=== PATIENT | female | born 1945 | race African-American/Black ===

== ENCOUNTER → 2019-02-14 | Day surgery (SDC) | payer OTHER ==
[2012-06-30 22:29] VITALS: BP 133/75
--- NOTE | 2019-02-14 11:54 | RAD REPORT ---
EXAM DESCRIPTION: US - Breast Core BX w/US Guidance - 02/14/2019 10:24 am CLINICAL HISTORY: N63.23 COMPARISON: Doppler Waveform and Velocitie dated 11/03/2016 FINDINGS: The patient was referred for ultrasound-guided core biopsy of a lesion in the left retroar eolar region. Real-time pre-procedure sonography was performed by radiologist. On the pre-procedure sonography, the oblong 1.4 cm lesion of interest in the retroareolar left breast was identified. However, this appea red to be related to an inverted nipple rather than a mass. Physical exam demonstrated inverted nippl es bilaterally. Thus, it was determined that biopsy would be deferred at this time in favor of six-mo nth follow-up diagnostic imaging of the left breast. Findings and plan of care were discussed in detail with the patient who agreed. Findings were also di scussed with Dr. Estes 10:50 a.m. 02/14/2019 by telephone. IMPRESSION: Retroareolar 1.4 cm circumscribed lesion is felt to be an inverted nipple. For this reas on, core biopsy was deferred at this time and it is recommended the patient undergo six-month follow- up left breast diagnostic views and left whole breast ultrasound. BI-RADS category 3, probably benign.
== END ==
LOC: DS 09:13
PROVIDERS: ATTEND Surgery
DX: N63.23 Unspecified lump in the left breast, lower outer quadrant (principal)
CPT/HCPCS: 19083

== ENCOUNTER 2021-11-14 16:16 | Inpatient (IN) | payer OTHER ==
--- NOTE | 2021-11-14 17:45 | RAD REPORT ---
EXAM DESCRIPTION: CT - Head Brain Wo Cont - 11/14/2021 5:33 pm CLINICAL HISTORY: AMS COMPARISON: Chest Single View dated 02/20/2018; Chest Pa And Lat (2 Views) dated 02/03/2018; ABDOMEN 1 VIEW KUB dated 11/09/2013; CHEST SINGLE VIEW dated 11/08/2013Head Brain Wo Cont dated 11/01/2016; HEAD BR AIN W O CONTRAST dated 03/14/2015 TECHNIQUE: All CT scans are performed using dose optimization technique as appropriate and may inclu de automated exposure control or mA/KV adjustment according to patient size. FINDINGS: No intracranial hemorrhage, hydrocephalus or extra-axial fluid collection.No areas of brai n edema or evidence of midline shift. Expansile lesion in the right parietal bone is unchanged since 2014 and benign. 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 The paranasal sinuses and mastoids are clear. The calvarium is intact. IMPRESSION: No acute intracranial abnormality.
--- NOTE | 2021-11-14 18:15 | RAD REPORT ---
EXAM DESCRIPTION: RAD - Chest Single View - 11/14/2021 5:52 pm CLINICAL HISTORY: AMS COMPARISON: Chest Single View dated 10/30/2016; Chest Single View dated 09/19/2016; CHEST SINGLE VIE W dated 03/14/2015; CHEST SINGLE VIEW dated 01/16/2014 FINDINGS: Lines: None. Lungs: Some patchy airspace disease is present in the left lung. Pleural: No significant pleural effusions or pneumothorax. Cardiac: Cardiomegaly. Bones: No acute fractures. Other: IMPRESSION: Possible left sided pneumonia.
--- NOTE | 2021-11-14 18:15 | RAD REPORT ---
EXAM DESCRIPTION: RAD - Ankle Left 3 View - 11/14/2021 5:52 pm CLINICAL HISTORY: Pain;Deformity COMPARISON: Ankle Left 3 View dated 09/27/2012 FINDINGS/IMPRESSION: No acute fracture. Status post hindfoot fusion. One of the screws traversing th e talus is fractured. Progressive, advanced degenerative changes are present the ankle. There is comp lete loss of joint space at the ankle. Diffuse soft tissue swelling. Osteopenia limits evaluation for fractures.
[2021-11-14 18:20] LABS: Absolute Lymphocytes (CBC) 1.1 K/uL (0.7-4.9); Hematocrit 27.7 % (36.0-45.0); Lymphocytes % 14.4 % (15.3-44.8); MPV 8.3 fL (7.6-11.3); RBC Red Blood Cell Count 3.18 M/uL (3.86-4.86)
[2021-11-14 18:21] LABS: Protime INR 1.08
[2021-11-14 18:57] LABS: Urine Blood 3+ (Negative); Urine Glucose Negative (Negative); Urine Protein 3+ (Negative); Urine Specific Gravity >=1.030 (1.005-1.030)
[2021-11-14 19:11] LABS: ALT/SGPT 19 U/L (12-78); AST/SGOT 45 U/L (15-37); Albumin 3.2 g/dL (3.4-5.0); Alkaline Phosphatase 207 U/L (45-117); BUN Blood Urea Nitrogen 45 mg/dL (7-18); Bicarbonate 17 mmol/L (21-32); Bilirubin Direct < 0.1 mg/dL (0-0.2); Bilirubin Total 0.3 mg/dL (0.2-1.0); Glucose Level 84 mg/dL (74-106); Magnesium 1.8 mg/dL (1.8-2.4); NT PRO-BNP 1019 pg/mL (<125); Potassium 3.8 mmol/L (3.5-5.1); Protein, Total 7.8 g/dL (6.4-8.2); Sodium Level 147 mmol/L (136-145)
[2021-11-14 19:51] LABS: Urine Bacteria >50 /HPF (<20); Urine RBC >50 /HPF (NONE SEEN)
[2021-11-14] MEDS ORDERED: CEFTRIAXONE 1000 MG/VIAL ONE (20:04)
[2021-11-14] MEDS ORDERED: NA CHLORIDE 0.9% 50 ML ONE (20:04)
[2021-11-14] MEDS ORDERED: AZITHROMYCIN 500 MG INJ IVPB ONE (21:09)
[2021-11-14] MEDS ORDERED: NA CHLORIDE 0.9% 250 ML ONE (21:10)
[2021-11-14] MEDS ORDERED: NA CHLORIDE 0.9% 1,000 ML ONE (21:10)
--- NOTE | 2021-11-14 21:37 | ER ---
Nurse's Notes [facility] Name: Wing Deng Age: 75 yrs Sex: Female : 1945 Arrival Date: 11/14/2021 Time: 16:24 Bed 20 Private MD: Diagnosis: Other pneumonia, unspecified organism;Other specified sepsis;UTI/ Urinary tract infection, site not specified;Acute kidney failure, unspecified;Acidosis-METABOLIC Presentation: 11/14 16:25 Chief complaint: EMS states: toned out for AMS, pt intermittent shaking, BS was 341 but iw has no hx of diabetes, reports not feeling well for a few days, also had pain with urination today, hx of CHF and htn. 16:28 Coronavirus screen: Client presents with at least one sign or symptom that may indicate iw coronavirus-19. Ebola Screen: Patient negative for fever greater than or equal to 101.5 degrees Fahrenheit, and additional compatible Ebola Virus Disease symptoms Patient denies exposure to infectious person. Patient denies travel to an Ebola-affected area in the 21 days before illness onset. No symptoms or risks identified at this time. Initial Sepsis Screen: Does the patient meet any 2 criteria? No. Patient's initial sepsis screen is negative. Does the patient have a suspected source of infection? No. Patient's initial sepsis screen is negative. Risk Assessment: Do you want to hurt yourself or someone else? Patient reports no desire to harm self or others. Onset of symptoms was November 14, 2021. 16:28 Method Of Arrival: EMS: [facility] iw 16:28 Acuity: KRISTYN 3 iw 16:29 Care prior to arrival: IV initiated. 20 GA, in the right antecubital area, Glucose iw check: 341. Historical: - Allergies: 16:30 No Known Allergies; iw - Home Meds: 18:42 amlodipine oral [Active]; Nitroglycerin SL [Active]; Acetaminophen-Codeine Oral vg1 [Active]; - PMHx: 16:30 Hyperlipidemia; Hypertension; iw - Immunization history:: Client reports having NOT received the Covid vaccine. - Social history:: Smoking status: Patient denies any tobacco usage or history of. Screenin:50 Abuse screen: Denies threats or abuse. Nutritional screening: No deficits noted. vg1 Tuberculosis screening: No symptoms or risk factors identified. Fall Risk Fall in past 12 months (25 points). No secondary diagnosis (0 pts). IV access (20 points). Ambulatory Aid- Crutches/Cane/Walker (15 pts). Gait- Weak (10 pts.). Mental Status- Overestimates/Forgets Limitations (15 pts.). Total [place]o Fall Scale indicates High Risk Score (45 or more points). Fall prevention measures have been instituted. Side Rails Up X 2 Placed Close to Nursing Station Family Present and informed to notify staff if the need to leave the bedside. Assessment: 16:45 General: Appears uncomfortable, Behavior is calm, cooperative. Pain: Denies pain. vg1 Neuro: Level of Consciousness is awake, alert, obeys commands, Oriented to person, place, time. Cardiovascular: Patient's skin is warm and dry. Respiratory: Airway is patent Respiratory effort is even, unlabored. GI: Patient currently denies diarrhea, nausea, vomiting. : Parent/caregiver report the patient having burning with urination. EENT: No signs and/or symptoms were reported regarding the EENT system. Derm: Skin is fragile, Skin is dry, KELLIE lower extremities. Musculoskeletal: Swelling present in KELLIE lower extremities. 19:53 Reassessment: Patient appears in no apparent distress at this time. No changes from anika previously documented assessment. 21:42 General: F/C placed, 18 Fr, using sterile technique and the assist of her daughter. . tw5 11/15 02:00 Reassessment: No changes from previously documented assessment. The pt remains anika non-verbal but agreeable. She appears to be in NAD, but does nod and "say" uh huh", when asked anything. . 04:26 General: Lab is at bedside drawing am labs. . anika 05:48 General: The pt had a huge loose bm and was very little assistance, cleaning her. She anika would confuse push, with pull, but she remained pleasant and cooperative . 06:47 General: The pt was taken to radiology. anika 06:56 General: The pt returned from radiology and IV was reconnected. Lab is at bedside anika taking specimens. . Vital Signs: 11/14 17:00 BP 132 / 73; Pulse 106; Resp 19; Pulse Ox 98% on R/A; vg1 17:45 BP 146 / 82; Pulse 102; Resp 16; Pulse Ox 100% ; vg1 18:30 BP 121 / 97; Pulse 107; Resp 19; Pulse Ox 100% ; vg1 19:53 BP 140 / 86; Pulse 108; Resp 18; Temp 100.4; Pulse Ox 99% on R/A; Pain 0/10; anika 21:00 BP 136 / 107; Pulse 105; Resp 18; Pulse Ox 99% on R/A; anika 22:00 BP 127 / 80; Pulse 105; Resp 18; Pulse Ox 99% on R/A; anika 23:00 BP 135 / 77; Pulse 102; Resp 18; Pulse Ox 99% on R/A; anika 11/15 00:00 BP 131 / 78; Pulse 101; Resp 18; Pulse Ox 98% on R/A; anika 01:00 BP 137 / 69; Pulse 112; Resp 22; Temp 98.5; Pulse Ox 99% on R/A; anika 02:00 BP 142 / 87; Pulse 118; Resp 20; Temp 98.5; Pulse Ox 100% on R/A; anika 03:00 BP 141 / 71; Pulse 114; Resp 20; Pulse Ox 99% on R/A; anika 04:20 BP 148 / 71; Pulse 114; Resp 18; Pulse Ox 99% on R/A; Pain 0/10; anika 04:57 BP 131 / 76; Pulse 111; Resp 18; Temp 98.5; Pulse Ox 99% on NC; Pain 0/10; anika 05:49 BP 133 / 62; Pulse 98; Resp 18; Pulse Ox 99% on R/A; anika 06:44 BP 144 / 67; Pulse 99; Resp 18; Pulse Ox 99% on R/A; anika ED Course: 11/14 16:24 Patient arrived in ED. iw 16:29 Triage completed. iw 16:30 Arm band placed on. iw 16:38 Marco A Banks PA is PHCP. cp 16:38 Kyler Wagner MD is Attending Physician. cp 16:39 Yoon Quan, RN is Primary Nurse. vg1 17:23 EKG done, by ED staff. mh5 17:33 CT Head Brain wo Cont In Process Unspecified. EDMS 17:52 XRAY Chest (1 view) In Process Unspecified. EDMS 17:52 XRAY Ankle LEFT 3 view In Process Unspecified. EDMS 18:20 Initial lab(s) drawn, by me, sent to lab. First set of blood cultures drawn Second set mh5 of blood cultures drawn by ut. 18:30 Basic Metabolic Panel Sent. mh5 18:30 Blood Culture Adult (2) Sent. 5 18:31 Procalcitonin Sent. 5 18:31 Lactate Sent. 5 18:31 Basic Metabolic Panel Sent. 5 18:31 CBC with Diff Sent. 5 18:31 LFT's Sent. 5 18:31 Magnesium Sent. 5 18:31 NT PRO-BNP Sent. 5 18:31 Troponin HS Sent. mh5 18:32 Patient has correct armband on for positive identification. Placed in gown. Bed in low mh5 position. Call light in reach. Side rails up X2. Adult w/ patient. Warm blanket given. certified registered locksmith on. Pulse ox on. NIBP on. 18:32 Maintain EMS IV. Dressing intact. Site clean \\T\\ dry. 5 19:04 Urine Microscopic Only Sent. 5 19:04 Urine collected: straight cath specimen, cloudy. 5 19:06 Report given to Ling DU. vg1 19:53 No provider procedures requiring assistance completed. Provider notified of pt's anika Calcium level. 21:36 Devante Varghese MD is Hospitalizing Provider. cp 21:41 SARS-COV-2 RT PCR (Document "Date of Onset" if Symptomatic) Sent. tw5 22:01 Rp Exam Complete In Process Unspecified. EDMS 22:45 Notified ED physician of a critical lab result(s). Covid +. tw5 11/15 01:00 The F/C was replaced, as there was no return, utilizing another nurse to assist. Cloudy anika urine was draining into the bedside bag. 04:59 NT PRO-BNP Sent. anika 04:59 CBC with Automated Diff Sent. anika 04:59 Basic Metabolic Panel Sent. anika 05:32 Notified the Hospitalist of a critical lab result(s), Calcium 6.5, C02 12. tw5 06:18 Attending Physician role handed off by Kyler Wagner MD fernandez 06:18 Marco A Estrada MD is Attending Physician. fernandez 06:18 ABG Sent. anika 07:00 Patient admitted, IV remains in place. intact, No redness/swelling at site. jl7 Administered Medications: 06:20 Discontinued: NS 0.9% 1000 ml IV at 100 ml/hr continuous fernandez 11/14 20:09 Drug: Rocephin - (cefTRIAXone) 1 grams Route: IVPB; Infused Over: 30 mins; Site: right anika antecubital; 23:54 Follow up: Response: No adverse reaction; IV Intake: 100ml anika 11/15 04:34 Follow up: Response: No adverse reaction; IV Intake: 50ml anika 11/14 21:41 Drug: NS 0.9% 1000 ml Route: IV; Rate: 100 ml/hr; Site: right antecubital; tw5 21:42 Drug: Zithromax (azithromycin) 500 mg Route: IVPB; Infused Over: 1 hrs; Site: right tw5 antecubital; 11/15 04:34 Follow up: Response: No adverse reaction; IV Intake: 250ml anika 11/14 21:42 Drug: NS 0.9% 500 ml Route: IV; Rate: bolus; Site: right antecubital; tw5 23:55 Follow up: Response: No adverse reaction; IV Intake: 500ml anika 11/15 04:34 Follow up: Response: No adverse reaction; IV Intake: 500ml anika 04:59 Follow up: Response: No adverse reaction; IV Intake: 500ml anika 06:07 Drug: NS 0.9% 500 ml Route: IV; Rate: bolus; Site: right antecubital; sv1 06:18 Follow up: Response: No adverse reaction; IV Intake: 500ml anika 06:45 Follow up: IV Intake: 500ml anika 06:56 Drug: NS 0.9% 1000 ml Route: IV; Rate: 1 bolus; Site: right antecubital; anika Intake: 11/14 23:54 IV: 100ml; Total: 100ml. anika 23:55 IV: 500ml; Total: 600ml. anika 11/15 04:34 IV: 500ml; Total: 1100ml. anika 04:34 IV: 250ml; Total: 1350ml. anika 04:34 IV: 50ml; Total: 1400ml. anika 04:59 IV: 500ml; Total: 1900ml. anika 06:18 IV: 500ml; Total: 2400ml. anika 06:45 IV: 500ml; Total: 2900ml. anika Outcome: 11/14 21:37 Decision to Hospitalize by Provider. cp 23:58 Condition: stable anika 11/15 07:00 Admitted to ER Hold. Please see [facility] for further documentation. jl7 Discharge instructions given to patient, Instructed on the need for admit, Demonstrated understanding of instructions. 11:09 Patient left the ED. jl7 Signatures: Dispatcher [employer] EDMS Marco A Estrada MD MD cha Williams, Irene, RN RN Marco A James PA PA cp Martinez, Maria 5 Jeny Gaona RN RN Yoon Jo RN RN 1 Katherine Vázquez 5 Ling Wei RN RN bo Villicano, Steven RN RN sv1 Corrections: (The following items were deleted from the chart) 11/14 16:29 16:25 Chief complaint: EMS states: toned out for AMS, pt intermittent [facility] 18:54 16:45 Neuro: Level of Consciousness is awake, alert, obeys commands, Oriented to vg1 person, place, time, situation, vg1
--- NOTE | 2021-11-14 21:38 | EDPHYS ---
Physician Documentation [facility] Name: Wing Deng Age: 75 yrs Sex: Female : 1945 Arrival Date: 11/14/2021 Time: 16:24 Bed 20 Private MD: ED Physician Marco A Estrada HPI: 11/14 18:45 This 75 yrs old Black Female presents to ER via EMS with complaints of Altered Mental cp Status. 18:45 The patient presents with decreased mental status. Onset: The symptoms/episode cp began/occurred yesterday, and became worse today. Possible causes: unknown. Associated signs and symptoms: Pertinent positives: edema. 18:45 Patient's baseline: Neuro: orientated to person, place, Motor: no deficits, Ambulation: cp walks with assist only, uses walker, Speech: normal. 18:45 Current symptoms: In the emergency department the patient's symptoms are unchanged from cp the initial presentation, despite home interventions. Historical: - Allergies: 16:30 No Known Allergies; iw - Home Meds: 18:42 amlodipine oral [Active]; Nitroglycerin SL [Active]; Acetaminophen-Codeine Oral vg1 [Active]; - PMHx: 16:30 Hyperlipidemia; Hypertension; iw - Immunization history:: Client reports having NOT received the Covid vaccine. - Social history:: Smoking status: Patient denies any tobacco usage or history of. ROS: 18:50 Constitutional: Negative for fever. cp 18:50 Eyes: Negative for injury, pain, redness, and discharge. cp 18:50 Cardiovascular: Positive for edema, Negative for chest pain. 18:50 Respiratory: Negative for cough, wheezing. 18:50 Abdomen/GI: Negative for abdominal pain, vomiting, diarrhea, constipation. 18:50 Neuro: Positive for altered mental status, Negative for headache. cp 18:50 MS/extremity: Positive for decreased range of motion, deformity, pain, of the left cp ankle. 18:50 Skin: Negative for rash. 18:50 All other systems are negative. Exam: 18:33 ECG was reviewed by the Attending Physician. cp 18:55 Constitutional: The patient appears in no acute distress, alert, awake, cp non-diaphoretic, non-toxic, well developed, well nourished, obese. 18:55 Head/Face: Normocephalic, atraumatic. cp 18:55 Eyes: Periorbital structures: appear normal, Pupils: equal, round, and reactive to light and accomodation, Extraocular movements: intact throughout, Conjunctiva: normal, no exudate, no injection, Sclera: no appreciated abnormality, Lids and lashes: appear normal, bilaterally. 18:55 ENT: External ear(s): are unremarkable, Nose: is normal, Mouth: Lips: dry, Oral mucosa: dry, Posterior pharynx: Airway: no evidence of obstruction, patent. 18:55 Neck: ROM/movement: is normal, is supple, without pain, no range of motions limitations, no meningismus, no nuchal rigidity. 18:55 Chest/axilla: Inspection: normal. 18:55 Cardiovascular: Rate: tachycardic, Rhythm: regular, Edema: ankle edema, that is mild, JVD: is not appreciated. 18:55 Respiratory: the patient does not display signs of respiratory distress, Respirations: labored breathing, is not present, shallow respirations, that is mild, Breath sounds: decreased breath sounds, that are mild, diffuse, stridor, is not appreciated, wheezing: is not appreciated. 18:55 Abdomen/GI: Inspection: obese Bowel sounds: active, all quadrants, Palpation: soft, in all quadrants, mild abdominal tenderness, in the right lower quadrant and left lower quadrant, rebound tenderness, is not appreciated, voluntary guarding, is not appreciated, involuntary guarding, is not appreciated. 18:55 Back: pain, is absent, ROM is normal. 18:55 Skin: cellulitis, is not appreciated, no rash present. 18:55 Neuro: Orientation: to person, Mentation: able to follow commands, Motor: moves all fours, Sensation: no obvious gross deficits. Vital Signs: 17:00 BP 132 / 73; Pulse 106; Resp 19; Pulse Ox 98% on R/A; vg1 17:45 BP 146 / 82; Pulse 102; Resp 16; Pulse Ox 100% ; vg1 18:30 BP 121 / 97; Pulse 107; Resp 19; Pulse Ox 100% ; vg1 19:53 BP 140 / 86; Pulse 108; Resp 18; Temp 100.4; Pulse Ox 99% on R/A; Pain 0/10; anika 21:00 BP 136 / 107; Pulse 105; Resp 18; Pulse Ox 99% on R/A; anika 22:00 BP 127 / 80; Pulse 105; Resp 18; Pulse Ox 99% on R/A; anika 23:00 BP 135 / 77; Pulse 102; Resp 18; Pulse Ox 99% on R/A; anika 11/15 00:00 BP 131 / 78; Pulse 101; Resp 18; Pulse Ox 98% on R/A; anika 01:00 BP 137 / 69; Pulse 112; Resp 22; Temp 98.5; Pulse Ox 99% on R/A; anika 02:00 BP 142 / 87; Pulse 118; Resp 20; Temp 98.5; Pulse Ox 100% on R/A; anika 03:00 BP 141 / 71; Pulse 114; Resp 20; Pulse Ox 99% on R/A; anika 04:20 BP 148 / 71; Pulse 114; Resp 18; Pulse Ox 99% on R/A; Pain 0/10; anika 04:57 BP 131 / 76; Pulse 111; Resp 18; Temp 98.5; Pulse Ox 99% on NC; Pain 0/10; anika 05:49 BP 133 / 62; Pulse 98; Resp 18; Pulse Ox 99% on R/A; anika 06:44 BP 144 / 67; Pulse 99; Resp 18; Pulse Ox 99% on R/A; anika MDM: 11/14 16:41 Patient medically screened. cp 21:40 Data reviewed: vital signs, nurses notes, lab test result(s), EKG, radiologic studies, cp plain films. 21:40 Test interpretation: by ED physician or midlevel provider: ECG, plain radiologic cp studies. Physician consultation: Devante Varghese MD was called at 21:30, was contacted at 21:30, regarding admission, to the telemetry unit. patient's condition. 11/14 16:58 Order name: Basic Metabolic Panel cp 11/14 16:58 Order name: CBC with Diff; Complete Time: 19:08 cp 11/14 19:08 Interpretation: Normal except: RBC 3.18; HGB 8.6; HCT 27.7; MCHC 31.1; RDW 17.0; LYM% cp 14.4; CHELSIE% 78.7. 11/14 16:58 Order name: LFT's; Complete Time: 20:26 cp 11/14 20:26 Interpretation: Normal except: AST 45; ALK 207; ALB 3.2; GLOB 4.6; A/G 0.7. 11/14 16:58 Order name: Magnesium; Complete Time: 20:26 cp 11/14 16:58 Order name: NT PRO-BNP; Complete Time: 20:26 11/14 20:26 Interpretation: Abnormal: NT PRO-BNP 1019. cp 11/14 16:58 Order name: PT-INR; Complete Time: 19:08 cp 11/14 16:58 Order name: Troponin HS; Complete Time: 20:26 11/14 21:14 Interpretation: Abnormal: Troponin HS 98.60. cp 11/14 16:58 Order name: Lactate; Complete Time: 20:26 11/14 16:58 Order name: Procalcitonin; Complete Time: 20:26 11/14 16:58 Order name: Urine Microscopic Only; Complete Time: 20:26 11/14 20:27 Interpretation: Normal except: UWBC >50; URBC >50; UBACT >50. 11/14 16:58 Order name: Blood Culture Adult (2) 11/14 16:59 Order name: Basic Metabolic Panel; Complete Time: 20:26 EDMS 11/14 20:27 Interpretation: Normal except: NA 147; CL 113; CO2 17; BUN 45; CRE 4.56; GFR 11; CA 6.8. 11/14 18:56 Order name: Urine Dipstick-Ancillary; Complete Time: 19:08 EDMS 11/14 19:51 Order name: Urine Culture EDCA 11/14 16:58 Order name: XRAY Chest (1 view); Complete Time: 19:08 11/14 16:58 Order name: XRAY Ankle LEFT 3 view; Complete Time: 19:08 11/14 16:58 Order name: CT Head Brain wo Cont; Complete Time: 17:56 11/14 17:56 Interpretation: Report reviewed. 11/14 20:38 Order name: SARS-COV-2 RT PCR (Document "Date of Onset" if Symptomatic); Complete Time: ds4 06:19 11/14 21:14 Order name: US Rp Exam Complete cp 11/15 00:10 Order name: Basic Metabolic Panel; Complete Time: 06:19 EDMS 11/15 00:10 Order name: CBC with Automated Diff EDMS 11/15 00:10 Order name: NT PRO-BNP; Complete Time: 06:19 EDCA 11/15 05:40 Order name: ABG tw5 11/15 06:24 Order name: CT Chest Abdomen Pelvis W/O Contrast [facility] 11/15 06:24 Order name: ABG Arterial Blood Gas [facility] 11/15 07:27 Order name: CT [facility] 11/15 07:42 Order name: US [facility] 11/14 16:58 Order name: EKG; Complete Time: 16:59 11/14 16:58 Order name: Cardiac monitoring; Complete Time: 17:21 11/14 16:58 Order name: EKG - Nurse/Tech; Complete Time: 17:21 11/14 16:58 Order name: IV Saline Lock; Complete Time: 18:31 11/14 16:58 Order name: Labs collected and sent; Complete Time: 18:31 11/14 16:58 Order name: O2 Per Protocol; Complete Time: 18:31 11/14 16:58 Order name: O2 Sat Monitoring; Complete Time: 18:31 11/14 16:58 Order name: Urine Dipstick-Ancillary (obtain specimen); Complete Time: 18:56 11/14 16:58 Order name: Cath; Complete Time: 18:56 11/14 18:28 Order name: Vital Signs; Complete Time: 18:56 11/14 20:30 Order name: Lamar; Complete Time: 21:42 11/14 22:47 Order name: 60g Consistent Carbohydrate (ADA 1800/2000); Complete Time: 00:51 EDCA 11/14 22:47 Order name: EKG Electrocardiogram; Complete Time: 01:32 EDCA 11/14 22:47 Order name: EKG Electrocardiogram; Complete Time: 01:32 EDMS EC:33 Rate is 108 beats/min. Rhythm is regular. DC interval is normal. QRS interval is cp normal. QT interval is normal. Interpreted by me. Reviewed by me. Administered Medications: 11/15 06:20 Discontinued: NS 0.9% 1000 ml IV at 100 ml/hr continuous [facility] 11/14 20:09 Drug: Rocephin - (cefTRIAXone) 1 grams Route: IVPB; Infused Over: 30 mins; Site: right anika antecubital; 23:54 Follow up: Response: No adverse reaction; IV Intake: 100ml 11/15 04:34 Follow up: Response: No adverse reaction; IV Intake: 50ml anika 11/14 21:41 Drug: NS 0.9% 1000 ml Route: IV; Rate: 100 ml/hr; Site: right antecubital; tw5 21:42 Drug: Zithromax (azithromycin) 500 mg Route: IVPB; Infused Over: 1 hrs; Site: right tw5 antecubital; 11/15 04:34 Follow up: Response: No adverse reaction; IV Intake: 250ml anika 11/14 21:42 Drug: NS 0.9% 500 ml Route: IV; Rate: bolus; Site: right antecubital; tw5 23:55 Follow up: Response: No adverse reaction; IV Intake: 500ml anika 11/15 04:34 Follow up: Response: No adverse reaction; IV Intake: 500ml anika 04:59 Follow up: Response: No adverse reaction; IV Intake: 500ml anika 06:07 Drug: NS 0.9% 500 ml Route: IV; Rate: bolus; Site: right antecubital; sv1 06:18 Follow up: Response: No adverse reaction; IV Intake: 500ml anika 06:45 Follow up: IV Intake: 500ml anika 06:56 Drug: NS 0.9% 1000 ml Route: IV; Rate: 1 bolus; Site: right antecubital; anika Disposition: 11/16 07:48 Co-signature as Attending Physician, Marco A Estrada MD I agree with the assessment and fernandez plan of care. Disposition Summary: 11/14/21 21:37 Hospitalization Ordered Hospitalization Status: Inpatient Admission cp Provider: Devante Varghese cp Condition: Fair cp Problem: new cp Symptoms: are unchanged cp Bed/Room Type: Standard cp Location: Telemetry/MedSurg (Inpatient)(11/15/21 10:15) eb Room Assignment: 404(11/15/21 10:15) eb Diagnosis - Other pneumonia, unspecified organism cp - Other specified sepsis cp - UTI/ Urinary tract infection, site not specified cp - Acute kidney failure, unspecified cp - Acidosis - METABOLIC fernandez Forms: - Medication Reconciliation Form cp - SBAR form cp Signatures: Dispatcher [employer] Becca Jones RN RN mw Anderson, Corey, MD MD cha Williams, Irene, RN RN iw Page, Corey, PA PA cp Botello, Elizabeth eb Kadeem, Yoon, RN RN vg1 Katherine Vázquez tw5 Ling Wei, RN RN Lucian Perry RN RN sv1 Corrections: (The following items were deleted from the chart) 11/14 20:39 20:39 SARS-COV-2 RT PCR+[id number].LAB.BRZ ordered. EDMS EDMS 22:51 21:37 Telemetry/MedSurg (Inpatient) mw 22:51 21:37 cp mw 11/15 10:15 11/14 22:51 BR ER HOLD mw eb 11/15 10:15 11/14 22:51 ERHOLD- mw eb
[2021-11-14] MEDS ORDERED: ONDANSETRON 4 MG/2 ML VIAL IV PRN (22:42)
[2021-11-14] MEDS ORDERED: GLUCAGON 1 MG/VIAL IM PRN (22:44)
[2021-11-14] MEDS ORDERED: D50W 25 GM/50 ML SYRINGE IV PRN (22:44)
[2021-11-14] MEDS: NA CHLORIDE 0.9% 1,000 ML IV SCH (23:00)
[2021-11-15] MEDS ORDERED: ACETAMINOPHEN 500 MG TAB ONE (02:41)
[2021-11-15] MEDS: ACETAMINOPHEN 500 MG TAB PO PRN ×2 (03:17→13:32)
[2021-11-15 05:30] LABS: Potassium 3.8 mmol/L (3.5-5.1)
[2021-11-15] MEDS ORDERED: NA CHLORIDE 0.9% 500 ML ONE (06:06)
[2021-11-15 06:22] LABS: Arterial Blood Carboxyhemoglob 1.3 % (0-1.5); Blood Gas Oxyhemoglobin 91.3 % (94-97); Blood O2 Saturation 93.8 % (92-98.5)
[2021-11-15 07:17] LABS: Hematocrit 25.4 % (36.0-45.0); Lymphocytes % 11.7 % (15.3-44.8); MPV 8.4 fL (7.6-11.3); RBC Red Blood Cell Count 2.91 M/uL (3.86-4.86)
--- NOTE | 2021-11-15 07:26 | RAD REPORT ---
EXAM DESCRIPTION: CTChest Abd Pelvis Wo Con - 11/15/2021 6:46 am CLINICAL HISTORY: Cough;Fever;Pain COMPARISON: Chest Abd Pelvis Wo Con dated 10/31/2016; Renal Ultrasound-Complete dated 11/14/2021 TECHNIQUE: CT of the chest, abdomen, and pelvis was performed. All CT scans are performed using dose optimization technique as appropriate and may include automated exposure control or mA/KV adjustment according to patient size. FINDINGS: Thorax: Chest Wall: No abnormal mass Lungs: Mild nodular airspace disease in the lower lungs bilaterally. Pleura: No effusions or pneumothorax. Diana/Mediastinum: No lymphadenopathy. Aorta/Pulmonary Arteries: Ascending thoracic aortic aneurysm measuring 4.1 cm . Heart: Normal size. Multi-vessel coronary artery disease. Aortic root calcifications. Abdomen/Pelvis: Liver: No acute abnormality or suspicious lesions. Biliary: Cholelithiasis. Stomach: No significant focal abnormality. Duodenum: No significant focal abnormality. Pancreas: No significant abnormality. Spleen: No significant abnormality. Adrenal: No suspicious lesions. Kidney/ureter: No hydronephrosis. No renal calculi. Mild bilateral hydroureter. Right renal cyst. 8 m m calcified structure along the upper pole right kidney is unchanged and possibly a small calcified r enal artery aneurysm. Complex lesion in the interpolar aspect of the right kidney measuring 16 millim eters. This is not well characterized. It was present in 2016 and measured 11 millimeters. Retroperitoneum: No retroperitoneal adenopathy. Vascular: No aneurysm. Atherosclerosis. Bowel: No significant focal abnormality. Peritoneum: No ascites or free air. Bladder: Lamar catheter in the bladder with decompressed bladder. . Reproductive: Hysterectomy. Bones: No acute fracture. Mild diffuse sclerotic appearance of the osseous structures which is chroni c. Remote obturator ring fractures. Other: n/a IMPRESSION: 1. Mild nodularity in the lower lungs could reflect mild infection, inflammation, and/or aspiration. 2. No acute intra-abdominal abnormality. 3. Cholelithiasis without CT evidence of acute cholecystitis. 4. Complex right renal lesion which has modestly increased in size since 2016 and is highly indicativ e of a benign process. As the lesion is not well assessed without contrast, recommend 6-12 month foll ow-up renal protocol CT or MRI. 5. Ascending thoracic aortic aneurysm measuring 4.1 cm. These are frequently assessed annually with C T.
[2021-11-15] MEDS: INSULIN -REGULAR HUMAN 50 UNIT/0.5 ML ML SQ SCH ×4 (07:30→21:00)
--- NOTE | 2021-11-15 07:42 | RAD REPORT ---
EXAM DESCRIPTION: US - Extrem Venous W Compress James - 11/15/2021 7:30 am CLINICAL HISTORY: Edema COMPARISON: None. TECHNIQUE: Real-time sonographic evaluation of the bilateral lower extremity deep venous systems was performed. FINDINGS: Normal compressibility, flow augmentation, phasic flow and spontaneous flow is identified in both the left and right lower extremity deep venous systems. No intraluminal filling defects seen. Note that the right posterior tibial vein is not visualized. IMPRESSION: No DVT in either lower extremity.
--- NOTE | 2021-11-15 07:52 | RAD REPORT ---
EXAM DESCRIPTION: US - Renal Ultrasound-Complete - 11/14/2021 10:01 pm CLINICAL HISTORY: kidney failure COMPARISON: Abdomen Exam Complete dated 11/03/2016; Chest Abd Pelvis Wo Con dated 11/15/2021 FINDINGS: Both kidneys demonstrate echogenic renal cortices. The right kidney measures 8.9 cm. Simple right renal cyst measuring 2.7 cm. Calcified focus in the up per pole of the right kidney measuring 9 millimeters which was also identified on CT and may represen t a small parenchymal calcification. The left kidney measures 8.9 cm. No hydronephrosis, focal mass or perinephric fluid. The urinary bladder is incompletely distended without gross abnormality seen. IMPRESSION: No evidence of hydronephrosis. Increased echogenicity of the renal cortices consistent w ith medical renal disease.
[2021-11-15] MEDS ORDERED: CEFTRIAXONE 1000 MG/VIAL ONE (13:27)
[2021-11-15] MEDS: CEFTRIAXONE 1,000 MG in NA CHLORIDE 0.9% 50 ML IVPB SCH (13:31)
[2021-11-15] MEDS ORDERED: NA CHLORIDE 0.9% 50 ML ONE (13:31)
[2021-11-15] MEDS: NA CHLORIDE 0.9% 1,000 ML IV SCH (13:32)
[2021-11-15] MEDS: AZITHROMYCIN IV 500 MG in NA CHLORIDE 0.9% 250 ML IVPB SCH (13:33)
[2021-11-15] MEDS: ASPIRIN 81 MG CHEWABLE TABLET PO SCH (13:40)
--- NOTE | 2021-11-15 16:09 | P.HP ---
Certification for Inpatient Patient admitted to: Inpatient With expected LOS: >2 Midnights Practitioner: I am a practitioner with admitting privileges, knowledge of patient current condition, hospital course, and medical plan of care. Services: Services provided to patient in accordance with Admission requirements found in Title 42 Section 412.3 of the Code of Federal Regulations Patient History Date of Service: 11/15/21 Reason for admission: WEAKNESS, CONFUSION, LEG SWELLING. 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 SEVERE DJD, ANXIETY DISORDER, DEPRESSION ETC. DAUGHTER CALLS ME WHEN SHE FINDS HER CONFUSED, YELLING AND HAD LEG EDEMA. SHE WAS BROUGHT TO ER FOUND TO HAVE ACUTE PRERENAL ARF, ACIDOSIS, UTI AND QUESTIONABLE PNEUMONIA WITH COVID INFECTION. SHE WHEN I SEE HER IS LAYING IN THE BED AND RESPONDED APPROPRIATELY. Allergies No Known Drug Allergies Allergy (Verified 10/23/16 15:08) Unknown Home medications list reviewed: Yes Home Medications: Duloxetine HCl 60 mg PO DAILY 09/19/16 Gabapentin [Gralise] 300 mg PO TID 09/19/16 Mirtazapine 15 mg PO BEDTIME 09/19/16 Tramadol HCl [Ultram] 1 tab PO TID 09/19/16 minoxidiL [Minoxidil] 2.5 mg PO BID 09/19/16 Metoprolol Succinate [Toprol Xl*] 100 mg PO DAILY tab 09/24/16 Omeprazole 20 mg PO DAILY #30 tablet. 09/24/16 Atorvastatin Calcium [Lipitor*] 10 mg PO BEDTIME 10/23/16 cloNIDine HCL [Catapres*] 0.3 mg PO BID 10/23/16 Acetaminophen [Tylenol*] 325 mg PO Q4H PRN #0 tab 11/07/16 Hydrocodone 5/APAP 325 [[place] 5/325*] 1 tab PO Q6H PRN #50 tab 11/07/16 Iron/FA/Vit B-Com W/C [Hemocyte Plus*] 1 tab PO DAILY WITH BREAKFAST tab 11/07/16 levETIRAcetam [Keppra*] 250 mg PO BID tab 11/07/16 - Past Medical/Surgical History Diabetic: No -: hypertension -: Hyperlipidemia -: CAD -: Heart stents -: right knee replaced 10 yrs ago -: lt lumpectomy many yrs ago -: left foot surg. 10 yrs ago -: tubal ligation 30 yrs ago - Family History Father -: Heart disease - Social History Alcohol use: No CD- Drugs: No Caffeine use: Yes Physical Examination - Vital Signs Temperature: 97.3 F Blood Pressure: 142/91 Pulse: 110 Respirations: 20 Pulse Ox (%): 97 - Studies Laboratory Data (last 24 hrs) 11/14/21 18:05: PT 12.4, INR 1.08 11/14/21 18:05: WBC 7.50, Hgb 8.6 L, Hct 27.7 L, Plt Count 198 11/14/21 18:05: Sodium 147 H, Potassium 3.8, BUN 45 H, Creatinine 4.56 H, Glucose 84, Magnesium 1.8, Total Bilirubin 0.3, AST 45 H, ALT 19, Alkaline Phosphatase 207 H Assessment and Plan - Problems (Diagnosis) (1) Metabolic acidosis Current Visit: Yes Status: Acute Plan: FROM BACTERIAL PNEUMONIA, UTI SHOULD IMPROVE RESUME ROCEPHIN IV. BC 2 PENDING. (2) Pneumonia due to COVID-19 virus Current Visit: Yes Status: Acute Plan: SHE HAS COVID BUT NO SYMPTOMS OF IT. PENUMONIA MAY BE FROM BACTERIA AND NOT COVID. (3) Bacterial pneumonia Current Visit: Yes Status: Acute Plan: CONT ROCEPHIN AND ZITHROMAX. (4) Acute renal failure Current Visit: No Status: Acute Plan: ACUTE ON CHRONIC RENAL FAILURE. PRERENAL. I EXPECT WITH IV FLUIDS SHE WILL RETURN TO HER BASLINE OF ABOUT 1.[address] NEG. Qualifiers: Acute renal failure type: unspecified Qualified Code(s): N17.9 - Acute kidney failure, unspecified (5) Altered mental status Current Visit: No Status: Acute Plan: THIS POSSIBLY SITUATIONAL. ACUTE TOXIC DELIRIUM AND SHOULD IMPROVE. Qualifiers: Altered mental status type: delirium Qualified Code(s): R41.0 - Disorientation, unspecified (6) Anemia Onset Date: 11/10/16 Current Visit: No Status: Chronic Plan: ANEMIA IS CHRONIC SHE HAS BEEN REFERRED TO DR. FABIAN BUT SHE HAS NOT FOLLOWED UP. WITH CRIPPLING ARTHTIS SHE IS IN SEVERE PAIN. SHE CAN BARELY WALK WITH WALKER EVERY STEP IS PAINFUL DESPITE NARCOTICS. TO POSITION HER FOR EGD OR COLONSCOPY WILL BE VERY PAINFUL FOR HER. PEPCID IV BID. AVOID ALL NSAIDS. Qualifiers: Anemia type: B12 deficiency Qualified Code(s): D64.89 - Other specified anemias (7) Dehydration Current Visit: No Status: Acute (8) UTI (urinary tract infection) Current Visit: Yes Status: Acute Plan: CULTURE PENDING ROCEPHIN SHOULD COVER. - Advance Directives Does patient have a Living Will: No Does patient have a Durable POA for Healthcare: Yes
[2021-11-15 17:44] LABS: Ferritin 523.3 ng/mL (8-388)
[2021-11-16] MEDS: CEFTRIAXONE 1,000 MG in NA CHLORIDE 0.9% 50 ML IVPB SCH ×3 (00:28→20:58)
[2021-11-16] MEDS: FAMOTIDINE 20 MG/2 ML VIAL IV SCH ×3 (00:29→21:01)
[2021-11-16 06:39] LABS: Potassium 3.1 mmol/L (3.5-5.1)
[2021-11-16] MEDS: INSULIN -REGULAR HUMAN 50 UNIT/0.5 ML ML SQ SCH ×4 (07:30→21:00)
[2021-11-16] MEDS: NA CHLORIDE 0.9% 1,000 ML IV SCH ×2 (09:11→20:59)
[2021-11-16] MEDS: ACETAMINOPHEN 500 MG TAB PO PRN (09:13)
[2021-11-16] MEDS: ASPIRIN 81 MG CHEWABLE TABLET PO SCH (09:14)
[2021-11-16] MEDS: AZITHROMYCIN IV 500 MG in NA CHLORIDE 0.9% 250 ML IVPB SCH (11:22)
[2021-11-16 16:25] LABS: Absolute Lymphocytes (CBC) 1.1 K/uL (0.7-4.9); Hematocrit 27.9 % (36.0-45.0); Lymphocytes % 13.9 % (15.3-44.8); MPV 8.2 fL (7.6-11.3); RBC Red Blood Cell Count 3.24 M/uL (3.86-4.86)
[2021-11-17] MEDS: NA CHLORIDE 0.9% 1,000 ML IV SCH (01:00)
[2021-11-17 06:03] LABS: Absolute Lymphocytes (CBC) 0.8 K/uL (0.7-4.9); Hematocrit 29.2 % (36.0-45.0); Lymphocytes % 11.7 % (15.3-44.8); MPV 8.5 fL (7.6-11.3); RBC Red Blood Cell Count 3.43 M/uL (3.86-4.86)
[2021-11-17 06:21] LABS: Potassium 2.8 mmol/L (3.5-5.1)
[2021-11-17] MEDS ORDERED: NACHLORIDE 0.45% 1,000 ML IV SCH (07:00)
[2021-11-17] MEDS ORDERED: KCL 20 MEQ/100 mL IVPB 20 MEQ/100 ML BAG IV SCH (07:00)
[2021-11-17] MEDS: INSULIN -REGULAR HUMAN 50 UNIT/0.5 ML ML SQ SCH ×4 (07:30→21:00)
[2021-11-17] MEDS ORDERED: POTASSIUM CL 20 MEQ in NA CHLORIDE 0.9% 100 ML IV SCH (08:00)
[2021-11-17] MEDS ORDERED: POTASSIUM CL IV ONE (08:00)
[2021-11-17] MEDS ORDERED: NA CHLORIDE 0.9% IV ONE (08:00)
[2021-11-17] MEDS: CEFTRIAXONE 1,000 MG in NA CHLORIDE 0.9% 50 ML IVPB SCH ×2 (08:52→21:05)
[2021-11-17] MEDS: FAMOTIDINE 20 MG/2 ML VIAL IV SCH ×2 (08:52→21:05)
[2021-11-17] MEDS: ASPIRIN 81 MG CHEWABLE TABLET PO SCH (08:52)
[2021-11-17] MEDS ORDERED: POTASSIUM CL 40 MEQ in NA CHLORIDE 0.9% 480 ML IV ONE (10:00)
[2021-11-17] MEDS: AZITHROMYCIN IV 500 MG in NA CHLORIDE 0.9% 250 ML IVPB SCH (10:00)
--- NOTE | 2021-11-17 10:21 | P.PN ---
Subjective Date of Service: 11/17/21 Chief Complaint: WEAKNESS, CONFUSION, LEG SWELLING. Subjective: Improving NGUYỄN POLO IS DOING A LOT BETTER. SHE IS AWAKE AND HAS NO COMPLAINTS. Review of Systems 10-point ROS is otherwise unremarkable General: Weakness Physical Examination - Vital Signs Temperature: 97.7 F Blood Pressure: 186/98 Pulse: 106 Respirations: 20 Pulse Ox (%): 95 - Physical Exam General: Alert, In no apparent distress HEENT: Atraumatic, PERRLA, EOMI Neck: Supple, JVD not distended Respiratory: Clear to auscultation bilaterally, Normal air movement Cardiovascular: Regular rate/rhythm, Normal S1 S2 Gastrointestinal: Normal bowel sounds, No tenderness Musculoskeletal: No tenderness Integumentary: No rashes Neurological: Normal speech, Normal tone, Normal affect Lymphatics: No axilla or inguinal lymphadenopathy - Studies Microbiology Data (last 24 hrs): 11/14/21 18:50 Clean Catch Urine [place] Count - Final >100,000 CFU/ML. 11/14/21 18:50 Clean Catch Urine - Final Escherichia Coli Medications List Reviewed: Yes Assessment And Plan - Current Problems (Diagnosis) (1) Metabolic acidosis Current Visit: Yes Status: Acute Plan: FROM BACTERIAL PNEUMONIA, UTI SHOULD IMPROVE RESUME ROCEPHIN IV. BC 2 PENDING. IMPROVING ASYMPTOMATIC (2) Pneumonia due to COVID-19 virus Current Visit: Yes Status: Acute Plan: SHE HAS COVID BUT NO SYMPTOMS OF IT. PENUMONIA MAY BE FROM BACTERIA AND NOT COVID. (3) Bacterial pneumonia Current Visit: Yes Status: Acute Plan: CONT ROCEPHIN AND ZITHROMAX. (4) Acute renal failure Current Visit: No Status: Acute Plan: ACUTE ON CHRONIC RENAL FAILURE. PRERENAL. I EXPECT WITH IV FLUIDS SHE WILL RETURN TO HER BASLINE OF ABOUT 1.[address] NEG. CREAT IS DOWN TO 3 Qualifiers: Acute renal failure type: unspecified Qualified Code(s): N17.9 - Acute kid murphy failure, unspecified (5) Altered mental status Current Visit: No Status: Acute Plan: THIS POSSIBLY SITUATIONAL. ACUTE TOXIC DELIRIUM AND SHOULD IMPROVE. Qualifiers: Altered mental status type: delirium Qualified Code(s): R41.0 - Disorientat ion, unspecified (6) Anemia Onset Date: 11/10/16 Current Visit: No Status: Chronic Plan: ANEMIA IS CHRONIC SHE HAS BEEN REFERRED TO DR. FABIAN BUT SHE HAS NOT FOLLOWED UP. WITH CRIPPLING ARTHTIS SHE IS IN SEVERE PAIN. SHE CAN BARELY WALK WITH WALKER EVERY STEP IS PAINFUL DESPITE NARCOTICS. TO POSITION HER FOR EGD OR COLONSCOPY WILL BE VERY PAINFUL FOR HER. PEPCID IV BID. AVOID ALL NSAIDS. HG STABLE ANEMIA OF CHR DIS NORMAL FERRITIN Qualifiers: Anemia type: B12 deficiency Qualified Code(s): D64.89 - Other specified anemias (7) Dehydration Current Visit: No Status: Acute (8) UTI (urinary tract infection) Current Visit: Yes Status: Acute Plan: CULTURE PENDING ROCEPHIN SHOULD COVER. (9) Hypernatremia Current Visit: Yes Status: Acute Plan: CHANGE TO D5W AT 100 STOP NS A ND LATER HALF NS DI IS POSSIBLE BU WILL WATCH (10) Hyperchloremia Current Visit: Yes Status: Acute Plan: ABOVE (11) Hypokalemia Onset Date: 03/15/15 Current Visit: No Status: Acute Plan: CORRECTION STARTED
[2021-11-17] MEDS: D5W 1,000 ML IV SCH (14:19)
[2021-11-17] MEDS ORDERED: METOPROLOL XL 50 MG TAB PO SCH (17:00)
[2021-11-17] MEDS: CLONIDINE 0.2 MG/PATCH TD SCH (17:14)
[2021-11-17] MEDS: METOPROLOL TARTRATE 5 MG/5 ML INJ IV SCH (17:20)
[2021-11-17] MEDS ORDERED: cloNIDine HCL 0.1 MG TAB PO SCH (18:00)
[2021-11-18] MEDS: D5W 1,000 ML IV SCH ×3 (00:30→14:50)
[2021-11-18] MEDS: METOPROLOL TARTRATE 5 MG/5 ML INJ IV SCH ×4 (00:32→20:53)
--- NOTE | 2021-11-18 02:26 | P.PN ---
Subjective Date of Service: 11/16/[address] Varghese Patient clinically doing well with no new complaints. She is resting in bed and getting IV fluids. She does not have much of an appetite and I encouraged her to a eat a little bit. Otherwise patient with no new complaints. She does have a little bit of swelling in her legs but no other complaints voiced. Review of Systems 10-point ROS is otherwise unremarkable Physical Examination - Vital Signs Temperature: 98.5 F Blood Pressure: 165/87 Pulse: 91 Respirations: 20 Pulse Ox (%): 100 - Physical Exam General: Oriented x3, Cachectic HEENT: Atraumatic, PERRLA, EOMI Neck: Supple, JVD not distended Respiratory: Clear to auscultation bilaterally, Normal air movement Cardiovascular: Regular rate/rhythm, Normal S1 S2 Gastrointestinal: Normal bowel sounds, Soft and benign, Non-distended, No tenderness Musculoskeletal: No clubbing, No swelling, No tenderness Neurological: Sensation intact, Cranial nerves 3-12 intact - Studies Microbiology Data (last 24 hrs): 11/14/21 18:50 Clean Catch Urine [place] Count - Final >100,000 CFU/ML. 11/14/21 18:50 Clean Catch Urine - Final Escherichia Coli Medications List Reviewed: Yes Assessment & Plan - Problems (Diagnosis) (1) Generalized weakness Current Visit: Yes Status: Acute (2) Left tibial fracture Onset Date: 09/18/16 Current Visit: No Status: Acute (3) S/P TKR (total knee replacement) Onset Date: 11/10/16 Current Visit: No Status: Acute Qualifiers: Laterality: left Qualified Code(s): Z96.652 - Presence of left artificial knee joint (4) Hyperchloremic metabolic acidosis Current Visit: Yes Status: Acute (5) Hypernatremia Current Visit: Yes Status: Acute (6) Pneumonia due to COVID-19 virus Current Visit: Yes Status: Acute (7) UTI (urinary tract infection) Current Visit: Yes Status: Acute - Plan Plan: 1. Continue with IV hydration-monitor electrolytes closely 2. Continue antibiotic therapy 3. Physical therapy evaluation 4. Patient does not have much of an appetite may need is stimulant 5. Physical therapy evaluation 6. GI and DVT prophylaxis Discharge Plan: Home Plan to discharge in: Greater than 2 days - Advance Directives Does patient have a Living Will: No Does patient have a Durable POA for Healthcare: Yes - Code Status/Comfort Care Code Status Assessed: Yes Code Status: Full Code Critical Care: No Time Spent Managing PTS Care (In Minutes): 45
[2021-11-18 03:29] LABS: Absolute Lymphocytes (CBC) 1.1 K/uL (0.7-4.9); Hematocrit 31.5 % (36.0-45.0); Lymphocytes % 10.8 % (15.3-44.8); MPV 8.7 fL (7.6-11.3); RBC Red Blood Cell Count 3.79 M/uL (3.86-4.86)
[2021-11-18 04:13] LABS: Potassium 2.8 mmol/L (3.5-5.1)
[2021-11-18 04:19] LABS: Blood Morphology Comment NOT SEEN (NOT SEEN); Platelet Estimate ADEQ
[2021-11-18] MEDS: KCL 20 MEQ/100 mL IVPB 20 MEQ/100 ML BAG IV SCH ×4 (05:00→22:00)
[2021-11-18] MEDS ORDERED: HYDRALAZINE HCL 20 MG/ML VIAL IV PRN (06:12)
[2021-11-18] MEDS: INSULIN -REGULAR HUMAN 50 UNIT/0.5 ML ML SQ SCH ×4 (07:30→20:53)
[2021-11-18] MEDS: ASPIRIN 81 MG CHEWABLE TABLET PO SCH (08:39)
[2021-11-18] MEDS: CEFTRIAXONE 1,000 MG in NA CHLORIDE 0.9% 50 ML IVPB SCH ×2 (08:40→20:53)
[2021-11-18] MEDS: FAMOTIDINE 20 MG/2 ML VIAL IV SCH ×2 (08:41→20:51)
[2021-11-18] MEDS: HYDRALAZINE HCL 20 MG/ML VIAL IV SCH ×3 (08:48→20:51)
[2021-11-18] MEDS: AZITHROMYCIN IV 500 MG in NA CHLORIDE 0.9% 250 ML IVPB SCH (09:23)
[2021-11-18] MEDS ORDERED: PROMETHAZINE INJ 25 MG/ML AMP IV PRN (10:33)
--- NOTE | 2021-11-18 12:42 | RAD REPORT ---
EXAM DESCRIPTION: RAD - Abdomen Single View - 11/18/2021 12:32 pm CLINICAL HISTORY: vomitting COMPARISON: Renal Ultrasound-Complete dated 11/14/2021; Chest Abd Pelvis Wo Con dated 11/15/2021 FINDINGS: Nonobstructive bowel gas pattern. No acute osseous abnormality.Visualized lungs are unrema rkable.No abnormal calcifications. IMPRESSION: Nonobstructive bowel gas pattern.
[2021-11-18] MEDS ORDERED: POTASSIUM CL 20 MEQ in NA CHLORIDE 0.9% 20 MEQ/100 ML BAG IV ONE (13:00)
[2021-11-18] MEDS ORDERED: METOPROLOL XL 50 MG TAB PO SCH (16:27)
[2021-11-18 20:14] LABS: Creatine Phosphokinase 478 U/L (26-192); Magnesium 1.9 mg/dL (1.8-2.4); Phosphorus 1.7 mg/dL (2.5-4.9); Uric Acid 11.4 mg/dL (2.6-6.0)
[2021-11-18 20:15] LABS: Potassium 2.9 mmol/L (3.5-5.1)
[2021-11-18 20:21] LABS: Thyroid Stimulating Hormone 0.162 uIU/mL (0.360-3.740)
[2021-11-18] MEDS: THIAMINE 200 MG/2 ML INJ IVP SCH (20:54)
--- NOTE | 2021-11-18 21:02 | P.PN ---
Subjective Date of Service: 11/18/21 Chief Complaint: WEAKNESS, CONFUSION, LEG SWELLING. Subjective: Improving NGUYỄN POLO IS DOING A LOT BETTER. SHE IS AWAKE AND HAS NO COMPLAINTS. HER LAB SHOWS IMPROVEMENT SHE IS ABLE TO TALK SHE IS NOT EATING WELL. SHE HAD VOMITING THIS AM. Review of Systems 10-point ROS is otherwise unremarkable General: Weakness Physical Examination - Vital Signs Temperature: 97.4 F Blood Pressure: 148/88 Pulse: 108 Respirations: 19 Pulse Ox (%): 96 - Physical Exam General: Oriented x2, Mild distress HEENT: Atraumatic, PERRLA, EOMI Neck: Supple, JVD not distended Respiratory: Clear to auscultation bilaterally, Normal air movement Cardiovascular: Regular rate/rhythm, Normal S1 S2 Gastrointestinal: Normal bowel sounds, No tenderness Musculoskeletal: No tenderness Integumentary: No rashes Neurological: Normal speech, Normal tone, Normal affect Lymphatics: No axilla or inguinal lymphadenopathy - Studies Medications List Reviewed: Yes Assessment And Plan - Current Problems (Diagnosis) (1) Metabolic acidosis Current Visit: Yes Status: Acute Plan: FROM BACTERIAL PNEUMONIA, UTI SHOULD IMPROVE RESUME ROCEPHIN IV. BC 2 PENDING. IMPROVING ASYMPTOMATIC (2) Pneumonia due to COVID-19 virus Current Visit: Yes Status: Acute Plan: SHE HAS COVID BUT NO SYMPTOMS OF IT. PENUMONIA MAY BE FROM BACTERIA AND NOT COVID. (3) Bacterial pneumonia Current Visit: Yes Status: Acute Plan: CONT ROCEPHIN AND ZITHROMAX. (4) Acute renal failure Current Visit: No Status: Acute Plan: ACUTE ON CHRONIC RENAL FAILURE. PRERENAL. I EXPECT WITH IV FLUIDS SHE WILL RETURN TO HER BASLINE OF ABOUT 1.[address] NEG. CREAT IS DOWN TO 3 CREAT IS DOWN TO 2.86 Qualifiers: Acute renal failure type: unspecified Qualified Code(s): N17.9 - Acute kidney failure, unspecified (5) Altered mental status Current Visit: No Status: Acute Plan: THIS POSSIBLY SITUATIONAL. ACUTE TOXIC DELIRIUM AND SHOULD IMPROVE. Qualifiers: Altered mental status type: delirium Qualified Code(s): R41.0 - Disorientation, unspecified (6) Anemia Onset Date: 11/10/16 Current Visit: No Status: Chronic Plan: ANEMIA IS CHRONIC SHE HAS BEEN REFERRED TO DR. FABIAN BUT SHE HAS NOT FOLLOWED UP. WITH CRIPPLING ARTHTIS SHE IS IN SEVERE PAIN. SHE CAN BARELY WALK WITH WALKER EVERY STEP IS PAINFUL DESPITE NARCOTICS. TO POSITION HER FOR EGD OR COLONSCOPY WILL BE VERY PAINFUL FOR HER. PEPCID IV BID. AVOID ALL NSAIDS. HG STABLE ANEMIA OF CHR DIS NORMAL FERRITIN Qualifiers: Anemia type: B12 deficiency Qualified Code(s): D64.89 - Other specified anemias (7) Dehydration Current Visit: No Status: Acute (8) UTI (urinary tract infection) Current Visit: Yes Status: Acute Plan: CULTURE PENDING ROCEPHIN SHOULD COVER. (9) Hypernatremia Current Visit: Yes Status: Acute Plan: CHANGE TO D5W AT 100 STOP NS A ND LATER HALF NS DI IS POSSIBLE BU WILL WATCH DIABETES INSIPIDUS IS LIKELY. DR. IZQUIERDO IS WORKING ON ELECTROLYTES (10) Hyperchloremia Current Visit: Yes Status: Acute Plan: ABOVE (11) Hypokalemia Onset Date: 03/15/15 Current Visit: No Status: Acute Plan: CORRECTION STARTED
[2021-11-18] MEDS ORDERED: KCL 20 MEQ/100 mL IVPB 200 ML IV ONE (22:17)
[2021-11-18 22:43] LABS: UR PROTEIN 2482.9 mg/dL (<11.9)
[2021-11-18 22:47] LABS: Urine Amorphous Sediment TRACE /HPF (NONE SEEN); Urine Bacteria 20-50 /HPF (<20); Urine RBC 20-50 /HPF (NONE SEEN)
[2021-11-18 22:48] LABS: Urine Yeast PRESENT (NONE SEEN)
[2021-11-19] MEDS: HYDRALAZINE HCL 20 MG/ML VIAL IV SCH ×4 (00:35→19:45)
--- NOTE | 2021-11-19 01:45 | CON ---
Date of Consultation: 11/18/2021 Chief Complaint: Acute kidney injury associated with hypokalemia, metabolic acidosis, and hypernatremia. The patient has underlying chronic kidney disease stage 3. Patient is a 75-year-old woman who has multiple medical problems including hypertension, diabetes mellitus, anxiety disorder, depression. The patient was brought to the hospital because of generalized weakness, confusion, agitation. Progressively worse leg edema. The patient was found to have severe acute kidney injury, although urine output remains nonoliguric. There was metabolic acidosis present and the patient was found to have questionable pneumonia with COVID infection as well as urinary tract infection. The patient was admitted to the hospital on November 15, 2021. Consultation was requested today for persistent metabolic acidosis, hypokalemia. Medications: The patient is taking multiple medications. At home, she was taking gabapentin, tramadol, Minoxidil, metoprolol, omeprazole, atorvastatin, clonidine, iron tablet, and Keppra. Review of Systems: The patient is somewhat confused, lethargic, responsive to questions, although she cannot provide review of systems. Past Medical History: Hypertension, hyperlipidemia, coronary artery disease, heart stent, right knee replacement, left lumpectomy, left foot surgery, tubal ligation. Family History: Heart disease. Social History: Denies tobacco, alcohol, or illicit drug. Physical Examination: Vital signs: Temperature 97.3, blood pressure 142/91, heart rate 100, respiratory rate 18, SpO2 97%. General: The patient is not in acute distress. Eyes: EOMI. Neck: Supple. Lungs: Normal respiratory effort. Heart: S1, S2. Abdomen: Soft, benign. Extremities: No edema. Laboratory Data: Sodium 153, potassium 2.8, chloride 126, carbon dioxide, total CO2 16, BUN 23, creatinine 2.86, glucose 180, calcium 7.1. On arrival to the hospital, creatinine level was 4.56, BUN 45, carbon dioxide was 17, subsequently dropped to 12 and on , improved to 16. Chloride was 113, 119, 128. The patient had CT scan of the abdomen and pelvis done on November 14 without contrast and this study has demonstrated, no hydronephrosis, no renal calculi. 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 Complex lesion in the anterior polar aspect of the right kidney measuring 16 mm, this is not well characterized and it was present in 2016 and measured 11 mm and Lamar catheter was in the bladder with decompressed bladder. Assessment And Plan: Acute kidney injury on chronic kidney disease stage 3. Overall, renal function has improved with IV fluids, although there is severe hypernatremia, hyperchloremia, metabolic acidosis, and hypokalemia. Likely, the patient had GI loss of electrolytes including potassium, bicarbonate. The patient will need replacement with potassium. Magnesium level will be checked and phosphorus level will be evaluated. Recommend to continue D5W and thiamine. Workup is started to assess the source of the potassium loss. Renal ultrasound did not show obstructive uropathy, although CT scan was significant for possible hydroureter and the patient has complex cyst. The patient will need evaluation by Urology for complex cyst. The patient is treated for COVID pneumonia. Continue to monitor blood pressure. Adjust IV fluids according to the lab results. The patient is on clonidine, hydralazine. The patient has underlying diabetes mellitus, currently is on insulin. Acute kidney injury, overall gradually resolving. Electrolytes, check daily and plan is to continue potassium supplementation and phosphorus supplementation. EB/MODL Voice ID: [id number] Report ID: [id number] LELE
[2021-11-19] MEDS: D5W 1,000 ML IV SCH (03:00)
[2021-11-19 03:57] LABS: Absolute Lymphocytes (CBC) 1.4 K/uL (0.7-4.9); Lymphocytes % 11.1 % (15.3-44.8); MPV 8.8 fL (7.6-11.3); RBC Red Blood Cell Count 3.39 M/uL (3.86-4.86)
[2021-11-19 04:14] LABS: Potassium 3.4 mmol/L (3.5-5.1)
[2021-11-19] MEDS: KCL 20 MEQ/100 mL IVPB 20 MEQ/100 ML BAG IV SCH ×2 (04:20)
[2021-11-19] MEDS: METOPROLOL TARTRATE 5 MG/5 ML INJ IV SCH ×3 (05:48→21:07)
[2021-11-19] MEDS: INSULIN -REGULAR HUMAN 50 UNIT/0.5 ML ML SQ SCH ×4 (07:30→21:00)
[2021-11-19] MEDS: ASPIRIN 81 MG CHEWABLE TABLET PO SCH (09:00)
[2021-11-19] MEDS ORDERED: POTASSIUM 25 MEQ EFFERV TAB PO ONE ×2 (09:00→19:00)
[2021-11-19] MEDS: D5W 1,000 ML with NA BICARB 8.4% 150 MEQ IV SCH ×4 (09:42→16:26)
[2021-11-19] MEDS: D5W 1,000 ML with POTASSIUM CL 20 MEQ IV SCH ×2 (09:43)
[2021-11-19] MEDS: CEFTRIAXONE 1,000 MG in NA CHLORIDE 0.9% 50 ML IVPB SCH ×2 (09:44→21:08)
[2021-11-19] MEDS: POTASS/SODIUM PHOSPHATE 1 PKT POWD.PACK PO SCH (09:44)
[2021-11-19] MEDS: THIAMINE 200 MG/2 ML INJ IVP SCH (09:45)
[2021-11-19] MEDS: FAMOTIDINE 20 MG/2 ML VIAL IV SCH ×2 (09:47→21:08)
[2021-11-19] MEDS ORDERED: NITROGLYCERIN 0.4 MG/TAB SL PRN (12:41)
--- NOTE | 2021-11-19 12:48 | P.PN ---
Subjective Date of Service: 11/19/21 Chief Complaint: WEAKNESS, CONFUSION, LEG SWELLING. Subjective: No new changes Physical Examination - Vital Signs Temperature: 97.8 F Blood Pressure: 129/79 Pulse: 97 Respirations: 30 Pulse Ox (%): 98 - Physical Exam General: Other (appears as her stated age) HEENT: Atraumatic, Normocephalic Neck: Supple, JVD not distended Respiratory: Other (symmetric chest expansion) Cardiovascular: No rubs, No murmurs Gastrointestinal: Soft and benign, No guarding Musculoskeletal: No clubbing Integumentary: No warmth Neurological: Other (no new focal deficits) Urinary: Other (no bladder distention) External genitalia: Deferred Rectal: Deferred - Studies Medications List Reviewed: Yes Assessment And Plan - Plan # Acute kidney injury 2/2 prerenal state +/- ATN, on chronic kidney disease stage 3 serum creatinine increased from 2.9-3.1 +complex cyst - eval per Urology Encourage by mouth fluid intake IV fluid when necessary if by mouth fluid intake remains low Monitor renal panel # Covid pna Per other services # Hypernatremia Check wt to determine free water deficit Increase by mouth fluid intake as above # Hypokalemia Received IV K repletion today # Hypophosphatemia Received IV Phos repletion today # Hypomagnesemia received IV Mg repletion today # AMS Supportive care
--- NOTE | 2021-11-19 12:52 | P.PN ---
Subjective Date of Service: 11/19/21 Chief Complaint: WEAKNESS, CONFUSION, LEG SWELLING. Subjective: No new changes NGUYỄN POLO IS DOING A LOT BETTER. SHE IS AWAKE AND HAS NO COMPLAINTS. HER LAB SHOWS IMPROVEMENT SHE IS ABLE TO TALK SHE IS NOT EATING WELL. SHE HAD VOMITING THIS AM. SHE IS COMFORTABLE AND SAYS SHE FEELS GOOD. Review of Systems 10-point ROS is otherwise unremarkable General: Weakness, Malaise Physical Examination - Vital Signs Temperature: 97.8 F Blood Pressure: 129/79 Pulse: 97 Respirations: 30 Pulse Ox (%): 98 - Physical Exam General: Alert, Oriented x2, Mild distress HEENT: Atraumatic, PERRLA, EOMI Neck: Supple, JVD not distended Respiratory: Clear to auscultation bilaterally, Normal air movement Cardiovascular: Regular rate/rhythm, Normal S1 S2 Gastrointestinal: Normal bowel sounds, No tenderness Musculoskeletal: No tenderness Integumentary: No rashes Neurological: Normal speech, Normal tone, Normal affect Lymphatics: No axilla or inguinal lymphadenopathy - Studies Medications List Reviewed: Yes Assessment And Plan - Current Problems (Diagnosis) (1) Metabolic acidosis Current Visit: Yes Status: Acute Plan: FROM BACTERIAL PNEUMONIA, UTI SHOULD IMPROVE RESUME ROCEPHIN IV. BC 2 PENDING. IMPROVING ASYMPTOMATIC (2) Pneumonia due to COVID-19 virus Current Visit: Yes Status: Acute Plan: SHE HAS COVID BUT NO SYMPTOMS OF IT. PENUMONIA MAY BE FROM BACTERIA AND NOT COVID. (3) Bacterial pneumonia Current Visit: Yes Status: Acute Plan: CONT ROCEPHIN AND ZITHROMAX. (4) Acute renal failure Current Visit: No Status: Acute Plan: ACUTE ON CHRONIC RENAL FAILURE. PRERENAL. I EXPECT WITH IV FLUIDS SHE WILL RETURN TO HER BASLINE OF ABOUT 1.[address] NEG. CREAT IS DOWN TO 3 CREAT IS DOWN TO 2.86 Qualifiers: Acute renal failure type: unspecified Qualified Code(s): N17.9 - Acute kidney failure, unspecified (5) Altered mental status Current Visit: No Status: Acute Plan: THIS POSSIBLY SITUATIONAL. ACUTE TOXIC DELIRIUM AND SHOULD IMPROVE. Qualifiers: Altered mental status type: delirium Qualified Code(s): R41.0 - Disorientation, unspecified (6) Anemia Onset Date: 11/10/16 Current Visit: No Status: Chronic Plan: ANEMIA IS CHRONIC SHE HAS BEEN REFERRED TO DR. FABIAN BUT SHE HAS NOT FOLLOWED UP. WITH CRIPPLING ARTHTIS SHE IS IN SEVERE PAIN. SHE CAN BARELY WALK WITH WALKER EVERY STEP IS PAINFUL DESPITE NARCOTICS. TO POSITION HER FOR EGD OR COLONSCOPY WILL BE VERY PAINFUL FOR HER. PEPCID IV BID. AVOID ALL NSAIDS. HG STABLE ANEMIA OF CHR DIS NORMAL FERRITIN Qualifiers: Anemia type: B12 deficiency Qualified Code(s): D64.89 - Other specified anemias (7) Dehydration Current Visit: No Status: Acute (8) UTI (urinary tract infection) Current Visit: Yes Status: Acute Plan: CULTURE PENDING ROCEPHIN SHOULD COVER. (9) Hypernatremia Current Visit: Yes Status: Acute Plan: CHANGE TO D5W AT 100 STOP NS A ND LATER HALF NS DI IS POSSIBLE BU WILL WATCH DIABETES INSIPIDUS IS LIKELY. DR. IZQUIERDO IS WORKING ON ELECTROLYTES DI IS LESS LIKELY HER SP GRAVITIY IS NORMAL AND NOT LOW. URIN OSM IS NOT LOW. DR. IZQUIERDO IS WORKING ON THIS. (10) Hyperchloremia Current Visit: Yes Status: Acute Plan: ABOVE (11) Hypokalemia Onset Date: 03/15/15 Current Visit: No Status: Acute Plan: CORRECTION STARTED
[2021-11-19 14:27] LABS: Phosphorus 1.5 mg/dL (2.5-4.9)
[2021-11-19 14:30] LABS: Potassium 2.9 mmol/L (3.5-5.1)
[2021-11-19 14:31] LABS: Magnesium 1.2 mg/dL (1.8-2.4)
[2021-11-19] MEDS ORDERED: Magnesium Sulfate 2gm IVPB 2 G/50 ML BAG IV ONE (14:35)
[2021-11-19] MEDS: CODEINE 30MG/APAP 300MG TAB PO PRN (17:47)
[2021-11-19] MEDS: IPRATROPIUM BROM 0.5MG/2.5ML IH SCH (19:20)
[2021-11-19] MEDS: DULOXETINE 30 MG CAP PO SCH (21:08)
[2021-11-19] MEDS: ATORVASTATIN 20 MG TAB PO SCH (21:08)
[2021-11-19] MEDS ORDERED: CALCIUM GLUC 10% INJ 4.65 MEQ in NA CHLORIDE 0.9% 100 ML IV ONE (23:11)
[2021-11-20] MEDS ORDERED: CALCIUM GLUCONATE 1 GM IVPB 1 GM/100 ML BAG IV ONE (01:05)
[2021-11-20] MEDS: D5W 1,000 ML with NA BICARB 8.4% 150 MEQ IV SCH ×4 (01:39→09:15)
[2021-11-20] MEDS: D5W 1,000 ML with POTASSIUM CL 20 MEQ IV SCH ×2 (01:39)
[2021-11-20] MEDS: HYDRALAZINE HCL 20 MG/ML VIAL IV SCH ×3 (01:40→12:33)
[2021-11-20 03:46] LABS: Hematocrit 24.8 % (36.0-45.0); Lymphocytes % 10.2 % (15.3-44.8); MPV 8.5 fL (7.6-11.3); RBC Red Blood Cell Count 3.05 M/uL (3.86-4.86)
[2021-11-20 04:19] LABS: Albumin 1.8 g/dL (3.4-5.0); Phosphorus 1.3 mg/dL (2.5-4.9); Potassium 2.4 mmol/L (3.5-5.1)
[2021-11-20] MEDS ORDERED: MAGNESIUM 50% 3 GM in NA CHLORIDE 0.9% 100 ML IV ONE (04:27)
[2021-11-20] MEDS ORDERED: Magnesium Sulfate 2gm IVPB 2 G/50 ML BAG IV ONE ×2 (05:00→11:17)
[2021-11-20] MEDS: METOPROLOL TARTRATE 5 MG/5 ML INJ IV SCH ×3 (05:27→21:53)
[2021-11-20] MEDS: KCL 20 MEQ/100 mL IVPB 20 MEQ/100 ML BAG IV SCH ×2 (07:00→09:00)
[2021-11-20] MEDS ORDERED: Magnesium Sulfate 1gm IVPB 1 GM/50 ML BAG IV ONE (07:00)
[2021-11-20 07:09] LABS: Magnesium 1.4 mg/dL (1.8-2.4)
[2021-11-20] MEDS: INSULIN -REGULAR HUMAN 50 UNIT/0.5 ML ML SQ SCH ×4 (07:30→21:00)
[2021-11-20] MEDS: ALBUTEROL 2.5 MG/3 ML NEB SOL NEB PRN (08:15)
[2021-11-20] MEDS: IPRATROPIUM BROM 0.5MG/2.5ML IH SCH ×2 (08:15→20:05)
[2021-11-20] MEDS ORDERED: HOME MED 1 EA UNK (Omeprazole [Omeprazole] 20 MG Capsule.Dr) PO SCH (09:00)
[2021-11-20] MEDS: CEFTRIAXONE 1,000 MG in NA CHLORIDE 0.9% 50 ML IVPB SCH (09:10)
[2021-11-20] MEDS: THIAMINE 200 MG/2 ML INJ IVP SCH (09:11)
[2021-11-20] MEDS: FE SULF/FA/VIT B COMP & C TAB PO SCH (09:13)
[2021-11-20] MEDS: PANTOPRAZOLE 40MG TABLET PO SCH (09:14)
[2021-11-20] MEDS: FAMOTIDINE 20 MG/2 ML VIAL IV SCH ×2 (09:14→21:53)
[2021-11-20] MEDS: AMLODIPINE 10 MG TAB PO SCH (09:14)
[2021-11-20] MEDS: DULOXETINE 30 MG CAP PO SCH ×2 (09:14→21:53)
[2021-11-20] MEDS: ASPIRIN 81 MG CHEWABLE TABLET PO SCH (09:14)
[2021-11-20] MEDS: POTASS/SODIUM PHOSPHATE 1 PKT POWD.PACK PO SCH (09:14)
[2021-11-20] MEDS ORDERED: POTASSIUM CL 60 MEQ in NA CHLORIDE 0.9% 500 ML IV ONE (11:00)
[2021-11-20] MEDS ORDERED: D5W 1,000 ML IV ONE (11:16)
[2021-11-20] MEDS ORDERED: POTASSIUM PHOS 20 MM in NA CHLORIDE 0.9% 500 ML IV ONE (11:17)
--- NOTE | 2021-11-20 11:41 | PN ---
Date of Progress Note: 11/20/2021 Subjective: The patient was admitted with COVID pneumonia, acute kidney injury secondary to prerenal with severe depletion and electrolyte. The patient was having also acidosis, was started on bicarb drip. The patient is still feeling weak. No significant change in her respiratory status. Chest x-ray originally showing cardiomegaly with congestion. Physical Examination: Vital Signs: Blood pressure 130/69, pulse of 88, afebrile. The patient on room air saturating 95%. Chest: Faint rales bilateral. Heart: S1, S2. Regular. Systolic murmur. Abdomen: Soft, nontender. Extremity: Trace edema. Neurologic: Alert. No focality. Laboratory Data: WBC 10.1, H and H 8.2/24.8, platelets 255. Sodium 140, potassium 2.4, bicarb 20, BUN 24, creatinine down to 3.2, GFR of 17, calcium 7, phosphorus 1.3, magnesium 1.4, albumin 1.8. Corrected calcium is 8.6. Current Medications: The patient on include aspirin, ceftriaxone, amlodipine 10 mg, clonidine 0.2 patch, nitroglycerin, D5 with bicarb drip, potassium supplement. Assessment And Plan: 1. Acute kidney injury secondary to prerenal, secondary to dehydration, possible COVID nephropathy. Obstructive uropathy has been ruled out with ultrasound with small size kidney. Reviewing the record for the patient, the patient's baseline creatinine 1.6 with GFR of 37 back in 2019. I am going to go ahead and continue hydration given the presence of hypernatremia. I am going to go ahead and change IV fluid to LR. We will continue at 125 per hour. 2. Hypernatremia secondary to depletion. We will continue aggressive hydration. I am going to go ahead and get new chest x-ray for better evaluation of the fluid status for the patient. 3. Hypophosphatemia. We will supplement. 4. Hypokalemia. We will change IV fluid. 5. Non-anion gap metabolic acidosis, possible secondary to the fluid, hyperchloremic. I am going to go ahead and change the fluid to LR, discontinue bicarb drip. We will start oral bicarb. 6. Hypomagnesemia. We will supplement aggressively. 7. Anemia possible secondary to chronic kidney disease. I am going to go ahead and send for anemia workup and we will follow up. 8. Respiratory failure secondary to COVID pneumonia. Continue supportive care. We will follow up with primary. time spend exam the patient face to face placing order discussing with the patient , rviewing data lab and radiology , discussing the case with other steam press tender inculding Nurse staff and Hospitalist 35 min ELISEO Voice ID: [id number] Report ID: [id number] LELE
--- NOTE | 2021-11-20 12:03 | RAD REPORT ---
EXAM DESCRIPTION: RAD - Chest Single View - 11/20/2021 11:44 am CLINICAL HISTORY: COPD COMPARISON: Chest Single View dated 11/14/2021; Chest Single View dated 10/30/2016; Chest Single View dated 09/19/2016; CHEST SINGLE VIEW dated 03/14/2015; Chest Abd Pelvis Wo Con dated 11/15/2021 FINDINGS: Lines: None. Lungs: Patchy bilateral airspace opacities, eccentric to the left. Pleural: No significant pleural effusions or pneumothorax. Cardiac: Cardiomegaly. Bones: No acute fractures. Other: IMPRESSION: Mild bilateral airspace disease without significant change compared with 11/14/2021. Thi s likely reflects pneumonia.
[2021-11-20] MEDS: Ringers Lactate 1,000 ML with POTASSIUM CL 20 MEQ IV SCH ×4 (12:31→20:05)
--- NOTE | 2021-11-20 17:33 | P.PN ---
Subjective Date of Service: 11/20/21 Chief Complaint: WEAK, DIARRHEA Subjective: Improving NGUYỄN POLO IS DOING A LOT BETTER. SHE IS AWAKE AND HAS NO COMPLAINTS. HER LAB SHOWS IMPROVEMENT SHE IS ABLE TO TALK SHE IS NOT EATING WELL. SHE HAD VOMITING THIS AM. SHE IS COMFORTABLE AND SAYS SHE FEELS GOOD. SHE FEELS BETTER SHE IS MUCH MORE UPBEAT. Review of Systems 10-point ROS is otherwise unremarkable General: Weakness Physical Examination - Vital Signs Temperature: 99.1 F Blood Pressure: 134/74 Pulse: 99 Respirations: 16 Pulse Ox (%): 97 - Physical Exam General: Alert, In no apparent distress HEENT: Atraumatic, PERRLA, EOMI Neck: Supple, JVD not distended Respiratory: Clear to auscultation bilaterally, Normal air movement Cardiovascular: Regular rate/rhythm, Normal S1 S2 Gastrointestinal: Normal bowel sounds, No tenderness Musculoskeletal: No tenderness Integumentary: No rashes Neurological: Normal speech, Normal tone, Normal affect Lymphatics: No axilla or inguinal lymphadenopathy - Studies Microbiology Data (last 24 hrs): 11/14/21 18:20 Blood - Blood Aerobic Blood Culture - Final No growth in 5 days. 11/14/21 18:20 Blood - Blood Anaerobic Blood Culture - Final No growth in 5 days. 11/14/21 18:05 Blood - Blood Aerobic Blood Culture - Final No growth in 5 days. 11/14/21 18:05 Blood - Blood Anaerobic Blood Culture - Final No growth in 5 days. Medications List Reviewed: Yes Assessment And Plan - Current Problems (Diagnosis) (1) Metabolic acidosis Current Visit: Yes Status: Acute Plan: FROM BACTERIAL PNEUMONIA, UTI SHOULD IMPROVE RESUME ROCEPHIN IV. BC 2 PENDING. IMPROVING ASYMPTOMATIC (2) Pneumonia due to COVID-19 virus Current Visit: Yes Status: Acute Plan: SHE HAS COVID BUT NO SYMPTOMS OF IT. PENUMONIA MAY BE FROM BACTERIA AND NOT COVID. (3) Bacterial pneumonia Current Visit: Yes Status: Acute Plan: CONT ROCEPHIN AND ZITHROMAX. DC ABX. COVID PNEUMONIA MOST LIKELY SHE HAS SEVERE DIARRHEA SO WILL DO WITHOUT ABX NOW. (4) Acute renal failure Current Visit: No Status: Acute Plan: ACUTE ON CHRONIC RENAL FAILURE. PRERENAL. I EXPECT WITH IV FLUIDS SHE WILL RETURN TO HER BASLINE OF ABOUT 1.[address] NEG. CREAT IS DOWN TO 3 CREAT IS DOWN TO 2.86 CREAT HAS RISEN AGAIN . RENAL TEAM IS WORKING ON IT. SODIUM IS DOWN TO NORMAL CONT IV FLUIDS. HOPFEFULLY WILL SEE REDUCTION IN CREAT. Qualifiers: Acute renal failure type: unspecified Qualified Code(s): N17.9 - Acute kidney failure, unspecified (5) Altered mental status Current Visit: No Status: Acute Plan: THIS POSSIBLY SITUATIONAL. ACUTE TOXIC DELIRIUM AND SHOULD IMPROVE. BACK TO HER BASELINE. Qualifiers: Altered mental status type: delirium Qualified Code(s): R41.0 - Disorientation, unspecified (6) Anemia Onset Date: 11/10/16 Current Visit: No Status: Chronic Plan: ANEMIA IS CHRONIC SHE HAS BEEN REFERRED TO DR. FABIAN BUT SHE HAS NOT FOLLOWED UP. WITH CRIPPLING ARTHTIS SHE IS IN SEVERE PAIN. SHE CAN BARELY WALK WITH WALKER EVERY STEP IS PAINFUL DESPITE NARCOTICS. TO POSITION HER FOR EGD OR COLONSCOPY WILL BE VERY PAINFUL FOR HER. PEPCID IV BID. AVOID ALL NSAIDS. HG STABLE ANEMIA OF CHR DIS NORMAL FERRITIN Qualifiers: Anemia type: B12 deficiency Qualified Code(s): D64.89 - Other specified anemias (7) Dehydration Current Visit: No Status: Acute (8) UTI (urinary tract infection) Current Visit: Yes Status: Acute Plan: CULTURE PENDING ROCEPHIN SHOULD COVER. (9) Hypernatremia Current Visit: Yes Status: Acute Plan: CHANGE TO D5W AT 100 STOP NS A ND LATER HALF NS DI IS POSSIBLE BU WILL WATCH DIABETES INSIPIDUS IS LIKELY. DR. IZQUIERDO IS WORKING ON ELECTROLYTES DI IS LESS LIKELY HER SP GRAVITIY IS NORMAL AND NOT LOW. URIN OSM IS NOT LOW. DR. IZQUIERDO IS WORKING ON THIS. (10) Hyperchloremia Current Visit: Yes Status: Acute Plan: ABOVE (11) Hypokalemia Onset Date: 03/15/15 Current Visit: No Status: Acute Plan: CORRECTION STARTED (12) Diarrhea Current Visit: Yes Status: Acute Plan: CHECK FOR C DIFF CS AND GUAIAC.
[2021-11-20 21:03] LABS: Albumin, (SPE) 3.4 g/dL (3.8-4.8); Alpha-1-Globulins 0.6 g/dL (0.2-0.3); Alpha-2-Globulins 1.1 g/dL (0.5-0.9); Gamma Globulins 0.9 g/dL (0.8-1.7); INTERPRETATION REPORT
[2021-11-20] MEDS: ATORVASTATIN 20 MG TAB PO SCH (21:52)
[2021-11-20] MEDS: SODIUM BICARB 325 MG TAB PO SCH (21:52)
[2021-11-21] MEDS: HYDRALAZINE HCL 20 MG/ML VIAL IV SCH ×5 (01:39→21:23)
[2021-11-21 04:01] LABS: Hematocrit 25.3 % (36.0-45.0); Lymphocytes % 7.6 % (15.3-44.8); MPV 8.6 fL (7.6-11.3); RBC Red Blood Cell Count 3.08 M/uL (3.86-4.86)
[2021-11-21] MEDS: METOPROLOL TARTRATE 5 MG/5 ML INJ IV SCH ×3 (05:00→21:24)
[2021-11-21 05:15] LABS: Albumin 1.8 g/dL (3.4-5.0); Ferritin 432.2 ng/mL (8-388); Folic Acid, (Folate) 4.6 ng/mL (3.1-17.5); Magnesium 2.2 mg/dL (1.8-2.4); Potassium 3.1 mmol/L (3.5-5.1); Thyroid Stimulating Hormone 0.704 uIU/mL (0.360-3.740); Uric Acid 9.9 mg/dL (2.6-6.0)
[2021-11-21] MEDS: INSULIN -REGULAR HUMAN 50 UNIT/0.5 ML ML SQ SCH ×4 (07:30→21:00)
[2021-11-21] MEDS: IPRATROPIUM BROM 0.5MG/2.5ML IH SCH ×2 (08:50→20:30)
[2021-11-21] MEDS: ALBUTEROL 2.5 MG/3 ML NEB SOL NEB PRN (08:50)
[2021-11-21] MEDS: Ringers Lactate 1,000 ML with POTASSIUM CL 20 MEQ IV SCH ×8 (09:22→22:14)
[2021-11-21] MEDS: ASPIRIN 81 MG CHEWABLE TABLET PO SCH (09:23)
[2021-11-21] MEDS: PANTOPRAZOLE 40MG TABLET PO SCH (09:23)
[2021-11-21] MEDS: FE SULF/FA/VIT B COMP & C TAB PO SCH (09:23)
[2021-11-21] MEDS: DULOXETINE 30 MG CAP PO SCH ×2 (09:23→21:24)
[2021-11-21] MEDS: SODIUM BICARB 325 MG TAB PO SCH ×2 (09:23→21:24)
[2021-11-21] MEDS: AMLODIPINE 10 MG TAB PO SCH (09:23)
[2021-11-21] MEDS: FAMOTIDINE 20 MG/2 ML VIAL IV SCH ×2 (09:23→21:25)
[2021-11-21] MEDS: THIAMINE 200 MG/2 ML INJ IVP SCH (09:23)
[2021-11-21] MEDS ORDERED: CALCIUM CARBONATE CHEW 500MG TAB PO PRN (09:55)
[2021-11-21] MEDS ORDERED: KCL 20 MEQ/100 mL IVPB 20 MEQ/100 ML BAG IV SCH (10:00)
[2021-11-21] MEDS: SOD FERRIC GLUC COMPLX/SUCROSE 250 MG in NA CHLORIDE 0.9% 250 ML IV SCH (11:42)
[2021-11-21] MEDS: CALCITROL 0.25 MCG CAP PO SCH (11:43)
--- NOTE | 2021-11-21 12:40 | P.PN ---
Subjective Date of Service: 11/21/21 Chief Complaint: WEAK, DIARRHEA Subjective: Improving NGUYỄN POLO IS DOING A LOT BETTER. SHE IS AWAKE AND HAS NO COMPLAINTS. HER LAB SHOWS IMPROVEMENT SHE IS ABLE TO TALK SHE IS NOT EATING WELL. SHE HAD VOMITING THIS AM. SHE IS COMFORTABLE AND SAYS SHE FEELS GOOD. SHE FEELS BETTER SHE IS MUCH MORE UPBEAT. GETTING BETTER DAILY PT WILL WORK WITH HER Review of Systems 10-point ROS is otherwise unremarkable Physical Examination - Vital Signs Temperature: 98.5 F Blood Pressure: 141/67 Pulse: 101 Respirations: 18 Pulse Ox (%): 93 - Physical Exam General: Alert, In no apparent distress HEENT: Atraumatic, PERRLA, EOMI Neck: Supple, JVD not distended Respiratory: Clear to auscultation bilaterally, Normal air movement Cardiovascular: Regular rate/rhythm, Normal S1 S2 Gastrointestinal: Normal bowel sounds, No tenderness Musculoskeletal: No tenderness Integumentary: No rashes Neurological: Normal speech, Normal tone, Normal affect Lymphatics: No axilla or inguinal lymphadenopathy - Studies Medications List Reviewed: Yes Assessment And Plan - Current Problems (Diagnosis) (1) Metabolic acidosis Current Visit: Yes Status: Acute Plan: FROM BACTERIAL PNEUMONIA, UTI SHOULD IMPROVE RESUME ROCEPHIN IV. BC 2 PENDING. IMPROVING ASYMPTOMATIC (2) Pneumonia due to COVID-19 virus Current Visit: Yes Status: Acute Plan: SHE HAS COVID BUT NO SYMPTOMS OF IT. PENUMONIA MAY BE FROM BACTERIA AND NOT COVID. (3) Bacterial pneumonia Current Visit: Yes Status: Acute Plan: CONT ROCEPHIN AND ZITHROMAX. DC ABX. COVID PNEUMONIA MOST LIKELY SHE HAS SEVERE DIARRHEA SO WILL DO WITHOUT ABX NOW. (4) Acute renal failure Current Visit: No Status: Acute Plan: ACUTE ON CHRONIC RENAL FAILURE. PRERENAL. I EXPECT WITH IV FLUIDS SHE WILL RETURN TO HER BASLINE OF ABOUT 1.[address] NEG. CREAT IS DOWN TO 3 CREAT IS DOWN TO 2.86 CREAT HAS RISEN AGAIN . RENAL TEAM IS WORKING ON IT. SODIUM IS DOWN TO NORMAL CONT IV FLUIDS. HOPFEFULLY WILL SEE REDUCTION IN CREAT. Qualifiers: Acute renal failure type: unspecified Qualified Code(s): N17.9 - Acute kidney failure, unspecified (5) Altered mental status Current Visit: No Status: Acute Plan: THIS POSSIBLY SITUATIONAL. ACUTE TOXIC DELIRIUM AND SHOULD IMPROVE. BACK TO HER BASELINE. Qualifiers: Altered mental status type: delirium Qualified Code(s): R41.0 - Disorientation, unspecified (6) Anemia Onset Date: 11/10/16 Current Visit: No Status: Chronic Plan: ANEMIA IS CHRONIC SHE HAS BEEN REFERRED TO DR. FABIAN BUT SHE HAS NOT FOLLOWED UP. WITH CRIPPLING ARTHTIS SHE IS IN SEVERE PAIN. SHE CAN BARELY WALK WITH WALKER EVERY STEP IS PAINFUL DESPITE NARCOTICS. TO POSITION HER FOR EGD OR COLONSCOPY WILL BE VERY PAINFUL FOR HER. PEPCID IV BID. AVOID ALL NSAIDS. HG STABLE ANEMIA OF CHR DIS NORMAL FERRITIN Qualifiers: Anemia type: B12 deficiency Qualified Code(s): D64.89 - Other specified anemias (7) Dehydration Current Visit: No Status: Acute (8) UTI (urinary tract infection) Current Visit: Yes Status: Acute Plan: CULTURE PENDING ROCEPHIN SHOULD COVER. (9) Hypernatremia Current Visit: Yes Status: Acute Plan: CHANGE TO D5W AT 100 STOP NS A ND LATER HALF NS DI IS POSSIBLE BU WILL WATCH DIABETES INSIPIDUS IS LIKELY. DR. IZQUIERDO IS WORKING ON ELECTROLYTES DI IS LESS LIKELY HER SP GRAVITIY IS NORMAL AND NOT LOW. URIN OSM IS NOT LOW. DR. IZQUIERDO IS WORKING ON THIS. (10) Hyperchloremia Current Visit: Yes Status: Acute Plan: ABOVE (11) Hypokalemia Onset Date: 03/15/15 Current Visit: No Status: Acute Plan: CORRECTION STARTED (12) Diarrhea Current Visit: Yes Status: Acute Plan: CHECK FOR C DIFF CS AND GUAIAC. C DIFF WAS NOT DONE. DO IT IF STILL HAS DIARRHEA. SHE IS OFF ALL ABX NOW COURSE IS COMPLETED.
--- NOTE | 2021-11-21 13:00 | PN ---
Date of Progress Note: 11/21/2021 Subjective: The patient was admitted with acute kidney injury, COVID pneumonia. The patient was started on hydration. Kidney function has been improved. The patient when admitted, creatinine 4.5, currently down to 3. Reviewing the data for the patient, baseline creatinine back in 2019, 1.7, GFR of 36. Physical Examination: Vital Signs: When I saw the patient, blood pressure 180/90, pulse of 104, afebrile. The patient had good urine output, voiding. Chest: Crackles bilateral, more prominent on the left side. Heart: S1, S2. Systolic murmur. Abdomen: Soft, nontender. Extremities: Trace edema. Neurologic: Alert. No focality. Laboratory Data: Sodium 140, potassium 3.1, bicarb 21, BUN 22, creatinine down to 3.1, GFR of 18, calcium 6.4, magnesium 2.2, albumin 1.8. Corrected calcium is 8. Current Medications: The patient on include aspirin, promethazine, amlodipine, clonidine 0.2 as patch, nitroglycerin. Assessment And Plan: 1. Acute kidney injury secondary to prerenal, poor intake, nonoliguric. No hyperkalemia. No acidosis. Kidney function continues to improve. I do not see the need for initiating any renal replacement therapy. We will continue hydration and we will monitor the patient closely. 2. Urinary tract infection. The patient on antibiotic. Culture growing Escherichia coli. We will resume Levaquin. 3. Iron-deficiency anemia. Start the patient on IV iron. 4. Acidosis secondary to renal failure, status post discontinued bicarb drip. We will continue on oral. Currently in good level. 5. COVID pneumonia as by primary. 6. Hypertension, not controlled. We will keep avoiding any TARA inhibitor or any ARB. I am going to start the patient on beta-fabienne and we will follow up the patient. 7. Secondary hyperparathyroidism with hypocalcemia. Start the patient on calcium carbonate. Start the patient on calcitriol. Time spent examining the patient [id number], discussing the case with the patient, placing orders, reviewing the data including radiology and lab, discussing the case with the other team members including nursing and hospitalist 45 minutes. time spend exam the patient face to face placing order discussing with the patient , rviewing data lab and radiology , discussing the case with other housekeeping and laundry team leader inculding Nurse staff and Hospitalist 35 min PATITO/TRACE Voice ID: [id number] Report ID: [id number] LELE
[2021-11-21] MEDS: carvediloL 12.5 MG TAB PO SCH (17:31)
[2021-11-21] MEDS: ATORVASTATIN 20 MG TAB PO SCH (21:24)
[2021-11-22] MEDS: HYDRALAZINE HCL 20 MG/ML VIAL IV SCH ×4 (01:15→19:45)
[2021-11-22] MEDS: METOPROLOL TARTRATE 5 MG/5 ML INJ IV SCH ×3 (04:39→20:52)
[2021-11-22 05:31] LABS: Absolute Lymphocytes (CBC) 0.9 K/uL (0.7-4.9); Hematocrit 23.7 % (36.0-45.0); Lymphocytes % 8.4 % (15.3-44.8); MPV 9.3 fL (7.6-11.3); RBC Red Blood Cell Count 2.85 M/uL (3.86-4.86)
--- NOTE | 2021-11-22 05:37 | P.PN ---
Subjective Date of Service: 11/22/21 Chief Complaint: WEAK, DIARRHEA Subjective: No new changes Physical Examination - Vital Signs Temperature: 99 F Blood Pressure: 173/84 Pulse: 93 Respirations: 20 Pulse Ox (%): 92 - Physical Exam General: Other (appears as her stated age) HEENT: Atraumatic, Normocephalic Neck: Supple, JVD not distended Respiratory: Other (symmetric chest expansion) Cardiovascular: No rubs, No murmurs Gastrointestinal: Soft and benign, No guarding Musculoskeletal: No clubbing Integumentary: No warmth Neurological: Normal tone Urinary: Other (no bladder distention) External genitalia: Deferred Rectal: Deferred - Studies Medications List Reviewed: Yes Assessment And Plan - Plan # Acute kidney injury 2/2 prerenal state +/- ATN, on chronic kidney disease stage 3 serum creatinine plateaued at 3.1 +complex cyst - eval per Urology Encourage by mouth fluid intake IV fluid when necessary if by mouth fluid intake remains low Monitor renal panel # Covid pna Per other services # Htn BP above goal Increase Coreg to 25 mg po bid # Anemia Hgb 7.4 Give Epo when BP better controlled # SHPTH iPTH 748 Cont calcitriol # Hypokalemia K po repletion today # HypoCa Ca IV repletion today # AMS Supportive care
[2021-11-22] MEDS: carvediloL 12.5 MG TAB PO SCH (05:47)
[2021-11-22] MEDS: CODEINE 30MG/APAP 300MG TAB PO PRN (05:47)
[2021-11-22 05:58] LABS: Albumin 1.8 g/dL (3.4-5.0); Magnesium 2.1 mg/dL (1.8-2.4); Phosphorus 3.2 mg/dL (2.5-4.9); Potassium 3.2 mmol/L (3.5-5.1)
[2021-11-22] MEDS: INSULIN -REGULAR HUMAN 50 UNIT/0.5 ML ML SQ SCH ×4 (07:30→20:55)
[2021-11-22] MEDS: IPRATROPIUM BROM 0.5MG/2.5ML IH SCH ×2 (08:24→19:35)
[2021-11-22] MEDS: PANTOPRAZOLE 40MG TABLET PO SCH (08:45)
[2021-11-22] MEDS: ASPIRIN 81 MG CHEWABLE TABLET PO SCH (08:45)
[2021-11-22] MEDS: SODIUM BICARB 325 MG TAB PO SCH ×2 (08:45→20:53)
[2021-11-22] MEDS: FE SULF/FA/VIT B COMP & C TAB PO SCH (08:45)
[2021-11-22] MEDS: AMLODIPINE 10 MG TAB PO SCH (08:45)
[2021-11-22] MEDS: DULOXETINE 30 MG CAP PO SCH ×2 (08:45→20:53)
[2021-11-22] MEDS: THIAMINE 200 MG/2 ML INJ IVP SCH (08:46)
[2021-11-22] MEDS: FAMOTIDINE 20 MG/2 ML VIAL IV SCH ×2 (08:46→20:52)
[2021-11-22] MEDS: JUVEN PACKET PO SCH ×2 (08:47→20:55)
[2021-11-22] MEDS ORDERED: carvediloL 12.5 MG TAB PO STA (09:55)
[2021-11-22] MEDS ORDERED: POTASSIUM CL SA 10 MEQ TAB PO ONE (09:58)
[2021-11-22] MEDS ORDERED: CALCIUM GLUC 10% INJ 4.65 MEQ in NA CHLORIDE 0.9% 100 ML IV ONE (10:00)
[2021-11-22 11:46] LABS: Blood Morphology Comment NOTED (NOT SEEN); Platelet Estimate ADEQ
[2021-11-22 11:47] LABS: Anisocytosis SLIGHT; Hypochromasia 1+
[2021-11-22 12:18] LABS: Urine Appearance CLOUDY (Clear); Urine Bilirubin NEGATIVE (Negative); Urine Blood 1+ (Negative); Urine Color YELLOW (Yellow); Urine Glucose NEGATIVE (Negative); Urine Protein 2+ (Negative); Urine Urobilinogen 0.2 mg/dL (0.2-1.0)
[2021-11-22 12:49] LABS: Urine Bacteria 20-50 /HPF (<20); Urine Mucus 1+ /HPF (NONE SEEN); Urine Urothelial Cells <5 /HPF (NONE SEEN)
[2021-11-22 12:50] LABS: Urine Yeast MANY (NONE SEEN)
[2021-11-22 12:51] LABS: Urine Coarse Granular Casts 0-5 /LPF (NONE SEEN)
[2021-11-22] MEDS: Ringers Lactate 1,000 ML with POTASSIUM CL 20 MEQ IV SCH ×2 (14:35)
[2021-11-22 14:36] LABS: C.diff Antigen/Toxin Ag neg : Tox neg (NEG : NEG)
[2021-11-22] MEDS: ACETAMINOPHEN 500 MG TAB PO PRN (16:43)
[2021-11-22] MEDS: carvediloL 25 MG TAB PO SCH (16:45)
[2021-11-22] MEDS: ATORVASTATIN 20 MG TAB PO SCH (20:55)
[2021-11-23] MEDS: Ringers Lactate 1,000 ML with POTASSIUM CL 20 MEQ IV SCH ×8 (00:23→16:38)
[2021-11-23] MEDS: HYDRALAZINE HCL 20 MG/ML VIAL IV SCH ×3 (01:45→13:54)
[2021-11-23 04:40] LABS: Albumin 1.9 g/dL (3.4-5.0); Magnesium 1.8 mg/dL (1.8-2.4); Phosphorus 2.9 mg/dL (2.5-4.9)
[2021-11-23] MEDS: METOPROLOL TARTRATE 5 MG/5 ML INJ IV SCH ×2 (05:05→13:00)
[2021-11-23] MEDS: carvediloL 25 MG TAB PO SCH ×2 (06:34→16:54)
[2021-11-23] MEDS ORDERED: MAGNESIUM SULFATE 1 gm IVPB 1 GM/100 ML BAG IV ONE (07:00)
[2021-11-23] MEDS: INSULIN -REGULAR HUMAN 50 UNIT/0.5 ML ML SQ SCH ×4 (07:30→21:00)
[2021-11-23] MEDS: PANTOPRAZOLE 40MG TABLET PO SCH (08:28)
[2021-11-23] MEDS: FAMOTIDINE 20 MG/2 ML VIAL IV SCH ×2 (08:28→21:10)
[2021-11-23] MEDS: JUVEN PACKET PO SCH ×2 (08:28→21:00)
[2021-11-23] MEDS: DULOXETINE 30 MG CAP PO SCH ×2 (08:28→21:09)
[2021-11-23] MEDS: ASPIRIN 81 MG CHEWABLE TABLET PO SCH (08:28)
[2021-11-23] MEDS: CALCITROL 0.25 MCG CAP PO SCH (08:28)
[2021-11-23] MEDS: SODIUM BICARB 325 MG TAB PO SCH ×2 (08:28→21:09)
[2021-11-23] MEDS: FE SULF/FA/VIT B COMP & C TAB PO SCH (08:29)
[2021-11-23] MEDS: THIAMINE 200 MG/2 ML INJ IVP SCH (08:33)
[2021-11-23] MEDS ORDERED: POTASSIUM 25 MEQ EFFERV TAB PO ONE (09:00)
[2021-11-23] MEDS: AMLODIPINE 10 MG TAB PO SCH (09:00)
[2021-11-23] MEDS: IPRATROPIUM BROM 0.5MG/2.5ML IH SCH (09:21)
--- NOTE | 2021-11-23 13:57 | P.PN ---
Subjective Date of Service: 11/23/21 Chief Complaint: WEAK, DIARRHEA Subjective: Improving NGUYỄN POLO IS DOING A LOT BETTER. SHE IS AWAKE AND HAS NO COMPLAINTS. HER LAB SHOWS IMPROVEMENT SHE IS ABLE TO TALK SHE IS NOT EATING WELL. SHE HAD VOMITING THIS AM. SHE IS COMFORTABLE AND SAYS SHE FEELS GOOD. SHE FEELS BETTER SHE IS MUCH MORE UPBEAT. GETTING BETTER DAILY PT WILL WORK WITH HER PER NURSE SHE IS EATING NOW. WILL DC IV METOPROLOL. THREAPY PARTICIPATION IS POOR Review of Systems 10-point ROS is otherwise unremarkable Physical Examination - Vital Signs Temperature: 98.1 F Blood Pressure: 186/82 Pulse: 86 Respirations: 18 Pulse Ox (%): 95 - Physical Exam General: Alert, In no apparent distress HEENT: Atraumatic, PERRLA, EOMI Neck: Supple, JVD not distended Respiratory: Clear to auscultation bilaterally, Normal air movement Cardiovascular: Regular rate/rhythm, Normal S1 S2 Gastrointestinal: Normal bowel sounds, No tenderness Musculoskeletal: No tenderness Integumentary: No rashes Neurological: Normal speech, Normal tone, Normal affect Lymphatics: No axilla or inguinal lymphadenopathy - Studies Medications List Reviewed: Yes Assessment And Plan - Current Problems (Diagnosis) (1) Metabolic acidosis Current Visit: Yes Status: Acute Plan: FROM BACTERIAL PNEUMONIA, UTI SHOULD IMPROVE RESUME ROCEPHIN IV. BC 2 PENDING. IMPROVING ASYMPTOMATIC (2) Pneumonia due to COVID-19 virus Current Visit: Yes Status: Acute Plan: SHE HAS COVID BUT NO SYMPTOMS OF IT. PENUMONIA MAY BE FROM BACTERIA AND NOT COVID. (3) Bacterial pneumonia Current Visit: Yes Status: Acute Plan: CONT ROCEPHIN AND ZITHROMAX. DC ABX. COVID PNEUMONIA MOST LIKELY SHE HAS SEVERE DIARRHEA SO WILL DO WITHOUT ABX NOW. (4) Acute renal failure Current Visit: No Status: Acute Plan: ACUTE ON CHRONIC RENAL FAILURE. PRERENAL. I EXPECT WITH IV FLUIDS SHE WILL RETURN TO HER BASLINE OF ABOUT 1.[address] NEG. CREAT IS DOWN TO 3 CREAT IS DOWN TO 2.86 CREAT HAS RISEN AGAIN . RENAL TEAM IS WORKING ON IT. SODIUM IS DOWN TO NORMAL CONT IV FLUIDS. HOPFEFULLY WILL SEE REDUCTION IN CREAT. Qualifiers: Acute renal failure type: unspecified Qualified Code(s): N17.9 - Acute kidney failure, unspecified (5) Altered mental status Current Visit: No Status: Acute Plan: THIS POSSIBLY SITUATIONAL. ACUTE TOXIC DELIRIUM AND SHOULD IMPROVE. BACK TO HER BASELINE. Qualifiers: Altered mental status type: delirium Qualified Code(s): R41.0 - Disorientation, unspecified (6) Anemia Onset Date: 11/10/16 Current Visit: No Status: Chronic Plan: ANEMIA IS CHRONIC SHE HAS BEEN REFERRED TO DR. FABIAN BUT SHE HAS NOT FOLLOWED UP. WITH CRIPPLING ARTHTIS SHE IS IN SEVERE PAIN. SHE CAN BARELY WALK WITH WALKER EVERY STEP IS PAINFUL DESPITE NARCOTICS. TO POSITION HER FOR EGD OR COLONSCOPY WILL BE VERY PAINFUL FOR HER. PEPCID IV BID. AVOID ALL NSAIDS. HG STABLE ANEMIA OF CHR DIS NORMAL FERRITIN Qualifiers: Anemia type: B12 deficiency Qualified Code(s): D64.89 - Other specified anemias (7) Dehydration Current Visit: No Status: Acute (8) UTI (urinary tract infection) Current Visit: Yes Status: Acute Plan: CULTURE PENDING ROCEPHIN SHOULD COVER. (9) Hypernatremia Current Visit: Yes Status: Acute Plan: CHANGE TO D5W AT 100 STOP NS A ND LATER HALF NS DI IS POSSIBLE BU WILL WATCH DIABETES INSIPIDUS IS LIKELY. DR. IZQUIERDO IS WORKING ON ELECTROLYTES DI IS LESS LIKELY HER SP GRAVITIY IS NORMAL AND NOT LOW. URIN OSM IS NOT LOW. DR. IZQUIERDO IS WORKING ON THIS. (10) Hyperchloremia Current Visit: Yes Status: Acute Plan: ABOVE (11) Hypokalemia Onset Date: 03/15/15 Current Visit: No Status: Acute Plan: CORRECTION STARTED (12) Diarrhea Current Visit: Yes Status: Acute Plan: CHECK FOR C DIFF CS AND GUAIAC. C DIFF WAS NOT DONE. DO IT IF STILL HAS DIARRHEA. SHE IS OFF ALL ABX NOW COURSE IS COMPLETED.
[2021-11-23] MEDS: HYDRALAZINE HCL 25 MG TABLET PO SCH ×2 (14:00→21:10)
[2021-11-23] MEDS: CODEINE 30MG/APAP 300MG TAB PO PRN (17:11)
--- NOTE | 2021-11-23 20:39 | PN ---
Date of Progress Note: 11/23/2021 Chief Complaint: Diarrhea, weakness, acute kidney injury. History Of Present Illness: The patient was found to have acute kidney injury secondary to volume de pletion in the setting of diarrhea. The patient had a workup done with Urology and evaluation of a c omplex cyst is pending by Urology. Review of Systems: Denies chest pain or palpitation. Physical Examination: Lungs: Clear to auscultation bilaterally. Heart: S1, S2. Abdomen: Soft, benign. Extremities: Slight edema. Impression And Plan: 1.Acute kidney injury secondary to acute tubular necrosis. There is underlying chronic kidney disea se, stage 3. Serum creatinine level is overall improving. Continue to monitor renal panel. 2.Complex cyst per urologist. 3.IV fluids will be used as needed. Monitor fluid balance and encourage p.o. intake. 4.COVID pneumonia per primary services. 5.Hypertension. Blood pressure is adequately controlled. Coreg was increased to 25 mg twice a day. 6.Anemia. Hemoglobin 7.4. Epogen will be used when blood pressure is in better control. 7.In fact PTH was elevated. The patient will continue calcitriol for secondary hyperparathyroidism of renal origin. 8.Hypokalemia, repletion were ordered. 9.Hypocalcemia. The patient received IV calcium repletion. 10.Altered mental status per primary team. EB/MODL Voice ID: [id number] Report ID: [id number]
[2021-11-23] MEDS: ATORVASTATIN 20 MG TAB PO SCH (21:10)
[2021-11-24] MEDS ORDERED: NA CHLORIDE 0.9% 250 ML ONE (01:35)
[2021-11-24] MEDS: carvediloL 25 MG TAB PO SCH ×3 (06:00→17:02)
--- NOTE | 2021-11-24 06:10 | P.PN ---
Date of Service: 11/24/21 Subjective: No acute events overnight. Patient reports feeling better, without any new complaints, continues with some chronic pain ROS: 10 point ROS as noted above, otherwise negative Physical exam General: Alert, In no apparent distress, oriented x2 HEENT: Atraumatic, PERRLA, EOMI Respiratory: Clear to auscultation bilaterally, Normal air movement Cardiovascular: Regular rate/rhythm, Normal S1 S2 Gastrointestinal: Soft, nontender, nondistended Neurological: Normal speech, normal affect Problem List COVID-19 pneumonia UTI Acute renal failure with hypernatremia, prerenal Metabolic acidosis, hyperchloremia Acute metabolic/toxic encephalopathy, likely secondary to COVID-19 pneumonia, UTI; resolved Anemia, of chronic disease, B12 and iron deficiency Hypokalemia Hypocalcemia Diarrhea, improved Blood cultures obtained, negative Suspect pneumonia secondary to COVID-19, less likely bacterial Was empirically covered with Rocephin and Zithromax, now discontinued Patient developed severe diarrhea, possibly from antibiotics, there was concern for C. difficile, stool sample never sent, improved Acute renal failure, improving with IV fluids. Nephrology consulted Hypernatremia resolved Anemia is chronic, referred to Dr. Murillo previously, but unfortunately has not followed up. Occult blood (11/16): Negative Severe pain from crippling arthritis, can barely walk with her walker despite narcotics. Expect much difficulty/pain to position her appropriately for EGD/colonoscopy Continue IV twice daily Pepcid, avoid NSAIDs s/p 1u PRBC on 11/23, Hgb responded appropriately Normocalcemia once corrected for hypoalbuminemia Dispo: director construction services consulted for SNF Time Spent Managing Pts Care (In Minutes): 35
[2021-11-24] MEDS: INSULIN -REGULAR HUMAN 50 UNIT/0.5 ML ML SQ SCH ×4 (07:30→21:00)
[2021-11-24 08:46] LABS: Absolute Lymphocytes (CBC) 1.3 K/uL (0.7-4.9); Hematocrit 27.9 % (36.0-45.0); Lymphocytes % 12.8 % (15.3-44.8); MPV 8.3 fL (7.6-11.3); RBC Red Blood Cell Count 3.35 M/uL (3.86-4.86)
[2021-11-24] MEDS: JUVEN PACKET PO SCH ×2 (09:00→21:00)
[2021-11-24 09:02] LABS: Albumin 1.9 g/dL (3.4-5.0); Phosphorus 2.7 mg/dL (2.5-4.9); Potassium 3.4 mmol/L (3.5-5.1)
[2021-11-24] MEDS ORDERED: POTASSIUM CL SA 10 MEQ TAB PO ONE (09:34)
[2021-11-24] MEDS: Ringers Lactate 1,000 ML with POTASSIUM CL 20 MEQ IV SCH ×4 (09:44→20:53)
[2021-11-24] MEDS: ASPIRIN 81 MG CHEWABLE TABLET PO SCH (09:45)
[2021-11-24] MEDS: CLONIDINE 0.2 MG/PATCH TD SCH (09:45)
[2021-11-24] MEDS: HYDRALAZINE HCL 25 MG TABLET PO SCH ×3 (09:45→20:59)
[2021-11-24] MEDS: AMLODIPINE 10 MG TAB PO SCH (09:46)
[2021-11-24] MEDS: FE SULF/FA/VIT B COMP & C TAB PO SCH (09:46)
[2021-11-24] MEDS: DULOXETINE 30 MG CAP PO SCH ×2 (09:46→20:59)
[2021-11-24] MEDS: PANTOPRAZOLE 40MG TABLET PO SCH (09:46)
[2021-11-24] MEDS: SODIUM BICARB 325 MG TAB PO SCH ×2 (09:46→20:59)
[2021-11-24] MEDS: FAMOTIDINE 20 MG/2 ML VIAL IV SCH ×2 (09:46→20:59)
[2021-11-24] MEDS: THIAMINE 200 MG/2 ML INJ IVP SCH (09:47)
[2021-11-24 10:51] LABS: Platelet Estimate ADEQ
[2021-11-24 10:52] LABS: Blood Morphology Comment NOTED (NOT SEEN); Hypochromasia 1+
[2021-11-24] MEDS: SOD FERRIC GLUC COMPLX/SUCROSE 250 MG in NA CHLORIDE 0.9% 250 ML IV SCH (11:52)
[2021-11-24 19:58] LABS: Albumin, (SPE) 2.4 g/dL (3.8-4.8); Alpha-1-Globulins 0.6 g/dL (0.2-0.3); Gamma Globulins 0.7 g/dL (0.8-1.7); INTERPRETATION REPORT
[2021-11-24] MEDS: ATORVASTATIN 20 MG TAB PO SCH (20:59)
--- NOTE | 2021-11-25 00:09 | PN ---
Date of Progress Note: 11/24/2021 Chief Complaint: Diarrhea, weakness, volume depletion, acute kidney injury. History Of Present Illness: The patient had a workup done with Urology and evaluation for a complex cyst. Review of Systems: Denies new complaints. Physical Examination: Lungs: Few rhonchi. Heart: S1, S2. Extremities: Slight edema. Impression And Plan: 1. Acute kidney injury secondary to acute tubular necrosis. Patient has nonoliguric urine output. Renal function has improved to baseline. Patient has underlying chronic kidney stage 3. Continue to monitor electrolytes. Adjust IV fluids as needed. 2. COVID pneumonia per primary team. 3. Complex cyst per Urology. Followup with urology outpatient. 4. Anemia. Monitor hemoglobin level and adjust FRANNY. 5. HTN, monitor blood pressure and adjust medication. 6. Intact PTH was elevated. Continue Calcitriol for secondary hyperparathyroidism of renal origin. 7. Hypokalemia, repletion was ordered. Monitor electrolytes. EB/TRACE Voice ID: [id number] Report ID: [id number] MTDD
[2021-11-25 03:49] LABS: Absolute Lymphocytes (CBC) 1.2 K/uL (0.7-4.9); Hematocrit 27.9 % (36.0-45.0); Lymphocytes % 11.1 % (15.3-44.8); MPV 7.9 fL (7.6-11.3); RBC Red Blood Cell Count 3.32 M/uL (3.86-4.86)
[2021-11-25 04:00] LABS: Albumin 1.9 g/dL (3.4-5.0); Magnesium 1.8 mg/dL (1.8-2.4); Phosphorus 2.2 mg/dL (2.5-4.9); Potassium 3.5 mmol/L (3.5-5.1)
[2021-11-25] MEDS: carvediloL 25 MG TAB PO SCH ×2 (05:45→18:00)
--- NOTE | 2021-11-25 06:14 | P.PN ---
Date of Service: 11/25/21 Subjective: awake, reports some continued chronic pain no new symptoms, feeling better each day low appetite ROS: 10 point ROS as noted above, otherwise negative Physical exam General: Alert, In no apparent distress, oriented x2 HEENT: PERRL, EOMI Respiratory: Clear to auscultation bilaterally, Normal air movement Cardiovascular: Regular rate/rhythm, Normal S1 S2 Gastrointestinal: Soft, nontender, nondistended Neurological: Normal speech, normal affect Problem List COVID-19 pneumonia UTI Acute renal failure with hypernatremia, prerenal Metabolic acidosis, hyperchloremia Acute metabolic/toxic encephalopathy, likely secondary to COVID-19 pneumonia, UTI; resolved Anemia, of chronic disease, B12 and iron deficiency Hypokalemia Hypocalcemia Diarrhea, improved Blood cultures negative Suspect pneumonia secondary to COVID-19, less likely bacterial Was empirically covered with Rocephin and Zithromax, now discontinued Patient developed severe diarrhea, possibly from antibiotics, there was concern for C. difficile, stool sample never sent, improved Acute renal failure, improving with IV fluids. Nephrology consulted Hypernatremia worsened Anemia is chronic, referred to Dr. Murillo previously, but unfortunately has not followed up. Occult blood (11/16): Negative Severe pain from crippling arthritis, can barely walk with her walker despite narcotics. Expect much difficulty/pain to position her appropriately for EGD/colonoscopy Continue IV twice daily Pepcid, avoid NSAIDs s/p 1u PRBC on 11/23, Hgb responded appropriately Normocalcemia once corrected for hypoalbuminemia Dispo: banking services clerk consulted for SNF, hopefully stable for dc in 1-2 days Time Spent Managing Pts Care (In Minutes): 35
[2021-11-25] MEDS: INSULIN -REGULAR HUMAN 50 UNIT/0.5 ML ML SQ SCH ×4 (07:30→20:24)
[2021-11-25] MEDS: JUVEN PACKET PO SCH ×2 (09:00→20:23)
[2021-11-25] MEDS ORDERED: POTASSIUM CL SA 10 MEQ TAB PO ONE (09:00)
[2021-11-25] MEDS: THIAMINE 200 MG/2 ML INJ IVP SCH (09:05)
[2021-11-25] MEDS: FAMOTIDINE 20 MG/2 ML VIAL IV SCH ×2 (09:05→20:23)
[2021-11-25] MEDS: ASPIRIN 81 MG CHEWABLE TABLET PO SCH (09:09)
[2021-11-25] MEDS: DULOXETINE 30 MG CAP PO SCH ×2 (09:09→20:23)
[2021-11-25] MEDS: PANTOPRAZOLE 40MG TABLET PO SCH (09:09)
[2021-11-25] MEDS: AMLODIPINE 10 MG TAB PO SCH (09:09)
[2021-11-25] MEDS: SODIUM BICARB 325 MG TAB PO SCH ×2 (09:09→20:23)
[2021-11-25] MEDS: CALCITROL 0.25 MCG CAP PO SCH (09:09)
[2021-11-25] MEDS: FE SULF/FA/VIT B COMP & C TAB PO SCH (09:09)
[2021-11-25] MEDS: HYDRALAZINE HCL 25 MG TABLET PO SCH ×3 (09:09→20:22)
[2021-11-25] MEDS: Ringers Lactate 1,000 ML with POTASSIUM CL 20 MEQ IV SCH ×4 (18:16→23:49)
[2021-11-25] MEDS: ATORVASTATIN 20 MG TAB PO SCH (20:23)
--- NOTE | 2021-11-25 22:56 | PN ---
Date of Progress Note: 11/25/2021 Chief Complaint: Diarrhea, weakness, volume depletion, acute kidney injury. History: Patient had workup done with Urology for complex renal cyst. Review of Systems: Denies new complaints. Physical Examination: Lungs: Normal respiratory effort, few rhonchi. Heart: S1 and S2. Impression And Plan: 1.Acute kidney injury secondary to acute tubular necrosis. Patient has nonoliguric urine output. R enal function has improved to baseline. Patient has underlying chronic kidney disease stage 3. 2.Complex renal cyst. Follow up with Urology outpatient. 3.Hyperparathyroidism. Continue calcitriol. 4.Hypokalemia. Monitor electrolytes. Check magnesium level and adjust treatment according to lab r esults. EB/MODL Voice ID: [id number] Report ID: [id number]
[2021-11-26 01:03] LABS: Vitamin D 1,25-Dihydroxy Total 16 pg/mL (18-72); Vitamin D,1,25-OH2, D2 <8 pg/mL
[2021-11-26 04:05] LABS: Hematocrit 29.2 % (36.0-45.0); MPV 7.8 fL (7.6-11.3); RBC Red Blood Cell Count 3.49 M/uL (3.86-4.86)
[2021-11-26 04:27] LABS: Potassium 3.6 mmol/L (3.5-5.1)
[2021-11-26] MEDS ORDERED: Ringers Lactate 1,000 ML IV ONE (07:07)
[2021-11-26] MEDS: INSULIN -REGULAR HUMAN 50 UNIT/0.5 ML ML SQ SCH ×4 (07:30→21:00)
[2021-11-26] MEDS: AMLODIPINE 10 MG TAB PO SCH (07:48)
[2021-11-26] MEDS: HYDRALAZINE HCL 25 MG TABLET PO SCH ×3 (07:48→21:55)
[2021-11-26] MEDS: PANTOPRAZOLE 40MG TABLET PO SCH (07:48)
[2021-11-26] MEDS: ASPIRIN 81 MG CHEWABLE TABLET PO SCH (07:49)
[2021-11-26] MEDS: FE SULF/FA/VIT B COMP & C TAB PO SCH (07:49)
[2021-11-26] MEDS: JUVEN PACKET PO SCH ×2 (07:49→21:00)
[2021-11-26] MEDS: carvediloL 25 MG TAB PO SCH ×2 (07:49→21:55)
[2021-11-26] MEDS: CALCITROL 0.25 MCG CAP PO SCH (07:50)
[2021-11-26] MEDS: THIAMINE 200 MG/2 ML INJ IVP SCH (07:50)
[2021-11-26] MEDS: FAMOTIDINE 20 MG/2 ML VIAL IV SCH (07:50)
[2021-11-26] MEDS: SODIUM BICARB 325 MG TAB PO SCH ×2 (07:51→21:53)
[2021-11-26] MEDS: DULOXETINE 30 MG CAP PO SCH ×2 (07:54→21:53)
[2021-11-26] MEDS: Ringers Lactate 1,000 ML with POTASSIUM CL 20 MEQ IV SCH ×2 (13:17)
[2021-11-26] MEDS ORDERED: D5W 1,000 ML IV SCH (14:00)
[2021-11-26] MEDS ORDERED: POTASSIUM CL 40 MEQ in NA CHLORIDE 0.9% 500 ML IV SCH (15:00)
[2021-11-26] MEDS: D5W 1,000 ML with POTASSIUM CL 40 MEQ IV SCH ×2 (16:00)
--- NOTE | 2021-11-26 16:39 | P.PN ---
Subjective Date of Service: 11/26/21 Chief Complaint: WEAK, DIARRHEA Patient has no new complaint. Nursing staff reports reduced oral intake SaO2 is 98% on room air. Physical Examination - Vital Signs Temperature: 98.0 F Blood Pressure: 159/85 Pulse: 87 Respirations: 24 Pulse Ox (%): 98 - Studies Medications List Reviewed: Yes Assessment And Plan - Plan Physical exam General: Alert, In no apparent distress, oriented x2 HEENT: PERRL, EOMI Respiratory: Clear to auscultation bilaterally, Normal air movement Cardiovascular: Regular rate/rhythm, Normal S1 S2 Gastrointestinal: Soft, nontender, nondistended Neurological: Normal speech, normal affect Problem List COVID-19 pneumonia UTI Acute renal failure with hypernatremia, prerenal Metabolic acidosis, hyperchloremia Acute metabolic/toxic encephalopathy, likely secondary to COVID-19 pneumonia, UTI; resolved Anemia, of chronic disease, B12 and iron deficiency Hypokalemia Hypocalcemia Diarrhea, improved Blood cultures negative. Repeat urine culture is growing Enterococcus. Patient started on oral Cipro. Suspect pneumonia secondary to COVID-19, less likely bacterial Was empirically covered with Rocephin and Zithromax, now discontinued Patient developed severe diarrhea, possibly from antibiotics, there was concern for C. difficile, stool sample never sent, improved Acute renal failure, improving with IV fluids. Nephrology consulted Hypernatremia persist. This is likely secondary to decreased oral intake. On IV D5 water. Continue to monitor BMP. Anemia is chronic. Occult blood (11/16): Negative s/p 1u PRBC on 11/23, Hgb responded appropriately Normocalcemia once corrected for hypoalbuminemia Dispo: food and nutrition services assistant consulted for SNF, hopefully stable for dc in 1-2 days Time Spent Managing Pts Care (In Minutes): 35
--- NOTE | 2021-11-26 18:41 | PN ---
Date of Progress Note: 11/26/2021 Subjective: The patient was admitted with COVID pneumonia. The patient had failure to thrive and is refused eating. Physical Examination: Vital Signs: Blood pressure 159/81, pulse of 87, afebrile. Chest: Faint rales bilateral. Heart: S1, S2. Systolic murmur. Abdomen: Soft and nontender. Extremities: No edema. Laboratory Data: WBC 11.5, H and H 9.4/29.2. Sodium 152, potassium 3.6, bicarb 19, BUN 19, creatinine 2.7, and calcium 6.7. Current Medications: The patient is on LR, Pepcid, Zofran, and pantoprazole. Assessment And Plan: 1. Acute kidney injury secondary to prerenal, continued to recover. Given the persistent hypernatremia, I am going to start the patient on D5, discontinue LR, and we will follow up. 2. Hypernatremia. Change IV fluid as above. 3. Non-anion gap metabolic acidosis secondary to renal failure, continue oral bicarb. 4. Hypokalemia. We will supplement. We will follow up magnesium level. 5. Failure to thrive as by primary. 6. Iron deficiency anemia, was started on IV iron. 7. Covered pneumonia as by primary. 8. Hypertension, controlled, optimal continue current treatment. Time spent examining the patient [id number] , reviewing radiology and laboratory data, placing order discussing the case with the cafe team member including nursing discussing the case with the hospitalist 35-minute. ELISEO Voice ID: [id number] Report ID: [id number] LELE
[2021-11-26] MEDS: ENSURE HIGH PROTEIN 237 ML CAN PO SCH (21:00)
[2021-11-26] MEDS: ATORVASTATIN 20 MG TAB PO SCH (21:53)
[2021-11-26] MEDS: MIRTAZAPINE 15 MG TAB PO SCH (21:54)
[2021-11-26] MEDS: CIPROFLOXACIN HCL 250 MG TAB PO SCH (21:54)
[2021-11-27] MEDS: D5W 1,000 ML with POTASSIUM CL 40 MEQ IV SCH ×6 (01:35→17:29)
[2021-11-27 03:49] LABS: Absolute Lymphocytes (CBC) 1.6 K/uL (0.7-4.9); Hematocrit 31.2 % (36.0-45.0); Lymphocytes % 12.7 % (15.3-44.8); MPV 7.9 fL (7.6-11.3)
[2021-11-27 06:50] LABS: Albumin 2.1 g/dL (3.4-5.0); Magnesium 1.5 mg/dL (1.8-2.4); Phosphorus 2.3 mg/dL (2.5-4.9); Potassium 4.2 mmol/L (3.5-5.1)
[2021-11-27] MEDS: INSULIN -REGULAR HUMAN 50 UNIT/0.5 ML ML SQ SCH ×4 (07:30→20:30)
[2021-11-27] MEDS: THIAMINE 200 MG/2 ML INJ IVP SCH (08:59)
[2021-11-27] MEDS: JUVEN PACKET PO SCH ×2 (09:00→20:27)
[2021-11-27] MEDS ORDERED: Magnesium Sulfate 2gm IVPB 2 G/50 ML BAG IV ONE ×2 (09:00→10:03)
[2021-11-27] MEDS: ASPIRIN 81 MG CHEWABLE TABLET PO SCH (09:02)
[2021-11-27] MEDS: FE SULF/FA/VIT B COMP & C TAB PO SCH (09:03)
[2021-11-27] MEDS: HYDRALAZINE HCL 25 MG TABLET PO SCH ×3 (09:03→20:29)
[2021-11-27] MEDS: PANTOPRAZOLE 40MG TABLET PO SCH (09:04)
[2021-11-27] MEDS: AMLODIPINE 10 MG TAB PO SCH (09:04)
[2021-11-27] MEDS: DULOXETINE 30 MG CAP PO SCH ×2 (09:05→20:29)
[2021-11-27] MEDS: carvediloL 25 MG TAB PO SCH ×2 (09:06→20:29)
[2021-11-27] MEDS: CIPROFLOXACIN HCL 250 MG TAB PO SCH ×2 (09:07→20:28)
[2021-11-27] MEDS: SODIUM BICARB 325 MG TAB PO SCH ×3 (09:08→20:28)
[2021-11-27] MEDS: ENSURE HIGH PROTEIN 237 ML CAN PO SCH ×2 (09:21→20:27)
[2021-11-27] MEDS: SOD FERRIC GLUC COMPLX/SUCROSE 250 MG in NA CHLORIDE 0.9% 250 ML IV SCH (09:27)
[2021-11-27] MEDS ORDERED: MAGNESIUM SULFATE 1 gm IVPB 1 GM/100 ML BAG IV ONE (10:17)
--- NOTE | 2021-11-27 11:45 | PN ---
Date of Progress Note: 11/27/2021 Subjective: The patient was admitted with COVID pneumonia. The patient had acute kidney injury secondary to prerenal. The patient was started on IV hydration. Kidney function has started improving. The patient continued to have failure to thrive with severe depletion in her electrolyte. Physical Examination: Vital Signs: Blood pressure 124/74, pulse of 96, afebrile. The patient had good urine output of 1250. Chest: Faint thrills bilateral. Heart: S1, S2. Systolic murmur. Abdomen: Soft, nontender. No guarding or rebound. Extremities: No edema. Neurologic: Alert. No focality. Laboratory Data: WBC 12.4, H and H 9.9/31.2. Sodium 149, potassium 4.2, bicarb 17, chloride 122, BUN 17, creatinine down to 2.7, GFR of 21, calcium 7.1, phosphorus 2.3, magnesium 1.5, albumin 2.1. Corrected calcium is 8.7. Current Medications: The patient on include; 1. IV iron. 2. Calcium carbonate. 3. Amlodipine 10 mg. 4. Carvedilol. 5. Hydralazine 25 t.i.d. 6. Mirtazapine. 7. D5 at 100. 8. Calcitriol. Assessment And Plan: 1. Acute kidney injury secondary to prerenal, on the recovery phase. The patient has still poor intake. I am going to continue IV hydration with D5 given the presence of hypernatremia. 2. Hypernatremia secondary to depletional, poor intake. Continue hypotonic solution. Sodium is trending down. 3. Urinary tract infection secondary to Enterococcus, before it was Escherichia coli, sensitive to quinolones, agree with ciprofloxacin. 4. Iron deficiency anemia. We will supplement. 5. Acidosis, non-anion gap metabolic acidosis. I am going to increase sodium bicarb to 3 times a day. 6. Hypokalemia, status post supplement, resolved. 7. Hypomagnesemia. We will supplement. 8. Hypophosphatemia with the presence of acute kidney injury. I am going to hold on any supplement for the time being. Time spent examining the patient [id number] , reviewing radiology and laboratory data, placing order discussing the case with the team leader including nursing discussing the case with the hospitalist 35-minute. ELISEO Voice ID: [id number] Report ID: [id number] LELE
--- NOTE | 2021-11-27 17:39 | P.PN ---
Subjective Date of Service: 11/27/21 Chief Complaint: NOT EATING. Subjective: Worsening NGUYỄN POLO IS DOING A LOT BETTER. SHE IS AWAKE AND HAS NO COMPLAINTS. HER LAB SHOWS IMPROVEMENT SHE IS ABLE TO TALK SHE IS NOT EATING WELL. SHE HAD VOMITING THIS AM. SHE IS COMFORTABLE AND SAYS SHE FEELS GOOD. SHE FEELS BETTER SHE IS MUCH MORE UPBEAT. GETTING BETTER DAILY PT WILL WORK WITH HER PER NURSE SHE IS EATING NOW. WILL DC IV METOPROLOL. THREAPY PARTICIPATION IS POOR SHE HAS REFUSED TO EAT NOW. DOES NOT WANT TO TAKE MEDS. WE TRIED DOBHOFF TUBE AND SHE IS NOT COOPERATING WITH PROCEDURE. DAUGHTER DOES NOT WANT G TUBE FOR NOW. SHE WANTS TO SEE HOW MUCH REMERON HELPS. SHE IS NOT COOPERATING WITH PT ALSO. Physical Examination - Vital Signs Temperature: 99.1 F Blood Pressure: 116/75 Pulse: 79 Respirations: 24 Pulse Ox (%): 97 - Physical Exam General: Oriented x2, Mild distress HEENT: Atraumatic, PERRLA, EOMI Neck: Supple, JVD not distended Respiratory: Clear to auscultation bilaterally, Normal air movement Cardiovascular: Regular rate/rhythm, Normal S1 S2 Gastrointestinal: Normal bowel sounds, No tenderness Musculoskeletal: No tenderness Integumentary: No rashes Neurological: Normal speech, Normal tone, Normal affect Lymphatics: No axilla or inguinal lymphadenopathy - Studies Medications List Reviewed: Yes Assessment And Plan - Current Problems (Diagnosis) (1) Metabolic acidosis Current Visit: Yes Status: Acute Plan: FROM BACTERIAL PNEUMONIA, UTI SHOULD IMPROVE RESUME ROCEPHIN IV. BC 2 PENDING. IMPROVING ASYMPTOMATIC MANAGED BY RENAL DOCTORS LAB IS WORSENING AGAIN I WILL TALK TO THEM. (2) Pneumonia due to COVID-19 virus Current Visit: Yes Status: Acute Plan: SHE HAS COVID BUT NO SYMPTOMS OF IT. PENUMONIA MAY BE FROM BACTERIA AND NOT COVID. (3) Bacterial pneumonia Current Visit: Yes Status: Acute Plan: CONT ROCEPHIN AND ZITHROMAX. DC ABX. COVID PNEUMONIA MOST LIKELY SHE HAS SEVERE DIARRHEA SO WILL DO WITHOUT ABX NOW. (4) Acute renal failure Current Visit: No Status: Acute Plan: ACUTE ON CHRONIC RENAL FAILURE. PRERENAL. I EXPECT WITH IV FLUIDS SHE WILL RETURN TO HER BASLINE OF ABOUT 1.[address] NEG. CREAT IS DOWN TO 3 CREAT IS DOWN TO 2.86 CREAT HAS RISEN AGAIN . RENAL TEAM IS WORKING ON IT. SODIUM IS DOWN TO NORMAL CONT IV FLUIDS. HOPFEFULLY WILL SEE REDUCTION IN CREAT. CREAT HAS COME DOWN. Qualifiers: Acute renal failure type: unspecified Qualified Code(s): N17.9 - Acute kidney failure, unspecified (5) Altered mental status Current Visit: No Status: Acute Plan: THIS POSSIBLY SITUATIONAL. ACUTE TOXIC DELIRIUM AND SHOULD IMPROVE. BACK TO HER BASELINE. STABLE MILD MEMORY LOSS. AWAKE BUT NOT WANTING TO WORK WITH US. Qualifiers: Altered mental status type: delirium Qualified Code(s): R41.0 - Disorientation, unspecified (6) Anemia Onset Date: 11/10/16 Current Visit: No Status: Chronic Plan: ANEMIA IS CHRONIC SHE HAS BEEN REFERRED TO DR. FABIAN BUT SHE HAS NOT FOLLOWED UP. WITH CRIPPLING ARTHTIS SHE IS IN SEVERE PAIN. SHE CAN BARELY WALK WITH WALKER EVERY STEP IS PAINFUL DESPITE NARCOTICS. TO POSITION HER FOR EGD OR COLONSCOPY WILL BE VERY PAINFUL FOR HER. PEPCID IV BID. AVOID ALL NSAIDS. HG STABLE ANEMIA OF CHR DIS NORMAL FERRITIN GIVEN TWO UNITS OF BLOOD. Qualifiers: Anemia type: B12 deficiency Qualified Code(s): D64.89 - Other specified anemias (7) Dehydration Current Visit: No Status: Acute (8) UTI (urinary tract infection) Current Visit: Yes Status: Acute Plan: CULTURE PENDING ROCEPHIN SHOULD COVER. (9) Hypernatremia Current Visit: Yes Status: Acute Plan: CHANGE TO D5W AT 100 STOP NS A ND LATER HALF NS DI IS POSSIBLE BU WILL WATCH DIABETES INSIPIDUS IS LIKELY. DR. IZQUIERDO IS WORKING ON ELECTROLYTES DI IS LESS LIKELY HER SP GRAVITIY IS NORMAL AND NOT LOW. URIN OSM IS NOT LOW. DR. IZQUIERDO IS WORKING ON THIS. (10) Hyperchloremia Current Visit: Yes Status: Acute Plan: ABOVE (11) Hypokalemia Onset Date: 03/15/15 Current Visit: No Status: Acute Plan: CORRECTION STARTED (12) Diarrhea Current Visit: Yes Status: Acute Plan: CHECK FOR C DIFF CS AND GUAIAC. C DIFF WAS NOT DONE. DO IT IF STILL HAS DIARRHEA. SHE IS OFF ALL ABX NOW COURSE IS COMPLETED.
[2021-11-27] MEDS: ATORVASTATIN 20 MG TAB PO SCH (20:28)
[2021-11-27] MEDS: MIRTAZAPINE 15 MG TAB PO SCH (20:29)
[2021-11-27] MEDS: ACETAMINOPHEN 500 MG TAB PO PRN (20:38)
[2021-11-28] MEDS: D5W 1,000 ML with POTASSIUM CL 40 MEQ IV SCH ×4 (02:00→09:45)
[2021-11-28 04:02] LABS: Albumin 1.8 g/dL (3.4-5.0); Magnesium 2.1 mg/dL (1.8-2.4); Phosphorus 2.1 mg/dL (2.5-4.9); Potassium 4.4 mmol/L (3.5-5.1)
[2021-11-28] MEDS: INSULIN -REGULAR HUMAN 50 UNIT/0.5 ML ML SQ SCH ×4 (07:30→21:00)
[2021-11-28] MEDS: DULOXETINE 30 MG CAP PO SCH ×2 (09:00→22:24)
[2021-11-28] MEDS: ASPIRIN 81 MG CHEWABLE TABLET PO SCH (09:00)
[2021-11-28] MEDS: HYDRALAZINE HCL 25 MG TABLET PO SCH ×3 (09:00→22:24)
[2021-11-28] MEDS: CIPROFLOXACIN HCL 250 MG TAB PO SCH ×2 (09:00→22:25)
[2021-11-28] MEDS: AMLODIPINE 10 MG TAB PO SCH (09:00)
[2021-11-28] MEDS: SODIUM BICARB 325 MG TAB PO SCH ×3 (09:00→22:24)
[2021-11-28] MEDS: FE SULF/FA/VIT B COMP & C TAB PO SCH (09:00)
[2021-11-28] MEDS: ENSURE HIGH PROTEIN 237 ML CAN PO SCH ×2 (09:00→22:26)
[2021-11-28] MEDS: carvediloL 25 MG TAB PO SCH ×2 (09:00→22:24)
[2021-11-28] MEDS: JUVEN PACKET PO SCH ×2 (09:00→22:26)
[2021-11-28] MEDS: PANTOPRAZOLE 40MG TABLET PO SCH (09:00)
[2021-11-28] MEDS: THIAMINE 200 MG/2 ML INJ IVP SCH (09:00)
--- NOTE | 2021-11-28 12:16 | RAD REPORT ---
EXAM DESCRIPTION: RAD - Chest Single View - 11/28/2021 11:59 am CLINICAL HISTORY: COPD COMPARISON: November 20 TECHNIQUE: AP portable chest image was obtained 11/28/2021 11:59 am . FINDINGS: Lung volumes are low. Interstitial pattern is prominent but not substantially different. T here remains patchy opacification in the mid left lung field. Cardiac silhouette is enlarged but similar to comparison. Vasculature is prominent but also stable. No measurable pleural effusion and no pneumothorax. No acute bony abnormality seen. No acute aortic f indings suspected. IMPRESSION: No change to the lung parenchymal opacification pattern most notable in the mid left jelena g field. Heart size and vasculature are prominent. A mild failure or volume overload component could be presen t and needs clinical correlation.
[2021-11-28] MEDS ORDERED: POTASSIUM PHOS IN 0.9 % NACL 15 MMOL/250 ML BAG IV ONE (12:52)
--- NOTE | 2021-11-28 13:22 | P.PN ---
Subjective Date of Service: 11/28/21 Chief Complaint: NOT EATING. Subjective: Worsening SHE IS BETTER BUT SHE REFUSES TO EAT. SHE REFUSES TO TAKE MEDS. Review of Systems General: Weakness, Malaise Physical Examination - Vital Signs Temperature: 97.2 F Blood Pressure: 150/82 Pulse: 81 Respirations: 24 Pulse Ox (%): 99 - Physical Exam General: Oriented x2, Mild distress HEENT: Atraumatic, PERRLA, EOMI Neck: Supple, JVD not distended Respiratory: Clear to auscultation bilaterally, Normal air movement Cardiovascular: Regular rate/rhythm, Normal S1 S2 Gastrointestinal: Normal bowel sounds, No tenderness Musculoskeletal: No tenderness, Other (CRIPPLED FROM DJD. WALKS WITH WALKER AT HOME BUT NOT ABLE TO WHILE SHE IS HERE. ) Integumentary: No rashes Neurological: Normal speech, Normal tone, Normal affect Lymphatics: No axilla or inguinal lymphadenopathy - Studies Medications List Reviewed: Yes Assessment And Plan - Current Problems (Diagnosis) (1) Metabolic acidosis Current Visit: Yes Status: Acute Plan: FROM BACTERIAL PNEUMONIA, UTI SHOULD IMPROVE RESUME ROCEPHIN IV. BC 2 PENDING. IMPROVING ASYMPTOMATIC MANAGED BY RENAL DOCTORS LAB IS WORSENING AGAIN I WILL TALK TO THEM. (2) Pneumonia due to COVID-19 virus Current Visit: Yes Status: Resolved Plan: SHE HAS COVID BUT NO SYMPTOMS OF IT. PENUMONIA MAY BE FROM BACTERIA AND NOT COVID. (3) Bacterial pneumonia Current Visit: Yes Status: Acute Plan: CONT ROCEPHIN AND ZITHROMAX. DC ABX. COVID PNEUMONIA MOST LIKELY SHE HAS SEVERE DIARRHEA SO WILL DO WITHOUT ABX NOW. (4) Acute renal failure Current Visit: No Status: Acute Plan: ACUTE ON CHRONIC RENAL FAILURE. CREAT IS DOWN TO 2.5 SHE DOES NOT WANT TO EAT OR DRINK. I TALKED TO SISTER. SISTER DOES NOT HAVE POA AND NO ONE HAS IT. SHE NEVER MADE A WILL OR DIRECTIVE. SISTER WANTS FEEDING TUBE I ADVISED THAT IS THE LAST THING TO BE DONE. Qualifiers: Acute renal failure type: unspecified Qualified Code(s): N17.9 - Acute kidney failure, unspecified (5) Altered mental status Current Visit: No Status: Acute Plan: THIS POSSIBLY SITUATIONAL. ACUTE TOXIC DELIRIUM AND SHOULD IMPROVE. BACK TO HER BASELINE. STABLE MILD MEMORY LOSS. AWAKE BUT NOT WANTING TO WORK WITH US. Qualifiers: Altered mental status type: delirium Qualified Code(s): R41.0 - Disorientation, unspecified (6) Anemia Onset Date: 11/10/16 Current Visit: No Status: Chronic Plan: ANEMIA IS CHRONIC SHE HAS BEEN REFERRED TO DR. FABIAN BUT SHE HAS NOT FOLLOWED UP. WITH CRIPPLING ARTHTIS SHE IS IN SEVERE PAIN. SHE CAN BARELY WALK WITH WALKER EVERY STEP IS PAINFUL DESPITE NARCOTICS. TO POSITION HER FOR EGD OR COLONSCOPY WILL BE VERY PAINFUL FOR HER. PEPCID IV BID. AVOID ALL NSAIDS. HG STABLE ANEMIA OF CHR DIS NORMAL FERRITIN GIVEN TWO UNITS OF BLOOD. Qualifiers: Anemia type: B12 deficiency Qualified Code(s): D64.89 - Other specified anemias (7) Dehydration Current Visit: No Status: Acute (8) UTI (urinary tract infection) Current Visit: Yes Status: Acute Plan: CULTURE PENDING ROCEPHIN SHOULD COVER. (9) Hypernatremia Current Visit: Yes Status: Acute Plan: CHANGE TO D5W AT 100 STOP NS A ND LATER HALF NS DI IS POSSIBLE BU WILL WATCH DIABETES INSIPIDUS IS LIKELY. DR. IZQUIERDO IS WORKING ON ELECTROLYTES DI IS LESS LIKELY HER SP GRAVITIY IS NORMAL AND NOT LOW. URIN OSM IS NOT LOW. DR. IZQUIERDO IS WORKING ON THIS. (10) Hyperchloremia Current Visit: Yes Status: Acute Plan: ABOVE (11) Hypokalemia Onset Date: 03/15/15 Current Visit: No Status: Acute Plan: CORRECTION STARTED (12) Diarrhea Current Visit: Yes Status: Acute Plan: CHECK FOR C DIFF CS AND GUAIAC. C DIFF WAS NOT DONE. DO IT IF STILL HAS DIARRHEA. SHE IS OFF ALL ABX NOW COURSE IS COMPLETED.
--- NOTE | 2021-11-28 15:16 | PN ---
Date of Progress Note: 11/28/2021 Subjective: The patient was admitted with COVID pneumonia. The patient had acute kidney injury, creatinine upon admission around in the 4. The patient developed hypernatremia. The patient had failure to thrive. Refused to eat or drink. Physical Examination: Vital Signs: Blood pressure 150/82, pulse of 81, afebrile. The patient had good urine output. The patient still on room air. Urine output of 1600. Chest: Clear to auscultation. Heart: S1, S2. Systolic murmur. Abdomen: Soft, nontender. Extremities: No edema. Neurologic: Alert. No focality. Laboratory Data: WBC 12.4, H and H 9.9/31.2. Sodium 146, potassium 4.4, bicarb 18, chloride 119, BUN 16, creatinine 2.7, calcium 7, phosphorus 2.1, magnesium 2.1, albumin 1.8. Corrected calcium is 8.6. Current Medications: The patient on include aspirin, ciprofloxacin 250 b.i.d., IV iron, calcium carbonate, amlodipine 10 mg, carvedilol, clonidine 0.2 t.i.d., hydralazine, Ensure, sodium bicarb 650 t.i.d., pantoprazole, D5, calcitriol. Assessment And Plan: 1. Acute kidney injury on chronic kidney disease, plateaued, poor intake. I am going to continue current IV fluid and we will monitor. 2. Hypernatremia secondary to depletion secondary to poor intake. Continue D5. 3. Hypophosphatemia, hypokalemia, status post supplement. We will monitor. 4. Hypertension, controlled, optimal. Continue current medications. 5. Urinary tract infection secondary to Enterococcus faecalis. Agree with quinolones dose appropriate. 6. COVID pneumonia as by primary. 7. Iron deficiency anemia. Continue IV iron. 8. Failure to thrive as by primary. Time spent examining the patient [id number] , reviewing radiology and laboratory data, placing order discussing the case with the application development team lead including nursing discussing the case with the hospitalist 35-minute. ELISEO Voice ID: [id number] Report ID: [id number] [facility]
[2021-11-28] MEDS: ACETAMINOPHEN 500 MG TAB PO PRN (22:23)
[2021-11-28] MEDS: MEGESTROL 40 MG TAB PO SCH (22:24)
[2021-11-28] MEDS: ATORVASTATIN 20 MG TAB PO SCH (22:25)
[2021-11-28] MEDS: MIRTAZAPINE 15 MG TAB PO SCH (22:25)
[2021-11-29 04:22] LABS: Albumin 1.9 g/dL (3.4-5.0); Magnesium 1.7 mg/dL (1.8-2.4); Phosphorus 2.8 mg/dL (2.5-4.9); Potassium 5.3 mmol/L (3.5-5.1)
--- NOTE | 2021-11-29 06:02 | P.PN ---
Subjective Date of Service: 11/29/21 Chief Complaint: NOT EATING. Subjective: No new changes Physical Examination - Vital Signs Temperature: 98.5 F Blood Pressure: 127/75 Pulse: 94 Respirations: 18 Pulse Ox (%): 99 - Physical Exam General: In no apparent distress, Other (chronically ill-appearing) HEENT: Atraumatic, Normocephalic Neck: Supple, JVD not distended Respiratory: Other (symmetric chest expansion) Cardiovascular: No rubs, No murmurs Gastrointestinal: Soft and benign, No guarding Integumentary: No warmth Neurological: Normal speech, Normal tone Urinary: Other (No bladder distention) External genitalia: Deferred Rectal: Deferred - Studies Medications List Reviewed: Yes Assessment And Plan - Plan # Acute kidney injury 2/2 prerenal state +/- ATN, on chronic kidney disease stage 3 serum creatinine plateaued at 2.7 +complex cyst - eval per Urology Encourage by mouth fluid intake IV fluid when necessary if by mouth fluid intake remains low Monitor renal panel # Covid pna Per other services # Htn Cont current medication regimen # Hyperkalemia Increase oral bicarb to 1300 mg by mouth 3 times a day # Acidosis Increase oral bicarb dose as above # Anemia w/ iron deficiency Received IV iron # SHPTH iPTH [id number] Cont calcitriol # AMS Supportive care
[2021-11-29] MEDS: D5W 1,000 ML IV SCH ×2 (06:46→20:25)
[2021-11-29 07:18] LABS: Urine Appearance CLOUDY (Clear); Urine Bilirubin NEGATIVE (Negative); Urine Blood 1+ (Negative); Urine Color YELLOW (Yellow); Urine Glucose NEGATIVE (Negative); Urine Protein 2+ (Negative); Urine Specific Gravity <=1.005 (1.005-1.030); Urine Urobilinogen 0.2 mg/dL (0.2-1.0); Urine pH 6.5 (5.0-7.0)
[2021-11-29 07:27] LABS: Urine Bacteria >50 /HPF (<20); Urine RBC <5 /HPF (NONE SEEN); Urine Urothelial Cells <5 /HPF (NONE SEEN)
[2021-11-29 07:28] LABS: Urine Yeast MANY (NONE SEEN)
[2021-11-29] MEDS: INSULIN -REGULAR HUMAN 50 UNIT/0.5 ML ML SQ SCH ×4 (07:30→21:00)
[2021-11-29] MEDS: DULOXETINE 30 MG CAP PO SCH ×3 (09:00→20:24)
[2021-11-29] MEDS: PANTOPRAZOLE 40MG TABLET PO SCH ×2 (09:00→09:55)
[2021-11-29] MEDS: FE SULF/FA/VIT B COMP & C TAB PO SCH ×2 (09:00→09:55)
[2021-11-29] MEDS: JUVEN PACKET PO SCH ×2 (09:00→20:24)
[2021-11-29] MEDS: ENSURE HIGH PROTEIN 237 ML CAN PO SCH ×2 (09:00→20:23)
[2021-11-29] MEDS: carvediloL 25 MG TAB PO SCH ×2 (09:54→21:00)
[2021-11-29] MEDS: ASPIRIN 81 MG CHEWABLE TABLET PO SCH (09:54)
[2021-11-29] MEDS: CALCITROL 0.25 MCG CAP PO SCH ×2 (09:55→10:00)
[2021-11-29] MEDS: SODIUM BICARB 325 MG TAB PO SCH ×2 (09:55→20:23)
[2021-11-29] MEDS: AMLODIPINE 10 MG TAB PO SCH (09:55)
[2021-11-29] MEDS: HYDRALAZINE HCL 25 MG TABLET PO SCH ×3 (09:56→20:23)
[2021-11-29] MEDS: THIAMINE 200 MG/2 ML INJ IVP SCH (09:56)
[2021-11-29] MEDS: MEGESTROL 40 MG TAB PO SCH ×2 (09:56→20:24)
--- NOTE | 2021-11-29 14:23 | P.PN ---
Subjective Date of Service: 11/29/21 Chief Complaint: NOT EATING. Subjective: No C/O voiced SHE IS BETTER BUT SHE REFUSES TO EAT. SHE REFUSES TO TAKE MEDS. NGUYỄN IS STABLE AND TALKED TODAY. SHE UNDRESTOOD THAT SHE NEEDS TO EAT. Review of Systems 10-point ROS is otherwise unremarkable Physical Examination - Vital Signs Temperature: 96.9 F Blood Pressure: 140/95 Pulse: 103 Respirations: 20 Pulse Ox (%): 98 - Physical Exam General: Oriented x3, Mild distress HEENT: Atraumatic, PERRLA, EOMI Neck: Supple, JVD not distended Respiratory: Clear to auscultation bilaterally, Normal air movement Cardiovascular: Regular rate/rhythm, Normal S1 S2 Gastrointestinal: Normal bowel sounds, No tenderness Musculoskeletal: No tenderness Integumentary: No rashes Neurological: Normal speech, Normal tone, Normal affect Lymphatics: No axilla or inguinal lymphadenopathy - Studies Medications List Reviewed: Yes Assessment And Plan - Current Problems (Diagnosis) (1) Metabolic acidosis Current Visit: Yes Status: Acute Plan: FROM BACTERIAL PNEUMONIA, UTI SHOULD IMPROVE RESUME ROCEPHIN IV. BC 2 PENDING. IMPROVING ASYMPTOMATIC MANAGED BY RENAL DOCTORS LAB IS WORSENING AGAIN I WILL TALK TO THEM. (2) Pneumonia due to COVID-19 virus Current Visit: Yes Status: Resolved Plan: SHE HAS COVID BUT NO SYMPTOMS OF IT. PENUMONIA MAY BE FROM BACTERIA AND NOT COVID. (3) Bacterial pneumonia Current Visit: Yes Status: Acute Plan: CONT ROCEPHIN AND ZITHROMAX. DC ABX. COVID PNEUMONIA MOST LIKELY SHE HAS SEVERE DIARRHEA SO WILL DO WITHOUT ABX NOW. (4) Acute renal failure Current Visit: No Status: Acute Plan: ACUTE ON CHRONIC RENAL FAILURE. CREAT IS DOWN TO 2.5 SHE DOES NOT WANT TO EAT OR DRINK. I TALKED TO SISTER. SISTER DOES NOT HAVE POA AND NO ONE HAS IT. SHE NEVER MADE A WILL OR DIRECTIVE. SISTER WANTS FEEDING TUBE I ADVISED THAT IS THE LAST THING TO BE DONE. Qualifiers: Acute renal failure type: unspecified Qualified Code(s): N17.9 - Acute kidney failure, unspecified (5) Altered mental status Current Visit: No Status: Acute Plan: THIS POSSIBLY SITUATIONAL. ACUTE TOXIC DELIRIUM AND SHOULD IMPROVE. BACK TO HER BASELINE. STABLE MILD MEMORY LOSS. AWAKE BUT NOT WANTING TO WORK WITH US. Qualifiers: Altered mental status type: delirium Qualified Code(s): R41.0 - Disorientation, unspecified (6) Anemia Onset Date: 11/10/16 Current Visit: No Status: Chronic Plan: ANEMIA IS CHRONIC SHE HAS BEEN REFERRED TO DR. FABIAN BUT SHE HAS NOT FOLLOWED UP. WITH CRIPPLING ARTHTIS SHE IS IN SEVERE PAIN. SHE CAN BARELY WALK WITH WALKER EVERY STEP IS PAINFUL DESPITE NARCOTICS. TO POSITION HER FOR EGD OR COLONSCOPY WILL BE VERY PAINFUL FOR HER. PEPCID IV BID. AVOID ALL NSAIDS. HG STABLE ANEMIA OF CHR DIS NORMAL FERRITIN GIVEN TWO UNITS OF BLOOD. Qualifiers: Anemia type: B12 deficiency Qualified Code(s): D64.89 - Other specified anemias (7) Dehydration Current Visit: No Status: Acute (8) UTI (urinary tract infection) Current Visit: Yes Status: Acute Plan: CULTURE PENDING ROCEPHIN SHOULD COVER. (9) Hypernatremia Current Visit: Yes Status: Acute Plan: CHANGE TO D5W AT 100 STOP NS A ND LATER HALF NS DI IS POSSIBLE BU WILL WATCH DIABETES INSIPIDUS IS LIKELY. DR. IZQUIERDO IS WORKING ON ELECTROLYTES DI IS LESS LIKELY HER SP GRAVITIY IS NORMAL AND NOT LOW. URIN OSM IS NOT LOW. DR. IZQUIERDO IS WORKING ON THIS. (10) Hyperchloremia Current Visit: Yes Status: Acute Plan: ABOVE (11) Hypokalemia Onset Date: 03/15/15 Current Visit: No Status: Acute Plan: CORRECTION STARTED RESOLVED AND SEH HAS HIGH K WILL CHANGE BACK TO D5W IV. (12) Diarrhea Current Visit: Yes Status: Acute Plan: CHECK FOR C DIFF CS AND GUAIAC. C DIFF WAS NOT DONE. DO IT IF STILL HAS DIARRHEA. SHE IS OFF ALL ABX NOW COURSE IS COMPLETED.
[2021-11-29] MEDS ORDERED: MAGNESIUM SULFATE 1 gm IVPB 1 GM/100 ML BAG IV ONE (17:39)
[2021-11-29] MEDS: ACETAMINOPHEN 500 MG TAB PO PRN (20:23)
[2021-11-29] MEDS: MIRTAZAPINE 15 MG TAB PO SCH (20:23)
[2021-11-29] MEDS: ATORVASTATIN 20 MG TAB PO SCH (20:24)
[2021-11-30 07:06] LABS: Albumin 1.7 g/dL (3.4-5.0); Phosphorus 3.4 mg/dL (2.5-4.9)
[2021-11-30 07:09] LABS: Potassium 4.9 mmol/L (3.5-5.1)
[2021-11-30] MEDS: INSULIN -REGULAR HUMAN 50 UNIT/0.5 ML ML SQ SCH ×4 (07:30→20:49)
[2021-11-30] MEDS: ENSURE HIGH PROTEIN 237 ML CAN PO SCH ×2 (09:00→20:56)
[2021-11-30] MEDS: JUVEN PACKET PO SCH ×2 (09:00→21:00)
[2021-11-30] MEDS: MEGESTROL 40 MG TAB PO SCH ×2 (09:29→20:54)
[2021-11-30] MEDS: D5W 1,000 ML IV SCH ×2 (09:29→23:00)
[2021-11-30] MEDS: SODIUM BICARB 325 MG TAB PO SCH ×3 (09:29→20:53)
[2021-11-30] MEDS: ASPIRIN 81 MG CHEWABLE TABLET PO SCH (09:30)
[2021-11-30] MEDS: carvediloL 25 MG TAB PO SCH ×2 (09:30→20:54)
[2021-11-30] MEDS: PANTOPRAZOLE 40MG TABLET PO SCH (09:30)
[2021-11-30] MEDS: FE SULF/FA/VIT B COMP & C TAB PO SCH (09:31)
[2021-11-30] MEDS: DULOXETINE 30 MG CAP PO SCH ×2 (09:31→20:53)
[2021-11-30] MEDS: AMLODIPINE 10 MG TAB PO SCH (09:31)
[2021-11-30] MEDS: THIAMINE 200 MG/2 ML INJ IVP SCH (09:33)
[2021-11-30] MEDS: SOD FERRIC GLUC COMPLX/SUCROSE 250 MG in NA CHLORIDE 0.9% 250 ML IV SCH (10:00)
[2021-11-30] MEDS: ACETAMINOPHEN 500 MG TAB PO PRN ×3 (10:11→23:27)
[2021-11-30] MEDS: HYDRALAZINE HCL 25 MG TABLET PO SCH ×3 (10:12→20:55)
--- NOTE | 2021-11-30 10:32 | P.PN ---
Subjective Date of Service: 11/30/21 Chief Complaint: NOT EATING. Subjective: Improving SHE IS BETTER BUT SHE REFUSES TO EAT. SHE REFUSES TO TAKE MEDS. NGUYỄN IS STABLE AND TALKED TODAY. SHE UNDRESTOOD THAT SHE NEEDS TO EAT. SHE IS STABLE. STARTING TO EAT SOME. STILL NOT ENOUGH. Review of Systems 10-point ROS is otherwise unremarkable General: Weakness Physical Examination - Vital Signs Temperature: 97.3 F Blood Pressure: 127/72 Pulse: 90 Respirations: 24 Pulse Ox (%): 98 - Physical Exam General: Cooperative, Mild distress, Obese HEENT: Atraumatic, PERRLA, EOMI Neck: Supple, JVD not distended Respiratory: Clear to auscultation bilaterally, Normal air movement Cardiovascular: Regular rate/rhythm, Normal S1 S2 Gastrointestinal: Normal bowel sounds, No tenderness Musculoskeletal: No tenderness Integumentary: No rashes Neurological: Normal speech, Normal tone, Normal affect Lymphatics: No axilla or inguinal lymphadenopathy - Studies Medications List Reviewed: Yes Assessment And Plan - Current Problems (Diagnosis) (1) Metabolic acidosis Current Visit: Yes Status: Acute Plan: FROM BACTERIAL PNEUMONIA, UTI SHOULD IMPROVE RESUME ROCEPHIN IV. BC 2 PENDING. IMPROVING ASYMPTOMATIC MANAGED BY RENAL DOCTORS LAB IS WORSENING AGAIN I WILL TALK TO THEM. (2) Pneumonia due to COVID-19 virus Current Visit: Yes Status: Resolved Plan: SHE HAS COVID BUT NO SYMPTOMS OF IT. PENUMONIA MAY BE FROM BACTERIA AND NOT COVID. (3) Bacterial pneumonia Current Visit: Yes Status: Acute Plan: CONT ROCEPHIN AND ZITHROMAX. DC ABX. COVID PNEUMONIA MOST LIKELY SHE HAS SEVERE DIARRHEA SO WILL DO WITHOUT ABX NOW. (4) Acute renal failure Current Visit: No Status: Acute Plan: ACUTE ON CHRONIC RENAL FAILURE. CREAT IS DOWN TO 2.5 SHE DOES NOT WANT TO EAT OR DRINK. I TALKED TO SISTER. SISTER DOES NOT HAVE POA AND NO ONE HAS IT. SHE NEVER MADE A WILL OR DIRECTIVE. SISTER WANTS FEEDING TUBE I ADVISED THAT IS THE LAST THING TO BE DONE. CREAT IS DOWN TO 2.4 Qualifiers: Acute renal failure type: unspecified Qualified Code(s): N17.9 - Acute kidney failure, unspecified (5) Altered mental status Current Visit: No Status: Acute Plan: THIS POSSIBLY SITUATIONAL. ACUTE TOXIC DELIRIUM AND SHOULD IMPROVE. BACK TO HER BASELINE. STABLE MILD MEMORY LOSS. AWAKE BUT NOT WANTING TO WORK WITH US. Qualifiers: Altered mental status type: delirium Qualified Code(s): R41.0 - Disorientation, unspecified (6) Anemia Onset Date: 11/10/16 Current Visit: No Status: Chronic Plan: ANEMIA IS CHRONIC SHE HAS BEEN REFERRED TO DR. FABIAN BUT SHE HAS NOT FOLLOWED UP. WITH CRIPPLING ARTHTIS SHE IS IN SEVERE PAIN. SHE CAN BARELY WALK WITH WALKER EVERY STEP IS PAINFUL DESPITE NARCOTICS. TO POSITION HER FOR EGD OR COLONSCOPY WILL BE VERY PAINFUL FOR HER. PEPCID IV BID. AVOID ALL NSAIDS. HG STABLE ANEMIA OF CHR DIS NORMAL FERRITIN GIVEN TWO UNITS OF BLOOD. Qualifiers: Anemia type: B12 deficiency Qualified Code(s): D64.89 - Other specified anemias (7) Dehydration Current Visit: No Status: Acute (8) UTI (urinary tract infection) Current Visit: Yes Status: Acute Plan: CULTURE PENDING ROCEPHIN SHOULD COVER. (9) Hypernatremia Current Visit: Yes Status: Acute Plan: CHANGE TO D5W AT 100 STOP NS A ND LATER HALF NS DI IS POSSIBLE BU WILL WATCH DIABETES INSIPIDUS IS LIKELY. DR. IZQUIERDO IS WORKING ON ELECTROLYTES DI IS LESS LIKELY HER SP GRAVITIY IS NORMAL AND NOT LOW. URIN OSM IS NOT LOW. DR. IZQUIERDO IS WORKING ON THIS. (10) Hyperchloremia Current Visit: Yes Status: Acute Plan: ABOVE (11) Hypokalemia Onset Date: 03/15/15 Current Visit: No Status: Acute Plan: CORRECTION STARTED RESOLVED AND SEH HAS HIGH K WILL CHANGE BACK TO D5W IV. K BETTER AFTER STOPPING K IN DRIP. (12) Diarrhea Current Visit: Yes Status: Acute Plan: CHECK FOR C DIFF CS AND GUAIAC. C DIFF WAS NOT DONE. DO IT IF STILL HAS DIARRHEA. SHE IS OFF ALL ABX NOW COURSE IS COMPLETED.
[2021-11-30] MEDS ORDERED: SOD FERRIC GLUC COMPLX/SUCROSE 250 MG in NA CHLORIDE 0.9% 250 ML IV SCH (11:00)
--- NOTE | 2021-11-30 14:54 | PN ---
Date of Progress Note: 11/30/2021 Subjective: Patient was admitted with acute kidney injury secondary to prerenal hypernatremia. Patient had failure to thrive. Also, admitted with COVID pneumonia, treated, currently on room air. Physical Examination: Vital Signs: Blood pressure 127/72, pulse of 90, afebrile. Patient still had good urine output of 1200. Chest: Clear to auscultation. Heart: S1, S2 regular. Abdomen: Soft, nontender. Extremities: No edema. Neurological: Alert. Following command. Laboratory Data: WBC 12.4, H and H 9.9/31.2. Sodium 140, potassium 4.9, bicarb 18, chloride 114, continue to trend down. BUN 24, creatinine 2.7, calcium 6.7. Phosphorus 3.4, magnesium 2. Albumin 1.7. Corrected calcium is 8.7. Current Medications: The patient is on include: 1. Aspirin. 2. Megestrol 40 b.i.d. 3. IV iron. 4. Calcium carbonate. 5. Amlodipine 10 mg. 6. Carvedilol 25 b.i.d. 7. Clonidine. 8. Hydralazine. 9. Mirtazapine. 10. Ensure. 11. D5 at 75. Assessment And Plan: 1. Acute kidney injury on chronic kidney disease secondary to prerenal. Continue to recover. We will continue current hydration. 2. Hyponatremia secondary to failure to thrive, poor intake. Sodium is trending down appropriately. We will continue current IV fluid. We will consider PPN. 3. Non-anion gap metabolic acidosis secondary to renal failure. I am going to continue on the sodium bicarbonate orally. 4. Hypocalcemia secondary to secondary hyperparathyroidism. Continue Tums and continue calcitriol. 5. Failure to thrive. Patient was started on megestrol. We will continue D5. Discussed with the primary. 6. Hypertension, controlled optimal. 7. COVID pneumonia as by primary. Time spent examining the patient [id number] , reviewing radiology and laboratory data, placing order discussing the case with the steam trap man including nursing discussing the case with the hospitalist 35-minute. ELISEO Voice ID: [id number] Report ID: [id number] [facility]
[2021-11-30] MEDS: AA 4.25 %/D5W/ELECTROLYTES 2,000 ML with MULTIVITAMINS INJ 10 ML IV SCH ×2 (17:09)
[2021-11-30] MEDS: ATORVASTATIN 20 MG TAB PO SCH (20:53)
[2021-11-30] MEDS: MIRTAZAPINE 15 MG TAB PO SCH (20:54)
[2021-12-01] MEDS: CODEINE 30MG/APAP 300MG TAB PO PRN ×3 (01:41→18:46)
[2021-12-01 04:38] LABS: Albumin 1.8 g/dL (3.4-5.0); Phosphorus 4.2 mg/dL (2.5-4.9); Potassium 4.4 mmol/L (3.5-5.1)
[2021-12-01] MEDS: INSULIN -REGULAR HUMAN 50 UNIT/0.5 ML ML SQ SCH ×4 (07:30→21:00)
[2021-12-01] MEDS: JUVEN PACKET PO SCH ×2 (09:00→21:00)
[2021-12-01] MEDS: ENSURE HIGH PROTEIN 237 ML CAN PO SCH ×2 (09:00→21:00)
[2021-12-01] MEDS: FE SULF/FA/VIT B COMP & C TAB PO SCH (09:02)
[2021-12-01] MEDS: HYDRALAZINE HCL 25 MG TABLET PO SCH ×3 (09:02→20:39)
[2021-12-01] MEDS: ASPIRIN 81 MG CHEWABLE TABLET PO SCH (09:02)
[2021-12-01] MEDS: carvediloL 25 MG TAB PO SCH (09:02)
[2021-12-01] MEDS: DULOXETINE 30 MG CAP PO SCH ×2 (09:02→20:39)
[2021-12-01] MEDS: CLONIDINE 0.2 MG/PATCH TD SCH (09:02)
[2021-12-01] MEDS: MEGESTROL 40 MG TAB PO SCH ×2 (09:04→20:38)
[2021-12-01] MEDS: AMLODIPINE 10 MG TAB PO SCH (09:04)
[2021-12-01] MEDS: PANTOPRAZOLE 40MG TABLET PO SCH (09:05)
[2021-12-01] MEDS: CALCITROL 0.25 MCG CAP PO SCH (09:05)
[2021-12-01] MEDS: THIAMINE 200 MG/2 ML INJ IVP SCH (09:05)
[2021-12-01] MEDS: SODIUM BICARB 325 MG TAB PO SCH ×3 (09:05→20:39)
[2021-12-01] MEDS ORDERED: Levofloxacin 250mg IV 250 MG/50 ML BAG IV SCH (12:00)
[2021-12-01] MEDS ORDERED: CLONIDINE 0.2 MG/PATCH TD SCH (12:15)
--- NOTE | 2021-12-01 12:34 | PN ---
Date of Progress Note: 12/01/2021 Subjective: The patient was admitted with acute kidney injury on chronic kidney disease, baseline creatinine around 1.6 to 2. The patient had failure to thrive. The patient had COVID. Physical Examination: General: When I saw the patient; still sleepy, refused to eat today. Vital Signs: Blood pressure 117/67, pulse of 86, afebrile. The patient was started on PPN yesterday. Chest: Clear to auscultation. Heart: S1, S2. Regular. Systolic murmur. Abdomen: Soft, nontender. Extremity: No edema. Neuro: Alert. No focality. Laboratory Data: WBC 12.4, H and H 9.9/31.2. Sodium 143, potassium 4.4, bicarb 18, chloride 117, BUN 30, creatinine 2.8, calcium 6.4, phosphorus 4.2, magnesium of 2, albumin 1.8. Corrected calcium is 8. Current Medications: The patient on include; 1. Megestrol. 2. Aspirin. 3. IV iron. 4. Calcium carbonate. 5. Amlodipine 10 mg. 6. Atorvastatin. 7. Carvedilol. 8. Clonidine 0.2 patch. 9. Nitroglycerin patch. 10. Mirtazapine. Assessment And Plan: 1. Acute kidney injury secondary to prerenal, plateaued currently. I am going to keep holding any TARA inhibitor or ARB and we will continue to monitor the patient. 2. Hypokalemia, status post supplement, resolved. 3. Hyponatremia secondary to depletion, resolved. Currently, the patient on PPN. Discontinued D5. 4. Hypophosphatemia. Continue p.r.n. supplement. 5. Hypomagnesemia. We will supplement. 6. Hypertension, currently blood pressure on the lower side. I am going to start tapering clonidine. We will decrease the patch to 0.1 and we will decrease carvedilol to 12.5. 7. Failure to thrive. The patient was started on PPN yesterday, discontinue D5, continue megestrol. I am going to decrease clonidine and carvedilol and we will continue to monitor the patient. 8. Urinary tract infection. Culture growing Enterococcal faecalis. I am going to start the patient on Levaquin and we will follow up. 9. Acidosis secondary to renal failure. Continue oral bicarb. Time spent examining the patient [id number] , reviewing radiology and laboratory data, placing order discussing the case with the team assembler including nursing discussing the case with the hospitalist 35-minute. ELISEO Voice ID: [id number] Report ID: [id number] [facility]
[2021-12-01] MEDS: ACETAMINOPHEN 500 MG TAB PO PRN (13:21)
[2021-12-01] MEDS: AA 4.25 %/D5W/ELECTROLYTES 2,000 ML with MULTIVITAMINS INJ 10 ML IV SCH ×2 (17:04)
[2021-12-01] MEDS: MIRTAZAPINE 15 MG TAB PO SCH (20:39)
[2021-12-01] MEDS: carvediloL 12.5 MG TAB PO SCH (21:00)
--- NOTE | 2021-12-01 21:58 | P.PN ---
Subjective Date of Service: 12/01/21 Chief Complaint: ATE WELL TODAY, WALKED YESTERDAY Subjective: Improving SHE IS BETTER BUT SHE REFUSES TO EAT. SHE REFUSES TO TAKE MEDS. NGUYỄN IS STABLE AND TALKED TODAY. SHE UNDRESTOOD THAT SHE NEEDS TO EAT. SHE IS STABLE. STARTING TO EAT SOME. STILL NOT ENOUGH. STARTING TO EAT AND WALK NOW. Physical Examination - Vital Signs Temperature: 97.3 F Blood Pressure: 106/65 Pulse: 84 Respirations: 18 Pulse Ox (%): 99 - Physical Exam General: Oriented x2 HEENT: Atraumatic, PERRLA, EOMI Neck: Supple, JVD not distended Respiratory: Clear to auscultation bilaterally, Normal air movement Cardiovascular: Regular rate/rhythm, Normal S1 S2 Gastrointestinal: Normal bowel sounds, No tenderness Musculoskeletal: No tenderness Integumentary: No rashes Neurological: Normal speech, Normal tone, Normal affect Lymphatics: No axilla or inguinal lymphadenopathy - Studies Medications List Reviewed: Yes Assessment And Plan - Current Problems (Diagnosis) (1) Metabolic acidosis Current Visit: Yes Status: Acute Plan: FROM BACTERIAL PNEUMONIA, UTI SHOULD IMPROVE RESUME ROCEPHIN IV. BC 2 PENDING. IMPROVING ASYMPTOMATIC MANAGED BY RENAL DOCTORS LAB IS WORSENING AGAIN I WILL TALK TO THEM. RESOLVED IV IS OUT ACCESS IS POOR. SHE IS STARTING TO EAT NOW. HOPEFULLY WE CAN DO WITHOUT IV ACCESS. I ASKED CODY TO CALL DR. DENTON IF WE CAN DC ALL IV AND CHANGE TO PO (2) Pneumonia due to COVID-19 virus Current Visit: Yes Status: Resolved Plan: SHE HAS COVID BUT NO SYMPTOMS OF IT. PENUMONIA MAY BE FROM BACTERIA AND NOT COVID. (3) Bacterial pneumonia Current Visit: Yes Status: Acute Plan: CONT ROCEPHIN AND ZITHROMAX. DC ABX. COVID PNEUMONIA MOST LIKELY SHE HAS SEVERE DIARRHEA SO WILL DO WITHOUT ABX NOW. (4) Acute renal failure Current Visit: No Status: Acute Plan: ACUTE ON CHRONIC RENAL FAILURE. CREAT IS DOWN TO 2.5 SHE DOES NOT WANT TO EAT OR DRINK. I TALKED TO SISTER. SISTER DOES NOT HAVE POA AND NO ONE HAS IT. SHE NEVER MADE A WILL OR DIRECTIVE. SISTER WANTS FEEDING TUBE I ADVISED THAT IS THE LAST THING TO BE DONE. CREAT IS DOWN TO 2.4 Qualifiers: Acute renal failure type: unspecified Qualified Code(s): N17.9 - Acute kidney failure, unspecified (5) Altered mental status Current Visit: No Status: Acute Plan: THIS POSSIBLY SITUATIONAL. ACUTE TOXIC DELIRIUM AND SHOULD IMPROVE. BACK TO HER BASELINE. STABLE MILD MEMORY LOSS. AWAKE BUT NOT WANTING TO WORK WITH US. Qualifiers: Altered mental status type: delirium Qualified Code(s): R41.0 - Disorientation, unspecified (6) Anemia Onset Date: 11/10/16 Current Visit: No Status: Chronic Plan: ANEMIA IS CHRONIC SHE HAS BEEN REFERRED TO DR. FABIAN BUT SHE HAS NOT FOLLOWED UP. WITH CRIPPLING ARTHTIS SHE IS IN SEVERE PAIN. SHE CAN BARELY WALK WITH WALKER EVERY STEP IS PAINFUL DESPITE NARCOTICS. TO POSITION HER FOR EGD OR COLONSCOPY WILL BE VERY PAINFUL FOR HER. PEPCID IV BID. AVOID ALL NSAIDS. HG STABLE ANEMIA OF CHR DIS NORMAL FERRITIN GIVEN TWO UNITS OF BLOOD. Qualifiers: Anemia type: B12 deficiency Qualified Code(s): D64.89 - Other specified anemias (7) Dehydration Current Visit: No Status: Acute (8) UTI (urinary tract infection) Current Visit: Yes Status: Acute Plan: CULTURE PENDING ROCEPHIN SHOULD COVER. (9) Hypernatremia Current Visit: Yes Status: Acute Plan: CHANGE TO D5W AT 100 STOP NS A ND LATER HALF NS DI IS POSSIBLE BU WILL WATCH DIABETES INSIPIDUS IS LIKELY. DR. IZQUIERDO IS WORKING ON ELECTROLYTES DI IS LESS LIKELY HER SP GRAVITIY IS NORMAL AND NOT LOW. URIN OSM IS NOT LOW. DR. IZQUIERDO IS WORKING ON THIS. (10) Hyperchloremia Current Visit: Yes Status: Acute Plan: ABOVE (11) Hypokalemia Onset Date: 03/15/15 Current Visit: No Status: Acute Plan: CORRECTION STARTED RESOLVED AND SEH HAS HIGH K WILL CHANGE BACK TO D5W IV. K BETTER AFTER STOPPING K IN DRIP. (12) Diarrhea Current Visit: Yes Status: Acute Plan: CHECK FOR C DIFF CS AND GUAIAC. C DIFF WAS NOT DONE. DO IT IF STILL HAS DIARRHEA. SHE IS OFF ALL ABX NOW COURSE IS COMPLETED.
[2021-12-02] MEDS: INSULIN -REGULAR HUMAN 50 UNIT/0.5 ML ML SQ SCH ×4 (07:30→21:00)
[2021-12-02] MEDS: JUVEN PACKET PO SCH ×2 (09:00→21:00)
[2021-12-02] MEDS: ENSURE HIGH PROTEIN 237 ML CAN PO SCH ×2 (09:00→21:00)
[2021-12-02] MEDS: HYDRALAZINE HCL 25 MG TABLET PO SCH ×3 (09:00→21:00)
[2021-12-02] MEDS: CODEINE 30MG/APAP 300MG TAB PO PRN ×2 (09:01→17:46)
[2021-12-02] MEDS: FE SULF/FA/VIT B COMP & C TAB PO SCH (09:02)
[2021-12-02] MEDS: PANTOPRAZOLE 40MG TABLET PO SCH (09:02)
[2021-12-02] MEDS: SODIUM BICARB 325 MG TAB PO SCH ×3 (09:02→21:24)
[2021-12-02] MEDS: AMLODIPINE 10 MG TAB PO SCH (09:02)
[2021-12-02] MEDS: DULOXETINE 30 MG CAP PO SCH ×2 (09:03→21:21)
[2021-12-02] MEDS: carvediloL 12.5 MG TAB PO SCH ×2 (09:03→21:00)
[2021-12-02] MEDS: ASPIRIN 81 MG CHEWABLE TABLET PO SCH (09:03)
[2021-12-02] MEDS: THIAMINE 200 MG/2 ML INJ IVP SCH (09:04)
[2021-12-02] MEDS: MEGESTROL 40 MG TAB PO SCH ×2 (09:55→21:20)
[2021-12-02] MEDS: Levofloxacin500mg IV 500 MG/100 ML BAG IV SCH (12:55)
--- NOTE | 2021-12-02 13:07 | P.PN ---
Subjective Date of Service: 12/02/21 Chief Complaint: ATE WELL TODAY, WALKED YESTERDAY Subjective: Improving SHE IS BETTER BUT SHE REFUSES TO EAT. SHE REFUSES TO TAKE MEDS. NGUYỄN IS STABLE AND TALKED TODAY. SHE UNDRESTOOD THAT SHE NEEDS TO EAT. SHE IS STABLE. STARTING TO EAT SOME. STILL NOT ENOUGH. STARTING TO EAT AND WALK NOW. Physical Examination - Vital Signs Temperature: 97.9 F Blood Pressure: 121/78 Pulse: 86 Respirations: 20 Pulse Ox (%): 100 - Physical Exam General: Mild distress HEENT: Atraumatic, PERRLA, EOMI Neck: Supple, JVD not distended Respiratory: Clear to auscultation bilaterally, Normal air movement Cardiovascular: Regular rate/rhythm, Normal S1 S2 Gastrointestinal: Normal bowel sounds, No tenderness Musculoskeletal: No tenderness Integumentary: No rashes Neurological: Normal speech, Normal tone, Normal affect Lymphatics: No axilla or inguinal lymphadenopathy - Studies Medications List Reviewed: Yes Assessment And Plan - Current Problems (Diagnosis) (1) Metabolic acidosis Current Visit: Yes Status: Acute Plan: FROM BACTERIAL PNEUMONIA, UTI SHOULD IMPROVE RESUME ROCEPHIN IV. BC 2 PENDING. IMPROVING ASYMPTOMATIC MANAGED BY RENAL DOCTORS LAB IS WORSENING AGAIN I WILL TALK TO THEM. RESOLVED IV IS OUT ACCESS IS POOR. SHE IS STARTING TO EAT NOW. HOPEFULLY WE CAN DO WITHOUT IV ACCESS. I ASKED CODY TO CALL DR. DENTON IF WE CAN DC ALL IV AND CHANGE TO PO (2) Pneumonia due to COVID-19 virus Current Visit: Yes Status: Resolved Plan: SHE HAS COVID BUT NO SYMPTOMS OF IT. PENUMONIA MAY BE FROM BACTERIA AND NOT COVID. (3) Bacterial pneumonia Current Visit: Yes Status: Acute Plan: CONT ROCEPHIN AND ZITHROMAX. DC ABX. COVID PNEUMONIA MOST LIKELY SHE HAS SEVERE DIARRHEA SO WILL DO WITHOUT ABX NOW. (4) Acute renal failure Current Visit: No Status: Acute Plan: ACUTE ON CHRONIC RENAL FAILURE. CREAT IS DOWN TO 2.5 SHE DOES NOT WANT TO EAT OR DRINK. I TALKED TO SISTER. SISTER DOES NOT HAVE POA AND NO ONE HAS IT. SHE NEVER MADE A WILL OR DIRECTIVE. SISTER WANTS FEEDING TUBE I ADVISED THAT IS THE LAST THING TO BE DONE. CREAT IS DOWN TO 2.4 Qualifiers: Acute renal failure type: unspecified Qualified Code(s): N17.9 - Acute kidney failure, unspecified (5) Altered mental status Current Visit: No Status: Acute Plan: THIS POSSIBLY SITUATIONAL. ACUTE TOXIC DELIRIUM AND SHOULD IMPROVE. BACK TO HER BASELINE. STABLE MILD MEMORY LOSS. AWAKE BUT NOT WANTING TO WORK WITH US. Qualifiers: Altered mental status type: delirium Qualified Code(s): R41.0 - Disorientation, unspecified (6) Anemia Onset Date: 11/10/16 Current Visit: No Status: Chronic Plan: ANEMIA IS CHRONIC SHE HAS BEEN REFERRED TO DR. FABIAN BUT SHE HAS NOT FOLLOWED UP. WITH CRIPPLING ARTHTIS SHE IS IN SEVERE PAIN. SHE CAN BARELY WALK WITH WALKER EVERY STEP IS PAINFUL DESPITE NARCOTICS. TO POSITION HER FOR EGD OR COLONSCOPY WILL BE VERY PAINFUL FOR HER. PEPCID IV BID. AVOID ALL NSAIDS. HG STABLE ANEMIA OF CHR DIS NORMAL FERRITIN GIVEN TWO UNITS OF BLOOD. Qualifiers: Anemia type: B12 deficiency Qualified Code(s): D64.89 - Other specified anemias (7) Dehydration Current Visit: No Status: Acute Plan: CKD STABLE FOR NOW CREAT AT HER BASELING METABOLIC ACIDOSIS STABLE. (8) UTI (urinary tract infection) Current Visit: Yes Status: Acute Plan: CULTURE PENDING ROCEPHIN SHOULD COVER. (9) Hypernatremia Current Visit: Yes Status: Acute Plan: CHANGE TO D5W AT 100 STOP NS A ND LATER HALF NS DI IS POSSIBLE BU WILL WATCH DIABETES INSIPIDUS IS LIKELY. DR. IZQUIERDO IS WORKING ON ELECTROLYTES DI IS LESS LIKELY HER SP GRAVITIY IS NORMAL AND NOT LOW. URIN OSM IS NOT LOW. DR. IZQUIERDO IS WORKING ON THIS. (10) Hyperchloremia Current Visit: Yes Status: Acute Plan: ABOVE (11) Hypokalemia Onset Date: 03/15/15 Current Visit: No Status: Acute Plan: CORRECTION STARTED RESOLVED AND SEH HAS HIGH K WILL CHANGE BACK TO D5W IV. K BETTER AFTER STOPPING K IN DRIP. (12) Diarrhea Current Visit: Yes Status: Acute Plan: CHECK FOR C DIFF CS AND GUAIAC. C DIFF WAS NOT DONE. DO IT IF STILL HAS DIARRHEA. SHE IS OFF ALL ABX NOW COURSE IS COMPLETED.
--- NOTE | 2021-12-02 16:38 | RAD REPORT ---
EXAM DESCRIPTION: RAD - Chest Single View - 12/02/2021 4:17 pm CLINICAL HISTORY: increased coughing COMPARISON: Chest Single View dated 11/28/2021; Chest Single View dated 11/20/2021; Chest Single View dated 11/14/2021; Chest Single View dated 10/30/2016 FINDINGS: Lines: None. Lungs: Mild ill-defined bilateral airspace opacities, slightly increased compared with 11/28/2021. Pleural: No significant pleural effusions or pneumothorax. Cardiac: Cardiomegaly. Bones: No acute fractures. Other: IMPRESSION: Bilateral ill-defined airspace disease concerning for pneumonia. Opacities in the right lower lobe have modestly increased.
[2021-12-02] MEDS: GUAIFENESIN/DM 5 ML UCUP PO PRN (17:46)
[2021-12-02] MEDS ORDERED: FUROSEMIDE 40 MG in NA CHLORIDE 0.9% 50 ML IV ONE (18:00)
[2021-12-02] MEDS: AA 4.25 %/D5W/ELECTROLYTES 2,000 ML, Lipids 20% 250 ML with MULTIVITAMINS INJ 10 ML IV SCH ×3 (18:54)
[2021-12-02] MEDS: MIRTAZAPINE 15 MG TAB PO SCH (21:21)
[2021-12-03] MEDS: CODEINE 30MG/APAP 300MG TAB PO PRN ×3 (01:25→15:54)
--- NOTE | 2021-12-03 02:07 | PN ---
Date of Progress Note: 12/02/2021 Chief Complaint: Acute on chronic kidney injury, COVID pneumonia, failure to thrive, hypoalbuminemia . Subjective: Renal function has improved and the patient has nonoliguric urine output. Review of Systems: Unobtainable. The patient is lethargic and sleepy. Objective: Lungs: Clear to auscultation bilaterally. Heart: S1, S2. Abdomen: Soft, benign. Extremities: No edema. Impression And Plan: 1.Acute on chronic kidney injury. Renal function has improved and is plateauing. Continue to monit or blood pressure. TARA inhibitor and angiotensin-receptor fabienne on hold. 2.Hypokalemia. The patient received treatment for hypokalemia. Monitor potassium level. 3.Hyponatremia. The patient is on PPN. Plan is to discontinue D5W and continue to adjust fluids. 4.Hypophosphatemia. The patient is on supplement. 5.Hypomagnesemia. Continue to monitor and adjust treatment. EB/MODL Voice ID: [id number] Report ID: [id number]
[2021-12-03 04:12] LABS: Absolute Lymphocytes (CBC) 1.6 K/uL (0.7-4.9); Hematocrit 25.2 % (36.0-45.0); Lymphocytes % 17.5 % (15.3-44.8); MPV 8.6 fL (7.6-11.3); RBC Red Blood Cell Count 2.97 M/uL (3.86-4.86)
[2021-12-03 04:31] LABS: Potassium 4.9 mmol/L (3.5-5.1)
[2021-12-03] MEDS: INSULIN -REGULAR HUMAN 50 UNIT/0.5 ML ML SQ SCH ×4 (07:30→20:14)
[2021-12-03] MEDS: GUAIFENESIN/DM 5 ML UCUP PO PRN ×2 (08:24→15:54)
[2021-12-03] MEDS: MEGESTROL 40 MG TAB PO SCH ×2 (08:24→20:13)
[2021-12-03] MEDS: CALCITROL 0.25 MCG CAP PO SCH (08:25)
[2021-12-03] MEDS: ASPIRIN 81 MG CHEWABLE TABLET PO SCH (08:25)
[2021-12-03] MEDS: FE SULF/FA/VIT B COMP & C TAB PO SCH (08:25)
[2021-12-03] MEDS: DULOXETINE 30 MG CAP PO SCH ×2 (08:25→20:12)
[2021-12-03] MEDS: AMLODIPINE 5 MG TAB PO SCH (08:25)
[2021-12-03] MEDS: PANTOPRAZOLE 40MG TABLET PO SCH (08:25)
[2021-12-03] MEDS: JUVEN PACKET PO SCH ×2 (08:26→20:13)
[2021-12-03] MEDS: THIAMINE 200 MG/2 ML INJ IVP SCH (08:26)
[2021-12-03] MEDS: ENSURE HIGH PROTEIN 237 ML CAN PO SCH ×2 (08:26→21:00)
[2021-12-03] MEDS: HYDRALAZINE HCL 25 MG TABLET PO SCH ×2 (09:00→12:23)
[2021-12-03] MEDS: carvediloL 12.5 MG TAB PO SCH (09:00)
[2021-12-03] MEDS: SODIUM BICARB 325 MG TAB PO SCH ×3 (09:21→20:11)
--- NOTE | 2021-12-03 13:49 | PN ---
Date of Progress Note: 12/03/2021 Subjective: The patient was admitted with COVID pneumonia. The patient had failure to thrive. The patient had acute kidney injury. Physical Examination: Vital Signs: When I saw the patient, blood pressure 117/76, pulse of 86. The patient had 1 dose of Lasix yesterday, managed to diurese 1 L. The patient still positive. Chest: Clear to auscultation. Heart: S1, S2. Regular systolic murmur. Abdomen: Soft, nontender. Extremity: No edema. Neurologic: Alert. No focality. The patient has still poor intake. Laboratory Data: WBC 9.2, H and H 8.1/25.2. Sodium 143, potassium 4.9, bicarb 22, BUN 51, creatinin e 3.1, GFR of 18, calcium 6.6, albumin 1.8. Corrected calcium is 8.4. Current Medications: The patient on include; 1.Tylenol. 2.Amlodipine. 3.Calcitriol 0.5 every other day. 4.Carvedilol 12.5 b.i.d. 5.Lasix. 6.Hydralazine 25 t.i.d. 7.Sodium bicarb. 8.Multivitamin. Assessment And Plan: 1.Acute kidney injury on chronic kidney disease. I am going to go ahead and continue the patient on gentle PPN and we will follow up. The patient looked to me normal volume. I am going to hold the d iuresis for today. 2.Hypertension, controlled. Blood pressure, currently on the lower side. I am going to go ahead an d discontinue hydralazine and we will follow up. 3.Failure to thrive. Continue TPN. Continue Megace. 4.Urinary tract infection. Follow up with the primary. Continue current antibiotic. PATITO/TRACE Voice ID: [id number] Report ID: [id number]
[2021-12-03] MEDS: AA 4.25 %/D5W/ELECTROLYTES 2,000 ML with MULTIVITAMINS INJ 10 ML IV SCH ×2 (19:03)
[2021-12-03] MEDS: carvediloL 3.125 MG TAB PO SCH (19:09)
[2021-12-03] MEDS: ACETAMINOPHEN 500 MG TAB PO PRN (20:12)
[2021-12-03] MEDS: MIRTAZAPINE 15 MG TAB PO SCH (20:13)
--- NOTE | 2021-12-03 21:11 | P.PN ---
Subjective Date of Service: 12/03/21 Chief Complaint: SHE IS WEAK, PT COOPERATION IS LIMITED. Subjective: No C/O voiced SHE IS BETTER BUT SHE REFUSES TO EAT. SHE REFUSES TO TAKE MEDS. NGUYỄN IS STABLE AND TALKED TODAY. SHE UNDRESTOOD THAT SHE NEEDS TO EAT. SHE IS STABLE. STARTING TO EAT SOME. STILL NOT ENOUGH. STARTING TO EAT AND WALK NOW. SHE IS AWAKE, RESPONDS BUT INTAKE IS POOR. Review of Systems 10-point ROS is otherwise unremarkable General: Weakness Physical Examination - Vital Signs Temperature: 99.6 F Blood Pressure: 132/61 Pulse: 94 Respirations: 16 Pulse Ox (%): 98 - Physical Exam General: Mild distress HEENT: Atraumatic, PERRLA, EOMI Neck: Supple, JVD not distended Respiratory: Clear to auscultation bilaterally, Normal air movement Cardiovascular: Regular rate/rhythm, Normal S1 S2 Gastrointestinal: Normal bowel sounds, No tenderness Musculoskeletal: No tenderness Integumentary: No rashes Neurological: Normal speech, Normal tone, Normal affect Lymphatics: No axilla or inguinal lymphadenopathy - Studies Medications List Reviewed: Yes Assessment And Plan - Current Problems (Diagnosis) (1) Metabolic acidosis Current Visit: Yes Status: Acute Plan: FROM BACTERIAL PNEUMONIA, UTI SHOULD IMPROVE RESUME ROCEPHIN IV. BC 2 PENDING. IMPROVING ASYMPTOMATIC MANAGED BY RENAL DOCTORS LAB IS WORSENING AGAIN I WILL TALK TO THEM. RESOLVED IV IS OUT ACCESS IS POOR. SHE IS STARTING TO EAT NOW. HOPEFULLY WE CAN DO WITHOUT IV ACCESS. I ASKED CODY TO CALL DR. DENTON IF WE CAN DC ALL IV AND CHANGE TO PO (2) Pneumonia due to COVID-19 virus Current Visit: Yes Status: Resolved Plan: SHE HAS COVID BUT NO SYMPTOMS OF IT. PENUMONIA MAY BE FROM BACTERIA AND NOT COVID. (3) Bacterial pneumonia Current Visit: Yes Status: Acute Plan: CONT ROCEPHIN AND ZITHROMAX. DC ABX. COVID PNEUMONIA MOST LIKELY SHE HAS SEVERE DIARRHEA SO WILL DO WITHOUT ABX NOW. (4) Acute renal failure Current Visit: No Status: Acute Plan: ACUTE ON CHRONIC RENAL FAILURE. CREAT IS DOWN TO 2.5 SHE DOES NOT WANT TO EAT OR DRINK. I TALKED TO SISTER. SISTER DOES NOT HAVE POA AND NO ONE HAS IT. SHE NEVER MADE A WILL OR DIRECTIVE. SISTER WANTS FEEDING TUBE I ADVISED THAT IS THE LAST THING TO BE DONE. CREAT IS DOWN TO 2.4 Qualifiers: Acute renal failure type: unspecified Qualified Code(s): N17.9 - Acute kidney failure, unspecified (5) Altered mental status Current Visit: No Status: Acute Plan: THIS POSSIBLY SITUATIONAL. ACUTE TOXIC DELIRIUM AND SHOULD IMPROVE. BACK TO HER BASELINE. STABLE MILD MEMORY LOSS. AWAKE BUT NOT WANTING TO WORK WITH US. Qualifiers: Altered mental status type: delirium Qualified Code(s): R41.0 - Disorientation, unspecified (6) Anemia Onset Date: 11/10/16 Current Visit: No Status: Chronic Plan: ANEMIA IS CHRONIC SHE HAS BEEN REFERRED TO DR. FABIAN BUT SHE HAS NOT FOLLOWED UP. WITH CRIPPLING ARTHTIS SHE IS IN SEVERE PAIN. SHE CAN BARELY WALK WITH WALKER EVERY STEP IS PAINFUL DESPITE NARCOTICS. TO POSITION HER FOR EGD OR COLONSCOPY WILL BE VERY PAINFUL FOR HER. PEPCID IV BID. AVOID ALL NSAIDS. HG STABLE ANEMIA OF CHR DIS NORMAL FERRITIN GIVEN TWO UNITS OF BLOOD. Qualifiers: Anemia type: B12 deficiency Qualified Code(s): D64.89 - Other specified anemias (7) Dehydration Current Visit: No Status: Acute Plan: CKD STABLE FOR NOW CREAT AT HER BASELING METABOLIC ACIDOSIS STABLE. SHE WENT SLIGHT FLUID OVERLOAD SHE HAS HYPOALBUMINEMIA. THIS IS CAUSING THIRD SPACING. GENTLE DIRUESIS FOR HALF DAY STOPPED NOW. (8) UTI (urinary tract infection) Current Visit: Yes Status: Acute Plan: CULTURE PENDING ROCEPHIN SHOULD COVER. (9) Hypernatremia Current Visit: Yes Status: Acute Plan: CHANGE TO D5W AT 100 STOP NS A ND LATER HALF NS DI IS POSSIBLE BU WILL WATCH DIABETES INSIPIDUS IS LIKELY. DR. IZQUIERDO IS WORKING ON ELECTROLYTES DI IS LESS LIKELY HER SP GRAVITIY IS NORMAL AND NOT LOW. URIN OSM IS NOT LOW. DR. IZQUIERDO IS WORKING ON THIS. (10) Hyperchloremia Current Visit: Yes Status: Acute Plan: ABOVE (11) Hypokalemia Onset Date: 03/15/15 Current Visit: No Status: Acute Plan: CORRECTION STARTED RESOLVED AND SEH HAS HIGH K WILL CHANGE BACK TO D5W IV. K BETTER AFTER STOPPING K IN DRIP. (12) Diarrhea Current Visit: Yes Status: Acute Plan: CHECK FOR C DIFF CS AND GUAIAC. C DIFF WAS NOT DONE. DO IT IF STILL HAS DIARRHEA. SHE IS OFF ALL ABX NOW COURSE IS COMPLETED. (13) UTI (urinary tract infection) Current Visit: Yes Status: Chronic Plan: NOW WHAT WE SEE IN CULTURE IS COLONIZED BACTERIA I AM NOT SURE IF WE NEED TO CONTINUE ANTIBIOTICS. I WILL DISCUSS WITH RENAL DOCTORS. WE SHOULD NOT TREAT COLONIZED BACTERIA FROM BLANK CATHETER FOR DAYS WITHOUT SYMPTOMS.
[2021-12-04] MEDS: CODEINE 30MG/APAP 300MG TAB PO PRN (00:10)
[2021-12-04 03:58] LABS: Absolute Lymphocytes (CBC) 1.5 K/uL (0.7-4.9); Hematocrit 23.3 % (36.0-45.0); Lymphocytes % 17.6 % (15.3-44.8); MPV 8.3 fL (7.6-11.3); RBC Red Blood Cell Count 2.73 M/uL (3.86-4.86)
[2021-12-04 04:32] LABS: Potassium 5.1 mmol/L (3.5-5.1)
[2021-12-04] MEDS: carvediloL 3.125 MG TAB PO SCH ×2 (06:21→17:42)
[2021-12-04] MEDS: INSULIN -REGULAR HUMAN 50 UNIT/0.5 ML ML SQ SCH ×4 (07:30→21:00)
[2021-12-04] MEDS: MEGESTROL 40 MG TAB PO SCH ×2 (08:01→20:35)
[2021-12-04] MEDS: SODIUM BICARB 325 MG TAB PO SCH ×3 (08:02→20:35)
[2021-12-04] MEDS: PANTOPRAZOLE 40MG TABLET PO SCH (08:02)
[2021-12-04] MEDS: FE SULF/FA/VIT B COMP & C TAB PO SCH (08:02)
[2021-12-04] MEDS: DULOXETINE 30 MG CAP PO SCH ×2 (08:02→20:35)
[2021-12-04] MEDS: AMLODIPINE 5 MG TAB PO SCH (08:02)
[2021-12-04] MEDS: ASPIRIN 81 MG CHEWABLE TABLET PO SCH (08:02)
[2021-12-04] MEDS: THIAMINE 200 MG/2 ML INJ IVP SCH (08:04)
[2021-12-04] MEDS: ENSURE HIGH PROTEIN 237 ML CAN PO SCH ×2 (08:04→20:43)
[2021-12-04] MEDS: JUVEN PACKET PO SCH ×2 (08:06→20:43)
[2021-12-04] MEDS: Levofloxacin500mg IV 500 MG/100 ML BAG IV SCH (12:11)
[2021-12-04] MEDS ORDERED: NA CHLORIDE 0.9% 250 ML ONE (12:55)
--- NOTE | 2021-12-04 12:55 | PN ---
Date of Progress Note: 12/04/2021 Subjective: The patient was admitted with acute kidney injury on advanced chronic kidney disease. The patient has failure to thrive, has UTI. The patient was started on Megace today, more awake. The patient was started on PPN. Still poor intake. Physical Examination: Vital Signs: Blood pressure 124/70, pulse of 84. Had good urine output of 1800, positive balance. Chest: Faint rales bilateral. Heart: S1, S2. Systolic murmur. Abdomen: Soft, nontender. Extremities: No edema. Neuro: Alert. No focality. Laboratory Data: WBC 8.7, H and H 7.6/23.3, platelet 229. Sodium 143, potassium 5.1, bicarb 21, BUN 55, creatinine 3, calcium 6.6. Current Medications: The patient on include; 1. Aspirin. 2. Levaquin. 3. Megestrol. 4. Calcium carbonate. 5. Amlodipine. 6. Carvedilol 3.25. 7. Clonidine. 8. Nitroglycerin. 9. Mirtazapine. 10. Sodium bicarb. 11. Pantoprazole. 12. Codeine. 13. Multivitamin. 14. Calcitriol. 15. Thiamin. Assessment And Plan: 1. Acute kidney injury on advanced chronic kidney disease, nonoliguric, no significant elevation in BUN, doubt to be uremic symptoms, no hyperkalemia, acidosis, being managed with oral bicarb. I do not see the need to initiate any renal replacement therapy. I am going to continue to monitor. 2. Hypertension, currently blood pressure on the lower side. I am going to discontinue clonidine and hopefully that will help increasing her appetite. 3. Hyperkalemia, resolved. 4. Acidosis. Continue oral bicarb. 5. Hypernatremia secondary to poor intake, resolved. 6. Failure to thrive. Continue PPN. We will follow up with primary. Continue Megace. 7. COVID pneumonia as by primary. time spend exam the patient face to face reviewing the data lab and radiology placing order , discussing the case with nursing staff and discussing with hospitalist 35 min ELISEO Voice ID: [id number] Report ID: [id number] LELE
[2021-12-04] MEDS: GUAIFENESIN/DM 5 ML UCUP PO PRN (17:43)
--- NOTE | 2021-12-04 18:15 | P.PN ---
Subjective Date of Service: 12/04/21 Chief Complaint: SHE IS WEAK, PT COOPERATION IS LIMITED. Subjective: Improving STABLE. EATING NOW. NOT ABLE TO DO MUCH PT SHE HAS KNEE PAIN. UNFORTUNATELY SEVERE. Physical Examination - Vital Signs Temperature: 98.0 F Blood Pressure: 126/69 Pulse: 96 Respirations: 20 Pulse Ox (%): 98 - Physical Exam General: Oriented x3, Mild distress, Obese HEENT: Atraumatic, PERRLA, EOMI Neck: Supple, JVD not distended Respiratory: Clear to auscultation bilaterally, Normal air movement Cardiovascular: Regular rate/rhythm, Normal S1 S2 Gastrointestinal: Normal bowel sounds, No tenderness Musculoskeletal: No tenderness Integumentary: No rashes Neurological: Normal speech, Normal tone, Normal affect Lymphatics: No axilla or inguinal lymphadenopathy - Studies Medications List Reviewed: Yes Assessment And Plan - Current Problems (Diagnosis) (1) Metabolic acidosis Current Visit: Yes Status: Acute Plan: FROM BACTERIAL PNEUMONIA, UTI SHOULD IMPROVE RESUME ROCEPHIN IV. BC 2 PENDING. IMPROVING ASYMPTOMATIC MANAGED BY RENAL DOCTORS LAB IS WORSENING AGAIN I WILL TALK TO THEM. RESOLVED IV IS OUT ACCESS IS POOR. SHE IS STARTING TO EAT NOW. HOPEFULLY WE CAN DO WITHOUT IV ACCESS. I ASKED CODY TO CALL DR. DENTON IF WE CAN DC ALL IV AND CHANGE TO PO (2) Pneumonia due to COVID-19 virus Current Visit: Yes Status: Resolved Plan: SHE HAS COVID BUT NO SYMPTOMS OF IT. PENUMONIA MAY BE FROM BACTERIA AND NOT COVID. (3) Bacterial pneumonia Current Visit: Yes Status: Acute Plan: CONT ROCEPHIN AND ZITHROMAX. DC ABX. COVID PNEUMONIA MOST LIKELY SHE HAS SEVERE DIARRHEA SO WILL DO WITHOUT ABX NOW. (4) Acute renal failure Current Visit: No Status: Acute Plan: ACUTE ON CHRONIC RENAL FAILURE. CREAT IS DOWN TO 2.5 SHE DOES NOT WANT TO EAT OR DRINK. I TALKED TO SISTER. SISTER DOES NOT HAVE POA AND NO ONE HAS IT. SHE NEVER MADE A WILL OR DIRECTIVE. SISTER WANTS FEEDING TUBE I ADVISED THAT IS THE LAST THING TO BE DONE. CREAT IS DOWN TO 2.4 Qualifiers: Acute renal failure type: unspecified Qualified Code(s): N17.9 - Acute kidney failure, unspecified (5) Altered mental status Current Visit: No Status: Acute Plan: THIS POSSIBLY SITUATIONAL. ACUTE TOXIC DELIRIUM AND SHOULD IMPROVE. BACK TO HER BASELINE. STABLE MILD MEMORY LOSS. AWAKE BUT NOT WANTING TO WORK WITH US. Qualifiers: Altered mental status type: delirium Qualified Code(s): R41.0 - Disorientation, unspecified (6) Anemia Onset Date: 11/10/16 Current Visit: No Status: Chronic Plan: ANEMIA IS CHRONIC SHE HAS BEEN REFERRED TO DR. FABIAN BUT SHE HAS NOT FOLLOWED UP. WITH CRIPPLING ARTHTIS SHE IS IN SEVERE PAIN. SHE CAN BARELY WALK WITH WALKER EVERY STEP IS PAINFUL DESPITE NARCOTICS. TO POSITION HER FOR EGD OR COLONSCOPY WILL BE VERY PAINFUL FOR HER. PEPCID IV BID. AVOID ALL NSAIDS. HG STABLE ANEMIA OF CHR DIS NORMAL FERRITIN GIVEN TWO UNITS OF BLOOD. Qualifiers: Anemia type: B12 deficiency Qualified Code(s): D64.89 - Other specified anemias (7) Dehydration Current Visit: No Status: Acute Plan: CKD STABLE FOR NOW CREAT AT HER BASELING METABOLIC ACIDOSIS STABLE. SHE WENT SLIGHT FLUID OVERLOAD SHE HAS HYPOALBUMINEMIA. THIS IS CAUSING THIRD SPACING. GENTLE DIRUESIS FOR HALF DAY STOPPED NOW. (8) UTI (urinary tract infection) Current Visit: Yes Status: Acute Plan: CULTURE PENDING ROCEPHIN SHOULD COVER. (9) Hypernatremia Current Visit: Yes Status: Acute Plan: CHANGE TO D5W AT 100 STOP NS A ND LATER HALF NS DI IS POSSIBLE BU WILL WATCH DIABETES INSIPIDUS IS LIKELY. DR. IZQUIERDO IS WORKING ON ELECTROLYTES DI IS LESS LIKELY HER SP GRAVITIY IS NORMAL AND NOT LOW. URIN OSM IS NOT LOW. DR. IZQUIERDO IS WORKING ON THIS. (10) Hyperchloremia Current Visit: Yes Status: Acute Plan: ABOVE (11) Hypokalemia Onset Date: 03/15/15 Current Visit: No Status: Acute Plan: CORRECTION STARTED RESOLVED AND SEH HAS HIGH K WILL CHANGE BACK TO D5W IV. K BETTER AFTER STOPPING K IN DRIP. (12) Diarrhea Current Visit: Yes Status: Acute Plan: CHECK FOR C DIFF CS AND GUAIAC. C DIFF WAS NOT DONE. DO IT IF STILL HAS DIARRHEA. SHE IS OFF ALL ABX NOW COURSE IS COMPLETED. (13) UTI (urinary tract infection) Current Visit: Yes Status: Chronic Plan: NOW WHAT WE SEE IN CULTURE IS COLONIZED BACTERIA I AM NOT SURE IF WE NEED TO CONTINUE ANTIBIOTICS. I WILL DISCUSS WITH RENAL DOCTORS. WE SHOULD NOT TREAT COLONIZED BACTERIA FROM BLANK CATHETER FOR DAYS WITHOUT SYMPTOMS. (14) DJD (degenerative joint disease) Current Visit: Yes Status: Chronic Plan: SEVERE DJD. CONSULT ORTHO. Qualifiers: Osteoarthritis location: knee
[2021-12-04 18:58] LABS: Hematocrit 28.4 % (36.0-45.0)
[2021-12-04] MEDS: AA 4.25 %/D5W/ELECTROLYTES 2,000 ML, Lipids 20% 250 ML with MULTIVITAMINS INJ 10 ML IV SCH ×3 (19:01)
[2021-12-04] MEDS: MIRTAZAPINE 15 MG TAB PO SCH (20:34)
[2021-12-04] MEDS: ACETAMINOPHEN 500 MG TAB PO PRN (20:35)
[2021-12-05 04:06] LABS: Absolute Lymphocytes (CBC) 1.5 K/uL (0.7-4.9); Hematocrit 25.1 % (36.0-45.0); Lymphocytes % 18.6 % (15.3-44.8); MPV 8.2 fL (7.6-11.3); RBC Red Blood Cell Count 2.96 M/uL (3.86-4.86)
[2021-12-05 05:16] LABS: Potassium 5.8 mmol/L (3.5-5.1)
[2021-12-05] MEDS: carvediloL 3.125 MG TAB PO SCH ×2 (06:12→17:29)
[2021-12-05] MEDS ORDERED: SOD POLYSTYREN SUL 15 GM/60 ML UCUP PO ONE (06:33)
[2021-12-05] MEDS: INSULIN -REGULAR HUMAN 50 UNIT/0.5 ML ML SQ SCH ×4 (07:30→21:00)
--- NOTE | 2021-12-05 08:05 | RAD REPORT ---
EXAM DESCRIPTION: RAD - Knee Left 2 View - 12/04/2021 9:56 pm CLINICAL HISTORY: Left knee pain FINDINGS: Left knee arthroplasty. Prosthesis in good position without evidence of loosening. 8 millimeter bony density adjacent to the medial tibial plateau probably chronic. No acute fracture or dislocation visualized
--- NOTE | 2021-12-05 08:05 | RAD REPORT ---
EXAM DESCRIPTION: RAD - Knee Right 2 View - 12/04/2021 9:56 pm CLINICAL HISTORY: Right knee pain FINDINGS: Knee arthroplasty has been performed. No evidence of loosening of the prosthesis. No fracture or dislocation.
[2021-12-05] MEDS: MEGESTROL 40 MG TAB PO SCH ×2 (08:48→21:02)
[2021-12-05] MEDS: CALCITROL 0.25 MCG CAP PO SCH (08:49)
[2021-12-05] MEDS: FE SULF/FA/VIT B COMP & C TAB PO SCH (08:49)
[2021-12-05] MEDS: JUVEN PACKET PO SCH ×2 (08:49→21:00)
[2021-12-05] MEDS: PANTOPRAZOLE 40MG TABLET PO SCH (08:49)
[2021-12-05] MEDS: AMLODIPINE 5 MG TAB PO SCH (08:50)
[2021-12-05] MEDS: ASPIRIN 81 MG CHEWABLE TABLET PO SCH (08:51)
[2021-12-05] MEDS: DULOXETINE 30 MG CAP PO SCH ×2 (08:51→21:03)
[2021-12-05] MEDS: SODIUM BICARB 325 MG TAB PO SCH ×3 (08:51→21:03)
[2021-12-05] MEDS: ENSURE HIGH PROTEIN 237 ML CAN PO SCH ×2 (08:52→21:00)
[2021-12-05] MEDS: THIAMINE 200 MG/2 ML INJ IVP SCH (08:52)
[2021-12-05] MEDS ORDERED: D50W 25 GM/50 ML SYRINGE IV ONE (09:43)
[2021-12-05] MEDS ORDERED: FUROSEMIDE 40 MG/4 ML VIAL IV ONE (09:43)
[2021-12-05] MEDS ORDERED: ALBUTEROL 2.5 MG/3 ML NEB SOL NEB ONE (09:43)
[2021-12-05] MEDS ORDERED: D50W 25 GM/50 ML SYRINGE IV PRN (09:44)
[2021-12-05] MEDS ORDERED: GLUCAGON 1 MG/VIAL IM PRN (09:44)
[2021-12-05] MEDS ORDERED: INSULIN -REGULAR HUMAN 50 UNIT/0.5 ML ML IV ONE (09:44)
--- NOTE | 2021-12-05 12:00 | PN ---
Date of Progress Note: 12/05/2021 Subjective: The patient was admitted with acute kidney injury on chronic kidney disease, COVID pneumonia. The patient had hypernatremia, treated and recovered. The patient has failure to thrive. The patient was started on PPN. Today, the patient had elevation in potassium. Physical Examination: Vital Signs: Blood pressure 142/84, pulse of 106, afebrile. The patient had good urine output of 2600. Chest: Faint rales in the base. Heart: S1, S2. Regular. Abdomen: Soft, nontender. Extremity: No edema. Neurologic: Alert. No focality. Laboratory Data: WBC 8.2, H and H 8.3/25.1. Sodium 142, potassium 5.8, bicarb 22, BUN 60, creatinine 2.9, GFR of 19, calcium 6.7. Current Medications: The patient on include; 1. Aspirin. 2. Levaquin. 3. Calcium carbonate. 4. Amlodipine 5 mg daily. 5. Carvedilol 3.25. 6. Mirtazapine. 7. Sodium bicarb 1300 t.i.d. 8. Nitroglycerin. 9. Insulin. Assessment And Plan: 1. Acute kidney injury on chronic kidney disease, currently plateaued, normal volume with the presence of hyperkalemia. I am going to give the patient Lasix for diuresis and we will monitor. 2. Hyperkalemia secondary to renal failure. We will change PPN, nonelectrolyte. 3. Acidosis, recovered, resolved. Decrease bicarb. 4. Hypocalcemia. We will supplement. 5. Urinary tract infection secondary to Escherichia coli. Continue current antibiotic, Levaquin. 6. Failure to thrive. Continue current treatment, PPN. 7. COVID pneumonia as by primary. Time spent examining the patient [id number] discussing the case with the patient reviewing the data including her Radiology and laboratory, discussing the case with the development team lead including nursing placing order discussing the case with the primary hospitalist 35-minute PATITO/TRACE Voice ID: [id number] Report ID: [id number] LELE
[2021-12-05] MEDS: [UNRECOGNIZED DRUG - OTHER] IV SCH ×8 (12:50)
[2021-12-05] MEDS: AMINO ACIDS 10% IV SCH ×8 (12:50)
[2021-12-05] MEDS: WATER IV SCH ×8 (12:50)
[2021-12-05] MEDS: DEXTROSE 70% IV SCH ×8 (12:50)
[2021-12-05] MEDS: GUAIFENESIN/DM 5 ML UCUP PO PRN ×2 (12:56→21:02)
[2021-12-05] MEDS: ACETAMINOPHEN 500 MG TAB PO PRN (21:03)
[2021-12-05] MEDS: MIRTAZAPINE 15 MG TAB PO SCH (21:04)
--- NOTE | 2021-12-05 21:31 | P.PN ---
Subjective Date of Service: 12/05/21 Chief Complaint: WEAK, Subjective: Improving STABLE. EATING NOW. NOT ABLE TO DO MUCH PT SHE HAS KNEE PAIN. UNFORTUNATELY SEVERE. SHE IS ABLE TO EAT WANTS TO COOPERATE HAS LOT OF KNEE PAIN. I CALLED IN ORTHO MD. Review of Systems 10-point ROS is otherwise unremarkable General: Weakness Physical Examination - Vital Signs Temperature: 99.1 F Blood Pressure: 115/67 Pulse: 103 Respirations: 16 Pulse Ox (%): 99 - Physical Exam General: Oriented x3, Mild distress HEENT: Atraumatic, PERRLA, EOMI Neck: Supple, JVD not distended Respiratory: Clear to auscultation bilaterally, Normal air movement Cardiovascular: Regular rate/rhythm, Normal S1 S2 Gastrointestinal: Normal bowel sounds, No tenderness Musculoskeletal: No tenderness, Tenderness (KNEES. ) Integumentary: No rashes Neurological: Normal speech, Normal tone, Normal affect Lymphatics: No axilla or inguinal lymphadenopathy - Studies Medications List Reviewed: Yes Assessment And Plan - Current Problems (Diagnosis) (1) Metabolic acidosis Current Visit: Yes Status: Acute Plan: FROM BACTERIAL PNEUMONIA, UTI SHOULD IMPROVE RESUME ROCEPHIN IV. BC 2 PENDING. IMPROVING ASYMPTOMATIC MANAGED BY RENAL DOCTORS LAB IS WORSENING AGAIN I WILL TALK TO THEM. RESOLVED IV IS OUT ACCESS IS POOR. SHE IS STARTING TO EAT NOW. HOPEFULLY WE CAN DO WITHOUT IV ACCESS. I ASKED CODY TO CALL DR. DENTON IF WE CAN DC ALL IV AND CHANGE TO PO (2) Pneumonia due to COVID-19 virus Current Visit: Yes Status: Resolved Plan: SHE HAS COVID BUT NO SYMPTOMS OF IT. PENUMONIA MAY BE FROM BACTERIA AND NOT COVID. (3) Bacterial pneumonia Current Visit: Yes Status: Acute Plan: CONT ROCEPHIN AND ZITHROMAX. DC ABX. COVID PNEUMONIA MOST LIKELY SHE HAS SEVERE DIARRHEA SO WILL DO WITHOUT ABX NOW. (4) Acute renal failure Current Visit: No Status: Acute Plan: ACUTE ON CHRONIC RENAL FAILURE. CREAT IS DOWN TO 2.5 SHE DOES NOT WANT TO EAT OR DRINK. I TALKED TO SISTER. SISTER DOES NOT HAVE POA AND NO ONE HAS IT. SHE NEVER MADE A WILL OR DIRECTIVE. SISTER WANTS FEEDING TUBE I ADVISED THAT IS THE LAST THING TO BE DONE. CREAT IS DOWN TO 2.4 Qualifiers: Acute renal failure type: unspecified Qualified Code(s): N17.9 - Acute kidney failure, unspecified (5) Altered mental status Current Visit: No Status: Acute Plan: THIS POSSIBLY SITUATIONAL. ACUTE TOXIC DELIRIUM AND SHOULD IMPROVE. BACK TO HER BASELINE. STABLE MILD MEMORY LOSS. AWAKE BUT NOT WANTING TO WORK WITH US. Qualifiers: Altered mental status type: delirium Qualified Code(s): R41.0 - Disorientation, unspecified (6) Anemia Onset Date: 11/10/16 Current Visit: No Status: Chronic Plan: ANEMIA IS CHRONIC SHE HAS BEEN REFERRED TO DR. FABIAN BUT SHE HAS NOT FOLLOWED UP. WITH CRIPPLING ARTHTIS SHE IS IN SEVERE PAIN. SHE CAN BARELY WALK WITH WALKER EVERY STEP IS PAINFUL DESPITE NARCOTICS. TO POSITION HER FOR EGD OR COLONSCOPY WILL BE VERY PAINFUL FOR HER. PEPCID IV BID. AVOID ALL NSAIDS. HG STABLE ANEMIA OF CHR DIS NORMAL FERRITIN GIVEN TWO UNITS OF BLOOD. Qualifiers: Anemia type: B12 deficiency Qualified Code(s): D64.89 - Other specified anemias (7) Dehydration Current Visit: No Status: Acute Plan: CKD STABLE FOR NOW CREAT AT HER BASELING METABOLIC ACIDOSIS STABLE. SHE WENT SLIGHT FLUID OVERLOAD SHE HAS HYPOALBUMINEMIA. THIS IS CAUSING THIRD SPACING. GENTLE DIRUESIS FOR HALF DAY STOPPED NOW. (8) UTI (urinary tract infection) Current Visit: Yes Status: Acute Plan: CULTURE PENDING ROCEPHIN SHOULD COVER. (9) Hypernatremia Current Visit: Yes Status: Acute Plan: CHANGE TO D5W AT 100 STOP NS A ND LATER HALF NS DI IS POSSIBLE BU WILL WATCH DIABETES INSIPIDUS IS LIKELY. DR. IZQUIERDO IS WORKING ON ELECTROLYTES DI IS LESS LIKELY HER SP GRAVITIY IS NORMAL AND NOT LOW. URIN OSM IS NOT LOW. DR. IZQUIERDO IS WORKING ON THIS. (10) Hyperchloremia Current Visit: Yes Status: Acute Plan: ABOVE (11) Hypokalemia Onset Date: 03/15/15 Current Visit: No Status: Acute Plan: CORRECTION STARTED RESOLVED AND SEH HAS HIGH K WILL CHANGE BACK TO D5W IV. K BETTER AFTER STOPPING K IN DRIP. (12) Diarrhea Current Visit: Yes Status: Acute Plan: CHECK FOR C DIFF CS AND GUAIAC. C DIFF WAS NOT DONE. DO IT IF STILL HAS DIARRHEA. SHE IS OFF ALL ABX NOW COURSE IS COMPLETED. (13) UTI (urinary tract infection) Current Visit: Yes Status: Chronic Plan: NOW WHAT WE SEE IN CULTURE IS COLONIZED BACTERIA I AM NOT SURE IF WE NEED TO CONTINUE ANTIBIOTICS. I WILL DISCUSS WITH RENAL DOCTORS. WE SHOULD NOT TREAT COLONIZED BACTERIA FROM BLANK CATHETER FOR DAYS WITHOUT SYMPTOMS. (14) DJD (degenerative joint disease) Current Visit: Yes Status: Chronic Plan: SEVERE DJD. CONSULT ORTHO. KELLIE KNEE PAIN. SEVERE SP REPLACEMENT. DR. MARTIN CAN'T OFFER ANYTHING MORE. SHE NEED PAIN CONTROL TO BE ABLE TO DO PT AND WALK. TRY DURAGESIC PATCH. Qualifiers: Osteoarthritis location: knee
[2021-12-05] MEDS: FENTANYL 50 MCG/PATCH TD SCH (22:00)
[2021-12-05] MEDS ORDERED: FENTANYL 50 MCG/PATCH TD SCH (22:00)
--- NOTE | 2021-12-05 23:57 | CON ---
Date of Consultation: 12/05/2021 History Of Present Illness: This is my first time seeing this patient to my knowledge. She is a 75- year-old female, who was admitted for diagnosis of renal failure as well as COVID. She has been in [facility] for quite some time. I am called to see her last night as they were beginning to mobiliz e her. She is complaining of severe knee pain and it is very difficult for them to work with her bec ause of this. On review of her history, she has had bilateral total knee arthroplasties done by willam her physician in the past. She also has an older CAT scan, which does include her lumbar spine as we ll as her hips, which demonstrates significant degenerative changes of the hips as well as some degen erative changes of the lumbar spine. She did get x-rays taken of her knees recently, which demonstra te no fractures or dislocations. Physical Examination: Gentle range of motion of her hips does not cause any pain on either side. Range of motion of her kn ee, she says, causes pain. There is no effusion or erythema of either knee and both incisions appear to be doing well. She is able to extend her knee against gravity. Gentle stress testing does not d emonstrate any overt laxity though she does have some complaints of pain diffusely in both knees. Assessment And Plan: This is a 75-year-old female, who unfortunately was having significant difficul ty with ambulation prior to admission now with diagnosis of COVID, possible pneumonia, as well as zahra al failure, who has been fairly hardly hit by her medical issues, now with difficulty with mobilizati on. I do not really think there is anything surgical indicated and injections into the total knees t hemselves appear to be something that I would not like to do because of the possibility of causing mo re significant problems. I think that mobilization as possible would be helpful. She is not complai catarino of any hip pain. I spoke with her primary care physician regarding this and I think that she ca n be weightbearing as tolerated and mobilize as tolerated and I think it would be better for her to b egin moving as much and as soon as possible with the assistance of physical therapy. If she has any different problems or continued problems, we will see her back. All of her questions have been answered. /TRACE Voice ID: [id number] Report ID: [id number]
[2021-12-06] MEDS: ACETAMINOPHEN 500 MG TAB PO PRN ×2 (01:52→21:20)
[2021-12-06 04:09] LABS: Absolute Lymphocytes (CBC) 1.7 K/uL (0.7-4.9); Hematocrit 27.5 % (36.0-45.0); Lymphocytes % 20.8 % (15.3-44.8); MPV 8.1 fL (7.6-11.3); RBC Red Blood Cell Count 3.24 M/uL (3.86-4.86)
[2021-12-06 04:25] LABS: Potassium 4.5 mmol/L (3.5-5.1)
--- NOTE | 2021-12-06 05:41 | P.PN ---
Subjective Date of Service: 12/06/21 Chief Complaint: WEAK, Subjective: No new changes Physical Examination - Vital Signs Temperature: 99.2 F Blood Pressure: 148/83 Pulse: 104 Respirations: 16 Pulse Ox (%): 100 - Physical Exam General: Other (appears chronically ill) HEENT: Atraumatic, Normocephalic Neck: Supple Respiratory: Other (symmetric chest expansion) Cardiovascular: No rubs, No murmurs Gastrointestinal: Soft and benign, No guarding Musculoskeletal: No clubbing Integumentary: No warmth Neurological: Normal speech, Normal tone Urinary: Other (no bladder distention) External genitalia: Deferred Rectal: Deferred - Studies Medications List Reviewed: Yes Assessment And Plan - Plan # Acute kidney injury 2/2 prerenal state +/- ATN, on chronic kidney disease stage 3 serum creatinine increased again to 3.3, likely 2/2 prerenal state +complex cyst - eval per Urology Encourage by mouth fluid intake Monitor renal panel # E coli UTI On abx # Failure to thrive If po intake persistently remains poor, will need PEG tube insertion to maintain adeq hydration & prevent recurrent DARA from prerenal state # Covid + bacterial PNA Per other services Abx # Htn Cont current medication regimen # Hyperkalemia Resolved Cont oral bicarb tid same dose # Acidosis Oral bicarb as above # Anemia w/ iron deficiency Received IV iron # SHPTH iPTH 748 Cont calcitriol # AMS Supportive care
[2021-12-06] MEDS: carvediloL 3.125 MG TAB PO SCH ×2 (06:00→17:23)
[2021-12-06] MEDS: INSULIN -REGULAR HUMAN 50 UNIT/0.5 ML ML SQ SCH ×4 (07:30→21:00)
[2021-12-06] MEDS: THIAMINE 200 MG/2 ML INJ IVP SCH (08:56)
[2021-12-06] MEDS: FE SULF/FA/VIT B COMP & C TAB PO SCH (08:57)
[2021-12-06] MEDS: AMLODIPINE 5 MG TAB PO SCH (08:57)
[2021-12-06] MEDS: SODIUM BICARB 325 MG TAB PO SCH ×3 (08:57→21:21)
[2021-12-06] MEDS: PANTOPRAZOLE 40MG TABLET PO SCH (08:57)
[2021-12-06] MEDS: DULOXETINE 30 MG CAP PO SCH ×2 (08:58→21:21)
[2021-12-06] MEDS: ENSURE HIGH PROTEIN 237 ML CAN PO SCH ×2 (08:58→21:00)
[2021-12-06] MEDS: ASPIRIN 81 MG CHEWABLE TABLET PO SCH (08:58)
[2021-12-06] MEDS: MEGESTROL 40 MG TAB PO SCH ×2 (08:58→21:21)
[2021-12-06] MEDS: JUVEN PACKET PO SCH ×2 (08:59→21:00)
[2021-12-06] MEDS: Levofloxacin500mg IV 500 MG/100 ML BAG IV SCH (12:19)
[2021-12-06] MEDS: WATER FOR INJ STERILE IV SCH ×8 (12:24)
[2021-12-06] MEDS: DEXTROSE IV SCH ×8 (12:24)
[2021-12-06] MEDS: [UNRECOGNIZED DRUG - OTHER] IV SCH ×8 (12:24)
[2021-12-06] MEDS: WATER IV SCH ×8 (12:24)
--- NOTE | 2021-12-06 13:21 | P.PN ---
Subjective Date of Service: 12/06/21 Chief Complaint: WEAK, Subjective: Improving STABLE. EATING NOW. NOT ABLE TO DO MUCH PT SHE HAS KNEE PAIN. UNFORTUNATELY SEVERE. SHE IS ABLE TO EAT WANTS TO COOPERATE HAS LOT OF KNEE PAIN. I CALLED IN ORTHO MD. SLOW TO IMPROVE NOT ABLE TO WALK MUCH SHE HAS TOO MUCH PAIN IN KNEES. DR. GODWIN CAN'T DO MUCH FOR HER Physical Examination - Vital Signs Temperature: 98.4 F Blood Pressure: 176/86 Pulse: 99 Respirations: 18 Pulse Ox (%): 100 - Physical Exam General: Oriented x3, Mild distress HEENT: Atraumatic, PERRLA, EOMI Neck: Supple, JVD not distended Respiratory: Clear to auscultation bilaterally, Normal air movement Cardiovascular: Regular rate/rhythm, Normal S1 S2 Gastrointestinal: Normal bowel sounds, No tenderness Musculoskeletal: No tenderness Integumentary: No rashes Neurological: Normal speech, Normal tone, Normal affect Lymphatics: No axilla or inguinal lymphadenopathy - Studies Medications List Reviewed: Yes Assessment And Plan - Current Problems (Diagnosis) (1) Metabolic acidosis Current Visit: Yes Status: Acute Plan: FROM BACTERIAL PNEUMONIA, UTI SHOULD IMPROVE RESUME ROCEPHIN IV. BC 2 PENDING. IMPROVING ASYMPTOMATIC MANAGED BY RENAL DOCTORS LAB IS WORSENING AGAIN I WILL TALK TO THEM. RESOLVED IV IS OUT ACCESS IS POOR. SHE IS STARTING TO EAT NOW. HOPEFULLY WE CAN DO WITHOUT IV ACCESS. I ASKED CODY TO CALL DR. DENTON IF WE CAN DC ALL IV AND CHANGE TO PO (2) Pneumonia due to COVID-19 virus Current Visit: Yes Status: Resolved Plan: SHE HAS COVID BUT NO SYMPTOMS OF IT. PENUMONIA MAY BE FROM BACTERIA AND NOT COVID. (3) Bacterial pneumonia Current Visit: Yes Status: Acute Plan: CONT ROCEPHIN AND ZITHROMAX. DC ABX. COVID PNEUMONIA MOST LIKELY SHE HAS SEVERE DIARRHEA SO WILL DO WITHOUT ABX NOW. (4) Acute renal failure Current Visit: No Status: Acute Plan: ACUTE ON CHRONIC RENAL FAILURE. CREAT IS DOWN TO 2.5 SHE DOES NOT WANT TO EAT OR DRINK. I TALKED TO SISTER. SISTER DOES NOT HAVE POA AND NO ONE HAS IT. SHE NEVER MADE A WILL OR DIRECTIVE. SISTER WANTS FEEDING TUBE I ADVISED THAT IS THE LAST THING TO BE DONE. CREAT IS DOWN TO 2.4 Qualifiers: Acute renal failure type: unspecified Qualified Code(s): N17.9 - Acute kidney failure, unspecified (5) Altered mental status Current Visit: No Status: Acute Plan: THIS POSSIBLY SITUATIONAL. ACUTE TOXIC DELIRIUM AND SHOULD IMPROVE. BACK TO HER BASELINE. STABLE MILD MEMORY LOSS. AWAKE BUT NOT WANTING TO WORK WITH US. Qualifiers: Altered mental status type: delirium Qualified Code(s): R41.0 - Disorientation, unspecified (6) Anemia Onset Date: 11/10/16 Current Visit: No Status: Chronic Plan: ANEMIA IS CHRONIC SHE HAS BEEN REFERRED TO DR. FABIAN BUT SHE HAS NOT FOLLOWED UP. WITH CRIPPLING ARTHTIS SHE IS IN SEVERE PAIN. SHE CAN BARELY WALK WITH WALKER EVERY STEP IS PAINFUL DESPITE NARCOTICS. TO POSITION HER FOR EGD OR COLONSCOPY WILL BE VERY PAINFUL FOR HER. PEPCID IV BID. AVOID ALL NSAIDS. HG STABLE ANEMIA OF CHR DIS NORMAL FERRITIN GIVEN TWO UNITS OF BLOOD. Qualifiers: Anemia type: B12 deficiency Qualified Code(s): D64.89 - Other specified anemias (7) Dehydration Current Visit: No Status: Acute Plan: CKD STABLE FOR NOW CREAT AT HER BASELING METABOLIC ACIDOSIS STABLE. SHE WENT SLIGHT FLUID OVERLOAD SHE HAS HYPOALBUMINEMIA. THIS IS CAUSING THIRD SPACING. GENTLE DIRUESIS FOR HALF DAY STOPPED NOW. (8) UTI (urinary tract infection) Current Visit: Yes Status: Acute Plan: CULTURE PENDING ROCEPHIN SHOULD COVER. (9) Hypernatremia Current Visit: Yes Status: Acute Plan: CHANGE TO D5W AT 100 STOP NS A ND LATER HALF NS DI IS POSSIBLE BU WILL WATCH DIABETES INSIPIDUS IS LIKELY. DR. IZQUIERDO IS WORKING ON ELECTROLYTES DI IS LESS LIKELY HER SP GRAVITIY IS NORMAL AND NOT LOW. URIN OSM IS NOT LOW. DR. IZQUIERDO IS WORKING ON THIS. (10) Hyperchloremia Current Visit: Yes Status: Acute Plan: ABOVE (11) Hypokalemia Onset Date: 03/15/15 Current Visit: No Status: Acute Plan: CORRECTION STARTED RESOLVED AND SEH HAS HIGH K WILL CHANGE BACK TO D5W IV. K BETTER AFTER STOPPING K IN DRIP. (12) Diarrhea Current Visit: Yes Status: Acute Plan: CHECK FOR C DIFF CS AND GUAIAC. C DIFF WAS NOT DONE. DO IT IF STILL HAS DIARRHEA. SHE IS OFF ALL ABX NOW COURSE IS COMPLETED. (13) UTI (urinary tract infection) Current Visit: Yes Status: Chronic Plan: NOW WHAT WE SEE IN CULTURE IS COLONIZED BACTERIA I AM NOT SURE IF WE NEED TO CONTINUE ANTIBIOTICS. I WILL DISCUSS WITH RENAL DOCTORS. WE SHOULD NOT TREAT COLONIZED BACTERIA FROM BLANK CATHETER FOR DAYS WITHOUT SYMPTOMS. (14) DJD (degenerative joint disease) Current Visit: Yes Status: Chronic Plan: SEVERE DJD. CONSULT ORTHO. KELLIE KNEE PAIN. SEVERE SP REPLACEMENT. DR. MARTIN CAN'T OFFER ANYTHING MORE. SHE NEED PAIN CONTROL TO BE ABLE TO DO PT AND WALK. TRY DURAGESIC PATCH. WILL SEE HOW SHE DOES WITH PT. Qualifiers: Osteoarthritis location: knee
[2021-12-06] MEDS: MIRTAZAPINE 15 MG TAB PO SCH (21:20)
[2021-12-07] MEDS: ACETAMINOPHEN 500 MG TAB PO PRN ×3 (02:08→17:25)
--- NOTE | 2021-12-07 05:33 | P.PN ---
Subjective Date of Service: 12/07/21 Chief Complaint: WEAK, Subjective: No new changes Physical Examination - Vital Signs Temperature: 98.9 F Blood Pressure: 135/74 Pulse: 111 Respirations: 18 Pulse Ox (%): 99 - Physical Exam General: Other (Chronically ill appearing) HEENT: Atraumatic, Normocephalic Neck: Supple, JVD not distended Respiratory: Other (symmetric chest expansion) Cardiovascular: No rubs, No murmurs Gastrointestinal: Soft and benign, No guarding Musculoskeletal: No clubbing Integumentary: No warmth Neurological: Normal tone Urinary: Other (no bladder distention) External genitalia: Deferred Rectal: Deferred - Studies Medications List Reviewed: Yes Assessment And Plan - Plan # Acute kidney injury 2/2 prerenal state +/- ATN, on chronic kidney disease stage 3 Serum creatinine increased again to 3.3, likely 2/2 prerenal state +complex cyst - eval per Urology Encourage by mouth fluid intake Monitor renal panel # E coli UTI On abx # Failure to thrive If po intake persistently remains poor, will need PEG tube insertion to maintain adeq hydration & prevent recurrent DARA from prerenal state # Covid + bacterial PNA Per other services Abx # Htn Cont current medication regimen # Hyperkalemia Resolved Cont oral bicarb tid same dose # Acidosis Increase oral bicarb to 1300 mg po tid # Hypocalcemia Corrected serum Ca 8.2 Give Ca gluc 1g IV # HyperPO4 Start Sevelamer 800 mg po tidwm # Anemia w/ iron deficiency Received IV iron Retacrit 4T SQ received on 12/07 # Vit D def Started on D3 5T IU po daily on 12/07 # SHPTH iPTH 748 Cont calcitriol High dose D3 as above # AMS Supportive care
[2021-12-07 05:57] LABS: Absolute Lymphocytes (CBC) 1.7 K/uL (0.7-4.9); Hematocrit 26.7 % (36.0-45.0); Lymphocytes % 21.4 % (15.3-44.8); MPV 7.9 fL (7.6-11.3); RBC Red Blood Cell Count 3.14 M/uL (3.86-4.86)
[2021-12-07 06:21] LABS: Potassium 4.4 mmol/L (3.5-5.1)
[2021-12-07 06:31] LABS: Albumin 2.3 g/dL (3.4-5.0); Phosphorus 7.3 mg/dL (2.5-4.9)
[2021-12-07] MEDS: carvediloL 3.125 MG TAB PO SCH ×2 (06:33→17:03)
[2021-12-07] MEDS: INSULIN -REGULAR HUMAN 50 UNIT/0.5 ML ML SQ SCH ×4 (07:30→20:53)
[2021-12-07] MEDS: ASPIRIN 81 MG CHEWABLE TABLET PO SCH (09:12)
[2021-12-07] MEDS: AMLODIPINE 5 MG TAB PO SCH (09:12)
[2021-12-07] MEDS: MEGESTROL 40 MG TAB PO SCH ×2 (09:12→20:48)
[2021-12-07] MEDS: CALCITROL 0.25 MCG CAP PO SCH (09:12)
[2021-12-07] MEDS: FE SULF/FA/VIT B COMP & C TAB PO SCH (09:12)
[2021-12-07] MEDS: SODIUM BICARB 325 MG TAB PO SCH ×3 (09:12→20:48)
[2021-12-07] MEDS: PANTOPRAZOLE 40MG TABLET PO SCH (09:12)
[2021-12-07] MEDS: ENSURE HIGH PROTEIN 237 ML CAN PO SCH ×2 (09:13→21:00)
[2021-12-07] MEDS: DULOXETINE 30 MG CAP PO SCH ×2 (09:13→20:48)
[2021-12-07] MEDS: THIAMINE 200 MG/2 ML INJ IVP SCH (09:13)
[2021-12-07] MEDS: JUVEN PACKET PO SCH ×2 (09:14→21:00)
[2021-12-07] MEDS ORDERED: CALCIUM GLUC 10% INJ 4.65 MEQ in NA CHLORIDE 0.9% 100 ML IV ONE (09:15)
--- NOTE | 2021-12-07 10:23 | P.PN ---
Subjective Date of Service: 12/07/21 Chief Complaint: EATING BETTER Subjective: Improving STABLE. EATING NOW. NOT ABLE TO DO MUCH PT SHE HAS KNEE PAIN. SLOW TO IMPROVE NOT ABLE TO WALK MUCH SHE HAS TOO MUCH PAIN IN KNEES. DR. GODWIN CAN'T DO MUCH FOR HER Review of Systems 10-point ROS is otherwise unremarkable Physical Examination - Vital Signs Temperature: 98.9 F Blood Pressure: 135/74 Pulse: 111 Respirations: 18 Pulse Ox (%): 99 - Physical Exam General: Oriented x2, Cooperative, Mild distress, Moderate distress HEENT: Atraumatic, PERRLA, EOMI Neck: Supple, JVD not distended Respiratory: Clear to auscultation bilaterally, Normal air movement Cardiovascular: Regular rate/rhythm, Normal S1 S2 Gastrointestinal: Normal bowel sounds, No tenderness Musculoskeletal: No tenderness Integumentary: No rashes Neurological: Normal speech, Normal tone, Normal affect Lymphatics: No axilla or inguinal lymphadenopathy - Studies Medications List Reviewed: Yes Assessment And Plan - Current Problems (Diagnosis) (1) Metabolic acidosis Current Visit: Yes Status: Acute Plan: RESOLVED IV IS OUT ACCESS IS POOR. SHE IS STARTING TO EAT NOW. (2) Pneumonia due to COVID-19 virus Current Visit: Yes Status: Resolved Plan: SHE HAS COVID BUT NO SYMPTOMS OF IT. PENUMONIA MAY BE FROM BACTERIA AND NOT COVID. (3) Bacterial pneumonia Current Visit: Yes Status: Acute Plan: CONT ROCEPHIN AND ZITHROMAX. DC ABX. COVID PNEUMONIA MOST LIKELY SHE HAS SEVERE DIARRHEA SO WILL DO WITHOUT ABX NOW. HAS DONE ENOUGH ANTIBIOTICS WILL SEE HOW SHE DOES. COVID PNEUMONIA PICTURE CAN LINGER FOR WEEKS. (4) Acute renal failure Current Visit: No Status: Chronic Plan: ACUTE ON CHRONIC RENAL FAILURE. CREAT STABLE NOW AT ABOUT 3.0 I SUSPECT THAT WILL BE HER BASELINE. Qualifiers: Acute renal failure type: unspecified Qualified Code(s): N17.9 - Acute kidney failure, unspecified (5) Altered mental status Current Visit: No Status: Resolved Plan: THIS POSSIBLY SITUATIONAL. ACUTE TOXIC DELIRIUM AND SHOULD IMPROVE. BACK TO HER BASELINE. STABLE MILD MEMORY LOSS. AWAKE BUT NOT WANTING TO WORK WITH US. Qualifiers: Altered mental status type: delirium Qualified Code(s): R41.0 - Disorientation, unspecified (6) Anemia Onset Date: 11/10/16 Current Visit: No Status: Chronic Plan: ANEMIA IS CHRONIC SHE HAS BEEN REFERRED TO DR. FABIAN BUT SHE HAS NOT FOLLOWED UP. WITH CRIPPLING ARTHTIS SHE IS IN SEVERE PAIN. SHE CAN BARELY WALK WITH WALKER EVERY STEP IS PAINFUL DESPITE NARCOTICS. TO POSITION HER FOR EGD OR COLONSCOPY WILL BE VERY PAINFUL FOR HER. PEPCID IV BID. AVOID ALL NSAIDS. HG STABLE ANEMIA OF CHR DIS NORMAL FERRITIN GIVEN TWO UNITS OF BLOOD. Qualifiers: Anemia type: B12 deficiency Qualified Code(s): D64.89 - Other specified anemias (7) Dehydration Current Visit: No Status: Acute Plan: CKD STABLE FOR NOW CREAT AT HER BASELING METABOLIC ACIDOSIS STABLE. SHE WENT SLIGHT FLUID OVERLOAD SHE HAS HYPOALBUMINEMIA. THIS IS CAUSING THIRD SPACING. GENTLE DIRUESIS FOR HALF DAY STOPPED NOW. (8) UTI (urinary tract infection) Current Visit: Yes Status: Acute Plan: ASYMPTOMATIC BACTERIURIA COLONIZED URINE AFTER BLANK. WILL NOT NEED MORE ANTIBIOTIC SHE ALREADY HAD LEVAQUIN UNTIL YESTERDAY. (9) Hypernatremia Current Visit: Yes Status: Resolved Plan: CHANGE TO D5W AT 100 STOP NS A ND LATER HALF NS DI IS POSSIBLE BU WILL WATCH DIABETES INSIPIDUS IS LIKELY. DR. IZQUIERDO IS WORKING ON ELECTROLYTES DI IS LESS LIKELY HER SP GRAVITIY IS NORMAL AND NOT LOW. URIN OSM IS NOT LOW. DR. IZQUIERDO IS WORKING ON THIS. (10) Hyperchloremia Current Visit: Yes Status: Resolved Plan: ABOVE (11) Hypokalemia Onset Date: 03/15/15 Current Visit: No Status: Resolved Plan: CORRECTION STARTED RESOLVED AND SEH HAS HIGH K WILL CHANGE BACK TO D5W IV. K BETTER AFTER STOPPING K IN DRIP. (12) Diarrhea Current Visit: Yes Status: Acute Plan: CHECK FOR C DIFF CS AND GUAIAC. C DIFF WAS NOT DONE. DO IT IF STILL HAS DIARRHEA. SHE IS OFF ALL ABX NOW COURSE IS COMPLETED. (13) UTI (urinary tract infection) Current Visit: Yes Status: Chronic Plan: NOW WHAT WE SEE IN CULTURE IS COLONIZED BACTERIA I AM NOT SURE IF WE NEED TO CONTINUE ANTIBIOTICS. I WILL DISCUSS WITH RENAL DOCTORS. WE SHOULD NOT TREAT COLONIZED BACTERIA FROM BLANK CATHETER FOR DAYS WITHOUT SYMP TOMS. (14) DJD (degenerative joint disease) Current Visit: Yes Status: Chronic Plan: SEVERE DJD. CONSULT ORTHO. KELLIE KNEE PAIN. SEVERE SP REPLACEMENT. DR. MARTIN CAN'T OFFER ANYTHING MORE. SHE NEED PAIN CONTROL TO BE ABLE TO DO PT AND WALK. TRY DURAGESIC PATCH. WILL SEE HOW SHE DOES WITH PT. Qualifiers: Osteoarthritis location: knee
[2021-12-07] MEDS: EPOETIN 4,000 UNIT/ML VIAL SQ SCH (10:30)
[2021-12-07] MEDS: VITAMIN D 5,000 UNIT CAP PO SCH (10:30)
[2021-12-07] MEDS: DEXTROSE 70% IV SCH ×8 (11:08)
[2021-12-07] MEDS: WATER IV SCH ×8 (11:08)
[2021-12-07] MEDS: AMINO ACIDS 10% IV SCH ×8 (11:08)
[2021-12-07] MEDS: [UNRECOGNIZED DRUG - OTHER] IV SCH ×8 (11:08)
[2021-12-07] MEDS: SEVELAMER CARBONATE 800 MG TABLET PO SCH ×2 (13:43→17:03)
[2021-12-07 14:18] LABS: Magnesium 1.8
[2021-12-07] MEDS: MIRTAZAPINE 15 MG TAB PO SCH (20:48)
[2021-12-08 03:47] LABS: Absolute Lymphocytes (CBC) 1.8 K/uL (0.7-4.9); Hematocrit 27.3 % (36.0-45.0); Lymphocytes % 18.2 % (15.3-44.8); MPV 7.7 fL (7.6-11.3); RBC Red Blood Cell Count 3.19 M/uL (3.86-4.86)
[2021-12-08 04:02] LABS: Potassium 4.6 mmol/L (3.5-5.1)
[2021-12-08] MEDS: ACETAMINOPHEN 500 MG TAB PO PRN ×2 (06:08→21:30)
[2021-12-08] MEDS: carvediloL 3.125 MG TAB PO SCH ×2 (06:08→17:31)
--- NOTE | 2021-12-08 07:24 | P.PN ---
Subjective Date of Service: 12/09/21 Chief Complaint: WEAK, Subjective: Other (Remains bed-bound.) Physical Examination - Vital Signs Temperature: 97.3 F Blood Pressure: 141/74 Pulse: 106 Respirations: 19 Pulse Ox (%): 99 - Physical Exam General: Other (chronically ill-appearing) HEENT: Atraumatic, Normocephalic Neck: Supple, JVD not distended Respiratory: Other (symmetric chest expansion) Cardiovascular: No rubs, No murmurs Gastrointestinal: Soft and benign, No guarding Musculoskeletal: No clubbing Integumentary: No warmth Neurological: Normal tone Urinary: Other (no bladder distention) External genitalia: Deferred Rectal: Deferred - Studies Medications List Reviewed: Yes Assessment And Plan - Plan # Acute kidney injury 2/2 prerenal state +/- ATN, on chronic kidney disease stage 3 Serum creatinine improved from 3.3 to 2.9 +complex cyst - eval per Urology Encourage by mouth fluid intake IV fluid prn if po fluid intake is poor Monitor renal panel # E coli UTI Received abx # Failure to thrive If po intake persistently remains poor, will need PEG tube insertion to maintain adeq hydration & prevent recurrent DARA from prerenal state # Covid + bacterial PNA Per other services Abx # Htn Cont current medication regimen # Hyperkalemia Resolved Cont oral bicarb tid same dose # Acidosis Increase oral bicarb to 1300 mg po tid # Hypocalcemia Give Ca gluc 1g IV # HyperPO4 Sevelamer 800 mg po tidwm # Anemia w/ iron deficiency Received IV iron Retacrit 4T SQ received on 12/07 # Vit D def Started on D3 5T IU po daily on 12/07 # SHPTH iPTH 748 Cont calcitriol High dose D3 as above # AMS Supportive care
[2021-12-08] MEDS: INSULIN -REGULAR HUMAN 50 UNIT/0.5 ML ML SQ SCH ×4 (07:30→21:00)
[2021-12-08] MEDS: MEGESTROL 40 MG TAB PO SCH ×2 (08:56→21:34)
[2021-12-08] MEDS: SODIUM BICARB 325 MG TAB PO SCH ×3 (08:56→21:30)
[2021-12-08] MEDS: ASPIRIN 81 MG CHEWABLE TABLET PO SCH (08:56)
[2021-12-08] MEDS: DULOXETINE 30 MG CAP PO SCH ×2 (08:56→21:29)
[2021-12-08] MEDS: SEVELAMER CARBONATE 800 MG TABLET PO SCH ×3 (08:56→17:31)
[2021-12-08] MEDS: VITAMIN D 5,000 UNIT CAP PO SCH (08:57)
[2021-12-08] MEDS: PANTOPRAZOLE 40MG TABLET PO SCH (08:57)
[2021-12-08] MEDS: ENSURE HIGH PROTEIN 237 ML CAN PO SCH ×2 (08:57→21:00)
[2021-12-08] MEDS: EPOETIN 4,000 UNIT/ML VIAL SQ SCH (08:57)
[2021-12-08] MEDS: FE SULF/FA/VIT B COMP & C TAB PO SCH (08:57)
[2021-12-08] MEDS: THIAMINE 200 MG/2 ML INJ IVP SCH (08:57)
[2021-12-08] MEDS: AMLODIPINE 5 MG TAB PO SCH (08:57)
[2021-12-08] MEDS: JUVEN PACKET PO SCH ×2 (08:57→21:00)
--- NOTE | 2021-12-08 10:51 | P.PN ---
Subjective Date of Service: 12/08/21 Chief Complaint: STILL IN LOT OF PAIN IN KNEES. Subjective: No new changes STABLE. EATING NOW. NOT ABLE TO DO MUCH PT SHE HAS KNEE PAIN. SLOW TO IMPROVE NOT ABLE TO WALK MUCH SHE HAS TOO MUCH PAIN IN KNEES. DR. GODWIN CAN'T DO MUCH FOR HER UNFORTUNATELY SHE IS VERY DECONDITIONED AND WILL NOT BE ABLE TO WALK. FAMILY SHOULD UNDERSTAND. I WILL CALL DAUGHTER AGAIN. Review of Systems 10-point ROS is otherwise unremarkable General: Weakness Physical Examination - Vital Signs Temperature: 98.9 F Blood Pressure: 142/72 Pulse: 105 Respirations: 20 Pulse Ox (%): 98 - Physical Exam General: Oriented x3, Mild distress, Moderate distress HEENT: Atraumatic, PERRLA, EOMI Neck: Supple, JVD not distended Respiratory: Clear to auscultation bilaterally, Normal air movement Cardiovascular: Regular rate/rhythm, Normal S1 S2 Gastrointestinal: Normal bowel sounds, No tenderness Musculoskeletal: No tenderness, Tenderness (SEVERE DJD.) Integumentary: No rashes Neurological: Normal speech, Normal tone, Normal affect Lymphatics: No axilla or inguinal lymphadenopathy - Studies Medications List Reviewed: Yes Assessment And Plan - Current Problems (Diagnosis) (1) Metabolic acidosis Current Visit: Yes Status: Acute Plan: RESOLVED IV IS OUT ACCESS IS POOR. SHE IS STARTING TO EAT NOW. (2) Pneumonia due to COVID-19 virus Current Visit: Yes Status: Resolved Plan: SHE HAS COVID BUT NO SYMPTOMS OF IT. PENUMONIA MAY BE FROM BACTERIA AND NOT COVID. (3) Bacterial pneumonia Current Visit: Yes Status: Acute Plan: CONT ROCEPHIN AND ZITHROMAX. DC ABX. COVID PNEUMONIA MOST LIKELY SHE HAS SEVERE DIARRHEA SO WILL DO WITHOUT ABX NOW. HAS DONE ENOUGH ANTIBIOTICS WILL SEE HOW SHE DOES. COVID PNEUMONIA PICTURE CAN LINGER FOR WEEKS. (4) Acute renal failure Current Visit: No Status: Chronic Plan: ACUTE ON CHRONIC RENAL FAILURE. CREAT STABLE NOW AT ABOUT 3.0 I SUSPECT THAT WILL BE HER BASELINE. Qualifiers: Acute renal failure type: unspecified Qualified Code(s): N17.9 - Acute kidney failure, unspecified (5) Anemia Onset Date: 11/10/16 Current Visit: No Status: Chronic Plan: ANEMIA IS CHRONIC SHE HAS BEEN REFERRED TO DR. FABIAN BUT SHE HAS NOT FOLLOWED UP. WITH CRIPPLING ARTHTIS SHE IS IN SEVERE PAIN. SHE CAN BARELY WALK WITH WALKER EVERY STEP IS PAINFUL DESPITE NARCOTICS. TO POSITION HER FOR EGD OR COLONSCOPY WILL BE VERY PAINFUL FOR HER. PEPCID IV BID. AVOID ALL NSAIDS. HG STABLE ANEMIA OF CHR DIS NORMAL FERRITIN GIVEN TWO UNITS OF BLOOD. Qualifiers: Anemia type: B12 deficiency Qualified Code(s): D64.89 - Other specified anemias (6) Dehydration Current Visit: No Status: Acute Plan: CKD STABLE FOR NOW CREAT AT HER BASELING METABOLIC ACIDOSIS STABLE. SHE WENT SLIGHT FLUID OVERLOAD SHE HAS HYPOALBUMINEMIA. THIS IS CAUSING THIRD SPACING. GENTLE DIRUESIS FOR HALF DAY STOPPED NOW. (7) UTI (urinary tract infection) Current Visit: Yes Status: Acute Plan: ASYMPTOMATIC BACTERIURIA COLONIZED URINE AFTER BLANK. WILL NOT NEED MORE ANTIBIOTIC SHE ALREADY HAD LEVAQUIN UNTIL YESTERDAY. (8) Hypernatremia Current Visit: Yes Status: Resolved Plan: CHANGE TO D5W AT 100 STOP NS A ND LATER HALF NS DI IS POSSIBLE BU WILL WATCH DIABETES INSIPIDUS IS LIKELY. DR. IZQUIERDO IS WORKING ON ELECTROLYTES DI IS LESS LIKELY HER SP GRAVITIY IS NORMAL AND NOT LOW. URIN OSM IS NOT LOW. DR. IZQUIERDO IS WORKING ON THIS. (9) Hyperchloremia Current Visit: Yes Status: Resolved Plan: ABOVE (10) Diarrhea Current Visit: Yes Status: Acute Plan: CHECK FOR C DIFF CS AND GUAIAC. C DIFF WAS NOT DONE. DO IT IF STILL HAS DIARRHEA. SHE IS OFF ALL ABX NOW COURSE IS COMPLETED. (11) UTI (urinary tract infection) Current Visit: Yes Status: Chronic Plan: NOW WHAT WE SEE IN CULTURE IS COLONIZED BACTERIA I AM NOT SURE IF WE NEED TO CONTINUE ANTIBIOTICS. I WILL DISCUSS WITH RENAL DOCTORS. WE SHOULD NOT TREAT COLONIZED BACTERIA FROM BLANK CATHETER FOR DAYS WITHOUT SY MPTOMS. (12) DJD (degenerative joint disease) Current Visit: Yes Status: Chronic Plan: SEVERE DJD. NOT ABLE TO HELP HER MUCH I ADDED DURAGESIC PATCH. TOPICAL LIDOCAIN PATCH. Qualifiers: Osteoarthritis location: knee
[2021-12-08] MEDS: WATER IV SCH ×8 (11:33)
[2021-12-08] MEDS: AMINO ACIDS 10% IV SCH ×8 (11:33)
[2021-12-08] MEDS: [UNRECOGNIZED DRUG - OTHER] IV SCH ×8 (11:33)
[2021-12-08] MEDS: DEXTROSE 70% IV SCH ×8 (11:33)
[2021-12-08] MEDS: LIDOCAINE 4% PATCH TOP SCH (11:43)
[2021-12-08] MEDS: MIRTAZAPINE 15 MG TAB PO SCH (21:29)
[2021-12-08] MEDS: GUAIFENESIN/DM 5 ML UCUP PO PRN (21:30)
[2021-12-08] MEDS: FENTANYL 50 MCG/PATCH TD SCH (22:00)
[2021-12-09 03:54] LABS: Absolute Lymphocytes (CBC) 1.9 K/uL (0.7-4.9); Hematocrit 26.2 % (36.0-45.0); Lymphocytes % 17.3 % (15.3-44.8); MPV 7.8 fL (7.6-11.3); RBC Red Blood Cell Count 3.06 M/uL (3.86-4.86)
[2021-12-09 04:17] LABS: Potassium 4.8 mmol/L (3.5-5.1)
[2021-12-09] MEDS: carvediloL 3.125 MG TAB PO SCH ×2 (06:03→16:53)
[2021-12-09] MEDS: INSULIN -REGULAR HUMAN 50 UNIT/0.5 ML ML SQ SCH ×4 (07:30→21:00)
[2021-12-09] MEDS: SODIUM BICARB 325 MG TAB PO SCH ×3 (08:35→21:25)
[2021-12-09] MEDS: CALCITROL 0.25 MCG CAP PO SCH (08:36)
[2021-12-09] MEDS: AMLODIPINE 5 MG TAB PO SCH (08:36)
[2021-12-09] MEDS: PANTOPRAZOLE 40MG TABLET PO SCH (08:36)
[2021-12-09] MEDS: SEVELAMER CARBONATE 800 MG TABLET PO SCH ×3 (08:36→16:53)
[2021-12-09] MEDS: VITAMIN D 5,000 UNIT CAP PO SCH (08:36)
[2021-12-09] MEDS: ASPIRIN 81 MG CHEWABLE TABLET PO SCH (08:36)
[2021-12-09] MEDS: DULOXETINE 30 MG CAP PO SCH ×2 (08:36→21:16)
[2021-12-09] MEDS: MEGESTROL 40 MG TAB PO SCH ×2 (08:37→21:25)
[2021-12-09] MEDS: THIAMINE 200 MG/2 ML INJ IVP SCH (08:37)
[2021-12-09] MEDS: LIDOCAINE 4% PATCH TOP SCH (08:37)
[2021-12-09] MEDS: FE SULF/FA/VIT B COMP & C TAB PO SCH (08:37)
[2021-12-09] MEDS: ENSURE HIGH PROTEIN 237 ML CAN PO SCH ×2 (08:37→21:00)
[2021-12-09] MEDS: JUVEN PACKET PO SCH ×2 (08:37→21:00)
[2021-12-09] MEDS ORDERED: LIDOCAINE 4% PATCH TOP SCH (09:00)
[2021-12-09] MEDS: WATER IV SCH ×14 (11:00→15:13)
[2021-12-09] MEDS: [UNRECOGNIZED DRUG - OTHER] IV SCH ×8 (11:00)
[2021-12-09] MEDS: WATER FOR INJ STERILE IV SCH ×14 (11:00→15:13)
[2021-12-09] MEDS: DEXTROSE IV SCH ×14 (11:00→15:13)
[2021-12-09] MEDS: GUAIFENESIN/DM 5 ML UCUP PO PRN (13:11)
[2021-12-09] MEDS: ACETAMINOPHEN 500 MG TAB PO PRN (13:11)
[2021-12-09] MEDS: [UNRECOGNIZED DRUG - OTHER] IV SCH ×6 (15:13)
[2021-12-09] MEDS: CALCIUM GLUCONATE 1gm/100 ML NS (4.65 mEq/100mL) IV SCH ×2 (15:14)
--- NOTE | 2021-12-09 20:43 | P.PN ---
Subjective Date of Service: 12/09/21 Chief Complaint: WEAK, Subjective: Improving STABLE. EATING NOW. NOT ABLE TO DO MUCH PT SHE HAS KNEE PAIN. SLOW TO IMPROVE NOT ABLE TO WALK MUCH SHE HAS TOO MUCH PAIN IN KNEES. DR. GODWIN CAN'T DO MUCH FOR HER UNFORTUNATELY SHE IS VERY DECONDITIONED AND WILL NOT BE ABLE TO WALK. FAMILY SHOULD UNDERSTAND. I WILL CALL DAUGHTER AGAIN. I TALKED TO DAUGHTER TODAY TO EXPLAIN THAT SHE WILL NEED JAIL. IN THE PAST SHE HAD DISAGREED BUT NOW SHE AGREES. SHE IS WORKING WITH GENERAL SERVICE TECHNICIAN TO GET IT DONE. Review of Systems 10-point ROS is otherwise unremarkable Respiratory: Cough Musculoskeletal: Other (SEVERE KNEE PAIN WITH ANY MOVEMENT IN THE BED AND ALSO MINOR CONTACT OF THE KNEES. ) Physical Examination - Vital Signs Temperature: 98.8 F Blood Pressure: 147/85 Pulse: 104 Respirations: 20 Pulse Ox (%): 98 - Physical Exam General: Oriented x2, Mild distress HEENT: Atraumatic, PERRLA, EOMI Neck: Supple, JVD not distended Respiratory: Clear to auscultation bilaterally, Normal air movement Cardiovascular: Regular rate/rhythm, Normal S1 S2 Gastrointestinal: Normal bowel sounds, No tenderness Musculoskeletal: No tenderness Integumentary: No rashes Neurological: Normal speech, Normal tone, Normal affect Lymphatics: No axilla or inguinal lymphadenopathy - Studies Medications List Reviewed: Yes Assessment And Plan - Current Problems (Diagnosis) (1) Metabolic acidosis Current Visit: Yes Status: Acute Plan: RESOLVED IV IS OUT ACCESS IS POOR. SHE IS STARTING TO EAT NOW. (2) Pneumonia due to COVID-19 virus Current Visit: Yes Status: Resolved Plan: SHE HAS COVID BUT NO SYMPTOMS OF IT. PENUMONIA MAY BE FROM BACTERIA AND NOT COVID. (3) Bacterial pneumonia Current Visit: Yes Status: Acute Plan: CONT ROCEPHIN AND ZITHROMAX. DC ABX. COVID PNEUMONIA MOST LIKELY SHE HAS SEVERE DIARRHEA SO WILL DO WITHOUT ABX NOW. HAS DONE ENOUGH ANTIBIOTICS WILL SEE HOW SHE DOES. COVID PNEUMONIA PICTURE CAN LINGER FOR WEEKS. (4) Acute renal failure Current Visit: No Status: Chronic Plan: ACUTE ON CHRONIC RENAL FAILURE. CREAT STABLE NOW AT ABOUT 3.0 I SUSPECT THAT WILL BE HER BASELINE. STABLE CREAT NOW. Qualifiers: Acute renal failure type: unspecified Qualified Code(s): N17.9 - Acute kidney failure, unspecified (5) Anemia Onset Date: 11/10/16 Current Visit: No Status: Chronic Plan: ANEMIA IS CHRONIC SHE HAS BEEN REFERRED TO DR. FABIAN BUT SHE HAS NOT FOLLOWED UP. WITH CRIPPLING ARTHTIS SHE IS IN SEVERE PAIN. SHE CAN BARELY WALK WITH WALKER EVERY STEP IS PAINFUL DESPITE NARCOTICS. TO POSITION HER FOR EGD OR COLONSCOPY WILL BE VERY PAINFUL FOR HER. PEPCID IV BID. AVOID ALL NSAIDS. HG STABLE ANEMIA OF CHR DIS NORMAL FERRITIN GIVEN TWO UNITS OF BLOOD. Qualifiers: Anemia type: B12 deficiency Qualified Code(s): D64.89 - Other specified anemias (6) Dehydration Current Visit: No Status: Acute Plan: CKD STABLE FOR NOW CREAT AT HER BASELING METABOLIC ACIDOSIS STABLE. SHE WENT SLIGHT FLUID OVERLOAD SHE HAS HYPOALBUMINEMIA. THIS IS CAUSING THIRD SPACING. GENTLE DIRUESIS FOR HALF DAY STOPPED NOW. (7) UTI (urinary tract infection) Current Visit: Yes Status: Acute Plan: ASYMPTOMATIC BACTERIURIA COLONIZED URINE AFTER BLANK. WILL NOT NEED MORE ANTIBIOTIC SHE ALREADY HAD LEVAQUIN UNTIL YESTERDAY. (8) Hypernatremia Current Visit: Yes Status: Resolved Plan: CHANGE TO D5W AT 100 STOP NS A ND LATER HALF NS DI IS POSSIBLE BU WILL WATCH DIABETES INSIPIDUS IS LIKELY. DR. IZQUIERDO IS WORKING ON ELECTROLYTES DI IS LESS LIKELY HER SP GRAVITIY IS NORMAL AND NOT LOW. URIN OSM IS NOT LOW. DR. IZQUIERDO IS WORKING ON THIS. (9) Hyperchloremia Current Visit: Yes Status: Resolved Plan: ABOVE (10) Diarrhea Current Visit: Yes Status: Acute Plan: CHECK FOR C DIFF CS AND GUAIAC. C DIFF WAS NOT DONE. DO IT IF STILL HAS DIARRHEA. SHE IS OFF ALL ABX NOW COURSE IS COMPLETED. (11) UTI (urinary tract infection) Current Visit: Yes Status: Chronic Plan: NOW WHAT WE SEE IN CULTURE IS COLONIZED BACTERIA I AM NOT SURE IF WE NEED TO CONTINUE ANTIBIOTICS. I WILL DISCUSS WITH RENAL DOCTORS. WE SHOULD NOT TREAT COLONIZED BACTERIA FROM BLANK CATHETER FOR DAYS WITHOUT SYMPTOMS. (12) DJD (degenerative joint disease) Current Visit: Yes Status: Chronic Plan: SEVERE DJD. NOT ABLE TO HELP HER MUCH I ADDED DURAGESIC PATCH. TOPICAL LIDOCAIN PATCH. Qualifiers: Osteoarthritis location: knee (13) Decubitus ulcer of heel, bilateral, stage 3 Current Visit: Yes Status: Chronic Plan: HEELS HAVE ULCERS BOTH SIDES WITH ESCHAR DR MCGHEE WANTS TO WAIT AND THESE ULCERS WILL DEMARCATE. I WILL ORDER ARTERIAL DOPPLER. EVEN WITH ISSUES HERE SHE CAN'T GO FOR ANGIOGRAM SHE BARELY MISSED DIALYSIS ON THIS ADMISSION. PROGNOSIS IS POOR.
[2021-12-09] MEDS: MIRTAZAPINE 15 MG TAB PO SCH (21:15)
--- NOTE | 2021-12-09 22:05 | RAD REPORT ---
EXAM DESCRIPTION: [facility] Single View12/09/2021 9:52 pm CLINICAL HISTORY: Chest pain COMPARISON: November 2021 FINDINGS: No significant change mild to moderate bilateral pulmonary opacities. Heart is mildly enlarged IMPRESSION: There is significant change in the [id number] bilateral pulmonary opacities proba josefa pneumonia
[2021-12-10] MEDS: ACETAMINOPHEN 500 MG TAB PO PRN (02:52)
--- NOTE | 2021-12-10 03:43 | PN ---
Date of Progress Note: 12/09/2021 Chief Complaint: Patient remains bedbound. Review of Systems: Patient cannot provide review of systems. Patient is lethargic. Objective: Vital Signs: Blood pressure is 138/72, heart rate is 102, respiratory rate 19, SpO2 makes 100%. General: Patient appears chronically ill. Lungs: Equal chest expansion. Heart: S1, S2. Abdomen: Soft, benign. Impression And Plan: 1. Acute kidney injury. Serum creatinine level stabilizing and improving to 2.8 today. Patient will continue hydration. Encouraged by mouth fluid intake, IV fluids as needed when p.o. intake is suboptimal. 2. Complex renal cyst, evaluation per Urology. 3. Escherichia coli and urinary tract infection. Patient on antibiotics. 4. Generalized weakness.Cardiac work-up per primary team. 5. COVID-19 pneumonia , treatment per primary team. 6. Failure to thrive. Patient will need PEG tube insertion to maintain hydration and prevent prerenal state. 7. Acidosis. Patient is on sodium bicarbonate, continue treatment with sodium bicarbonate. 8. Hypocalcemia. Calcium gluconate IV was administered. 9. Secondary hyperparathyroidism. Intact PTH was 740. 10. vitamin D deficiency, continue with vit D treatment. 11. Hyperparathyroidism, related to vitamin D deficiency and kidney insufficiency. EB/MODL Voice ID: [id number] Report ID: [id number] LELE
[2021-12-10] MEDS: carvediloL 3.125 MG TAB PO SCH ×2 (06:00→17:14)
[2021-12-10] MEDS: INSULIN -REGULAR HUMAN 50 UNIT/0.5 ML ML SQ SCH ×4 (07:30→21:00)
--- NOTE | 2021-12-10 08:09 | RAD REPORT ---
EXAM DESCRIPTION: US - Lower Extremity Arterial Bilat - 12/09/2021 11:58 pm CLINICAL HISTORY: Leg pain and ulcers COMPARISON: None FINDINGS: Right common femoral and proximal right superficial femoral arterial waveform is triphasic. Remainder right superficial femoral artery and right popliteal artery waveforms monophasic. Evaluation of the distal right and left lower extremity arteries could not be performed secondary to the lack of patient cooperation Left common femoral and proximal to mid left superficial femoral arterial waveform is triphasic. Left popliteal arterial waveform and distal left superficial femoral arterial waveform is monophasic Grayscale, color and spectral analysis performed on all vessels IMPRESSION: Normal examination of the proximal arteries of the lower extremity bilaterally Mid arteries of the lower extremity bilaterally have abnormal waveforms indicative of disease. Howeve r, no high-grade stenosis visualized. More distal lower extremity arteries could not be evaluated as described above
[2021-12-10] MEDS: JUVEN PACKET PO SCH ×2 (09:00→21:00)
[2021-12-10] MEDS: ENSURE HIGH PROTEIN 237 ML CAN PO SCH ×2 (09:00→21:00)
[2021-12-10] MEDS ORDERED: AZITHROMYCIN IV 500 MG in NA CHLORIDE 0.9% 250 ML IVPB SCH (09:00)
[2021-12-10] MEDS: THIAMINE 200 MG/2 ML INJ IVP SCH (09:00)
[2021-12-10] MEDS: MEGESTROL 40 MG TAB PO SCH ×2 (09:46→21:00)
[2021-12-10] MEDS: AMLODIPINE 5 MG TAB PO SCH (09:46)
[2021-12-10] MEDS: PANTOPRAZOLE 40MG TABLET PO SCH (09:46)
[2021-12-10] MEDS: FE SULF/FA/VIT B COMP & C TAB PO SCH (09:46)
[2021-12-10] MEDS: VITAMIN D 5,000 UNIT CAP PO SCH (09:47)
[2021-12-10] MEDS: SEVELAMER CARBONATE 800 MG TABLET PO SCH ×3 (09:47→17:00)
[2021-12-10] MEDS: ASPIRIN 81 MG CHEWABLE TABLET PO SCH (09:47)
[2021-12-10] MEDS: DULOXETINE 30 MG CAP PO SCH ×2 (09:47→21:00)
[2021-12-10] MEDS: LIDOCAINE 4% PATCH TOP SCH (09:48)
[2021-12-10] MEDS ORDERED: AMOX/K CLAV 875 MG TAB PO SCH (10:24)
[2021-12-10] MEDS ORDERED: DEXTROSE 70% IV SCH ×6 (11:00)
[2021-12-10] MEDS ORDERED: AMINO ACIDS 10% IV SCH ×6 (11:00)
[2021-12-10] MEDS ORDERED: WATER IV SCH ×6 (11:00)
[2021-12-10] MEDS ORDERED: [UNRECOGNIZED DRUG - OTHER] IV SCH ×6 (11:00)
[2021-12-10] MEDS: SODIUM BICARB 325 MG TAB PO SCH ×3 (11:46→21:00)
--- NOTE | 2021-12-10 11:47 | RAD REPORT ---
EXAM DESCRIPTION: US - UPPER EXTREMITY VENOUS BILAT - 12/10/2021 11:25 am CLINICAL HISTORY: Arm swelling COMPARISON: none FINDINGS: The jugular, subclavian, axillary, brachial, basilic, radial and ulnar veins bilaterally a re compressible. Doppler demonstrates good flow Grayscale, color and spectral analysis performed on all vessels IMPRESSION: No evidence of venous thrombus involving either upper extremity
--- NOTE | 2021-12-10 12:40 | P.CNS ---
Date of Consult: 12/10/21 Reason for Consult: coronavirus pneumonia Chief Complaint: Coronavirus pneumonia History of Present Illness: Patient is 75 years of age admitted with weakness altered mental status worsening renal function also diagnosed with coronavirus she is currently doing fine denies any complaints no fever or chills chest x-ray minor interstitial changes has chronic renal failure patient is not requiring any oxygen patient is now running a fever since admission Allergies No Known Drug Allergies Allergy (Verified 10/23/16 15:08) Unknown Home Medications: Amlodipine Besylate 10 mg PO DAILY 11/18/21 Atorvastatin Calcium [Lipitor] 20 mg PO BEDTIME 11/18/21 Codeine/APAP [Tylenol W/Codeine #3 tab] 1 tab PO TIDP PRN 11/18/21 Duloxetine HCl [Cymbalta] 60 mg PO BID 11/18/21 Ferrous Fumarate/Folic Acid [Hematinic-Folic Acid Tablet] 1 each PO DAILY 11/18/21 Ipratropium [place] 2 sprays IH BID 11/18/21 Metoprolol Succinate [Toprol Xl] 200 mg PO DAILY 11/18/21 Nitroglycerin [Nitrostat] 0.4 mg SL PRN PRN 11/18/21 Omeprazole 20 mg PO DAILY 11/18/21 - Past Medical/Surgical History Diabetic: No -: hypertension -: Hyperlipidemia -: CAD -: Heart stents -: right knee replaced 10 yrs ago -: lt lumpectomy many yrs ago -: left foot surg. 10 yrs ago -: tubal ligation 30 yrs ago - Family History Father Medical History: Heart disease - Social History Smoking Status: Never smoker Alcohol use: No CD- Drugs: No Caffeine use: Yes Review of Systems Unremarkable Physical Examination Temp Pulse Resp BP Pulse Ox 100.0 F 121 H 32 H 129/83 99 12/10/21 12:00 12/10/21 12:00 12/10/21 12:00 12/10/21 12:00 12/10/21 12:00 General: Alert, In no apparent distress, Oriented x3 Neck: Supple Respiratory: Clear to auscultation bilaterally Cardiovascular: No edema, Normal pulses - Problems (1) Pneumonia due to COVID-19 virus Current Visit: Yes Status: Resolved Plan: Patient is 75 years of age admitted with renal failure altered mental status coronavirus pneumonia she has minor interstitial changes on chest x-ray no evidence of a bacterial infection and Pseudomonas Enterococcus isolated in the urine has had multiple antibiotics agree with cultures again culture urine as well can stop Zithromax and Augmentin for now until source is evident a fungal superinfection is also a possibility no evidence of DVT patient has been here for over 3 weeks renal function is stable
[2021-12-10] MEDS: CALCIUM GLUCONATE 1gm/100 ML NS (4.65 mEq/100mL) IV SCH ×2 (13:00)
--- NOTE | 2021-12-10 15:25 | PN ---
Date of Progress Note: 12/10/2021 Subjective: The patient was admitted with COVID pneumonia. The patient had failure to thrive, has a cute kidney injury, has hypernatremia. The patient was started on IV fluid. Hypernatremia has resol alok. Because of the failure to thrive, the patient was started on TPN and the patient undergone plan for EGD. Physical Examination: Vital Signs: Blood pressure 135/98, pulse of 100, afebrile. Chest: Crackles bilateral. Heart: S1, S2. Regular. Abdomen: Soft, nontender. Extremities: No edema. Laboratory Data: WBC 10.7, H and H 8.4/26.2. Sodium 145, potassium 4.8, bicarb 20, BUN 78, creatini ne 2.8, calcium 7.8. Current Medications: The patient on include; 1.Augmentin. 2.Azithromycin. 3.Megestrol. 4.Calcium carbonate. 5.Amlodipine. 6.Carvedilol. 7.Mirtazapine. 8.Sodium bicarb. 9.Renvela. Assessment And Plan: 1.Chronic kidney disease with acute kidney injury, normal volume. I am going to continue gentle hyd ration. 2.Hyponatremia secondary to depletional. We will continue with IV fluid. 3.Failure to thrive. We will follow up with the primary. 4.Urinary tract infection, Pseudomonas and Enterococci, status post treatment. 5.COVID pneumonia as by primary. ELISEO Voice ID: [id number] Report ID: [id number]
--- NOTE | 2021-12-10 20:42 | P.PN ---
Subjective Date of Service: 12/10/21 Chief Complaint: FEVER Subjective: Worsening SHE LOOKS GOOD SHE FEELS OKAY BUT HAD FEVER LAST NIGHT UP TO 103. THIS IS JUST TWO DAYS AFTER STOPPING ANTIBIOTICS Review of Systems 10-point ROS is otherwise unremarkable General: Weakness Physical Examination - Vital Signs Temperature: 99.2 F Blood Pressure: 131/83 Pulse: 109 Respirations: 16 Pulse Ox (%): 99 - Physical Exam General: Oriented x3, Mild distress HEENT: Atraumatic, PERRLA, EOMI Neck: Supple, JVD not distended Respiratory: Clear to auscultation bilaterally, Normal air movement Cardiovascular: Regular rate/rhythm, Normal S1 S2 Gastrointestinal: Normal bowel sounds, No tenderness Musculoskeletal: Other (SEVERE ARTHRITIS.) Integumentary: No rashes Neurological: Normal speech, Normal tone, Normal affect Lymphatics: No axilla or inguinal lymphadenopathy - Studies Medications List Reviewed: Yes Assessment And Plan - Current Problems (Diagnosis) (1) Metabolic acidosis Current Visit: Yes Status: Resolved Plan: RESOLVED IV IS OUT ACCESS IS POOR. SHE IS STARTING TO EAT NOW. (2) Pneumonia due to COVID-19 virus Current Visit: Yes Status: Resolved Plan: SHE HAS COVID BUT NO SYMPTOMS OF IT. PENUMONIA MAY BE FROM BACTERIA AND NOT COVID. (3) Bacterial pneumonia Current Visit: Yes Status: Acute Plan: CONT ROCEPHIN AND ZITHROMAX. DC ABX. COVID PNEUMONIA MOST LIKELY SHE HAS SEVERE DIARRHEA SO WILL DO WITHOUT ABX NOW. HAS DONE ENOUGH ANTIBIOTICS WILL SEE HOW SHE DOES. COVID PNEUMONIA PICTURE CAN LINGER FOR WEEKS. (4) Acute renal failure Current Visit: No Status: Chronic Plan: ACUTE ON CHRONIC RENAL FAILURE. CREAT STABLE NOW AT ABOUT 3.0 I SUSPECT THAT WILL BE HER BASELINE. STABLE CREAT NOW. Qualifiers: Acute renal failure type: unspecified Qualified Code(s): N17.9 - Acute kidney failure, unspecified (5) Anemia Onset Date: 11/10/16 Current Visit: No Status: Chronic Plan: ANEMIA IS CHRONIC SHE HAS BEEN REFERRED TO DR. FABIAN BUT SHE HAS NOT FOLLOWED UP. WITH CRIPPLING ARTHTIS SHE IS IN SEVERE PAIN. SHE CAN BARELY WALK WITH WALKER EVERY STEP IS PAINFUL DESPITE NARCOTICS. TO POSITION HER FOR EGD OR COLONSCOPY WILL BE VERY PAINFUL FOR HER. PEPCID IV BID. AVOID ALL NSAIDS. HG STABLE ANEMIA OF CHR DIS NORMAL FERRITIN GIVEN TWO UNITS OF BLOOD. Qualifiers: Anemia type: B12 deficiency Qualified Code(s): D64.89 - Other specified anemias (6) Dehydration Current Visit: No Status: Resolved Plan: CKD STABLE FOR NOW CREAT AT HER BASELING METABOLIC ACIDOSIS STABLE. SHE WENT SLIGHT FLUID OVERLOAD SHE HAS HYPOALBUMINEMIA. THIS IS CAUSING THIRD SPACING. GENTLE DIRUESIS FOR HALF DAY STOPPED NOW. (7) UTI (urinary tract infection) Current Visit: Yes Status: Acute Plan: ASYMPTOMATIC BACTERIURIA COLONIZED URINE AFTER BLANK. WILL NOT NEED MORE ANTIBIOTIC SHE ALREADY HAD LEVAQUIN UNTIL YESTERDAY. (8) Hypernatremia Current Visit: Yes Status: Resolved Plan: CHANGE TO D5W AT 100 STOP NS A ND LATER HALF NS DI IS POSSIBLE BU WILL WATCH DIABETES INSIPIDUS IS LIKELY. DR. IZQUIERDO IS WORKING ON ELECTROLYTES DI IS LESS LIKELY HER SP GRAVITIY IS NORMAL AND NOT LOW. URIN OSM IS NOT LOW. DR. IZQUIERDO IS WORKING ON THIS. (9) Hyperchloremia Current Visit: Yes Status: Resolved Plan: ABOVE (10) Diarrhea Current Visit: Yes Status: Resolved Plan: CHECK FOR C DIFF CS AND GUAIAC. C DIFF WAS NOT DONE. DO IT IF STILL HAS DIARRHEA. SHE IS OFF ALL ABX NOW COURSE IS COMPLETED. (11) UTI (urinary tract infection) Current Visit: Yes Status: Chronic Plan: NOW WHAT WE SEE IN CULTURE IS COLONIZED BACTERIA I AM NOT SURE IF WE NEED TO CONTINUE ANTIBIOTICS. I WILL DISCUSS WITH RENAL DOCTORS. WE SHOULD NOT TREAT COLONIZED BACTERIA FROM BLANK CATHETER FOR DAYS WITHOUT SYMPTOMS. REDO CULTURE THERE IS NO SERAFIN YET. (12) DJD (degenerative joint disease) Current Visit: Yes Status: Chronic Plan: SEVERE DJD. NOT ABLE TO HELP HER MUCH I ADDED DURAGESIC PATCH. TOPICAL LIDOCAIN PATCH. Qualifiers: Osteoarthritis location: knee (13) Decubitus ulcer of heel, bilateral, stage 3 Current Visit: Yes Status: Chronic Plan: HEELS HAVE ULCERS BOTH SIDES WITH ESCHAR DR MCGHEE WANTS TO WAIT AND THESE ULCERS WILL DEMARCATE. I WILL ORDER ARTERIAL DOPPLER. EVEN WITH ISSUES HERE SHE CAN'T GO FOR ANGIOGRAM SHE BARELY MISSED DIALYSIS ON THIS ADMISSION. PROGNOSIS IS POOR. (14) Fever Current Visit: Yes Status: Acute Plan: THIS PATIENT HAS BEEN THROUGH ROCEPHIN, CIPRO AND LEVAQUIN. HER URINE CULTURE CAN BE JUST COLONIZATION AND CAN BE IGNORED IT IS BLANK SPECIMEN. CXR SHOWS COVID REFIDUAL INFILTERATES DR ANDRADE THINKS SHE MAY HAVE SERAFIN INFETION SHE HAS BEEN ON BROAD SPECTRUM ABX. HE STOPPED AUGMENTIN ON THE SAME DAY WAS STARED AND PUT HER ON DIFLUCAN. WE WILL FOLLOW UP TO SEE HOW IT GOES.
[2021-12-10] MEDS: carvediloL 6.25 MG TAB PO SCH (21:00)
[2021-12-10] MEDS: MIRTAZAPINE 15 MG TAB PO SCH (21:00)
[2021-12-10] MEDS ORDERED: FLUCONAZOLE 400 MG IVPB 400 MG/200 ML BAG IV SCH (21:45)
[2021-12-10] MEDS ORDERED: FLUCONAZOLE 200mg IVPB 400 MG/200 ML BAG IV ONE (22:07)
[2021-12-10] MEDS ORDERED: NA CHLORIDE 0.9% 100 ML ONE (22:09)
[2021-12-11] MEDS: carvediloL 6.25 MG TAB PO SCH ×2 (05:56→17:07)
[2021-12-11] MEDS ORDERED: D5 0.45 NS 1,000 ML IV ONE (06:24)
[2021-12-11] MEDS: D5 0.45 NS 1,000 ML IV SCH (07:00)
[2021-12-11 07:09] LABS: Urine Appearance CLEAR (Clear); Urine Bilirubin NEGATIVE (Negative); Urine Blood 1+ (Negative); Urine Color YELLOW (Yellow); Urine Glucose NEGATIVE (Negative); Urine Protein 2+ (Negative); Urine Specific Gravity 1.015 (1.005-1.030); Urine Urobilinogen 0.2 mg/dL (0.2-1.0); Urine pH 7.5 (5.0-7.0)
[2021-12-11 07:14] LABS: Urine Microscopic Reflex ORDER UMIC
[2021-12-11 07:21] LABS: Absolute Lymphocytes (CBC) 1.9 K/uL (0.7-4.9); Hematocrit 25.6 % (36.0-45.0); Lymphocytes % 17.3 % (15.3-44.8); MPV 7.7 fL (7.6-11.3); RBC Red Blood Cell Count 2.99 M/uL (3.86-4.86)
[2021-12-11 07:28] LABS: Urine Bacteria NONE SEEN /HPF (<20); Urine RBC <5 /HPF (NONE SEEN)
[2021-12-11 07:29] LABS: Urine Yeast MANY (NONE SEEN); Urine Yeast with Hyphae PRESENT
[2021-12-11] MEDS: INSULIN -REGULAR HUMAN 50 UNIT/0.5 ML ML SQ SCH ×4 (07:30→21:00)
[2021-12-11 07:47] LABS: ALT/SGPT 45 U/L (12-78); AST/SGOT 34 U/L (15-37); Albumin 2.1 g/dL (3.4-5.0); Alkaline Phosphatase 108 U/L (45-117); BUN Blood Urea Nitrogen 62 mg/dL (7-18); Bicarbonate 18 mmol/L (21-32); Bilirubin Direct < 0.1 mg/dL (0-0.2); Bilirubin Total 0.3 mg/dL (0.2-1.0); Glucose Level 101 mg/dL (74-106); Potassium 4.2 mmol/L (3.5-5.1); Sodium Level 146 mmol/L (136-145)
[2021-12-11] MEDS: SEVELAMER CARBONATE 800 MG TABLET PO SCH ×3 (08:00→17:00)
[2021-12-11] MEDS: JUVEN PACKET PO SCH ×2 (09:00→21:00)
[2021-12-11] MEDS ORDERED: FLUCONAZOLE 100 MG TAB PO SCH (09:00)
[2021-12-11] MEDS: ENSURE HIGH PROTEIN 237 ML CAN PO SCH ×2 (09:00→21:00)
[2021-12-11] MEDS: LIDOCAINE 4% PATCH TOP SCH (10:22)
[2021-12-11] MEDS: CALCITROL 0.25 MCG CAP PO SCH (10:23)
[2021-12-11] MEDS: DULOXETINE 30 MG CAP PO SCH ×2 (10:23→21:46)
[2021-12-11] MEDS: FE SULF/FA/VIT B COMP & C TAB PO SCH (10:23)
[2021-12-11] MEDS: SODIUM BICARB 325 MG TAB PO SCH ×3 (10:23→21:47)
--- NOTE | 2021-12-11 10:23 | RAD REPORT ---
EXAM DESCRIPTION: CT - Thorax Wo Con - 12/11/2021 9:12 am CLINICAL HISTORY: f/upneumonia, COVID positive COMPARISON: Chest Abd Pelvis Wo Con dated 11/15/2021; Chest Single View dated 12/11/2021 TECHNIQUE: Axial 5 mm thick images of the chest were obtained without IV contrast. All CT scans are performed using dose optimization technique as appropriate and may include automated exposure control or mA/KV adjustment according to patient size. FINDINGS: Motion degradation is present. Increased interstitial opacification is present. More pronounced in each lung base. No dense consolid ation or ground-glass opacities noted. Trace amount of atelectasis seen in the posterior gutter on th e right. There is a trace amount of pleural fluid on the right. No endobronchial lesions seen. No ple ural based mass. No pneumothorax. No abnormal mediastinal or hilar masses or lymphadenopathy seen. Ascending aorta is 4.5 cm in diamete r. No displaced calcification. Full assessment is limited in the absence of contrast. Cardiomegaly is present but no pericardial thickening or effusion. No chest wall mass or abnormal axillary lymphadenopathy. IMPRESSION: Interstitial thickening is present mild in degree in each lung base along with trace esther unts of atelectasis. Lung parenchymal opacification pattern is much less prominent than seen November 15. Current pattern is not suspicious for persistent or recurrent COVID-19 pneumonia.
[2021-12-11] MEDS: PANTOPRAZOLE 40MG TABLET PO SCH (10:24)
[2021-12-11] MEDS: THIAMINE 200 MG/2 ML INJ IVP SCH (10:24)
[2021-12-11] MEDS: AMLODIPINE 5 MG TAB PO SCH (10:25)
[2021-12-11] MEDS: VITAMIN D 5,000 UNIT CAP PO SCH (10:25)
[2021-12-11] MEDS: ASPIRIN 81 MG CHEWABLE TABLET PO SCH (10:25)
[2021-12-11] MEDS: MEGESTROL 40 MG TAB PO SCH ×2 (10:31→21:45)
--- NOTE | 2021-12-11 10:32 | RAD REPORT ---
EXAM DESCRIPTION: RAD - Chest Single View - 12/11/2021 10:18 am CLINICAL HISTORY: PICC line placement COMPARISON: December 09 FINDINGS: Portable chest was obtained following placement of a right upper extremity PICC line. The catheter tip is in the mid SVC.
[2021-12-11] MEDS ORDERED: VANCOMYCIN 1 GM in NA CHLORIDE 0.9% 250 ML IVPB SCH (11:00)
--- NOTE | 2021-12-11 11:15 | PN ---
Date of Progress Note: 12/11/2021 Subjective: The patient was admitted with COVID pneumonia, failure to thrive, acute kidney injury, a nd hypernatremia. The patient had infiltration in her vein yesterday. Status post PICC line placeme nt today. Physical Examination: Vital Signs: Blood pressure 114/61, pulse of 85, afebrile. Chest: Clear to auscultation. Heart: S1, S2. Systolic murmur. Abdomen: Soft, nontender. Extremities: No edema. Neurologic: Alert, sleepy. No focality. Laboratory Data: WBC 11, H and H 8.2/25.6. Sodium 146, potassium 4.2, bicarb 18, BUN 62, creatinine 2.9, calcium 8.9. Current Medications: The patient on include; 1.Aspirin. 2.Fluconazole. 3.Vancomycin. 4.Megestrol. 5.Calcium carbonate. 6.Carvedilol 6.25. 7.Amlodipine 5 mg. 8.Nitroglycerin. 9.Ensure. Assessment And Plan: 1.Acute kidney injury secondary to prerenal, currently plateaued, nonoliguric, no hyperkalemia. We will continue to monitor the patient. 2.Hypertension. Blood pressure on the lower side. We will hold on amlodipine for the time being. 3.Hypernatremia. We will resume PPN. 4.Hypokalemia, status post supplement, resolved. 5.Acidosis, non-anion gap secondary to renal failure. The patient has poor intake. We will follow up after the PPN. Continue calcium carbonate. 6.COVID pneumonia as by primary. 7.Failure to thrive. Continue PPN. Continue supportive care. Follow up with primary. Continue Ms dionne. PATITO/TRACE Voice ID: [id number] Report ID: [id number]
[2021-12-11] MEDS: VANCOMYCIN 1.25 GM in NA CHLORIDE 0.9% 250 ML IVPB SCH (11:29)
[2021-12-11] MEDS: WATER IV SCH ×6 (11:29)
[2021-12-11] MEDS: WATER FOR INJ STERILE IV SCH ×6 (11:29)
[2021-12-11] MEDS: DEXTROSE IV SCH ×6 (11:29)
[2021-12-11] MEDS: [UNRECOGNIZED DRUG - OTHER] IV SCH ×6 (11:29)
[2021-12-11] MEDS: CALCIUM GLUCONATE 1gm/100 ML NS (4.65 mEq/100mL) IV SCH ×2 (12:47)
--- NOTE | 2021-12-11 12:51 | EKG ---
Test Date: 2021-12-10 Test Time: 08:16:48 Manager Hvac: GELY MEASUREMENT RESULTS: Intervals: Rate: 121 MI: 130 QRSD: 88 QT: 324 QTc: 460 Sheldon: P: 51 MI: 130 QRS: 19 T: 91 INTERPRETIVE STATEMENTS: Sinus tachycardia Minimal voltage criteria for LVH, may be normal variant Abnormal QRS-T angle, consider primary T wave abnormality Abnormal ECG Compared to ECG 11/14/2021 18:25:35 Left ventricular hypertrophy now present Possible ischemia no longer present T-wave abnormality still present Electronically Signed On 12-11-21 12:46:57 [employer] by Wil Noonan
--- NOTE | 2021-12-11 13:05 | P.PN ---
Subjective Date of Service: 12/11/21 Chief Complaint: FEVER Subjective: Worsening SHE LOOKS GOOD SHE FEELS OKAY BUT HAD FEVER LAST NIGHT UP TO 103. THIS IS JUST TWO DAYS AFTER STOPPING ANTIBIOTICS SHE IS MORE LETHARGIC TODAY. THERE IS AN AREA OF R FOREARM WHERE PUS CAME OUT FROM IV SITE. RN DID THE CULTURE OF THIS. Review of Systems General: Weakness, Malaise Physical Examination - Vital Signs Temperature: 97.9 F Blood Pressure: 159/84 Pulse: 104 Respirations: 20 Pulse Ox (%): 98 - Physical Exam General: Confused, Other (LETHARGIC TODAY) HEENT: Atraumatic, PERRLA, EOMI Neck: Supple, JVD not distended Respiratory: Clear to auscultation bilaterally, Normal air movement Cardiovascular: Regular rate/rhythm, Normal S1 S2 Gastrointestinal: Normal bowel sounds, No tenderness Musculoskeletal: No tenderness Integumentary: No rashes, Tenderness/swelling Neurological: Normal speech, Normal tone, Normal affect Lymphatics: No axilla or inguinal lymphadenopathy - Studies Medications List Reviewed: Yes Assessment And Plan - Current Problems (Diagnosis) (1) Metabolic acidosis Current Visit: Yes Status: Resolved Plan: RESOLVED IV IS OUT ACCESS IS POOR. SHE IS STARTING TO EAT NOW. (2) Pneumonia due to COVID-19 virus Current Visit: Yes Status: Resolved Plan: SHE HAS COVID BUT NO SYMPTOMS OF IT. PENUMONIA MAY BE FROM BACTERIA AND NOT COVID. (3) Bacterial pneumonia Current Visit: Yes Status: Acute Plan: CONT ROCEPHIN AND ZITHROMAX. DC ABX. COVID PNEUMONIA MOST LIKELY SHE HAS SEVERE DIARRHEA SO WILL DO WITHOUT ABX NOW. HAS DONE ENOUGH ANTIBIOTICS WILL SEE HOW SHE DOES. COVID PNEUMONIA PICTURE CAN LINGER FOR WEEKS. (4) Acute renal failure Current Visit: No Status: Chronic Plan: ACUTE ON CHRONIC RENAL FAILURE. CREAT STABLE NOW AT ABOUT 3.0 I SUSPECT THAT WILL BE HER BASELINE. STABLE CREAT NOW. Qualifiers: Acute renal failure type: unspecified Qualified Code(s): N17.9 - Acute kidney failure, unspecified (5) Anemia Onset Date: 11/10/16 Current Visit: No Status: Chronic Plan: ANEMIA IS CHRONIC SHE HAS BEEN REFERRED TO DR. FABIAN BUT SHE HAS NOT FOLLOWED UP. WITH CRIPPLING ARTHTIS SHE IS IN SEVERE PAIN. SHE CAN BARELY WALK WITH WALKER EVERY STEP IS PAINFUL DESPITE NARCOTICS. TO POSITION HER FOR EGD OR COLONSCOPY WILL BE VERY PAINFUL FOR HER. PEPCID IV BID. AVOID ALL NSAIDS. HG STABLE ANEMIA OF CHR DIS NORMAL FERRITIN GIVEN TWO UNITS OF BLOOD. Qualifiers: Anemia type: B12 deficiency Qualified Code(s): D64.89 - Other specified anemias (6) UTI (urinary tract infection) Current Visit: Yes Status: Acute Plan: ASYMPTOMATIC BACTERIURIA COLONIZED URINE AFTER BLANK. WILL NOT NEED MORE ANTIBIOTIC SHE ALREADY HAD LEVAQUIN UNTIL YESTERDAY. (7) Hypernatremia Current Visit: Yes Status: Resolved Plan: CHANGE TO D5W AT 100 STOP NS A ND LATER HALF NS DI IS POSSIBLE BU WILL WATCH DIABETES INSIPIDUS IS LIKELY. DR. IZQUIERDO IS WORKING ON ELECTROLYTES DI IS LESS LIKELY HER SP GRAVITIY IS NORMAL AND NOT LOW. URIN OSM IS NOT LOW. DR. IZQUIERDO IS WORKING ON THIS. (8) Hyperchloremia Current Visit: Yes Status: Resolved Plan: ABOVE (9) Diarrhea Current Visit: Yes Status: Resolved Plan: CHECK FOR C DIFF CS AND GUAIAC. C DIFF WAS NOT DONE. DO IT IF STILL HAS DIARRHEA. SHE IS OFF ALL ABX NOW COURSE IS COMPLETED. (10) UTI (urinary tract infection) Current Visit: Yes Status: Chronic Plan: NOW WHAT WE SEE IN CULTURE IS COLONIZED BACTERIA I AM NOT SURE IF WE NEED TO CONTINUE ANTIBIOTICS. I WILL DISCUSS WITH RENAL DOCTORS. WE SHOULD NOT TREAT COLONIZED BACTERIA FROM BLANK CATHETER FOR DAYS WITHOUT SYMPTOMS. REDO CULTURE THERE IS NO SERAFIN YET. (11) DJD (degenerative joint disease) Current Visit: Yes Status: Chronic Plan: SEVERE DJD. NOT ABLE TO HELP HER MUCH I ADDED DURAGESIC PATCH. TOPICAL LIDOCAIN PATCH. Qualifiers: Osteoarthritis location: knee (12) Decubitus ulcer of heel, bilateral, stage 3 Current Visit: Yes Status: Chronic Plan: HEELS HAVE ULCERS BOTH SIDES WITH ESCHAR DR MCGHEE WANTS TO WAIT AND THESE ULCERS WILL DEMARCATE. I WILL ORDER ARTERIAL DOPPLER. EVEN WITH ISSUES HERE SHE CAN'T GO FOR ANGIOGRAM SHE BARELY MISSED DIALYSIS ON THIS ADMISSION. PROGNOSIS IS POOR. (13) Fever Current Visit: Yes Status: Acute Plan: THIS PATIENT HAS BEEN THROUGH ROCEPHIN, CIPRO AND LEVAQUIN. HER URINE CULTURE CAN BE JUST COLONIZATION AND CAN BE IGNORED IT IS BLANK SPECIMEN. CXR SHOWS COVID REFIDUAL INFILTERATES DR ANDRADE THINKS SHE MAY HAVE SERAFIN INFETION SHE HAS BEEN ON BROAD SPECTRUM ABX. HE STOPPED AUGMENTIN ON THE SAME DAY WAS STARED AND PUT HER ON DIFLUCAN. WE WILL FOLLOW UP TO SEE HOW IT GOES. (14) Phlebitis Current Visit: Yes Status: Acute Plan: WITH PUS DISCHARGE CULTURE DONE THIS MAY BE MRSA OR FUNGAL WILL COVER BOTH UNTIL WE HAVE RESULTS SHE IS LETHARGIC AND GETTING WORSE. I CALLED DAUGHTER TO DISCUSS. ALSO TALKED TO DR. ANDRADE.
[2021-12-11] MEDS: FLUCONAZOLE 400 MG IVPB 400 MG/200 ML BAG IV SCH (21:45)
[2021-12-11] MEDS ORDERED: NA CHLORIDE 0.9% 50 ML ONE (21:46)
[2021-12-11] MEDS: MIRTAZAPINE 15 MG TAB PO SCH (21:46)
[2021-12-11] MEDS: ACETAMINOPHEN 500 MG TAB PO PRN (21:46)
[2021-12-11] MEDS: FENTANYL 50 MCG/PATCH TD SCH (22:00)
[2021-12-12] MEDS: D5 0.45 NS 1,000 ML IV SCH (03:00)
[2021-12-12] MEDS: carvediloL 6.25 MG TAB PO SCH ×2 (06:00→17:39)
[2021-12-12 06:02] LABS: Absolute Lymphocytes (CBC) 2.5 K/uL (0.7-4.9); Hematocrit 24.6 % (36.0-45.0); Lymphocytes % 23.5 % (15.3-44.8); RBC Red Blood Cell Count 2.84 M/uL (3.86-4.86)
[2021-12-12 06:09] LABS: Potassium 4.2 mmol/L (3.5-5.1)
[2021-12-12] MEDS: INSULIN -REGULAR HUMAN 50 UNIT/0.5 ML ML SQ SCH ×4 (07:30→20:33)
[2021-12-12] MEDS: SEVELAMER CARBONATE 800 MG TABLET PO SCH ×3 (08:00→17:39)
[2021-12-12] MEDS: MEGESTROL 40 MG TAB PO SCH ×2 (08:36→20:30)
[2021-12-12] MEDS: THIAMINE 200 MG/2 ML INJ IVP SCH (08:37)
[2021-12-12] MEDS: DULOXETINE 30 MG CAP PO SCH ×2 (08:37→20:32)
[2021-12-12] MEDS: FE SULF/FA/VIT B COMP & C TAB PO SCH (08:37)
[2021-12-12] MEDS: ACETAMINOPHEN 500 MG TAB PO PRN (08:37)
[2021-12-12] MEDS: PANTOPRAZOLE 40MG TABLET PO SCH (08:39)
[2021-12-12] MEDS: SODIUM BICARB 325 MG TAB PO SCH ×3 (08:39→20:32)
[2021-12-12] MEDS: ENSURE HIGH PROTEIN 237 ML CAN PO SCH ×2 (08:39→21:00)
[2021-12-12] MEDS: LIDOCAINE 4% PATCH TOP SCH (08:39)
[2021-12-12] MEDS: JUVEN PACKET PO SCH ×2 (08:39→21:00)
[2021-12-12] MEDS: ASPIRIN 81 MG CHEWABLE TABLET PO SCH (08:39)
[2021-12-12] MEDS: VITAMIN D 5,000 UNIT CAP PO SCH (08:39)
--- NOTE | 2021-12-12 11:37 | PN ---
Date of Progress Note: 12/12/2021 Subjective: The patient was admitted with COVID pneumonia. The patient had acute kidney injury seco ndary to prerenal. The patient was treated, kidney function gradually started improving, then platea ued. The patient developed hypernatremia secondary to poor intake. Physical Examination: Vital Signs: When I saw the patient; blood pressure of 138/79, pulse of 99, afebrile. The patient h ad good urine output of 1800, negative of 1300. Chest: Clear to auscultation. Heart: S1, S2. Systolic murmur. Abdomen: Soft, nontender. Extremities: No edema. Neuro: Alert. No focality. Laboratory Data: WBC 10.7, H and H 8.1/24.6. Sodium 142, potassium 4.2, bicarb 19, BUN 59, creatini ne 2.7, calcium 8.3. Current Medications: The patient on include; 1.Aspirin. 2.Fluconazole. 3.Vancomycin. 4.Megestrol 40 b.i.d. 5.Calcium carbonate. 6.Carvedilol 6.25 b.i.d. 7.Mirtazapine. 8.Remeron. 9.Sodium bicarb orally 1300 b.i.d. 10.Renvela. Assessment And Plan: 1.Acute kidney injury secondary to hypertension nephrosclerosis. Obstructive uropathy has been rule d out. The patient plateaued currently, normal volume. We will continue to monitor the patient. 2.Hypertension, controlled, optimal. Continue current treatment. 3.Hypernatremia, resolved. Continue PPN. 4.Acidosis. Continue oral sodium bicarb and calcium carbonate. 5.Hyperkalemia, resolved. 6.COVID pneumonia. Continue to follow up with primary. 7.Failure to thrive. Continue supportive treatment. MA/MODL Voice ID: [id number] Report ID: [id number]
--- NOTE | 2021-12-12 11:56 | P.PN ---
Subjective Date of Service: 12/12/21 Chief Complaint: FEVER Subjective: Improving (Patient is improving complaining of pain in her heels now eating) Review of Systems General: Weakness Respiratory: Shortness of Breath Physical Examination - Vital Signs Temperature: 98.6 F Blood Pressure: 165/84 Pulse: 99 Respirations: 20 Pulse Ox (%): 99 - Physical Exam General: Alert, Moderate distress Respiratory: Clear to auscultation bilaterally Cardiovascular: Edema Integumentary: Other (Appears to have area of sepsis in the right forearm) - Studies Medications List Reviewed: Yes Assessment And Plan - Current Problems (Diagnosis) (1) Pneumonia due to COVID-19 virus Current Visit: Yes Status: Resolved Plan: No evidence of active ongoing coronavirus infection CT scan reviewed (2) Fever Current Visit: Yes Status: Acute Plan: Patient has fever most likely local area of cellulitis in the right forearm patient is now on vancomycin high risk for fungal infection she is now eating DC TPN changed to p.o. doxycycline and fluconazole until cultures come back white count is declining no fever for the past 24-hour is no significant breakdown on her heels Qualifiers: Fever type: unspecified Qualified Code(s): R50.9 - Fever, unspecified
[2021-12-12] MEDS: FLUCONAZOLE 400 MG IVPB 400 MG/200 ML BAG IV SCH (20:30)
[2021-12-12] MEDS: MIRTAZAPINE 15 MG TAB PO SCH (20:31)
[2021-12-12 21:14] VITALS: O2SAT 97
--- NOTE | 2021-12-12 21:23 | P.PN ---
Subjective Date of Service: 12/12/21 Chief Complaint: WEAK, IN PAIN ALL OVER Subjective: Worsening SHE IS IN PAIN, ALL OVER. SHE HAS R FOREARM ABSCESS THAT HAS DRAINED ITSELF . Review of Systems 10-point ROS is otherwise unremarkable General: Weakness, Malaise, As per HPI Physical Examination - Vital Signs Temperature: 98.3 F Blood Pressure: 160/90 Pulse: 93 Respirations: 20 Pulse Ox (%): 98 - Physical Exam General: Oriented x3, Moderate distress HEENT: Atraumatic, PERRLA, EOMI Neck: Supple, JVD not distended Respiratory: Clear to auscultation bilaterally, Normal air movement Cardiovascular: Regular rate/rhythm, Normal S1 S2 Gastrointestinal: Normal bowel sounds, No tenderness Musculoskeletal: No tenderness Integumentary: Erythema (R FOREARM TENDER. INDURATION. ABSCESS FROM PHLEBITIS HAS DRAINED. ), Warmth Neurological: Normal speech, Normal tone, Normal affect Lymphatics: No axilla or inguinal lymphadenopathy - Studies Medications List Reviewed: Yes Assessment And Plan - Current Problems (Diagnosis) (1) Metabolic acidosis Current Visit: Yes Status: Resolved Plan: RESOLVED IV IS OUT ACCESS IS POOR. SHE IS STARTING TO EAT NOW. (2) Pneumonia due to COVID-19 virus Current Visit: Yes Status: Resolved Plan: SHE HAS COVID BUT NO SYMPTOMS OF IT. PENUMONIA MAY BE FROM BACTERIA AND NOT COVID. (3) Bacterial pneumonia Current Visit: Yes Status: Acute Plan: CONT ROCEPHIN AND ZITHROMAX. DC ABX. COVID PNEUMONIA MOST LIKELY SHE HAS SEVERE DIARRHEA SO WILL DO WITHOUT ABX NOW. HAS DONE ENOUGH ANTIBIOTICS WILL SEE HOW SHE DOES. COVID PNEUMONIA PICTURE CAN LINGER FOR WEEKS. (4) Acute renal failure Current Visit: No Status: Chronic Plan: ACUTE ON CHRONIC RENAL FAILURE. CREAT STABLE NOW AT ABOUT 3.0 I SUSPECT THAT WILL BE HER BASELINE. STABLE CREAT NOW. Qualifiers: Acute renal failure type: unspecified Qualified Code(s): N17.9 - Acute kidney failure, unspecified (5) Anemia Onset Date: 11/10/16 Current Visit: No Status: Chronic Plan: ANEMIA IS CHRONIC SHE HAS BEEN REFERRED TO DR. FABIAN BUT SHE HAS NOT FOLLOWED UP. WITH CRIPPLING ARTHTIS SHE IS IN SEVERE PAIN. SHE CAN BARELY WALK WITH WALKER EVERY STEP IS PAINFUL DESPITE NARCOTICS. TO POSITION HER FOR EGD OR COLONSCOPY WILL BE VERY PAINFUL FOR HER. PEPCID IV BID. AVOID ALL NSAIDS. HG STABLE ANEMIA OF CHR DIS NORMAL FERRITIN GIVEN TWO UNITS OF BLOOD. Qualifiers: Anemia type: B12 deficiency Qualified Code(s): D64.89 - Other specified anemias (6) UTI (urinary tract infection) Current Visit: Yes Status: Acute Plan: ASYMPTOMATIC BACTERIURIA COLONIZED URINE AFTER BLANK. WILL NOT NEED MORE ANTIBIOTIC SHE ALREADY HAD LEVAQUIN UNTIL YESTERDAY. (7) Hypernatremia Current Visit: Yes Status: Resolved Plan: CHANGE TO D5W AT 100 STOP NS A ND LATER HALF NS DI IS POSSIBLE BU WILL WATCH DIABETES INSIPIDUS IS LIKELY. DR. IZQUIERDO IS WORKING ON ELECTROLYTES DI IS LESS LIKELY HER SP GRAVITIY IS NORMAL AND NOT LOW. URIN OSM IS NOT LOW. DR. IZQUIERDO IS WORKING ON THIS. (8) Hyperchloremia Current Visit: Yes Status: Resolved Plan: ABOVE (9) Diarrhea Current Visit: Yes Status: Resolved Plan: CHECK FOR C DIFF CS AND GUAIAC. C DIFF WAS NOT DONE. DO IT IF STILL HAS DIARRHEA. SHE IS OFF ALL ABX NOW COURSE IS COMPLETED. (10) UTI (urinary tract infection) Current Visit: Yes Status: Chronic Plan: NOW WHAT WE SEE IN CULTURE IS COLONIZED BACTERIA I AM NOT SURE IF WE NEED TO CONTINUE ANTIBIOTICS. I WILL DISCUSS WITH RENAL DOCTORS. WE SHOULD NOT TREAT COLONIZED BACTERIA FROM BLANK CATHETER FOR DAYS WITHOUT SYMPTOMS. REDO CULTURE THERE IS NO SERAFIN YET. (11) DJD (degenerative joint disease) Current Visit: Yes Status: Chronic Plan: SEVERE DJD. NOT ABLE TO HELP HER MUCH I ADDED DURAGESIC PATCH. TOPICAL LIDOCAIN PATCH. Qualifiers: Osteoarthritis location: knee (12) Decubitus ulcer of heel, bilateral, stage 3 Current Visit: Yes Status: Chronic Plan: HEELS HAVE ULCERS BOTH SIDES WITH ESCHAR DR MCGHEE WANTS TO WAIT AND THESE ULCERS WILL DEMARCATE. I WILL ORDER ARTERIAL DOPPLER. EVEN WITH ISSUES HERE SHE CAN'T GO FOR ANGIOGRAM SHE BARELY MISSED DIALYSIS ON THIS ADMISSION. PROGNOSIS IS POOR. (13) Fever Current Visit: Yes Status: Acute Plan: IT LOOKS LIKE MRSA ABSCESS FROM IV ACCESS IS THE REASON FOR FEVER. NURSE CALLED AND I STARTED VANCOMYCIN YESTERDAY AND FEVER IS GONE NOW. Qualifiers: Fever type: unspecified Qualified Code(s): R50.9 - Fever, unspecified (14) Phlebitis Current Visit: Yes Status: Acute Plan: WITH PUS DISCHARGE CULTURE DONE THIS MAY BE MRSA OR FUNGAL WILL COVER BOTH UNTIL WE HAVE RESULTS SHE IS LETHARGIC AND GETTING WORSE. I CALLED DAUGHTER TO DISCUSS. ALSO TALKED TO DR. ANDRADE. (15) Debility Current Visit: Yes Status: Chronic Plan: I TALKED TO DAUGHTER TODAY. NO MATTER HOW MUCH ALL DOCTORS TRIED SHE HAS WORSENED OVER LAST 3 WEEKS. SHE IS STIFF, SHE IS IN TOO MUCH PAIH, HAS SKIN ABSCESS, HEEL ULCERS, SEVERE PAIN ALL OVER FROMD DJD. SHE HAS CKD WITH AKD, METABOLIC ACIDOSIS AND FAILS TO RECOVER. I ADVISED HOSPICE FOR HER SO WE CAN KEEP HER COMFORTABLE BUT FAMILY WANTS LTAC AND SO SHE HAS BEEN REFERRED TO [facility] AND MAY GO THERE TOMORROW. I TALKED TO DEBORAH THE METAL STAMPING MACHINE OPERATOR.
[2021-12-13 03:57] LABS: Absolute Lymphocytes (CBC) 2.7 K/uL (0.7-4.9); Hematocrit 24.2 % (36.0-45.0); Lymphocytes % 26.4 % (15.3-44.8); RBC Red Blood Cell Count 2.82 M/uL (3.86-4.86)
[2021-12-13 04:18] LABS: Potassium 4.6 mmol/L (3.5-5.1)
[2021-12-13] MEDS: carvediloL 6.25 MG TAB PO SCH ×2 (06:38→18:17)
--- NOTE | 2021-12-13 06:43 | P.PN ---
Subjective Date of Service: 12/13/21 Chief Complaint: WEAK, IN PAIN ALL OVER Subjective: No new changes Physical Examination - Vital Signs Temperature: 98.6 F Blood Pressure: 126/68 Pulse: 88 Respirations: 16 Pulse Ox (%): 100 - Physical Exam General: Other (chronically ill appearing) - Studies Medications List Reviewed: Yes Assessment And Plan - Plan # Acute kidney injury 2/2 prerenal state +/- ATN, on chronic kidney disease stage 3 Serum creatinine improved from 3.3 to 2.9 +complex cyst - eval per Urology Encourage by mouth fluid intake Monitor renal panel # E coli UTI Received abx # Failure to thrive If po intake persistently remains poor, will need PEG tube insertion to maintain adeq hydration & prevent recurrent DARA from prerenal state # Hypernatremia Increase po fluid intake as above # Covid + bacterial PNA Per other services Abx # Htn Cont current medication regimen # Anemia w/ iron deficiency Received IV iron Retacrit 4T SQ received on 12/07 # Vit D def Started on D3 5T IU po daily on 12/07 # SHPTH iPTH 748 Cont calcitriol High dose D3 as above # AMS Supportive care
[2021-12-13] MEDS: INSULIN -REGULAR HUMAN 50 UNIT/0.5 ML ML SQ SCH ×3 (07:30→16:30)
[2021-12-13] MEDS ORDERED: CODEINE 30MG/APAP 300MG TAB PO PRN (08:07)
[2021-12-13] MEDS: ENSURE HIGH PROTEIN 237 ML CAN PO SCH (09:00)
[2021-12-13] MEDS: JUVEN PACKET PO SCH (09:00)
[2021-12-13] MEDS: THIAMINE 200 MG/2 ML INJ IVP SCH (10:00)
[2021-12-13] MEDS: PANTOPRAZOLE 40MG TABLET PO SCH (10:01)
[2021-12-13] MEDS: VITAMIN D 5,000 UNIT CAP PO SCH (10:01)
[2021-12-13] MEDS: DULOXETINE 30 MG CAP PO SCH (10:01)
[2021-12-13] MEDS: SEVELAMER CARBONATE 800 MG TABLET PO SCH ×3 (10:01→17:00)
[2021-12-13] MEDS: CALCITROL 0.25 MCG CAP PO SCH (10:02)
[2021-12-13] MEDS: ASPIRIN 81 MG CHEWABLE TABLET PO SCH (10:03)
[2021-12-13] MEDS: LIDOCAINE 4% PATCH TOP SCH (10:03)
[2021-12-13] MEDS: FE SULF/FA/VIT B COMP & C TAB PO SCH (10:03)
[2021-12-13] MEDS: VANCOMYCIN 1.25 GM in NA CHLORIDE 0.9% 250 ML IVPB SCH (10:07)
[2021-12-13] MEDS: MEGESTROL 40 MG TAB PO SCH (11:48)
[2021-12-13] MEDS: SODIUM BICARB 325 MG TAB PO SCH ×2 (11:48→18:17)
[2021-12-13 15:25] LABS: Ferritin 1572.2 ng/mL (8-388)
[2021-12-13 21:19] VITALS: BP 126/68; TEMP 98.6
--- NOTE | 2021-12-14 09:45 | P.DS ---
Admission Date: 11/15/21 Discharge Date: 12/14/21 Disposition: [facility] Discharge Condition: FAIR Reason for Admission: WEAK, IN PAIN ALL OVER - Problems (1) Metabolic acidosis Status: Resolved (2) Pneumonia due to COVID-19 virus Status: Resolved (3) Bacterial pneumonia Status: Acute (4) Acute renal failure Status: Chronic Qualifiers: Acute renal failure type: unspecified Qualified Code(s): N17.9 - Acute kidney failure, unspecified (5) Anemia Onset Date: 11/10/16 Status: Chronic Qualifiers: Anemia type: B12 deficiency Qualified Code(s): D64.89 - Other specified anemias (6) UTI (urinary tract infection) Status: Acute (7) Hypernatremia Status: Resolved (8) Hyperchloremia Status: Resolved (9) Diarrhea Status: Resolved (10) UTI (urinary tract infection) Status: Chronic (11) DJD (degenerative joint disease) Status: Chronic Qualifiers: Osteoarthritis location: knee (12) Decubitus ulcer of heel, bilateral, stage 3 Status: Chronic (13) Fever Status: Acute Qualifiers: Fever type: unspecified Qualified Code(s): R50.9 - Fever, unspecified (14) Phlebitis Status: Acute (15) Debility Status: Chronic Brief History of Present Illness: NGUYỄN POLO 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 SEVERE DJD, ANXIETY DISORDER, DEPRESSION ETC. DAUGHTER CALLS ME WHEN SHE FINDS HER CONFUSED, YELLING AND HAD LEG EDEMA. SHE WAS BROUGHT TO ER FOUND TO HAVE ACUTE PRERENAL ARF, ACIDOSIS, UTI AND QUESTIONABLE PNEUMONIA WITH COVID INFECTION. SHE WHEN I SEE HER IS LAYING IN THE BED AND RESPONDED APPROPRIATELY. Hospital Course: MS. RITTER HAS HISTORY OF HTN, MILD CKD AND SEVERE DJD. SHE COMES TO ER WITH WEAKNESS, METABOLIC ACIDOSIS, ACUTE RENAL FAILURE AND COVID POSITIVE STATUS . IT TOOK MANY DAYS FOR METABOLIC ACIDOSIS AND HYPERKALEMIA TO BE CONTROLLED WITH THE CONSULTATION OF NEPHROLOGISTS. SHE HAD MANY COMPLICATIONS DURING THE STAY INCLUDING, BACTERIAL PNEUMONIA, UTI, HEEL PRESSURE ULCERS AND LATEST A SERAFIN PHLEBITIS GROWING YEAST FROM THE PUS COMING OUT OF ONE IV SITE. SHE HAS POOR PROGNOSIS. HER RENAL FUNCTION IS STILL AT STAGE 4 CKD. I ADVISED TO CONSIDER HOSPICE FOR PAIN CONTROL AND COMFORT CARE BUT THEY WANTED TO CONSIDER LTAC SO SHE WAS TRANSFERRED TO [facility] AT [facility]. Vital Signs/Physical Exam: Temp Pulse Resp BP Pulse Ox 98.6 F 88 16 126/68 100 12/13/21 21:19 12/13/21 21:19 12/13/21 21:19 12/13/21 21:19 12/13/21 21:19 Laboratory Data at Discharge: WBC 10.20 K/uL (4.3-10.9) 12/13/21 03:38 Hgb 7.6 g/dL (12.0-15.0) L 12/13/21 03:38 Hct 24.2 % (36.0-45.0) L 12/13/21 03:38 Plt Count 256 K/uL (152-406) 12/13/21 03:38 PT 12.4 SECONDS (9.5-12.5) 11/14/21 18:05 INR 1.08 11/14/21 18:05 Sodium 147 mmol/L (136-145) H 12/13/21 03:38 Potassium 4.6 mmol/L (3.5-5.1) 12/13/21 03:38 BUN 60 mg/dL (7-18) H 12/13/21 03:38 Creatinine 2.94 mg/dL (0.55-1.3) H 12/13/21 03:38 Glucose 94 mg/dL (74-106) 12/13/21 03:38 Uric Acid 9.9 mg/dL (2.6-6.0) H 11/21/21 03:35 Phosphorus 7.3 mg/dL (2.5-4.9) H 12/07/21 05:26 Magnesium 1.8 12/07/21 05:26 Total Bilirubin 0.3 mg/dL (0.2-1.0) 12/11/21 07:00 AST 34 U/L (15-37) 12/11/21 07:00 ALT 45 U/L (12-78) 12/11/21 07:00 Alkaline Phosphatase 108 U/L (45-117) 12/11/21 07:00 Home Medications: Amlodipine Besylate 10 mg PO DAILY 11/18/21 Atorvastatin Calcium [Lipitor] 20 mg PO BEDTIME 11/18/21 Codeine/APAP [Tylenol W/Codeine #3 tab] 1 tab PO TIDP PRN 11/18/21 Duloxetine HCl [Cymbalta] 60 mg PO BID 11/18/21 Ferrous Fumarate/Folic Acid [Hematinic-Folic Acid Tablet] 1 each PO DAILY 11/18/21 Ipratropium [place] 2 sprays IH BID 11/18/21 Metoprolol Succinate [Toprol Xl] 200 mg PO DAILY 11/18/21 Nitroglycerin [Nitrostat] 0.4 mg SL PRN PRN 11/18/21 Omeprazole 20 mg PO DAILY 11/18/21 Followup: Devante Varghese MD [Primary Care Provider] -
== END 2021-12-13 19:46 | DRG 177 ==
LOC: ER 16:16 → ERHOLD 11-15 00:05 → 4TH 11-15 10:38
PROVIDERS: ADMIT Internal Medicine; ATTEND Internal Medicine
PROC: 3E0336Z Introduction of Nutritional Substance into Peripheral Vein, Percutaneous Approach (ICD-10-PCS; principal; 2021-12-11)
PROC: 02HV33Z Insertion of Infusion Device into Superior Vena Cava, Percutaneous Approach (ICD-10-PCS; 2021-12-11)
DX: U07.1 COVID-19 (principal); N17.0 Acute kidney failure with tubular necrosis; L89.623 Pressure ulcer of left heel, stage 3; L89.613 Pressure ulcer of right heel, stage 3; J12.82 Pneumonia due to coronavirus disease 2019; J96.90 Respiratory failure, unspecified, unspecified whether with hypoxia or hypercapnia; G92.9 Unspecified toxic encephalopathy; J15.9 Unspecified bacterial pneumonia; S82.202A Unspecified fracture of shaft of left tibia, initial encounter for closed fracture; E44.0 Moderate protein-calorie malnutrition; E87.2 Acidosis; N39.0 Urinary tract infection, site not specified; E87.0 Hyperosmolality and hypernatremia; R64 Cachexia; N18.4 Chronic kidney disease, stage 4 (severe); L02.413 Cutaneous abscess of right upper limb; I12.9 Hypertensive chronic kidney disease with stage 1 through stage 4 chronic kidney disease, or unspecified chronic kidney disease; E11.22 Type 2 diabetes mellitus with diabetic chronic kidney disease; E78.5 Hyperlipidemia, unspecified; D64.89 Other specified anemias; M19.90 Unspecified osteoarthritis, unspecified site; I25.10 Atherosclerotic heart disease of native coronary artery without angina pectoris; E86.0 Dehydration; E21.1 Secondary hyperparathyroidism, not elsewhere classified; E87.8 Other disorders of electrolyte and fluid balance, not elsewhere classified; E87.6 Hypokalemia; M17.10 Unilateral primary osteoarthritis, unspecified knee; D63.8 Anemia in other chronic diseases classified elsewhere; F41.9 Anxiety disorder, unspecified; F32.A Depression, unspecified; B96.20 Unspecified Escherichia coli [E. coli] as the cause of diseases classified elsewhere; B95.2 Enterococcus as the cause of diseases classified elsewhere; I80.9 Phlebitis and thrombophlebitis of unspecified site; R50.9 Fever, unspecified; R62.7 Adult failure to thrive; R40.4 Transient alteration of awareness; Z79.899 Other long term (current) drug therapy; Z68.32 Body mass index [BMI] 32.0-32.9, adult; Z74.01 Bed confinement status; Z98.51 Tubal ligation status; Z95.5 Presence of coronary angioplasty implant and graft; Z96.651 Presence of right artificial knee joint; Z96.652 Presence of left artificial knee joint
CPT/HCPCS: 36415; 36569; 70450; 71045; 71250; 74018; 74176; 76770; 80048; 80069; 80076; 80202; 81001; 81003; 81015; 82010; 82040; 82274; 82306; 82435; 82550; 82570; 82607; 82652; 82728; 82746; 82805; 82947; 83540; 83605; 83615; 83735; 83880; 83935; 83970; 84100; 84132; 84145; 84156; 84165; 84244; 84300; 84443; 84466; 84484; 84550; 85014; 85018; 85025; 85027; 85610; 86850; 86900; 86901; 87040; 87070; 87075; 87077; 87086; 87088; 87186; 87205; 87324; 87449; 93005; 93925; 93970; 94760; 96374; 96375; 97110; 97112; 97161; 97530; 99251; 99285; J0360; J0456; J0610; J1450; J1940; J2405; J2550; J2916; J3370; J3411; J3475; J3480; J7030; J7040; J7050; J7120; J7799; P9016; Q5105; U0003

== ENCOUNTER 2022-01-16 04:50 | Emergency (ER) | payer OTHER ==
[2022-01-16] MEDS ORDERED: CODEINE 30MG/APAP 300MG TAB ONE (05:37)
--- NOTE | 2022-01-16 06:20 | ER ---
Nurse's Notes [facility] Name: Wing Deng Age: 76 yrs Sex: Female : 1945 Arrival Date: 01/16/2022 Time: 04:51 Bed 2 Private MD: Diagnosis: Dialysis Catherter Displacement Presentation: 01/16 04:53 Chief complaint: EMS states: the patient was trying to turn off her TV and pulled out st1 her left subclavian dialysis access. Coronavirus screen: Vaccine status: Patient reports receiving the 2nd dose of the covid vaccine. unknown. Ebola Screen: No symptoms or risks identified at this time. Initial Sepsis Screen: Does the patient meet any 2 criteria? No. Patient's initial sepsis screen is negative. Does the patient have a suspected source of infection? No. Patient's initial sepsis screen is negative. Risk Assessment: Do you want to hurt yourself or someone else? Patient reports no desire to harm self or others. Onset of symptoms was January 16, 2022. 04:53 Method Of Arrival: EMS: [facility] st1 04:53 Acuity: KRISTYN 3 st1 Triage Assessment: 04:55 General: Appears in no apparent distress. comfortable, Behavior is calm, cooperative. st1 Pain: Complains of pain in left subclavian area Pain does not radiate. Pain currently is 4 out of 10 on a pain scale. Neuro: No deficits noted. Cardiovascular: No deficits noted. Historical: - Allergies: 04:55 No Known Allergies; st1 - PMHx: 04:55 Hyperlipidemia; Hypertension; End stage renal disease; st1 - Immunization history:: Adult Immunizations not up to date, Pneumococcal vaccine is not up to date, Flu vaccine is up to date. - Social history:: Smoking status: Patient denies any tobacco usage or history of. Patient/guardian denies using alcohol, street drugs, IV drugs. Screenin:58 Abuse screen: Denies threats or abuse. Nutritional screening: No deficits noted. st1 Tuberculosis screening: No symptoms or risk factors identified. Fall Risk None identified. No fall in past 12 months (0 pts). No secondary diagnosis (0 pts). IV access (20 points). Ambulatory Aid- None/Bed Rest/Nurse Assist (0 pts). Gait- Normal/Bed Rest/Wheelchair (0 pts) Mental Status- Overestimates/Forgets Limitations (15 pts.). Total [place] Fall Scale indicates Low Risk Score (25-44 pts). Assessment: 04:58 Reassessment: please see triage assessment. st1 07:12 Reassessment: Patient appears in no apparent distress at this time. Patient and/or ph family updated on plan of care and expected duration. Pain level reassessed. Patient is alert, oriented x 3, equal unlabored respirations, skin warm/dry/pink. [facility] at bedside to transport pt home. Vital Signs: 04:55 BP 157 / 77; Pulse 94; Resp 16; Temp 98.4; Pulse Ox 100% on R/A; Weight 81.19 kg; st1 Height 5 ft. 2 in. (157.48 cm); Pain 4/10; 04:55 Body Mass Index 32.74 (81.19 kg, 157.48 cm) st1 ED Course: 04:51 Patient arrived in ED. 04:53 Stephanie Smith, RN is Primary Nurse. st1 04:54 Triage completed. st1 04:55 Arm band placed on left wrist. st1 04:58 Patient has correct armband on for positive identification. Bed in low position. Call st1 light in reach. Side rails up X2. playground monitor on. Pulse ox on. NIBP on. 04:58 No provider procedures requiring assistance completed. st1 05:04 Ronald Salinas MD is Attending Physician. kdr 07:13 Patient did not have IV access during this emergency room visit. ph Administered Medications: 05:39 Drug: Acetaminophen-Codeine (300 mg-30 mg) 2 tabs Route: PO; st1 Outcome: 06:19 Discharge ordered by . kdr 07:13 Discharged to home via ambulance. ph 07:13 Condition: good 07:13 Discharge instructions given to family, Instructed on discharge instructions, follow up and referral plans. Demonstrated understanding of instructions, follow-up care. 07:13 Patient left the ED. ph Signatures: Ronald Salinas MD MD kdr Hall, Patricia, RN RN Tamia Gale Stephanie Smith, ANA LAURA RN st1
--- NOTE | 2022-01-16 06:20 | EDPHYS ---
Physician Documentation [facility] Name: Wing Deng Age: 76 yrs Sex: Female : 1945 Arrival Date: 01/16/2022 Time: 04:51 Bed 2 Private MD: ED Physician Ronald Salinas HPI: 01/16 06:21 This 76 yrs old Black Female presents to ER via EMS with complaints of Port issues. kdr 06:21 The patient's dialysis catheter was dislodged prior to arrival. Patient states that kdr happened about 3:30 PM this last afternoon. There was some initial bleeding but it subsequently has stopped. Patient is otherwise stable and nonacute. She does not appear toxic or at risk in any way. Vital signs are stable. Historical: - Allergies: 04:55 No Known Allergies; st1 - PMHx: 04:55 Hyperlipidemia; Hypertension; End stage renal disease; st1 - Immunization history:: Adult Immunizations not up to date, Pneumococcal vaccine is not up to date, Flu vaccine is up to date. - Social history:: Smoking status: Patient denies any tobacco usage or history of. Patient/guardian denies using alcohol, street drugs, IV drugs. ROS: 06:21 Constitutional: Negative for fever, chills, and weight loss, Eyes: Negative for injury, kdr pain, redness, and discharge, Neck: Negative for injury, pain, and swelling, Cardiovascular: Negative for chest pain, palpitations, and edema, Respiratory: Negative for shortness of breath, cough, wheezing, and pleuritic chest pain, Abdomen/GI: Negative for abdominal pain, nausea, vomiting, diarrhea, and constipation, Back: Negative for injury and pain, Neuro: Negative for headache, weakness, numbness, tingling, and seizure activity. Psych: Negative for depression, anxiety, suicide ideation, homicidal ideation, and hallucinations, Allergy/Immunology: Negative for hives, rash, and allergies, Endocrine: Negative for neck swelling, polydipsia, polyuria, polyphagia, and marked weight changes, Hematologic/Lymphatic: Negative for swollen nodes, abnormal bleeding, and unusual bruising. Exam: 06:21 Constitutional: This is a well developed, well nourished patient who is awake, alert, kdr and in no acute distress. 06:21 Chest/axilla: Inspection: There is a bloody dressing over the site where the dialysis port had previously existed. There is no active bleeding at this time. I took down the dressing and clean the site. There was no active bleeding at that time. The site was redressed. The dressing was checked after approximately 30 minutes and continue to be dry without any bleeding.. Vital Signs: 04:55 BP 157 / 77; Pulse 94; Resp 16; Temp 98.4; Pulse Ox 100% on R/A; Weight 81.19 kg; st1 Height 5 ft. 2 in. (157.48 cm); Pain 4/10; 04:55 Body Mass Index 32.74 (81.19 kg, 157.48 cm) st1 MDM: 06:19 Patient medically screened. kdr 06:21 Data reviewed: vital signs, nurses notes. Counseling: I had a detailed discussion with kdr the patient and/or guardian regarding: the historical points, exam findings, and any diagnostic results supporting the discharge/admit diagnosis, the need for outpatient follow up. Administered Medications: 05:39 Drug: Acetaminophen-Codeine (300 mg-30 mg) 2 tabs Route: PO; st1 Disposition Summary: 01/16/22 06:19 Discharge Ordered Location: Home kdr Problem: new kdr Symptoms: have improved kdr Condition: Stable kdr Diagnosis - Dialysis Catherter Displacement kdr Followup: kdr - With: Private Physician - When: 2 - 3 days - Reason: If symptoms return, Further diagnostic work-up, Recheck today's complaints, Continuance of care, Re-evaluation by your physician Discharge Instructions: - Discharge Summary Sheet kdr - Dialysis Vascular Access Malfunction kdr Forms: - Medication Reconciliation Form kdr - Thank You Letter kdr Signatures: Ronald Salinas MD MD kdr Stephanie Smith, RN RN st1
[2022-01-16 07:30] VITALS: BP 157/77; TEMP 98.4; O2SAT 100
== END 2022-01-16 07:13 | disposition home or self-care (01) ==
LOC: ER 04:50
DX: T82.42XA Displacement of vascular dialysis catheter, initial encounter (principal); I12.0 Hypertensive chronic kidney disease with stage 5 chronic kidney disease or end stage renal disease; N18.6 End stage renal disease; Z99.2 Dependence on renal dialysis
CPT/HCPCS: 99284

== ENCOUNTER 2022-01-18 05:05 | Emergency (ER) | payer OTHER ==
[2022-01-18 05:55] LABS: Absolute Lymphocytes (CBC) 3.1 K/uL (0.7-4.9); Hematocrit 30.5 % (36.0-45.0); Lymphocytes % 29.7 % (15.3-44.8); MPV 7.2 fL (7.6-11.3); RBC Red Blood Cell Count 3.51 M/uL (3.86-4.86)
[2022-01-18 06:13] LABS: Troponin High Sensitivity 34.1 pg/mL (<58.9)
[2022-01-18] MEDS ORDERED: MORPHINE 2 MG/ML SYR ONE (06:51)
[2022-01-18] MEDS ORDERED: ONDANSETRON 4 MG/2 ML VIAL ONE (06:51)
--- NOTE | 2022-01-18 06:59 | ER ---
Nurse's Notes [facility] Name: Wing Deng Age: 76 yrs Sex: Female : 1945 Arrival Date: 01/18/2022 Time: 05:00 Bed 4 Private MD: Diagnosis: Dialysis Tete replacement with minor post procedure bleeding -resolved Presentation: 01/18 05:10 Chief complaint: EMS states: EMS toned out for severe pain and bleeding around dialysis ll3 port to left chest, pt states she pulls at her catheter in her sleep. Coronavirus screen: Vaccine status: Patient reports receiving the 2nd dose of the covid vaccine. At this time, the client does not indicate any symptoms associated with coronavirus-19. Ebola Screen: No symptoms or risks identified at this time. Initial Sepsis Screen: Does the patient meet any 2 criteria? No. Patient's initial sepsis screen is negative. Does the patient have a suspected source of infection? No. Patient's initial sepsis screen is negative. Risk Assessment: Do you want to hurt yourself or someone else? Patient reports no desire to harm self or others. Onset of symptoms was January 18, 2022. Transition of care: patient was not received from another setting of care. 05:10 Method Of Arrival: EMS: [facility] ll3 05:10 Acuity: KRISTYN 3 ll3 05:17 Care prior to arrival: Medication(s) given: 100 mcg of fentanyl , 1000 ml NS IV ll3 initiated. 20 GA, in the left hand. Triage Assessment: 05:17 General: Appears uncomfortable, Behavior is calm, cooperative. Pain: Complains of pain ll3 in anterior aspect of left upper chest Pain radiates to anterior aspect of left shoulder Pain currently is 10 out of 10 on a pain scale. 05:17 Neuro: Level of Consciousness is awake, alert, obeys commands, Oriented to person, ll3 place, time, situation. Cardiovascular: Patient's skin is warm and dry. Cardiovascular: Dialysis shunt: in the chest, mild amount of bleeding noted. Respiratory: Respiratory effort is even, unlabored, Respiratory pattern is regular, symmetrical. Derm: Skin is pink, warm \T\ dry. Historical: - Allergies: 05:17 No Known Allergies; ll3 - PMHx: 05:17 End stage renal disease; Hyperlipidemia; Hypertension; ll3 - Immunization history:: Client reports receiving the 2nd dose of the Covid vaccine. - Social history:: Smoking status: Patient denies any tobacco usage or history of. Screenin:22 Abuse screen: Denies threats or abuse. Nutritional screening: No deficits noted. ll3 Tuberculosis screening: No symptoms or risk factors identified. 07:34 Fall Risk IV access (20 points). duffy Assessment: 05:22 General: See triage assessment. ll3 Vital Signs: 05:10 BP 172 / 93; Pulse 86; Resp 15; Temp 97.6; Pulse Ox 98% on R/A; Weight 81.19 kg (R); ll3 Height 5 ft. 2 in. (157.48 cm) (R); Pain 10/10; 05:10 Body Mass Index 32.74 (81.19 kg, 157.48 cm) ll3 ED Course: 05:00 Patient arrived in ED. mw2 05:09 Ronald Salinas MD is Attending Physician. kdr 05:16 Triage completed. ll3 05:17 Arm band placed on Patient placed in an exam room, on a stretcher, on pulse oximetry. ll3 05:22 Patient has correct armband on for positive identification. Bed in low position. Call 3 light in reach. Side rails up X 1. 05:52 XRAY Chest (1 view) In Process Unspecified. EDMS 07:34 No provider procedures requiring assistance completed. Inserted saline lock: 20 gauge duffy in left hand, using aseptic technique. IV discontinued, intact, Pressure dressing applied. Administered Medications: 06:59 Drug: morphine 2 mg Route: IVP; Site: left hand; duffy 07:00 Drug: Zofran (Ondansetron) 4 mg Route: IVP; Site: left hand; ll3 Outcome: 06:58 Discharge ordered by . kdr 07:34 Discharged to home via ambulance. duffy 07:34 Condition: good 07:34 Discharge instructions given to patient, family. 07:34 Patient left the ED. duffy Signatures: Dispatcher [employer] EDMS Ronald Salinas MD MD [facility] Ligia Bynum mw2 Noam Izaguirre RN RN ll3 Yolanda Lutz RN RN duffy Corrections: (The following items were deleted from the chart) 05:17 05:10 Chief complaint: EMS states: EMS toned out for severe pain and bleeding around ll3 dialysis port to left chest. ll3 05:21 05:17 Pain: Complains of pain in anterior aspect of left upper chest Pain radiates to ll3 anterior aspect of left shoulder Pain currently is 10 out of 10 on a pain scale. 3
--- NOTE | 2022-01-18 06:59 | EDPHYS ---
Physician Documentation [facility] Name: Wing Deng Age: 76 yrs Sex: Female : 1945 Arrival Date: 01/18/2022 Time: 05:00 Bed 4 Private MD: ED Physician Ronald Salinas HPI: 01/18 06:54 This 76 yrs old Black Female presents to ER via EMS with complaints of Bleeding around kdr catheter site that was just placed recently. 06:54 The patient called EMS because she noticed some bleeding around her left anterior chest kdr wall dialysis catheter. She had a recently replaced due to its prior dislodgment. She also complains of sore throat. Finally she complained of pain in her right foot which was unchanged from her prior visits. Onset: The symptoms/episode began/occurred acutely, suddenly, just prior to arrival. Severity of symptoms: At their worst the symptoms were very mild in the emergency department the symptoms are unchanged. The patient has not experienced similar symptoms in the past. Patient had a replacement dialysis catheter placed in the last few days. Historical: - Allergies: 05:17 No Known Allergies; ll3 - PMHx: 05:17 End stage renal disease; Hyperlipidemia; Hypertension; ll3 - Immunization history:: Client reports receiving the 2nd dose of the Covid vaccine. - Social history:: Smoking status: Patient denies any tobacco usage or history of. ROS: 06:54 Constitutional: Negative for fever, chills, and weight loss, Eyes: Negative for injury, kdr pain, redness, and discharge, Neck: Negative for injury, pain, and swelling, Cardiovascular: Negative for chest pain, palpitations, and edema, Respiratory: Negative for shortness of breath, cough, wheezing, and pleuritic chest pain, Abdomen/GI: Negative for abdominal pain, nausea, vomiting, diarrhea, and constipation, Back: Negative for injury and pain, MS/Extremity: Negative for injury and deformity, Skin: Negative for injury, rash, and discoloration, Neuro: Negative for headache, weakness, numbness, tingling, and seizure activity. Psych: Negative for depression, anxiety, suicide ideation, homicidal ideation, and hallucinations, Allergy/Immunology: Negative for hives, rash, and allergies, Endocrine: Negative for neck swelling, polydipsia, polyuria, polyphagia, and marked weight changes, Hematologic/Lymphatic: Negative for swollen nodes, abnormal bleeding, and unusual bruising. Exam: 06:54 Constitutional: This is a well developed, well nourished patient who is awake, alert, kdr and in no acute distress. Head/Face: Normocephalic, atraumatic. Neck: Trachea midline, no thyromegaly or masses palpated, and no cervical lymphadenopathy. Supple, full range of motion without nuchal rigidity, or vertebral point tenderness. No Meningismus. Chest/axilla: Normal chest wall appearance and motion. Nontender with no deformity. No lesions are appreciated. Cardiovascular: Regular rate and rhythm with a normal S1 and S2. No gallops, murmurs, or rubs. Normal PMI, no JVD. No pulse deficits. Respiratory: Lungs have equal breath sounds bilaterally, clear to auscultation and percussion. No rales, rhonchi or wheezes noted. No increased work of breathing, no retractions or nasal flaring. Abdomen/GI: Soft, non-tender, with normal bowel sounds. No distension or tympany. No guarding or rebound. No evidence of tenderness throughout. Back: No spinal tenderness. No costovertebral tenderness. Full range of motion. Skin: Warm, dry with normal turgor. Normal color with no rashes, no lesions, and no evidence of cellulitis. MS/ Extremity: Pulses equal, no cyanosis. Neurovascular intact. Full, normal range of motion. Vital Signs: 05:10 BP 172 / 93; Pulse 86; Resp 15; Temp 97.6; Pulse Ox 98% on R/A; Weight 81.19 kg (R); ll3 Height 5 ft. 2 in. (157.48 cm) (R); Pain 10/10; 05:10 Body Mass Index 32.74 (81.19 kg, 157.48 cm) ll3 MDM: 06:54 Data reviewed: vital signs, nurses notes, lab test result(s), radiologic studies. kdr Counseling: I had a detailed discussion with the patient and/or guardian regarding: the historical points, exam findings, and any diagnostic results supporting the discharge/admit diagnosis, lab results, radiology results, the need for outpatient follow up. ED course: The dressing around the dialysis catheter was replaced by clean dressings. There was minimal amount of bleeding from the old dressing. Patient tolerated well. 06:58 Patient medically screened. kdr 01/18 05:09 Order name: Basic Metabolic Panel; Complete Time: 06:52 kdr 01/18 05:09 Order name: CBC with Diff; Complete Time: 06:52 kdr 01/18 05:09 Order name: Troponin HS; Complete Time: 06:52 kdr 01/18 05:33 Order name: Strep kdr 01/18 05:33 Order name: Group A Streptococcus Rapid Sc; Complete Time: 06:52 EDWY 01/18 06:35 Order name: Throat Culture EDWY 01/18 05:09 Order name: XRAY Chest (1 view) kdr 01/18 05:09 Order name: EKG; Complete Time: 05:10 kdr 01/18 05:09 Order name: Cardiac monitoring; Complete Time: 05:50 kdr 01/18 05:09 Order name: EKG - Nurse/Tech; Complete Time: 05:50 kdr 01/18 05:09 Order name: IV Saline Lock; Complete Time: 05:50 kdr 01/18 05:09 Order name: Labs collected and sent; Complete Time: 05:50 kdr 01/18 05:09 Order name: O2 Per Protocol; Complete Time: 05:50 kdr 01/18 05:09 Order name: O2 Sat Monitoring; Complete Time: 05:50 kdr Administered Medications: 06:59 Drug: morphine 2 mg Route: IVP; Site: left hand; 07:00 Drug: Zofran (Ondansetron) 4 mg Route: IVP; Site: left hand; ll3 Disposition Summary: 01/18/22 06:58 Discharge Ordered Location: Home kdr Condition: Fair kdr Diagnosis - Dialysis Tete replacement with minor post procedure bleeding -resolved kdr Followup: kdr - With: Private Physician - When: 2 - 3 days - Reason: If symptoms return, Further diagnostic work-up, Recheck today's complaints, Continuance of care, Re-evaluation by your physician Discharge Instructions: - Discharge Summary Sheet kdr - Dialysis kdr - Central Line Dialysis Access Placement, Care After kdr Forms: - Medication Reconciliation Form kdr - Thank You Letter kdr Signatures: Dispatcher [employer] Ronald Sprague MD MD kdr Noam Izaguirre RN RN ll3 Kecia-Yolanda Rai RN RN
[2022-01-18 07:50] VITALS: BP 172/93; TEMP 97.6; O2SAT 98
--- NOTE | 2022-01-18 19:54 | RAD REPORT ---
EXAM DESCRIPTION: RAD - Chest Single View - 01/18/2022 5:52 am CLINICAL HISTORY: 76 years, Female, CHEST PAIN COMPARISON: None. FINDINGS: Single view of the chest was obtained portable. No prior films are available for compariso n. External EKG leads within the [id number] limits diagnosis. There is a left IJ tunnel dialysis catheter. The cardiomediastinal silhouette demonstrate to be unremarkable. The heart is in the upper normal size. The thoracic aorta is mildly tortuous. Costophrenic angles are sharp. The pulmonary v asculature is normal distribution. No areas of consolidation or masses are seen. The rest of the so ft tissue and bony structures demonstrate to be unremarkable. IMPRESSION: No acute cardiopulmonary disease identified. Left IJ tunnel dialysis catheter in place. Electronically signed by: Avni Nolasco MD 01/18/2022 9:12 PM CDT Due to temporary technical issues with the PACS/Fluency reporting system, reports are being signed by the in house radiologist without review as a courtesy to ensure prompt reporting. The interpreting r adiologist is fully responsible for the content of the report.
--- NOTE | 2022-01-20 08:24 | EKG ---
Test Date: 2022-01-18 Test Time: 05:46:39 [employer] Supervisor: MARIA L MEASUREMENT RESULTS: Intervals: Rate: 84 OH: 136 QRSD: 86 QT: 426 QTc: 503 [place]: P: 50 OH: 136 QRS: 18 T: 62 INTERPRETIVE STATEMENTS: Normal sinus rhythm Minimal voltage criteria for LVH, may be normal variant Nonspecific T wave abnormality Prolonged QT Abnormal ECG Compared to ECG 12/10/2021 08:16:48 Prolonged QT interval now present Sinus tachycardia no longer present T-wave abnormality still present Electronically Signed On 01-20-22 08:21:01 CDT by Wil Noonan
== END 2022-01-18 07:34 | disposition home or self-care (01) ==
LOC: ER 05:05
DX: L76.22 Postprocedural hemorrhage of skin and subcutaneous tissue following other procedure (principal); I12.0 Hypertensive chronic kidney disease with stage 5 chronic kidney disease or end stage renal disease; N18.6 End stage renal disease; Z99.2 Dependence on renal dialysis
CPT/HCPCS: 93005; 87070; 85025; 80048; 36415; 87081; 84484; 71045; 96375; 96374; 99284; J2270; J2405

== ENCOUNTER 2022-05-07 09:42 | Emergency (ER) | payer OTHER ==
[2022-05-07] MEDS ORDERED: MORPHINE 4 MG/ML SYR ONE ×2 (10:14→16:11)
[2022-05-07] MEDS ORDERED: ONDANSETRON 4 MG/2 ML VIAL ONE ×2 (10:15→16:12)
[2022-05-07 10:23] LABS: Absolute Lymphocytes (CBC) 2.2 K/uL (0.7-4.9); Hematocrit 38.9 % (36.0-45.0); Lymphocytes % 18.3 % (15.3-44.8); MCV 92.3 fL (80-100); MPV 6.8 fL (7.6-11.3); RBC Red Blood Cell Count 4.22 M/uL (3.86-4.86)
[2022-05-07 10:24] LABS: Protime INR 1.08
--- NOTE | 2022-05-07 10:48 | RAD REPORT ---
EXAM DESCRIPTION: US - Lower Extremity Artery Uni Ltd - 05/07/2022 10:41 am CLINICAL HISTORY: Leg pain COMPARISON: None FINDINGS: The right common femoral arterial waveform triphasic Distal right superficial femoral, popliteal, posterior tibial and dorsalis pedis arteries are occlude d Grayscale, color and spectral analysis performed on all vessels IMPRESSION: Distal right superficial femoral, popliteal, posterior tibial and dorsalis pedis arteries are occlude d
--- NOTE | 2022-05-07 10:49 | RAD REPORT ---
[facility] 10:41 am CLINICAL HISTORY: Right leg pain COMPARISON: November 2021 FINDINGS: Right common femoral, superficial femoral, popliteal and right posterior tibial veins are compressible and demonstrate augmentation. Doppler demonstrates good flow. Grayscale, color and spectral analysis performed on all vessels IMPRESSION: No evidence of deep venous thrombosis involving the right lower extremity.
[2022-05-07 10:54] LABS: Albumin 3.6 g/dL (3.4-5.0); Bilirubin Total 0.5 mg/dL (0.2-1.0); Potassium 5.1 mmol/L (3.5-5.1)
[2022-05-07] MEDS ORDERED: HEPARIN/D5W 25,000 UNIT/500 ML BAG IV ONE (12:53)
--- NOTE | 2022-05-07 15:53 | EDPHYS ---
Physician Documentation [facility] Name: Wing Deng Age: 76 yrs Sex: Female : 1945 Arrival Date: 05/07/2022 Time: 09:44 Bed 20 Private MD: ED Physician Ronald Salinas HPI: 05/07 09:54 This 76 yrs old Black Female presents to ER via EMS with complaints of R foot/leg pain. jh7 09:54 Patient complains of right foot pain radiating up her leg starting today. Reports that jh7 she had a popliteal stent placed by Dr. Gallegos at [facility] ED yesterday. Reports decreased range of motion and significant pain.. Historical: - Allergies: 09:50 No Known Drug Allergies; ll1 - PMHx: 09:50 End stage renal disease; Hyperlipidemia; Hypertension; UTI; ll1 - PSHx: 09:50 knbee replacement; popliteal stent; ll1 - Immunization history:: Client reports receiving the 2nd dose of the Covid vaccine. - Social history:: Smoking status: Patient denies any tobacco usage or history of. ROS: 09:54 MS/extremity: Positive for decreased range of motion, Negative for injury or acute jh7 deformity. 10:17 Constitutional: Negative for fever, chills, and weight loss, Neck: Negative for injury, jh7 pain, and swelling, Cardiovascular: Negative for chest pain, palpitations, and edema, Respiratory: Negative for shortness of breath, cough, wheezing, and pleuritic chest pain, Abdomen/GI: Negative for abdominal pain, nausea, vomiting, diarrhea, and constipation. 10:17 Neuro: Negative for headache, weakness, numbness, tingling, and seizure. 10:17 Skin: Positive for chronic wound wrapped on the heel. Exam: 10:17 Musculoskeletal/extremity: Pulses: are absent in the right leg and right foot, Right jh7 foot is cold to the touch. Severe pain noted. DVT Exam: no swelling, no appreciated bluish discoloration, no erythema, no increased warmth. 10:17 Constitutional: This is a well developed, well nourished patient who is awake, alert, jh7 and in no acute distress. Cardiovascular: Regular rate and rhythm with a normal S1 and S2. No gallops, murmurs, or rubs. Normal PMI, no JVD. No pulse deficits. Respiratory: Lungs have equal breath sounds bilaterally, clear to auscultation and percussion. No rales, rhonchi or wheezes noted. No increased work of breathing, no retractions or nasal flaring. Abdomen/GI: Soft, non-tender, with normal bowel sounds. No distension or tympany. No guarding or rebound. No evidence of tenderness throughout. Back: No spinal tenderness. No costovertebral tenderness. Full range of motion. Skin: Warm, dry with normal turgor. Normal color with no rashes, no lesions, and no evidence of cellulitis. Neuro: Awake and alert, GCS 15, oriented to person, place, time, and situation. Cranial nerves II-XII grossly intact. Sensory grossly intact. Unable to move RLE secondary to pain Vital Signs: 09:51 BP 167 / 86; Pulse 95; Resp 18; Temp 99.0(O); Pulse Ox 100% on R/A; Pain 10/10; ll1 12:49 Weight 76.2 kg; Height 5 ft. 2 in. (157.48 cm); ll1 13:01 BP 186 / 95; Pulse 93; Resp 18; ll1 15:37 BP 179 / 96; Pulse 92; Resp 18; Pulse Ox 96% ; ll1 16:27 BP 170 / 99; Pulse 93; Resp 18; Temp 99.0; Pulse Ox 96% on R/A; Pain 5/10; ll1 12:49 Body Mass Index 30.73 (76.20 kg, 157.48 cm) ll1 MDM: 09:44 Patient medically screened. [facility] 12:00 ED course: Spoke to Dr. Dolan, the vascular surgeon who performed the patient's 7 popliteal stent yesterday at [facility] ED. He would like the patient to be transferred to [facility] ED but is fine with her going to [facility] if they are unable to accept the patient. Reports that he already spoke to the hospitalist at [facility] ED about the patient's case.. 12:30 ED course: Spoke to Dr. Trimble at [facility]. Advised to start a heparin 7 drip, and will return call to find out if transfer is appropriate to [facility].. 13:00 ED course: Spoke to Dr. Foy, vascular surgeon, at [facility]. Dr. major Foy was very upset that the patient could not go to [facility] ED due to no available beds. Transfer declined.. 13:30 ED course: Spoke to Dr. Martinez with the [facility] transfer center who stated that they [facility] are working on getting the patient transferred back to [facility].. 15:45 ED course: Spoke to Dr. Levy with [facility] who requested to speak with Dr. Gallegos on [facility] the patient's case. His cell phone number was provided.. ED course: The patient will be transferred to the [facility] ED ER. Informed Dr. Gallegos of this who stated that he had already spoken with the surgeons at that location.. 16:22 Data reviewed: vital signs, nurses notes, lab test result(s), radiologic studies, [facility] ultrasound. Data interpreted: Pulse oximetry: is 96 %. Interpretation: normal. Counseling: I had a detailed discussion with the patient and/or guardian regarding: the historical points, exam findings, and any diagnostic results supporting the discharge/admit diagnosis, the need to transfer to another facility, For continuity of care. 05/07 09:53 Order name: CBC with Diff; Complete Time: 12:31 [facility] 05/07 09:53 Order name: CMP; Complete Time: 12: [facility] 05/07 09:52 Order name: LE Artery Uni Ltd; Complete Time: 12:31 [facility] 05/07 09:52 Order name: Extremity Venous Unilateral Ltd; Complete Time: 12:31 [facility] 05/07 09:53 Order name: PT-INR; Complete Time: 12:31 [facility] 05/07 11:24 Order name: SARS-COV-2 RT PCR (Document "Date of Onset" if Symptomatic); Complete Time: em1 13:41 Administered Medications: 10:12 Drug: Zofran (Ondansetron) 4 mg Route: IVP; Site: right hand; ll1 15:39 Follow up: Response: No adverse reaction ll1 10:15 Drug: morphine 4 mg Route: IVP; Infused Over: 4 mins; Site: right hand; ll1 15:39 Follow up: Response: No adverse reaction ll1 12:56 Drug: Heparin (DVT/PE Drip) 18 units/kg/hr - (HEParin 54195 units, D5W 500 ml) ll1 {Co-Signature: kr3 (Gin Hayward RN).} Route: IV; Rate: calculated rate; Site: right hand; 15:39 Follow up: Response: No adverse reaction ll1 16:29 Follow up: Response: No adverse reaction; IV Status: Infusion continued upon admission; ll1 IV Intake: 100ml 16:24 Drug: morphine 4 mg Route: IVP; Infused Over: 4 mins; Site: right antecubital; 1 16:28 Follow up: Response: No adverse reaction; Pain is decreased; RASS: Alert and Calm (0) 1 16:24 Drug: Zofran (Ondansetron) 4 mg Route: IVP; Site: right hand; 1 16:29 Follow up: Response: No adverse reaction ll1 Disposition: 17:54 Co-signature as Attending Physician, Ronald Salinas MD I agree with the assessment and kdr plan of care. 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 [facility] Forms: - Medication Reconciliation Form 7 - SBAR form 7 Signatures: Dispatcher [employer] EDRonald Lacey MD MD kdr Lewis, Lynsay, RN RN ll1 Yessica Pozo, SENIOR INSTRUCTOR SENIOR INSTRUCTOR 7 Gin Hayward RN kr3 Corrections: (The following items were deleted from the chart) 10:17 09:54 MS/extremity: Positive for decreased range of motion, Negative for injury or jh7 acute deformity, jh7 16:16 10:17 Neuro: jh7 [facility] 16:16 10:17 Musculoskeletal/extremity: jh7 [facility] 16:16 16:13 Constitutional: This is a well developed, well nourished patient who is awake, jh7 alert, and in no acute distress. Cardiovascular: Regular rate and rhythm with a normal S1 and S2. No gallops, murmurs, or rubs. Normal PMI, no JVD. No pulse deficits. Respiratory: Lungs have equal breath sounds bilaterally, clear to auscultation and percussion. No rales, rhonchi or wheezes noted. No increased work of breathing, no retractions or nasal flaring. Abdomen/GI: Soft, non-tender, with normal bowel sounds. No distension or tympany. No guarding or rebound. No evidence of tenderness throughout. Back: No spinal tenderness. No costovertebral tenderness. Full range of motion. Skin: Warm, dry with normal turgor. Normal color with no rashes, no lesions, and no evidence of cellulitis. Neuro: Awake and alert, GCS 15, oriented to person, place, time, and situation. Cranial nerves II-XII grossly intact. Sensory grossly intact. Unable to move RLE secondary to pain [facility] 16:22 12:56 ED course: Spoke to Dr. Kobe Cain at [facility]. Advised to start a [facility] heparin drip, and will return call to find out if transfer is appropriate to [facility].. [facility] 16:29 15:53 [place] [facility] ll1
--- NOTE | 2022-05-07 15:53 | ER ---
Nurse's Notes [facility] Name: Wing Deng Age: 76 yrs Sex: Female : 1945 Arrival Date: 05/07/2022 Time: 09:44 Bed 20 Private MD: Diagnosis: Acute Arterial Occlusion of R Lower Extremity Presentation: 05/07 09:51 Chief complaint: Patient states: Had popliteal stent placed yesterday. Pain to R foot ll1 that radiates up R leg since last night. No fever. Coronavirus screen: Vaccine status: Patient reports receiving the 2nd dose of the covid vaccine. Client denies travel out of the [place] in the last 14 days. At this time, the client does not indicate any symptoms associated with coronavirus-19. Ebola Screen: Patient denies travel to an Ebola-affected area in the 21 days before illness onset. Initial Sepsis Screen: Does the patient meet any 2 criteria? HR > 90 bpm. No. Patient's initial sepsis screen is negative. Does the patient have a suspected source of infection? Yes: Other: leg pain. r/o clot or infection. Risk Assessment: Do you want to hurt yourself or someone else? Patient reports no desire to harm self or others. Onset of symptoms was May 06, 2022. 09:51 Method Of Arrival: EMS: [facility] 09:51 Acuity: KRISTYN 2 ll1 Triage Assessment: 09:53 General: Appears uncomfortable, ill, Behavior is calm, cooperative, appropriate for ll1 age. Pain: Complains of pain in right foot Pain radiates to right leg Pain currently is 10 out of 10 on a pain scale. Quality of pain is described as aching, throbbing. Derm: Decubitus located on right heel(s). Musculoskeletal: Capillary refill is sluggish, in right toes. Swelling present in right foot foot cold to touch. Historical: - Allergies: 09:50 No Known Drug Allergies; ll1 - PMHx: 09:50 End stage renal disease; Hyperlipidemia; Hypertension; UTI; ll1 - PSHx: 09:50 knbee replacement; popliteal stent; ll1 - Immunization history:: Client reports receiving the 2nd dose of the Covid vaccine. - Social history:: Smoking status: Patient denies any tobacco usage or history of. Screenin:16 Abuse screen: Denies threats or abuse. Nutritional screening: No deficits noted. ll1 Tuberculosis screening: No symptoms or risk factors identified. Fall Risk Fall in past 12 months (25 points). Secondary diagnosis (15 points) impaired mobility, IV access (20 points). Gait- Impaired (20 pts.). Total [place] Fall Scale indicates High Risk Score (45 or more points). Fall prevention measures have been instituted. Side Rails Up X 2 Placed Close to Nursing Station Frequent Obs/Assessments Occuring Family Present and informed to notify staff if the need to leave the bedside As available patient and family educated on Fall Prevention Program and Strategies. Assessment: 10:15 Reassessment: No changes from previously documented assessment. Patient and/or family ll1 updated on plan of care and expected duration. Pain level reassessed. Patient is alert, oriented x 3, equal unlabored respirations, skin warm/dry/pink. to US via stretcher. 11:15 Reassessment: No changes from previously documented assessment. Patient and/or family ll1 updated on plan of care and expected duration. Pain level reassessed. Patient is alert, oriented x 3, equal unlabored respirations, skin warm/dry/pink. 12:15 Reassessment: No changes from previously documented assessment. Patient and/or family ll1 updated on plan of care and expected duration. Pain level reassessed. Patient is alert, oriented x 3, equal unlabored respirations, skin warm/dry/pink. 14:48 Reassessment: family advised this nurse that she gave patient her dose of carvedilol jg9 6.25mg po. 15:45 Reassessment: No changes from previously documented assessment. Patient and/or family ll1 updated on plan of care and expected duration. Pain level reassessed. Patient is alert, oriented x 3, equal unlabored respirations, skin warm/dry/pink. 16:28 Reassessment: No changes from previously documented assessment. Patient and/or family ll1 updated on plan of care and expected duration. Pain level reassessed. Patient is alert, oriented x 3, equal unlabored respirations, skin warm/dry/pink. Vital Signs: 09:51 BP 167 / 86; Pulse 95; Resp 18; Temp 99.0(O); Pulse Ox 100% on R/A; Pain 10/10; ll1 12:49 Weight 76.2 kg; Height 5 ft. 2 in. (157.48 cm); ll1 13:01 BP 186 / 95; Pulse 93; Resp 18; ll1 15:37 BP 179 / 96; Pulse 92; Resp 18; Pulse Ox 96% ; ll1 16:27 BP 170 / 99; Pulse 93; Resp 18; Temp 99.0; Pulse Ox 96% on R/A; Pain 5/10; ll1 12:49 Body Mass Index 30.73 (76.20 kg, 157.48 cm) ll1 ED Course: 09:44 Patient arrived in ED. em1 09:44 Yessica Pozo FNP [facility] jh7 09:44 Ronald Salinas MD is Attending Physician. jh7 09:50 Laureano Avendaño, ANA LAURA is Primary Nurse. ll1 09:50 Arm band placed on Patient placed in an exam room, on a stretcher. ll1 09:53 Triage completed. ll1 10:00 Inserted saline lock: 22 gauge in right hand, using aseptic technique. Blood collected. ll1 10:16 Patient has correct armband on for positive identification. Bed in low position. Call ll1 light in reach. Side rails up X 1. Pulse ox on. NIBP on. 10:43 US LE Artery Uni Ltd In Process Unspecified. EDMS 10:43 US Extremity Venous Unilateral Ltd In Process Unspecified. EDMS 10:56 Transfer initiated with MATI Ol[place]stead; transfer declined due to capacity. em1 15:59 No provider procedures requiring assistance completed. Patient transferred, IV remains ll1 in place. Administered Medications: 10:12 Drug: Zofran (Ondansetron) 4 mg Route: IVP; Site: right hand; ll1 15:39 Follow up: Response: No adverse reaction ll1 10:15 Drug: morphine 4 mg Route: IVP; Infused Over: 4 mins; Site: right hand; ll1 15:39 Follow up: Response: No adverse reaction ll1 12:56 Drug: Heparin (DVT/PE Drip) 18 units/kg/hr - (HEParin 65269 units, D5W 500 ml) ll1 {Co-Signature: kr3 (Gin Hayward RN).} Route: IV; Rate: calculated rate; Site: right hand; 15:39 Follow up: Response: No adverse reaction ll1 16:29 Follow up: Response: No adverse reaction; IV Status: Infusion continued upon admission; 1 IV Intake: 100ml 16:24 Drug: morphine 4 mg Route: IVP; Infused Over: 4 mins; Site: right antecubital; 1 16:28 Follow up: Response: No adverse reaction; Pain is decreased; RASS: Alert and Calm (0) 1 16:24 Drug: Zofran (Ondansetron) 4 mg Route: IVP; Site: right hand; 1 16:29 Follow up: Response: No adverse reaction [facility] Medication: 10:16 VIS not applicable for this client. 1 Intake: 16:29 IV: 100ml; Total: 100ml. 1 Outcome: 15:53 ER care complete, transfer ordered by . [facility] er 15:59 Transferred Transfer form completed. Note: [facility] ICU #3 [facility] 15:59 Condition: stable 15:59 Instructed on the need for transfer. 16:29 Patient left the ED. [facility] Signatures: Dispatcher [employer] Nixon Irwin em1 Laureano Avendaño, RN RN ll1 Yessica Nguyen, RN RN [id number] Yessica Pozo, SECURITY ESCORT SECURITY ESCORT 7 Gin Hayward RN kr3
[2022-05-07 17:00] VITALS: TEMP 99
[2022-05-07 17:03] VITALS: O2SAT 96
[2022-05-07 17:05] VITALS: BP 170/99
== END 2022-05-07 16:29 ==
LOC: ER 09:42
DX: I74.3 Embolism and thrombosis of arteries of the lower extremities (principal); I12.0 Hypertensive chronic kidney disease with stage 5 chronic kidney disease or end stage renal disease; N18.6 End stage renal disease; Z20.822 Contact with and (suspected) exposure to COVID-19
CPT/HCPCS: 85025; 36415; 85610; 80053; 93926; 93971; U0003; J1644; J2405 ×2

== ENCOUNTER 2022-11-13 07:57 | Inpatient (IN) | payer OTHER ==
--- OUTSIDE RECORDS SUMMARY | 2022-11-13 08:12 | XMS REPORT | Continuity of Care Document ---
:1945 Author Organization [facility] t Address [address] [place] [address] [place] [address] Care Team Providers Name Role Phone JAYDA VARGHESE Primary Care Physician Unavailable Juan Luis Mendenhall Attending Clinician Unavailable Gabe Durant Attending Clinician Unavailable Sagar Taveras Attending Clinician Unavailable LAVONNE EVANS Attending Clinician Unavailable Cynthia Buenrostro DO Attending Clinician CYNTHIA BUENROSTRO Attending Clinician Unavailable Dominik Krueger Admitting Clinician Unavailable Physician, No Primary or Family Admitting Clinician Unavailantwon Taveras Nkoli Admitting Clinician Unavailable Juan Luis Mendenhall Admitting Clinician Unavailable CYNTHIA BUENROSTRO Admitting Clinician Unavailable Payers Payer Name Policy Type Policy Number Effective Date Expiration Date S ource Problems Condition Condition Condition Status Onset Resolution Last Treating Co mments Source Name Details Category Date Date Treatment Clinician Date Mediastina Mediastina Disease Active U nivers l widening l widening 7-10 it y of 00:00: Medical Branch Chest pain Chest pain Disease Active U nivers 5-10 ity of 00:00: Medical Branch Obesity Obesity Disease Active Univers (BMI (BMI 5-10 ity of 30-39.9) 30-39.9) 00:00: Medical Branch Left leg Left leg Disease Active Unive rs pain pain 9-20 ity of 00:00: Medical Branch Malignant Malignant Disease Active Overview: Univers neoplasm neoplasm 5-18 Formattin ity of of bone of bone 00:00: g of this [place] and and note Medical articular articular might be Br anch cartilage cartilage different from the original. 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 No Known DA Active U [facility] Allergie 7-06 Clear s 00:00: Lozano 00 [facility] No Known DA Active U 2000-11 [facility] Drug 0- [place] Allergie 00:00: d s 00 [facility] No Known DA Active U [facility] Drug 04-01 [place] Intolera 00:00: d nces 00 [facility] NO KNOWN Drug Active Univers ALLERGIE Class ity of S [facility] Social History Social Habit Start Date Stop Date Quantity Comments Source Exposure to 2022-05-01 2022-05-11 Not sure [facility]-CoV-2 00:00:00 11:08:00 [facility] (event) [place] Alcohol intake 2022-05-11 2022-05-11 Current University of 00:00:00 00:00:00 non-drinker of [facility] [place] alcohol (finding) [place] Tobacco use and 2016-07-22 2016-07-22 Smokeless tobacco Un iversity of exposure 00:00:00 00:00:00 non-user [facility] Sex Assigned At [birth year] Universit y of 00:00:00 00:00:00 [facility] Smoking Status Start Date Stop Date Source Never smoked tobacco [facility] Medications Ordered Filled Start Stop Current Ordering Indication Dosage Frequency Signature Comments Components Source Medication Medication Date Date Medication? Clinician (SIG) Name Name aspirin 325mg 325 mg, Unive rs tablet 325 05-11 Oral, ity of mg 17:00: 18:13 ONCE, 1 [place] 00 :00 dose, On [facility] Branch 05/11/22 at 1200, STAT aspirin 81 Yes 81mg Take 1 Unive rs mg chewable 5-11 tablet by ity of tablet 00:00: mouth [place] 00 daily. Medical Branch mirtazapine 2015-11 Yes Univer s (REMERON) 11-03 ity of 15 mg 00:00: [place] tablet 00 Medical Branch traMADOL Yes Univers (ULTRAM) 50 07-08 ity of mg tablet 00:00: [place] 00 Medical Branch gabapentin Yes Univers (NEURONTIN) 07-08 ity of 300 mg 00:00: [place] capsule 00 Medical Branch losartan Yes Univers (COZAAR) 07-08 ity of 100 mg 00:00: [place] tablet 00 Medical Branch tiZANidine 2016-0 Yes Univers (ZANAFLEX) 7-12 ity of 4 mg tablet 00:00: [place] 00 Medical Branch metoprolol 2015-0 Yes Univers succinate 6-30 ity of XL (TOPROL 00:00: [place] XL) 200 mg 00 Medical 24 hr Branch tablet atorvastati 2015-0 Yes Univer s n (LIPITOR) 6-30 ity of 10 mg 00:00: [place] tablet 00 Medical Branch spironolact 2015-0 Yes Univer s one 6-28 ity of (SPIRONOLAC 00:00: [place] TONE) 25 mg 00 Medical tablet Branch AMLODIPINE 2007- Yes one tab po U nivers 10 MG ORAL 0-29 once daily ity of TAB 00:00: [place] 00 Medical Branch HYDROCHLORO 2007- Yes [id number] 1 tablet Univers THIAZIDE 25 0-27 once a day it y of MG ORAL TAB 00:00: [place] 00 Medical Branch PRAVASTATIN 2007- Yes [id number] 1 tablet Univers 80 MG ORAL 7-18 qhs ity of TAB 00:00: [place] 00 Medical Branch VICODIN ES 2007- Yes [id number] 1 tablet 3 Univers 7.5-750 MG 3-10 times a ity of ORAL TAB 00:00: day 00 Medical Branch NITROGLYCER 2007-0 Yes [id number] one tab SL Univers IN 0.4 MG 3-10 q5min prn ity o f SL SUBL 00:00: chest [place] 00 x 3 Medical Branch PRAVACHOL 2006-0 Yes 1 tab po Univ ers 80 MG ORAL 7-09 daily ity of TAB 00:00: [place] 00 Medical Branch VICODIN ES 2006-0 Yes 1 by mouth U nivers 7.5-750 MG 5-18 three ity of ORAL TAB 00:00: times a [place] day as Medical needed Branch VICODIN ES Yes [id number] 1 by mouth Univers 7.5-750 MG 2-26 three ity of ORAL TAB 00:00: times a [place] day when Medical necessary Branch Vital Signs Vital Name Observation Time Observation Value Comments Source Systolic blood 2022-05-11 21:00:00 149 mm[Hg] Univer sity of pressure [facility] Diastolic blood 2022-05-11 21:00:00 90 mm[Hg] Unive rsity of pressure [facility] Heart rate 2022-05-11 21:00:00 93 /min [facility] Respiratory rate 2022-05-11 21:00:00 21 /min [facility] Oxygen saturation in 2022-05-11 21:00:00 98 /min [facility] Arterial blood by [facility] [place] Pulse oximetry Branch Body temperature 2022-05-11 16:12:00 36.61 Twyla [facility] Body weight 2022-05-11 16:12:00 75.751 kg [facility] BMI 2022-05-11 16:12:00 27.79 kg/m2 [facility] Procedures Procedure Date / Time Performed Performing Clinician Anne demarco [id number] 2022-08-22 00:00:00 KELSEY.05 [facility] [id number] 2022-08-20 00:00:00 AYADI [facility] [id number] 2022-08-20 00:00:00 AYADI [facility] [id number] 2022-08-20 00:00:00 KELSEY.05 [facility] [id number] 2022-08-20 00:00:00 AYADI [facility] [id number] 2022-08-19 00:00:00 AYADI [facility] [id number] 2022-08-19 00:00:00 AYADI [facility] [id number] 2022-08-19 00:00:00 AYADI [facility] [id number] 2022-08-19 00:00:00 AYADI [facility] [id number] 2022-08-19 00:00:00 AYADI [facility] [id number] 2022-08-18 00:00:00 AYADI [facility] [id number] 2022-05-21 00:00:00 KELSEY.05 [facility] [id number] 2022-05-19 00:00:00 KELSEY.05 [facility] [id number] 2022-05-16 00:00:00 KELSEY.05 [facility] [id number] 2022-05-15 00:00:00 KATIE.11 [facility] [id number] 2022-05-15 00:00:00 KELSEY.05 [facility] [id number] 2022-05-14 00:00:00 KATIE.11 [facility] [id number] 2022-05-14 00:00:00 KATIE.11 [facility] [id number] 2022-05-14 00:00:00 KELSEY.05 [facility] LACTIC ACID WHOLE 2022-05-11 20:01:00 Cynthia Buenrostro [facility] BLOOD [facility] Branch XR CHEST 1 VW 2022-05-11 18:40:00 Cynthia Buenrostro [facility] TROPONIN I 2022-05-11 18:14:00 Michelle Palencia [facility] COMP. METABOLIC PANEL 2022-05-11 18:14:00 Michelle Palencia Un [facility] ([id number]) [facility] CBC WITH DIFF 2022-05-11 18:14:00 Michelle Palencia [facility] N-TERMINAL PRO-BNP 2022-05-11 18:14:00 Michelle Palencia [facility] CONSENT/REFUSAL FOR 2022-05-11 16:12:54 Doctor Unassigned, No Un [facility] DIAGNOSIS AND Name Medical Branch TREATMENT [id number] 2022-05-10 00:00:00 KELSEY.05 [facility] [id number] 2022-05-08 00:00:00 AYADI [facility] [id number] 2022-05-08 00:00:00 AYADI [facility] [id number] 2022-05-08 00:00:00 KELSEY.05 [facility] [id number] 2022-05-08 00:00:00 AYADI [facility] [id number] 2022-05-08 00:00:00 AYADI [facility] [id number] 2022-05-08 00:00:00 AYADI [facility] [id number] 2022-05-07 00:00:00 KELSEY.05 [facility] [id number] 2022-05-07 00:00:00 ILONK [facility] Encounters Start End Encounter Admission Attending Care Care Encounter Source Date/Time Date/Time Type Type Clinicians Facility Department ID 2022-10-30 2022-10-30 Outpatient Juan Luis Jonas HCAPM RASHID [id number] [facility] 06:20:00 06:20:00 47 [facility] 2022-09-10 2022-09-10 Outpatient Bhargav HCACL LABO [id number] [facility] 00:41:00 00:41:00 Gabe 91 [facility] 2022-09-09 2022-09-09 Emergency EM Durant, HCAPM UDAY [id number] [facility] 13:03:00 18:00:00 Gabe 97 [facility] 2022-08-18 2022-08-23 Inpatient АННА Taveras HCAPM MAS [id number] [facility] 20:46:00 17:00:00 Nkoli 25 [facility] 2022-05-14 2022-05-22 Inpatient Juan Luis Jonas HCAPM RASHID [id number] [facility] 10:35:00 16:56:00 [id number] [facility] 2022-05-14 2022-05-22 Inpatient Juan Luis Jonas HCAPM RASHID [id number] [facility] 10:35:00 16:56:00 70 [facility] 2022-05-22 2022-05-22 Outpatient Tiffanie EVANS [facility] [id number] Univers 09:00:00 09:00:00 LAVONNE [id number] ity of [facility] 2022-05-14 2022-05-14 Outpatient Juan Luis Mendenhall HCACL LABO [id number] [facility] 19:14:00 19:14:00 82 [facility] 2022-05-11 2022-05-11 Emergency Faulconer, TRAUMA [id number] Univers 11:13:00 17:08:00 Cynthia ROCK GLEN [id number] it [facility] [id number] 2022-05-11 2022-05-11 Emergency X FASHANNANER, [facility] ERT [id number] Univers 11:13:00 17:08:00 CYNTHIA espinoza [facility] 2022-05-07 2022-05-11 Inpatient EM JULIA Taveras INTE [id number] [facility] 17:42:00 10:46:00 Nkoli 16 [facility] 2022-05-07 2022-05-11 Inpatient EM MATI TaverasPM INTE [id number] [facility] 17:42:00 10:46:00 Nkoli [id number] [facility] 2022-05-08 2022-05-08 Outpatient BEVERLY Taveras LABO [id number] [facility] 00:59:00 00:59:00 Nkoli 40 [facility] Results Test Description Test Time Test Comments Results Result Comments Source GLUCOSE BEDSIDE TESTING 2022-10-30 12:46:00 Test Item Value Reference Range Interpretation Comme nts GLUCOSE BEDSIDE TESTING (test code = GLUBED) 101 mg/dL 70-110 N BASIC METABOLIC [id number] 08:25:00 Test Item Value Reference Range Interpretation Comments SODIUM (test code = 137 mmol/L 134-147 N NA) POTASSIUM (test 4.2 mmol/L 3.4-5.0 N code = K) CHLORIDE (test code 104 mmol/L 100-108 N = CL) CARBON DIOXIDE 26 mmol/L 21-32 N (test code = CO2) ANION GAP (test 7.0 GAP calc 4.0-15.0 N code = GAP) GLUCOSE (test code 86 MG/DL 70-110 N = GLU) BLOOD UREA NITROGEN 29 MG/DL 7-18 H (test code = BUN) GLOMERULAR 9 estGFR >60 L The Glomerular FILTRATION RATE Filtration R ate is a (test code = GFR) calculated parameterbased on serum Creatinin e, patient age and sex. GFR valuesless than 60 mL/min/1.73 squ are meters are carlos cative ofChronic Kidne y Disease. Values less than 15 mL/min/1.73squa re meters indicate Kidney failure. The calculation for GFR is based on the CK D-EPI (2020) calculat ion. This formulais race indifferent and is the recommended for fouzia for GFRby the N ational Kidney Foundati on for Adults.The GFR will not calculate i f the sex is unknown or if thepatient's ag e is <18 years. CREATININE (test 4.6 MG/DL 0.6-1.0 H code = CREAT) CALCIUM (test code 9.0 MG/DL 8.5-10.1 N = CA) COVID 19 INHOUSE [id number] 08:11:00 Test Item Value Reference Range Interpretation Comments COVID 19 INHOUSE AG NEGATIVE Negative Per manu facturer, (test code = negative result s should [id number]) be treated aspr esumptive and, if inconsi stent with clinical signs andsymptoms or necessary for patient man agement, should betested with an alternative mol ecular assay. Negative resultsdo not preclude SA RS-CoV-2 infection and s hould not be usedas the s ole basis for patient man agement decisions. Nega tive results should be considered in t he context of apatient's r ecent exposures, hist ory, presence of cli nicalsigns and symptoms co nsistent with COVID-19. CBC W/AUTO [id number] 07:58:00 Test Item Value Reference Range Interpretation Comments WHITE BLOOD CELL (test code = 8.1 K/mm3 3.5-11.0 N WBC) RED BLOOD CELL (test code = 3.99 M/mm3 4.70-6.10 L RBC) HEMOGLOBIN (test code = HGB) 11.4 G/DL 10.4-14.9 N HEMATOCRIT (test code = HCT) 39.2 % 31.5-44.1 N MEAN CELL VOLUME (test code = 98.2 Fl 84.5-98.6 N MCV) MEAN CELL HGB (test code = MCH) 28.6 pg 27.0-34.2 N MEAN CELL HGB CONCETRATION 29.1 G/DL 31.5-34.0 L (test code = MCHC) RED CELL DISTRIBUTION WIDTH 17.0 SD 11.5-14.5 H (test code = RDW) PLATELET COUNT (test code = 289 K/mm3 150-450 N PLT) MEAN PLATELET VOLUME (test code 8.80 fL 7.0-10.5 N = MPV) NEUTROPHIL % (test code = NT%) 56.6 % 40-76 N IMMATURE GRANULOCYTE % (test 0.2 % 0.0-5.0 N code = IG%) LYMPHOCYTE % (test code = LY%) 25.0 % 20.5-51.1 N MONOCYTE % (test code = MO%) 11.5 % 1.7-9.3 H EOSINOPHIL % (test code = EO%) 5.6 % 0.0-6.0 N BASOPHIL % (test code = BA%) 1.1 % 0.0-2.0 N NUCLEATED RBC % (test code = 0.0 /100WBC% 0.0-1.0 N NRBC%) NEUTROPHIL # (test code = NT#) 4.6 K/mm3 1.8-7.6 N IMMATURE GRANULOCYTE # (test 0.02 x10 3/uL 0.00-0.03 N code = IG#) LYMPHOCYTE # (test code = LY#) 2.0 K/mm3 0.6-3.2 N MONOCYTE # (test code = MO#) 0.9 K/mm3 0.3-1.1 N EOSINOPHIL # (test code = EO#) 0.5 K/mm3 0.0-0.4 H BASOPHIL # (test code = BA#) 0.1 K/mm3 0.0-0.1 N NUCLEATED RBC # (test code = 0.0 K/mm3 0.0-0.1 N NRBC#) MANUAL DIFF REQUIRED (test code NO DIFF/SCN CRITERIA = MDIFF) - CTA ABD AORTA IF LWEX [id number] 17:03:00 [facility] 1945 Sex: F Name: NGUYỄN RITTER [facility] : 1945 Age/S: 76 / F [id number] [address] Unit #: [id number] Loc: [place] [address] Phys: Gabe Durant MD Acct: [id number] Dis Date: Status: REG ER PHONE#: [phone] Exam Date: 09/09/2022 1538 FAX #: Reason: evaluate hematoma EXAMS: CPT: [id number] [place] [address] Location Code: S17 EXAMINATION: - CTA ABD AORTA IF LWEX RO CLINICAL INDICATION: Female, 76 years old with hematoma in right leg. TECHNIQUE: Thin section, high-resolution postcontrast imaging through the aorta and the bilateral lower extremities performed. Multiplanar MIP reformations along with 3-D volume rendering reformations are submitted, processed on separate workstat ion. One or more of the following dose reduction techniques were used: Automated exposure control, adjustment of the mA and/or kV according to patient size, and/or iterative reconstruction. Unless otherwise specified, incidental findings do not require dedicated imaging follow-up. COMPARISON: CT abdominal runoff August 22, 2022. FINDINGS: Arterial: Abdominal aorta: is morphologically normal. There is no appreciable stenosis, aneurysm, or dissection. Minimal calcific plaque is present within the abdominal aorta. Renal arteries: Single renal arteries bilaterally without stenosis Mesenteric arteries: The celiac axis and superior mesenteric arteries are well opacified. Major branches are patent. There is no evidence of appreciable stenosis. Iliac arteries: The iliac arteries are patent without stenosis, aneurysmal degeneration, or dissection. Right lower extremity arteries: Right common femoral artery and profunda are widely patent. The proximal right SFA is patent. However there is a focal area o f 50% narrowing in the proximal SFA and then there is complete occlusion. There is an occluded remnant bypass graft. Anterior to the right superficial femoral artery there is a 3.0 x 10.0 x 10.0 cm AP/TR/CC higher than simple fluid attenuating collection within the proximal right anterior thigh subcutaneous tissues.. It appears relatively stable in size compared to previous. PAGE 1 Signed Report (CONTINUED) Name: NGUYỄN RITTER : 1945 Age/S: 76 / F [id number] [address] Unit #: [id number] Loc: [place] [address] Phys: Gabe Durant MD Acct: [id number] Dis Date: Status: REG ER PHONE #: [phone] Exam Date: 09/09/2022 1535 FAX #: Reason: evaluate hematoma EXAMS: CPT: [id number] [place] [address] (Continued) There is stranding within the subcutaneous tissues of the right anterior groin adjacent to this collection. No pseudoaneurysm or active extravasation isnoted. Redemonstration of right lower extremity above the amputation. Left lower extremity arteries:The left common femoral, profunda, superficial femoral artery are patent. Evaluation of the popliteal artery and tibioperoneal trunk is limited due to a significant artifact produced by the indwelling stent and the arthroplasty hardware. Below the left knee joint, there appears to be a single vessel runoff divided by the peroneal artery that supplies the foot. Multiple calcifications are noted withinthe likely occluded AT. Redemonstration of postoperative changes of the left ankle with diffuse disuse osteopenia and degenerative changes. Non Vascular: Lower Chest: Probable bibasilar atelectasis orscarring. Liver: Normal in size and contour. No focal lesions. Gallbladder: Cholelithiasis. Pancreas: No evidence of focal pancreatic mass or peripancreatic fluid collection. Stable dilation of the common bile duct and pancreatic duct. Spleen: Normal in size and contour. Adrenals: Normal configuration. Kidneys and ureters: No evidence of obstructive uropathy. Redemonstration of relatively stable complex appearing renal cystic lesions that contain calcifications. As previously recommended, CT renal protocol could be obtained on a nonemergent basis. Bladder/Reproductive Organs: Urinary bladder is decompressed, limiting its evaluation. Uterus is surgically absent. Bowel: No evidence of bowel obstruction. No evidence of free air, fluid, or lymphadenopathy. Stable degenerative changes of the lumbar spine. PAGE 2 Signed Report (CONTINUED) Name: NGUYỄN RITTER : 1945 Age/S: 76 / F [address] [facility] [place] Unit #: [id number] Loc: [place] [address] Phys: Gabe Durant MD Acct: [id number] Dis Date: Status: REG ER PHONE #: [phone] Exam Date: 09/09/2022 1535 FAX #: Reason: evaluate hematoma EXAMS: CPT: [id number] [place] [address] (Continued) IMPRESSION: Anterior to the right superficial femoral artery within the proximal right anterior thigh subcutaneous tissues/anterior muscular compartment of the thigh is a 3 x 10 x 10 cm AP/TR/CC-simple fluid attenuating collection with some septations. No pseudoaneurysm or active extravasation is noted. It appears relatively stable in size compared to August 22, 2022 but is more organized. Given the clinical history, this most likely represents a hematoma with other etiologies including seroma, phlegmon, and developing abscess not excluded. at 1703 Reported and signed by: Roosevelt Mendenhall M.D. CC: Gabe Durant MD Technologist:Pacheco Flores, RT(R) CTDI: DLP: Trnscb Date/Time: 09/09/2022 (1702) [email or web address] Orig Print D/T: S: 09/09/2022 (1705) PAGE 3 SignedReport- XR CHEST 1 [id number] 17:02:00 [facility] : 1945 Sex: F Name: NGUYỄN RITTER [facility] : 1945 Age/S: 76 / F [id number] [address] Unit #: [id number] Loc: [place] [address] Phys: Gabe Durnat MD Acct: [id number] Dis Date: Status: REG ER PHONE #: [phone] Exam Date: 09/09/2022 1548 FAX #: Reason: Code Sepsis EXAMS: CPT: [id number] XR CHEST1 V 23468 Fluoro Time: DAP (Gy m2): Air Kerma (mGy): EXAM: CHEST ONE VIEW INDICATION: Code Sepsis LOCATION: B2 COMPARISON: May 19, 2022 TECHNIQUE: AP view of the chest FINDINGS: The left central venous catheter is unchanged. The heart size is normal. There are mild congestive changes throughout both lungs. No pneumothorax or pleural effusion is identified. The osseous structures are normal. IMPRESSION: Mild congestive changes throughout both lungs. at 1702 Reported and signed by: Gnia Wilson M.D. CC: Gabe Durant MD PAGE 1 Signed Report Name: NGUYỄN RITTER [place] : 1945 Age/S: 76 / F [address] [address] #: [id number] Loc: [place] [address] Phys: Gabe Durant MD Acct: [id number] Dis Date: Status: REG ER PHONE #: [phone] Exam Date: 09/09/2022 1541 FAX #: Reason: Code Sepsis EXAMS: CPT: [id number] XR CHEST 1 V 19805 Fluoro Time: DAP (Gy m2): Air Kerma (mGy): (Continued) Technologist: Pacheco Flores, RT(R); HIPOLITO ROSEN Trnflb Date/Time: 09/09/2022 (1701) 16 Orig Print D/T: S: 09/09/2022 (170) PAGE 2 Signed Report COMPREHENSIVE METABOLIC [id number] 15:44:00 Test Item Value Reference Range Interpretation Comments SODIUM (test code = 132 mmol/L 134-147 L NA) POTASSIUM (test 4.7 mmol/L 3.4-5.0 N code = K) CHLORIDE (test code 99 mmol/L 100-108 L = CL) CARBON DIOXIDE 20 mmol/L 21-32 L (test code = CO2) ANION GAP (test 13.0 GAP calc 4.0-15.0 N code = GAP) GLUCOSE (test code 82 MG/DL 70-110 N = GLU) BLOOD UREA NITROGEN 45 MG/DL 7-18 H (test code = BUN) GLOMERULAR 7 estGFR >60 L The Glomerular FILTRATION RATE Filtration R ate is a (test code = GFR) calculated parameterbased on serum Creatinin e, patient age and sex. GFR valuesless than 60 mL/min/1.73 square meters are carlos cative ofChronic Kidne y Disease. Values less than 15 mL/min/1.73squa re meters indicate Kidney failure. The calculation for GFR is based on the CK D-EPI (2020) calculat ion. This formulais race indifferent and is the recommended formula for GFR by the National Kidney Foundation for Adults.The GFR will not calculate i f the sex is unknown or if thepatient's ag e is <18 years. CREATININE (test 5.7 MG/DL 0.6-1.0 H code = CREAT) TOTAL PROTEIN (test 8.8 G/DL 6.4-8.2 H code = PROT) ALBUMIN (test code 3.8 G/DL 3.4-5.0 N = ALB) GLOBULIN (test code 5.0 GM/dL = GLOB) ALBUMIN/GLOBULIN 0.8 RATIO 1.2-2.2 L RATIO (test code = A/G) CALCIUM (test code 9.1 MG/DL 8.5-10.1 N = CA) BILIRUBIN TOTAL 0.50 MG/DL 0.2-1.2 N (test code = BILT) SGOT/AST (test code 28 Unit/L 15-37 N = AST) SGPT/ALT (test code 17 Unit/L 12-78 N = ALT) ALKALINE 167 Unit/L 45-117 H PHOSPHATASE TOTAL (test code = ALKP) HEPATIC FUNCTION [id number] 15:44:00 Test Item Value Reference Range Interpretation Comments BILIRUBIN DIRECT (test code = < 0.10 MG/DL 0.00-0.30 N BILD) BILIRUBIN INDIRECT (test code = 0.40 MG/DL 0.2-1.2 N BILIND) PROTHROMBIN [id number] 15:31:00 Test Item Value Reference Range Interpretation Comments PT PATIENT (test 11.2 SECONDS 9.3-12.9 N code = PTP) INTERNATIONAL NORMAL 0.98 INR Unit 0.8-1.2 N TARG ET INR BY RATIO (test code = INDICATIO N Indication INR) INR1. Prophylax is of venous thrombos is 2.0 - 3.0 (orthoped ic surgery), Proph ylaxis of venous throm bosis (other than hig h-risk surgery), Treat ment of Deep Vein Thrombosis/Pulm onary Embolism, Preve ntion of systemic emb olism - Tissue heart va lves, Acute Myocardia l Infarction (to prevent systemic emboli sm), Valvular heart disease, Acute Myocardial Infa rction (to prevent sys temic embolism), Valv ular heart disease, Atrial Fibrillation, Bileaflet mecha nical valve in aortic position.2. Mec hanical prosthetic valv es (high risk), 2. 5 - 3.5 Presence of Lup us Anticoagulant o r Antiphospholipi d Antibodies, Pre vention of systemic emb olism - Acute Myocardia l Infarction (to prevent recurrent infar ct). NT PRO-BRAIN NATRIURETIC [id number] 15:29:00 Test Item Value Reference Range Interpretation Comments NT PRO-BRAIN NATRIURETIC PEPTI 1184 PG/ML 0-100 H (test code = PROBNP) Completed by Nursing: NOTROP-I HIGH [id number] 15:29:00 Test Item Value Reference Range Interpretation Comments TROP-I HIGH 12.5 ng/L 0-34 N CAUTION: Units of the SENSITIVITY (test current te st methodology code = TROPIHS) (ng/L) diffe rfrom the prior test meth odology (ng/mL) by a fa ctor of 1000. 99t h Percentile Uppe r Reference Limit (URL):Fem ales: 34 ng/LMales: 54 n g/L In order to distin guish acute elevations of h igh sensitivitytrop onin from other clinical conditions, the FourthUnive rsal Definition of M yocardial Infarction stressesclinica l assessment and the demonstration o f a rise and/orfall in s erial troponin result s above the URL. Results fr om different metho dologies should not be c omparedto one another as quantitative re sults and URLs may varyby method. Completed by Nursing: NOCOVID 19 Asymptomatic IH [id number] 15:24:00 Test Item Value Reference Range Interpretation Comments COVID 19 Asymptomatic NEGATIVE Negative Per ma nufacturer, IH AG (test code = negative results should COVNONPUIAG) be treated aspresumptive a nd, if inconsistent wi th clinical signs andsymptoms or necessary for p atient management, linda uld betested with a n alternative mol ecular assay. Negative resultsdo not p reclude SARS-CoV-2 infe ction and should not be usedas the sole basis for patient man agement decisions. Nega tive results should be considered in t he context of apat ient's recent exposure s, history, presen ce of clinicalsigns a nd symptoms consis tent with COVID-19. CBC W/AUTO [id number] 15:08:00 Test Item Value Reference Range Interpretation Comments WHITE BLOOD CELL (test code = 6.7 K/mm3 3.5-11.0 N WBC) RED BLOOD CELL (test code = 3.36 M/mm3 4.70-6.10 L RBC) HEMOGLOBIN (test code = HGB) 9.6 G/DL 10.4-14.9 L HEMATOCRIT (test code = HCT) 31.4 % 31.5-44.1 L MEAN CELL VOLUME (test code = 93.5 Fl 84.5-98.6 N MCV) MEAN CELL HGB (test code = MCH) 28.6 pg 27.0-34.2 N MEAN CELL HGB CONCETRATION 30.6 G/DL 31.5-34.0 L (test code = MCHC) RED CELL DISTRIBUTION WIDTH 15.7 SD 11.5-14.5 H (test code = RDW) PLATELET COUNT (test code = 504 K/mm3 150-450 H PLT) MEAN PLATELET VOLUME (test code 8.40 fL 7.0-10.5 N = MPV) NEUTROPHIL % (test code = NT%) 49.7 % 40-76 N IMMATURE GRANULOCYTE % (test 0.4 % 0.0-5.0 N code = IG%) LYMPHOCYTE % (test code = LY%) 29.5 % 20.5-51.1 N MONOCYTE % (test code = MO%) 12.1 % 1.7-9.3 H EOSINOPHIL % (test code = EO%) 6.7 % 0.0-6.0 H BASOPHIL % (test code = BA%) 1.6 % 0.0-2.0 N NUCLEATED RBC % (test code = 0.0 /100WBC% 0.0-1.0 N NRBC%) NEUTROPHIL # (test code = NT#) 3.3 K/mm3 1.8-7.6 N IMMATURE GRANULOCYTE # (test 0.03 x10 3/uL 0.00-0.03 N code = IG#) LYMPHOCYTE # (test code = LY#) 2.0 K/mm3 0.6-3.2 N MONOCYTE # (test code = MO#) 0.8 K/mm3 0.3-1.1 N EOSINOPHIL # (test code = EO#) 0.5 K/mm3 0.0-0.4 H BASOPHIL # (test code = BA#) 0.1 K/mm3 0.0-0.1 N NUCLEATED RBC # (test code = 0.0 K/mm3 0.0-0.1 N NRBC#) MANUAL DIFF REQUIRED (test code NO DIFF/SCN CRITERIA = MDIFF) LACTIC [id number] 14:59:00 Test Item Value Reference Range Interpretation Comments LACTIC ACID (test code = LACT) 0.9 mmol/L 0.4-2.0 N CBC W/AUTO [id number] 06:31:00 Test Item Value Reference Range Interpretation Comments WHITE BLOOD CELL 8.2 K/mm3 3.5-11.0 N (test code = WBC) RED BLOOD CELL (test 2.65 M/mm3 4.70-6.10 L code = RBC) HEMOGLOBIN (test code 7.4 G/DL 10.4-14.9 L = HGB) HEMATOCRIT (test code 26.0 % 31.5-44.1 L = HCT) MEAN CELL VOLUME 98.1 Fl 84.5-98.6 N (test code = MCV) MEAN CELL HGB (test 27.9 pg 27.0-34.2 N code = MCH) MEAN CELL HGB 28.5 G/DL 31.5-34.0 L CONCETRATION (test code = MCHC) RED CELL DISTRIBUTION 15.6 SD 11.5-14.5 H WIDTH (test code = RDW) PLATELET COUNT (test 258 K/mm3 150-450 N code = PLT) MEAN PLATELET VOLUME 9.30 fL 7.0-10.5 N (test code = MPV) NEUTROPHIL % (test 56.1 % 40-76 code = NT%) IMMATURE GRANULOCYTE 0.2 % 0.0-5.0 N % (test code = IG%) LYMPHOCYTE % (test 25.5 % 20.5-51.1 N code = LY%) MONOCYTE % (test code 10.8 % 1.7-9.3 H = MO%) EOSINOPHIL % (test 6.3 % 0.0-6.0 H code = EO%) BASOPHIL % (test code 1.1 % 0.0-2.0 N = BA%) NUCLEATED RBC % (test 0.0 /100WBC% 0.0-1.0 N code = NRBC%) NEUTROPHIL # (test 4.6 K/mm3 1.8-7.6 N code = NT#) IMMATURE GRANULOCYTE 0.02 x10 3/uL 0.00-0.03 N # (test code = IG#) LYMPHOCYTE # (test 2.1 K/mm3 0.6-3.2 N code = LY#) MONOCYTE # (test code 0.9 K/mm3 0.3-1.1 N = MO#) EOSINOPHIL # (test 0.5 K/mm3 0.0-0.4 H code = EO#) BASOPHIL # (test code 0.1 K/mm3 0.0-0.1 N = BA#) NUCLEATED RBC # (test 0.0 K/mm3 0.0-0.1 N code = NRBC#) MANUAL DIFF REQUIRED NO DIFF/SCN CRITERIA SLIDE R RAISAW (test code = MDIFF) CONSISTA NT WITH AUTO DIFFERENTI AL. BASIC METABOLIC [id number] 05:55:00 Test Item Value Reference Range Interpretation Comments SODIUM (test code = NA) 137 mmol/L 134-147 N POTASSIUM (test code = K) 4.8 mmol/L 3.4-5.0 N CHLORIDE (test code = CL) 103 mmol/L 100-108 N CARBON DIOXIDE (test code = CO2) 25 mmol/L 21-32 N ANION GAP (test code = GAP) 9.0 GAP calc 4.0-15.0 N GLUCOSE (test code = GLU) 98 MG/DL 70-110 N BLOOD UREA NITROGEN (test code = 44 MG/DL 7-18 H BUN) GLOMERULAR FILTRATION RATE (test 10 estGFR >60 L code = GFR) CREATININE (test code = CREAT) 5.4 MG/DL 0.6-1.0 H CALCIUM (test code = CA) 8.1 MG/DL 8.5-10.1 L [id number] 05:55:00 Test Item Value Reference Range Interpretation Comments PHOSPHOROUS (test code = PHOS) 6.5 MG/DL 2.5-4.9 H [id number] 05:55:00 Test Item Value Reference Range Interpretation Comments MAGNESIUM (test code = MAG) 2.7 MG/DL 1.8-2.4 H - CTA ABD AORTA IF LWEX [id number] 15:52:00 [facility] 1945 Sex: F Name: NGUYỄN RITTER [facility] : 1945 Age/S: 76 / F [address] [address] Unit #: [id number] Loc: [place] [address] Phys: Shaun Dolan MD Acct: [id number] Dis Date: Status: ADM IN PHONE #: [phone] Exam Date: 08/22/2022 1510 FAX #: Reason: evaluate for any source of bleeding. Hematoma. EXAMS: CPT: [id number] [place] [address] S 17 TIME OF STUDY: 08/22/2022 7:40 AM REASON FOR EXAM: evaluate for any source of bleeding. Hematoma. COMPARISON: CTA 08/18/2022. Ultrasound 08/20/2022 and 08/21/2022. TECHNIQUE: Contrast enhanced thin section helical images were obtained through the abdomen, pelvis and bilateral lower extremities with the bolus of contrast timed for the optimal opacification of the arterial structures per departmental CTA protocol; Post-processing, retro reconstruction, and interpretation of angiographic images of the vessels was performed. 3-D and MIP reconstructions were performed on an independent workstation and reviewed. One or more of the following radiation dose reduction techniques was used: automated exposure control, adjustment of mA and/or KV according to patient size, and/or utilization of iterative reconstruction technique. FINDINGS: CTA abdomen: There is atherosclerosis of the abdominal aorta without aneurysm or dissection. The celiac axis, the superior and inferior mesenteric arteries are patent. There is no hydronephrosis in the kidneys. Minimally complex right renal cortical cysts with calcifications stable and require CT urogram on anonemergent basis. There is cholelithiasis present. Dilated common bile duct and pancreatic duct are noted. No retroperitoneal mass or fluid collection is seen. There is no adenopathy. The liver, spleen, and adrenal glands are otherwise unremarkable. There is no bowel obstruction or free intraperitoneal air. CTA of pelvis: There is atherosclerosis of the iliac arteries without aneurysm or significant stenosis. No free air, free fluid, or collection or adenopathy seen in the pelvis. The osseous structures demonstrate age appropriate changes without focal lytic or blastic lesions. PAGE 1 Signed Report (CONTINUED) Name: NGUYỄN RITTER : 1945 Age/S: 76 / F [address] [address] Unit #: [id number] Loc: [place] [address] Phys: Shaun Dolan MD Acct: [id number] Dis Date: Status: ADM IN PHONE #: [phone] Exam Date: 08/22/2022 1517 FAX #: Reason: evaluate for any source of bleeding. Hematoma. 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 In the right lower extremity, the common femoral artery, profunda femoris artery, and proximal SFA are patent. The right mid and distal SFA including the stent are occluded. A moderate size hematoma superficial to the right common femoral artery is noted; however, no pseudoaneurysm or active extravasation is seen. In the left lower extremity, the left common femoral artery, superficial femoral artery, and profunda femoris artery are patent. The left distal SFA and popliteal artery are difficult to evaluate due to metallic streak artifact from the indwelling stent as well as the knee arthroplasty hardware. Below the knee, single vessel peroneal artery runoff is seen to the level of theankle. Postoperative changes of the left ankle with diffuse osteopenia and degenerative changes noted. There is extensive muscular atrophy and bilateral lower extremities. IMPRESSION: 1. Moderate size hematoma superficial to the right common femoral artery with no pseudoaneurysm or active extravasation identified. 2. Other chronic findings as detailed above. at 1552 Reported and signed by: Rich Callejas M.D. CC: Shaun Dolan MD; Sagar Taveras MD Technologist:HIPOLITO ROSEN CTDI: DLP: Trnscb Date/Time: 08/22/2022 (1552) [email or web address] Orig PrintD/T: S: 08/22/2022 (1448) PAGE 2 Signed ReportBASIC METABOLIC [id number] 04:59:00 Test Item Value Reference Range Interpretation Comments SODIUM (test code = NA) 137 mmol/L 134-147 N POTASSIUM (test code = K) 4.1 mmol/L 3.4-5.0 N CHLORIDE (test code = CL) 102 mmol/L 100-108 N CARBON DIOXIDE (test code = 25 mmol/L 21-32 N CO2) ANION GAP (test code = GAP) 10.0 GAP calc 4.0-15.0 N GLUCOSE (test code = GLU) 82 MG/DL 70-110 N BLOOD UREA NITROGEN (test code 48 MG/DL 7-18 H = BUN) GLOMERULAR FILTRATION RATE 9 estGFR >60 L (test code = GFR) CREATININE (test code = CREAT) 5.9 MG/DL 0.6-1.0 H CALCIUM (test code = CA) 8.1 MG/DL 8.5-10.1 L [id number] 04:59:00 Test Item Value Reference Range Interpretation Comments PHOSPHOROUS (test code = PHOS) 6.7 MG/DL 2.5-4.9 H [id number] 04:59:00 Test Item Value Reference Range Interpretation Comments MAGNESIUM (test code = MAG) 2.5 MG/DL 1.8-2.4 H CBC W/AUTO [id number] 04:51:00 Test Item Value Reference Range Interpretation Comments WHITE BLOOD CELL (test code = 8.2 K/mm3 3.5-11.0 N WBC) RED BLOOD CELL (test code = 2.66 M/mm3 4.70-6.10 L RBC) HEMOGLOBIN (test code = HGB) 7.5 G/DL 10.4-14.9 L HEMATOCRIT (test code = HCT) 25.5 % 31.5-44.1 L MEAN CELL VOLUME (test code = 95.9 Fl 84.5-98.6 N MCV) MEAN CELL HGB (test code = MCH) 28.2 pg 27.0-34.2 N MEAN CELL HGB CONCETRATION 29.4 G/DL 31.5-34.0 L (test code = MCHC) RED CELL DISTRIBUTION WIDTH 15.4 SD 11.5-14.5 H (test code = RDW) PLATELET COUNT (test code = 214 K/mm3 150-450 N PLT) MEAN PLATELET VOLUME (test code 9.30 fL 7.0-10.5 N = MPV) NEUTROPHIL % (test code = NT%) 44.1 % 40-76 IMMATURE GRANULOCYTE % (test 0.2 % 0.0-5.0 N code = IG%) LYMPHOCYTE % (test code = LY%) 34.7 % 20.5-51.1 N MONOCYTE % (test code = MO%) 14.2 % 1.7-9.3 H EOSINOPHIL % (test code = EO%) 6.1 % 0.0-6.0 H BASOPHIL % (test code = BA%) 0.7 % 0.0-2.0 N NUCLEATED RBC % (test code = 0.0 /100WBC% 0.0-1.0 N NRBC%) NEUTROPHIL # (test code = NT#) 3.6 K/mm3 1.8-7.6 N IMMATURE GRANULOCYTE # (test 0.02 x10 3/uL 0.00-0.03 N code = IG#) LYMPHOCYTE # (test code = LY#) 2.8 K/mm3 0.6-3.2 N MONOCYTE # (test code = MO#) 1.2 K/mm3 0.3-1.1 H EOSINOPHIL # (test code = EO#) 0.5 K/mm3 0.0-0.4 H BASOPHIL # (test code = BA#) 0.1 K/mm3 0.0-0.1 N NUCLEATED RBC # (test code = 0.0 K/mm3 0.0-0.1 N NRBC#) MANUAL DIFF REQUIRED (test code NO DIFF/SCN CRITERIA = MDIFF) - US [id number] 12:25:00 [facility] : 1945 Sex: F Name: NGUYỄN RITTER [facility] : 1945 Age/S: 76 / F [address] [address] Unit #: [id number] Loc: [place] [address] Phys: Sagar Taveras MD Acct: [id number] Dis Date: Status: ADM IN PHONE #: [phone] Exam Date: 08/20/2022 1413 FAX #: Reason: PSEUDOANEURYSM - THROMBIN INJECTION EXAMS: CPT: [id number] US INTRAOPERATIVE 42499 S 17 TIME OF STUDY: 08/21/2022 REASON FOR EXAM: PSEUDOANEURYSM- THROMBIN INJECTION COMPARISON: None. TECHNIQUE: High- resolution grayscale and color Doppler ultrasound of the right inguinal soft tissues were obtained. FINDINGS: Intraoperative ultrasound was provided for right femoral pseudoaneurysm thrombin injection for Dr. Dolan. Impression: 1. Intraoperative images of the right common femoral artery and pseudoaneurysm. Please see operative report for procedure details. at 1225 Reported and signed by: Rich Callejas M.D. CC: Sagar Taveras MD Technologist: Samira Oswald [facility] Date/Time: 08/21/2022 (1836) [email or web address] PAGE 1 Signed Report Name: NGUYỄN RITTER [facility] : 1945 Age/S: 76 /F [address] [address] Unit #: [id number] Loc: [place] [address] Phys: Sagar Taveras MD Acct: [id number] Dis Date: Status: ADM IN PHONE #: [phone] Exam Date: 08/20/2022 1413 FAX #: Reason: PSEUDO ANEURYSM - THROMBIN INJECTION EXAMS: CPT: [id number] US INTRAOPERATIVE [id number] (Continued) Orig Print D/T: S: 08/21/2022 (5308) Probe: PAGE 2 Signed ReportAB HEPATITIS B [id number] 10:14:00 Test Item Value Reference Range Interpretation Comments AB HEPATITIS B <3.1 mIU/mL See_Comment A Status of Im munity SURFACE (test code = Anti-HB s Level HBSAB) --- I nconsi stent with Immu nity 0.0 - 9.9Consis tent with Immunity > 9.9 [Automated mess age] The system [employer] generated this result transmitted ref erence range: Immunity >9.9. The reference r bonny was not used to interpret this result as normal/abnor mal. AB HEPATITIS B [id number] 10:14:00 Test Item Value Reference Range Interpretation Comments AB HEPATITIS B CORE Negative Negative Performe d At: HD (test code = HBCAB) [facility] [id number] [place], [place] [id number] amador Payne MD Ph:[phone] - [address] UNI [id number] 09:45:00 [facility] : 1945 Sex: F Name: NGUYỄN RITTER : 1945 Age/S: 76 / F [address] [address] Unit #: [id number] Loc: [place] [address] Phys: Shaun Dolan MD Acct: [id number] Dis Date: Status: ADM IN PHONE#: [phone] Exam Date: 08/21/2022 0854 FAX #: Reason: Right groin ultrasound for pseudoaneurysm EXAMS: CPT: [id number] [place] [address] LOCATION: B2 EXAM: Right lower extremity arterial Doppler HISTORY: Right groin ultrasound for pseudoaneurysm TECHNIQUE: Grayscale B-mode, color-flow, and spectral Doppler analysis of the right lower extremity arterial vasculature was performed. COMPARISON:08/20/2022 FINDINGS: The right common femoral and superficial femoral arteries and veins are patent. There is no flow on color or spectral Doppler images within the previously defined pseudoaneurysms. No new pseudoaneurysm is identified. IMPRESSION: Previously described pseudoaneurysms appear occluded on the current exam. at 0945 Reported and signed by: Mark Emmanuel M.D. CC: Shaun Dolan MD; Sagar Taveras MD Technologist: Samira Oswald; Pauly Ocampo RDMS Renay Trnscb Date/Time: 08/21/2022 (0945) Adeline.[email or web address] PAGE 1 Signed Report Name:NGUYỄN RITTER : 1945 Age/S: 76 / F [address] [address] Unit #: [id number]: Eliu [place] [address] Phys: Shaun Dolan MD Acct: [id number] Dis Date: Status: ADM IN PHONE #: [phone] Exam Date: 08/21/2022 0854 FAX #: Reason: Right groin ultrasound for pseudoaneurysm EXAMS: CPT: [id number] [place] [address] (Continued) Orig Print D/T: S: 08/21/2022 (0948) Probe: PAGE 2 Signed ReportBASIC METABOLIC [id number] 03:34:00 Test Item Value Reference Range Interpretation Comments SODIUM (test code = NA) 137 mmol/L 134-147 N POTASSIUM (test code = K) 4.1 mmol/L 3.4-5.0 N CHLORIDE (test code = CL) 101 mmol/L 100-108 N CARBON DIOXIDE (test code = 24 mmol/L 21-32 N CO2) ANION GAP (test code = GAP) 12.0 GAP calc 4.0-15.0 N GLUCOSE (test code = GLU) 105 MG/DL 70-110 N BLOOD UREA NITROGEN (test code 35 MG/DL 7-18 H = BUN) GLOMERULAR FILTRATION RATE 11 estGFR >60 L (test code = GFR) CREATININE (test code = CREAT) 4.9 MG/DL 0.6-1.0 H CALCIUM (test code = CA) 8.5 MG/DL 8.5-10.1 N [id number] 03:34:00 Test Item Value Reference Range Interpretation Comments PHOSPHOROUS (test code = PHOS) 6.3 MG/DL 2.5-4.9 H [id number] 03:34:00 Test Item Value Reference Range Interpretation Comments MAGNESIUM (test code = MAG) 2.4 MG/DL 1.8-2.4 CBC W/AUTO [id number] 03:31:00 Test Item Value Reference Range Interpretation Comments WHITE BLOOD CELL (test code = 9.0 K/mm3 3.5-11.0 N WBC) RED BLOOD CELL (test code = 2.94 M/mm3 4.70-6.10 L RBC) HEMOGLOBIN (test code = HGB) 8.3 G/DL 10.4-14.9 L HEMATOCRIT (test code = HCT) 28.1 % 31.5-44.1 L MEAN CELL VOLUME (test code = 95.6 Fl 84.5-98.6 N MCV) MEAN CELL HGB (test code = MCH) 28.2 pg 27.0-34.2 N MEAN CELL HGB CONCETRATION 29.5 G/DL 31.5-34.0 L (test code = MCHC) RED CELL DISTRIBUTION WIDTH 15.6 SD 11.5-14.5 H (test code = RDW) PLATELET COUNT (test code = 171 K/mm3 150-450 N PLT) MEAN PLATELET VOLUME (test code 8.70 fL 7.0-10.5 N = MPV) NEUTROPHIL % (test code = NT%) 67.2 % 40-76 IMMATURE GRANULOCYTE % (test 0.3 % 0.0-5.0 N code = IG%) LYMPHOCYTE % (test code = LY%) 19.4 % 20.5-51.1 L MONOCYTE % (test code = MO%) 10.6 % 1.7-9.3 H EOSINOPHIL % (test code = EO%) 2.1 % 0.0-6.0 N BASOPHIL % (test code = BA%) 0.4 % 0.0-2.0 N NUCLEATED RBC % (test code = 0.0 /100WBC% 0.0-1.0 N NRBC%) NEUTROPHIL # (test code = NT#) 6.0 K/mm3 1.8-7.6 N IMMATURE GRANULOCYTE # (test 0.03 x10 3/uL 0.00-0.03 N code = IG#) LYMPHOCYTE # (test code = LY#) 1.7 K/mm3 0.6-3.2 N MONOCYTE # (test code = MO#) 1.0 K/mm3 0.3-1.1 N EOSINOPHIL # (test code = EO#) 0.2 K/mm3 0.0-0.4 N BASOPHIL # (test code = BA#) 0.0 K/mm3 0.0-0.1 N NUCLEATED RBC # (test code = 0.0 K/mm3 0.0-0.1 N NRBC#) MANUAL DIFF REQUIRED (test code NO DIFF/SCN CRITERIA = MDIFF) AG HEPATITIS B [id number] 10:46:00 Test Item Value Reference Range Interpretation Comments AG HEPATITIS B SURFACE NON REACTIVE INDEX NonReactive (test code = HBSAG) Comment: PriorityAG HEPATITIS B [id number] 10:46:00 Test Item Value Reference Range Interpretation Comments AG HEPATITIS B SURFACE NON REACTIVE INDEX NonReactive (test code = HBSAG) Comment: PriorityTHROMBOPLASTIN TIME [id number] 10:28:00 Test Item Value Reference Range Interpretation Comments THROMBOPLASTIN TIME PARTIAL 43.2 SECONDS 26-35 H (test code = PTT) - KAYLA MILLER [id number] 09:36:00 [facility] 1945 Sex: F Name: NGUYỄN RITTER [facility] : 1945 Age/S: 76 / F [address] [address] Unit #: [id number] Loc: [place] [address] Phys: Shaun Dolan MD Acct: [id number] Dis Date: Status: ADM IN PHONE#: [phone] Exam Date: 08/20/2022918 FAX #: Reason: R/O right groin pseudoaneurysm post angiogram EXAMS: CPT: [id number] [address] S 17 REASON FOR EXAM: Recent femoral artery catheterization, groin pain, evaluate for pseudoaneurysm COMPARISON: None FINDINGS: Doppler, cui-scale andcolor-flow imaging of the right groin in the area of catheterization was performed. Normal color-flow and Doppler signal is seen in the common femoral and superficial femoral arteries. Normal flow is also seen in the femoral vein. In the region of the right common femoral artery a pseudoaneurysm is seen measuring approximately 5.4 x 2.8 x 5.0 cm, with a neck measuring approximately 0.4 cm. An additional 6 cm hematoma is also seen in the right upper thigh. IMPRESSION: 1. Pseudoaneurysm anterior to the right common femoral artery. 2. Right thigh hematoma. at 0936 Reported and signed by: Rich Callejas M.D. CC: Shaun Dolan MD; Sagar Mobley Technologist: Samira Oswald Trnscb Date/Time: 08/20/2022 (0936) [email or web address] PAGE 1 Signed Report Name: NGUYỄN RITTER [place] : 1945 Age/S: 76 / F [address] [address] Unit #: [id number] Loc: [place] [address] Phys: Shaun Dolan MD Acct: [id number] Dis Date: Status: ADM IN PHONE #: [phone] Exam Date: 08/20/2022918 FAX #: Reason: R/O right groin pseudoaneurysm post angiogram EXAMS: CPT: [id number] [place] [address] (Continued) Orig Print D/T: S: 08/20/2022 (0939)Probe: PAGE 2 Signed ReportCBC W/AUTO [id number] 06:18:00 Test Item Value Reference Range Interpretation Comments WHITE BLOOD CELL (test code = 7.9 K/mm3 3.5-11.0 N WBC) RED BLOOD CELL (test code = 3.53 M/mm3 4.70-6.10 L RBC) HEMOGLOBIN (test code = HGB) 9.9 G/DL 10.4-14.9 L HEMATOCRIT (test code = HCT) 34.3 % 31.5-44.1 N MEAN CELL VOLUME (test code = 97.2 Fl 84.5-98.6 N MCV) MEAN CELL HGB (test code = MCH) 28.0 pg 27.0-34.2 N MEAN CELL HGB CONCETRATION 28.9 G/DL 31.5-34.0 L (test code = MCHC) RED CELL DISTRIBUTION WIDTH 15.4 SD 11.5-14.5 H (test code = RDW) PLATELET COUNT (test code = 242 K/mm3 150-450 N PLT) MEAN PLATELET VOLUME (test code 8.80 fL 7.0-10.5 N = MPV) NEUTROPHIL % (test code = NT%) 54.6 % 40-76 N IMMATURE GRANULOCYTE % (test 0.3 % 0.0-5.0 N code = IG%) LYMPHOCYTE % (test code = LY%) 31.2 % 20.5-51.1 N MONOCYTE % (test code = MO%) 8.4 % 1.7-9.3 N EOSINOPHIL % (test code = EO%) 4.6 % 0.0-6.0 N BASOPHIL % (test code = BA%) 0.9 % 0.0-2.0 N NUCLEATED RBC % (test code = 0.0 /100WBC% 0.0-1.0 N NRBC%) NEUTROPHIL # (test code = NT#) 4.3 K/mm3 1.8-7.6 N IMMATURE GRANULOCYTE # (test 0.02 x10 3/uL 0.00-0.03 N code = IG#) LYMPHOCYTE # (test code = LY#) 2.5 K/mm3 0.6-3.2 N MONOCYTE # (test code = MO#) 0.7 K/mm3 0.3-1.1 N EOSINOPHIL # (test code = EO#) 0.4 K/mm3 0.0-0.4 N BASOPHIL # (test code = BA#) 0.1 K/mm3 0.0-0.1 N NUCLEATED RBC # (test code = 0.0 K/mm3 0.0-0.1 N NRBC#) MANUAL DIFF REQUIRED (test code NO DIFF/SCN CRITERIA = MDIFF) RBC [id number] 06:18:00 Test Item Value Reference Range Interpretation Comments HYPOCHROMIA (test code = TRACE ON SCAN NONE HYPO) ANISOCYTOSIS (test code = TRACE NONE ANISO) MACROCYTOSIS (test code = TRACE ON SCAN NONE MACR) PLATELET ESTIMATE (test ADEQUATE THOUSAND ADEQUATE code = PLTEST) PLATELET MORPHOLOGY (test NORMAL code = PLTMORPH) BASIC METABOLIC [id number] 04:50:00 Test Item Value Reference Range Interpretation Comments SODIUM (test code = NA) 131 mmol/L 134-147 L POTASSIUM (test code = K) 5.9 mmol/L 3.4-5.0 HH CHLORIDE (test code = CL) 97 mmol/L 100-108 L CARBON DIOXIDE (test code = 21 mmol/L 21-32 N CO2) ANION GAP (test code = GAP) 13.0 GAP calc 4.0-15.0 N GLUCOSE (test code = GLU) 80 MG/DL 70-110 N BLOOD UREA NITROGEN (test code 57 MG/DL 7-18 H = BUN) GLOMERULAR FILTRATION RATE 9 estGFR >60 L (test code = GFR) CREATININE (test code = CREAT) 6.1 MG/DL 0.6-1.0 H CALCIUM (test code = CA) 7.9 MG/DL 8.5-10.1 L [id number] 04:50:00 Test Item Value Reference Range Interpretation Comments PHOSPHOROUS (test code = PHOS) 8.9 MG/DL 2.5-4.9 H [id number] 04:50:00 Test Item Value Reference Range Interpretation Comments MAGNESIUM (test code = MAG) 2.9 MG/DL 1.8-2.4 H THROMBOPLASTIN TIME [id number] 04:24:00 Test Item Value Reference Range Interpretation Comments THROMBOPLASTIN TIME PARTIAL 73.0 SECONDS 26-35 H (test code = PTT) THROMBOPLASTIN TIME [id number] 22:38:00 Test Item Value Reference Range Interpretation Comments THROMBOPLASTIN TIME PARTIAL 99.6 SECONDS 26-35 H (test code = PTT) COAGULATION TIME [id number] 13:25:00 Test Item Value Reference Range Interpretation Comments COAGULATION TIME ACTIVATED (test 161 SECistat 74-125 H code = ACT) GLUCOSE BEDSIDE [id number] 11:47:00 Test Item Value Reference Range Interpretation Comments GLUCOSE BEDSIDE TESTING (test code = 84 mg/dL 70-110 N GLUBED) CBC W/AUTO [id number] 11:29:00 Test Item Value Reference Range Interpretation Comments WHITE BLOOD CELL 7.9 K/mm3 3.5-11.0 N (test code = WBC) RED BLOOD CELL (test 4.05 M/mm3 4.70-6.10 L code = RBC) HEMOGLOBIN (test code 11.3 G/DL 10.4-14.9 N = HGB) HEMATOCRIT (test code 39.5 % 31.5-44.1 N = HCT) MEAN CELL VOLUME 97.5 Fl 84.5-98.6 N (test code = MCV) MEAN CELL HGB (test 27.9 pg 27.0-34.2 N code = MCH) MEAN CELL HGB 28.6 G/DL 31.5-34.0 L CONCETRATION (test code = MCHC) RED CELL DISTRIBUTION 15.3 SD 11.5-14.5 H WIDTH (test code = RDW) PLATELET COUNT (test 212 K/mm3 150-450 N code = PLT) MEAN PLATELET VOLUME 9.80 fL 7.0-10.5 N (test code = MPV) NEUTROPHIL % (test 52.9 % 40-76 N code = NT%) IMMATURE GRANULOCYTE 0.3 % 0.0-5.0 N % (test code = IG%) LYMPHOCYTE % (test 30.1 % 20.5-51.1 N code = LY%) MONOCYTE % (test code 10.6 % 1.7-9.3 H = MO%) EOSINOPHIL % (test 5.2 % 0.0-6.0 N code = EO%) BASOPHIL % (test code 0.9 % 0.0-2.0 N = BA%) NUCLEATED RBC % (test 0.0 /100WBC% 0.0-1.0 N code = NRBC%) NEUTROPHIL # (test 4.2 K/mm3 1.8-7.6 N code = NT#) IMMATURE GRANULOCYTE 0.02 x10 3/uL 0.00-0.03 N # (test code = IG#) LYMPHOCYTE # (test 2.4 K/mm3 0.6-3.2 N code = LY#) MONOCYTE # (test code 0.8 K/mm3 0.3-1.1 N = MO#) EOSINOPHIL # (test 0.4 K/mm3 0.0-0.4 N code = EO#) BASOPHIL # (test code 0.1 K/mm3 0.0-0.1 N = BA#) NUCLEATED RBC # (test 0.0 K/mm3 0.0-0.1 N code = NRBC#) MANUAL DIFF REQUIRED NO DIFF/SCN CRITERIA SLIDE R EVIEW (test code = MDIFF) CONSISTA NT WITH AUTO DIFFERENTI AL. RBC [id number] 11:29:00 Test Item Value Reference Range Interpretation Comments HYPOCHROMIA (test code = 1+ ON SCAN NONE HYPO) ANISOCYTOSIS (test code = TRACE NONE ANISO) PLATELET ESTIMATE (test ADEQUATE THOUSAND ADEQUATE code = PLTEST) PLATELET MORPHOLOGY (test NORMAL code = PLTMORPH) URIC [id number] 08:58:00 Test Item Value Reference Range Interpretation Comments URIC ACID (test code = URIC) 4.0 MG/DL 2.6-6.0 N BASIC METABOLIC [id number] 07:09:00 Test Item Value Reference Range Interpretation Comments SODIUM (test code = NA) 132 mmol/L 134-147 L POTASSIUM (test code = K) 5.2 mmol/L 3.4-5.0 H CHLORIDE (test code = CL) 99 mmol/L 100-108 L CARBON DIOXIDE (test code = 23 mmol/L 21-32 N CO2) ANION GAP (test code = GAP) 10.0 GAP calc 4.0-15.0 N GLUCOSE (test code = GLU) 85 MG/DL 70-110 N BLOOD UREA NITROGEN (test code 46 MG/DL 7-18 H = BUN) GLOMERULAR FILTRATION RATE 11 estGFR >60 L (test code = GFR) CREATININE (test code = CREAT) 5.1 MG/DL 0.6-1.0 H CALCIUM (test code = CA) 8.5 MG/DL 8.5-10.1 N [id number] 07:09:00 Test Item Value Reference Range Interpretation Comments PHOSPHOROUS (test code = PHOS) 6.4 MG/DL 2.5-4.9 H [id number] 07:09:00 Test Item Value Reference Range Interpretation Comments MAGNESIUM (test code = MAG) 2.9 MG/DL 1.8-2.4 H THROMBOPLASTIN TIME [id number] 06:24:00 Test Item Value Reference Range Interpretation Comments THROMBOPLASTIN TIME PARTIAL 196.8 SECONDS 26-35 HH (test code = PTT) - DUP LE ART [id number] 23:53:00 [facility] : 1945 Sex: F Name: NGUYỄN RITTER : 1945 Age/S: 76 / F [address] [address] Unit #: [id number] Loc: [place] [address] Phys: Sagar Taveras MD Acct: [id number] Dis Date: Status: ADM IN PHONE #: [phone] Exam Date: 08/18/20222314 FAX #: Reason: L foot cyanosis. EXAMS: CPT: [id number] DUP LE ART [place] [id number] EXAMINATION: - DUP LE ART KELLIE INDICATION: L foot cyanosis. COMPARISON: CTA runoff 08/18/2022 LOCATION: H68 TECHNIQUE: Grayscale, color Doppler, and spectral Doppler sonographic images were obtained of the bilateral lower extremity arterial vasculature. FINDINGS: On the right, triphasic waveform in the common femoral and profunda femoral arteries. Biphasic waveform in the proximal andmid superficial femoral artery. Occluded distal superficial femoral artery. Status post above-knee amputation. On the left, triphasic waveform in the common femoral, superficial femoral, and poplitealarteries. Occluded anterior tibial, posterior tibial, and dorsalis pedis arteries. Monophasic waveforms in the peroneal artery. IMPRESSION: As above. at 2353 Reported and signed by: Wang Cook M.D. CC: Sagar Taveras MD Technologist: Rodríguez Johnson [facility] Date/Time: 08/18/2022 (2353) [email or web address] PAGE 1 Signed Report Name: NGUYỄN WRIGHT : 1945 Age/S: 76 / F [address] [address] Unit #: [id number] Loc: [place] [address] Phys: Sagar Taveras MD Acct: [id number] Dis Date: Status: ADM IN PHONE #: [phone] Exam Date: 08/18/20222314 FAX #: Reason: L foot cyanosis. EXAMS: CPT: [id number] DUP [place] [address] (Continued) Orig Print D/T: S: 08/18/2022 (2356) Probe: PAGE 2 Signed Report- CTA ABD AORTA IF LWEX [id number] 22:57:00 [facility] 1945 Sex: F Name: NGUYỄN RITTER [facility] : 1945 Age/S: 76 / F [address] [address] Unit #: [id number] Loc: [place] [address] Phys: ErwinандрейLam Acct: [id number] Dis Date: Status: ADM IN PHONE #:[phone] Exam Date: 08/18/2022 193 FAX #: Reason: LLE arterial occlusion Report Has Been Amended EXAMS: CPT: [id number] [place] [address] Addendum - 08/18/2022 SIGNED 08/18/[address]: [id number] Addendum: To correct voice activation error Posterior tibial artery: Occlusion from its origin. There is likely reconstitution of right posterior tibial artery at theankle from branches of the peroneal artery. at 0439 Reported and signed by: Steven Dotson M.D. Transcribed: 08/18/2022 (2253) [email or web address] Report EXAM: - CTA ABD AORTA IF LWEX RO Location: H24 INDICATION: LLE arterial occlusion COMPARISON: None Technique: Axial images of the abdomen, pelvis and lower extremities were obtained after the administration of 150 mL Isovue-370 intravenous contrast. Coronal and sagittal maximum intensity projections were created. One or more of the following dose reduction techniques were used: Automated exposure control, adjustment of the mA and/or kV according to patient size, and/or utilization of iterative reconstruction technique. GFR: , Creatinine: mg/dL DLP: 1348 mGy-cm. FINDINGS: Vessels Aorta: Enlargement ofthe partly visualized ascending thoracic aorta measuring up to 4.3 cm. Descending thoracic aorta measures 2.6 cm in diameter. Abdominal aorta at the hiatus measures 2.1 cm. At the renal arteries, diameter measures 1.7 cm. Just proximal to the bifurcation, diameter measures 1.5 cm. There is no aneurysmal dilatation or dissection of the abdominal aorta. PAGE 1 Signed Report (CONTINUED) Name: NGUYỄN RITTER : 1945 Age/S: 76 / F [address] [address] Unit #: [id number] Loc: [place] [address] Phys: Lam Walton DO Acct: [id number] Dis Date: Status: ADM IN PHONE #: [phone] Date: 08/18/20221933 FAX #: Reason: LLE arterial occlusion Report Has Been Amended EXAMS: CPT: [id number] [place] [address] (Continued) Aortic branches: Origins of the celiac trunk, superior mesenteric artery, renal arteries and inferior mesenteric artery are within normal limits. Iliac arteries: Minimal calcific plaque within the common and internal iliac arteries. No measurable stenosis. External iliac arteries are patent and within normal limits. Femoral arteries: Common femoral arteries, deep femoral arteries and proximal superficial femoral arteries are grossly within normal limits. There is occlusion of the right superficial femoral femoral artery in mid thigh. There is a stent in the distal right superficial femoral artery which is occluded. Branches of the right deep femoral artery are within normal limits. The left superficial femoral arteries followed to the popliteal fossa. Minimal plaque and mild stenosis is noted distally. The left deep femoral artery branches are within normal limits. Note is made of a right xlzei-tsh-imlp amputation. Left popliteal artery: There is extensive calcific plaque and irregularity and narrowing of approximately 30-40% in the proximal left popliteal artery. Streak artifact from left knee arthroplasty further limits characterization of the distal left popliteal artery. Left popliteal artery is followed to the bifurcation. Anterior tibial artery: There is absence of flow of the right anterior tibial artery from its origin. There is calcific plaque seen more distally. Absent flow within the dorsalis pedis artery Posterior tibial artery: Occlusion from its origin. There is likely, reconstitution of right posterior cerebral artery at the ankle from branches of the peroneal artery. Peroneal artery: Flow is visualized within the peroneal artery from its origin to the level of the ankle. FINDINGS: Abdomen Lower thorax: Bandlike scarring versus atelectasis in the lung bases. Heart is mildly to moderately enlarged. Hepatobiliary: Fatty infiltration. No discrete intrahepatic lesions. There is dilation of the common bile duct followed to the ampulla. PAGE 2 Signed Report (CONTINUED) Name: NGUYỄN RITTER : 1945 Age/S: 76 / F [address] [address] Unit #: [id number] Loc: [place] [address] Phys: Lam Walton DO Acct: [id number] Dis Date: Status: ADM IN PHONE #: [phone] Exam Date: 08/18/20221933 FAX #: Reason: LLE arterial occlusion Report Has Been Amended EXAMS: CPT: [id number] [place] [address] (Continued) Gallbladder: Gallstones within gallbladder lumen. No gallbladder wall t hickening. Spleen: No visualized abnormality. Pancreas: Dilation of the main pancreatic duct followed to the ampulla. No mass lesions or cysts. No surrounding inflammatory changes. Adrenals: No visualized abnormality. Kidneys: Diminutive bilaterally. Complex cyst in mid right kidney with thick wall of calcification and questionable enhancing septation measuring 1.5 cm.Follow-up imaging with CT renal mass protocol recommended. No hydronephrosis or hydroureter. Bowel: The small and large bowel loops are normal in caliber. There is no abnormal mural thickening or obstruction. A normal caliber appendixis seen in the right lower quadrant. The stomach and gastroesophageal junction are within normal limits. Lymph nodes: No lymphadenopathy Peritoneum/retroperitoneum: There is periapical hernia containing loop of small bowel. No obstruction. No free intraperitoneal air or fluid. FINDINGS: Pelvis Pelvic organs/bladder: Surgical absence of the uterus. Urinary bladder mildly distended. No free pelvic fluid. Lymph nodes: No pelvic or inguinal adenopathy. Bones/soft tissues: Spondylosis and facet arthrosisin lower lumbar spine with grade 1 anterolisthesis from L3-L4 through L5-S1. FINDINGS: Lower extremities Right rvkdr-fzc-rvch amputation. Atrophy of supportive musculature of bilateral legs. Right total knee arthroplasty is present. Fusion PAGE 3 Signed Report (CONTINUED) Name: NGUYỄN RITTER : 1945 Age/S: 76 / F [address] [address] Unit #: [id number] Loc: [place] [address] Phys: Lam Walton DO Acct: [id number] Dis Date: Status: ADM IN PHONE #: [phone] Exam Date: 08/18/20221933 FAX #: Reason: LLE arterial occlusion Report Has Been Amended EXAMS: CPT: [id number] [address] (Continued) hardware in the hindfoot with questionable Charcot joint.IMPRESSION: 1. Occlusion at the origins of the left anterior and posterior tibial arteries. There islikely reconstitution of left posterior tibial artery at the ankle from branches of the peroneal artery. 2. Stenosis within the left popliteal artery. 3. There is a right kevtx-paf-imyy amputation. There is occlusion of the right superficial femoral artery in the mid thigh just superior to the amputation and stent. 4. Mild aneurysmal dilatation of the partly visualized ascending thoracic aorta. The abdominal aorta is normal in caliber without aneurysmal dilatation or dissection. 5. Aortic branches are within normal limits. 6. Complex cyst in the mid right kidney which can be better characterized with dedicated CT renal mass protocol or MRI on nonemergent basis. 7. Cholelithiasis without further CT evidence for acute cholecystitis. 8. Dilation of the common bile duct and main pancreatic duct followed to the ampulla. Please correlate with hepatic profile. Electronically Signed by Gabe Godwin 08/18/2022 at 2034 Reported and signed by: Steven Dotson M.D. CC: Lam Walton DO Technologist:Pacheco Flores, RT(R); ROE CTDI: DLP: Trnscb Date/Time: 08/18/2022 (2034) [email or web address] Orig Print D/T: S: 08/18/2022 (2037) PAGE 4 Signed ReportCOVID 19 Asymptomatic IH AG 2022-08-18 22:03:00 Test Item Value Reference Range Interpretation Comments COVID 19 Asymptomatic NEGATIVE Negative Per ma nufacturer, IH AG (test code = negative results should COVNONPUIAG) be treated aspresumptive a nd, if inconsistent wi th clinical signs andsymptoms or necessary for p atient management, linda uld betested with a n alternative mol ecular assay. Negative resultsdo not p reclude SARS-CoV-2 infe ction and should not be usedas the sole basis for patient man agement decisions. Nega tive results should be considered in t he context of apat ient's recent exposure s, history, presen ce of clinicalsigns a nd symptoms consis tent with COVID-19. PROTHROMBIN [id number] 19:41:00 Test Item Value Reference Range Interpretation Comments PT PATIENT (test 12.6 SECONDS 9.3-12.9 N code = PTP) INTERNATIONAL NORMAL 1.10 INR Unit 0.8-1.2 N TARGE T INR BY RATIO (test code = INDICATIO N Indication INR) INR1. Prophylax is of venous thrombos is 2.0 - 3.0 (orthoped ic surgery), Proph ylaxis of venous throm bosis (other than hig h-risk surgery), Treat ment of Deep Vein Thrombosis/Pulm onary Embolism, Preve ntion of systemic emb olism - Tissue heart va lves, Acute Myocardia l Infarction (to prevent systemic emboli sm), Valvular heart disease, Acute Myocardial Infa rction (to prevent sys temic embolism), Valv ular heart disease, Atrial Fibrillation, Bileaflet mecha nical valve in aortic position.2. Mec hanical prosthetic valv es (high risk), 2. 5 - 3.5 Presence of Lup us Anticoagulant o r Antiphospholipi d Antibodies, Pre vention of systemic emb olism - Acute Myocardia l Infarction (to prevent recurrent infar ct). THROMBOPLASTIN TIME [id number] 19:41:00 Test Item Value Reference Range Interpretation Comments THROMBOPLASTIN TIME PARTIAL 35.9 SECONDS 26-35 H (test code = PTT) BASIC METABOLIC [id number] 19:36:00 Test Item Value Reference Range Interpretation Comments SODIUM (test code = NA) 132 mmol/L 134-147 L POTASSIUM (test code = K) 4.5 mmol/L 3.4-5.0 N CHLORIDE (test code = CL) 97 mmol/L 100-108 L CARBON DIOXIDE (test code = CO2) 26 mmol/L 21-32 N ANION GAP (test code = GAP) 9.0 GAP calc 4.0-15.0 N GLUCOSE (test code = GLU) 110 MG/DL 70-110 N BLOOD UREA NITROGEN (test code = 37 MG/DL 7-18 H BUN) GLOMERULAR FILTRATION RATE (test 12 estGFR >60 L code = GFR) CREATININE (test code = CREAT) 4.5 MG/DL 0.6-1.0 H CALCIUM (test code = CA) 8.9 MG/DL 8.5-10.1 N CBC W/O [id number] 19:26:00 Test Item Value Reference Range Interpretation Comments WHITE BLOOD CELL (test code = WBC) 7.8 K/mm3 3.5-11.0 N RED BLOOD CELL (test code = RBC) 4.37 M/mm3 4.70-6.10 L HEMOGLOBIN (test code = HGB) 12.2 G/DL 10.4-14.9 N HEMATOCRIT (test code = HCT) 42.2 % 31.5-44.1 N MEAN CELL VOLUME (test code = MCV) 96.6 Fl 84.5-98.6 N MEAN CELL HGB (test code = MCH) 27.9 pg 27.0-34.2 N MEAN CELL HGB CONCETRATION (test 28.9 G/DL 31.5-34.0 L code = MCHC) RED CELL DISTRIBUTION WIDTH (test 15.2 SD 11.5-14.5 H code = RDW) PLATELET COUNT (test code = PLT) 216 K/mm3 150-450 N MEAN PLATELET VOLUME (test code = 8.60 fL 7.0-10.5 N MPV) COVID 19 INHOUSE [id number] 17:34:00 Test Item Value Reference Range Interpretation Comments COVID 19 INHOUSE AG NEGATIVE Negative Per manu facturer, (test code = negative result s should [id number]) be treated aspr esumptive and, if inconsi stent with clinical signs andsymptoms or necessary for patient man agement, should betested with an alternative mol ecular assay. Negative resultsdo not preclude SA RS-CoV-2 infection and s hould not be usedas the s ole basis for patient man agement decisions. Nega tive results should be considered in t he context of apatient's r ecent exposures, hist ory, presence of cli nicalsigns and symptoms co nsistent with COVID-19. COMPREHENSIVE METABOLIC [id number] 09:31:00 Test Item Value Reference Range Interpretation Comments SODIUM (test code = NA) 139 mmol/L 134-147 N POTASSIUM (test code = K) 4.2 mmol/L 3.4-5.0 N CHLORIDE (test code = CL) 105 mmol/L 100-108 N CARBON DIOXIDE (test code = 24 mmol/L 21-32 N CO2) ANION GAP (test code = GAP) 10.0 GAP calc 4.0-15.0 N GLUCOSE (test code = GLU) 158 MG/DL 70-110 H BLOOD UREA NITROGEN (test code 47 MG/DL 7-18 H = BUN) GLOMERULAR FILTRATION RATE 9 estGFR >60 L (test code = GFR) CREATININE (test code = CREAT) 5.7 MG/DL 0.6-1.0 H TOTAL PROTEIN (test code = 7.6 G/DL 6.4-8.2 N PROT) ALBUMIN (test code = ALB) 2.5 G/DL 3.4-5.0 L GLOBULIN (test code = GLOB) 5.1 GM/dL ALBUMIN/GLOBULIN RATIO (test 0.5 RATIO 1.2-2.2 L code = A/G) CALCIUM (test code = CA) 9.0 MG/DL 8.5-10.1 N BILIRUBIN TOTAL (test code = 0.40 MG/DL 0.2-1.2 N BILT) SGOT/AST (test code = AST) 27 Unit/L 15-37 N SGPT/ALT (test code = ALT) 15 Unit/L 12-78 N ALKALINE PHOSPHATASE TOTAL 143 Unit/L 45-117 H (test code = ALKP) CBC W/AUTO [id number] 09:11:00 Test Item Value Reference Range Interpretation Comments WHITE BLOOD CELL (test code = 8.1 K/mm3 3.5-11.0 N WBC) RED BLOOD CELL (test code = 3.40 M/mm3 4.70-6.10 L RBC) HEMOGLOBIN (test code = HGB) 9.4 G/DL 10.4-14.9 L HEMATOCRIT (test code = HCT) 31.5 % 31.5-44.1 N MEAN CELL VOLUME (test code = 92.6 Fl 84.5-98.6 N MCV) MEAN CELL HGB (test code = MCH) 27.6 pg 27.0-34.2 N MEAN CELL HGB CONCETRATION 29.8 G/DL 31.5-34.0 L (test code = MCHC) RED CELL DISTRIBUTION WIDTH 16.7 SD 11.5-14.5 H (test code = RDW) PLATELET COUNT (test code = 380 K/mm3 150-450 N PLT) MEAN PLATELET VOLUME (test code 9.00 fL 7.0-10.5 N = MPV) NEUTROPHIL % (test code = NT%) 57.6 % 40-76 N IMMATURE GRANULOCYTE % (test 1.1 % 0.0-5.0 N code = IG%) LYMPHOCYTE % (test code = LY%) 26.1 % 20.5-51.1 N MONOCYTE % (test code = MO%) 4.0 % 1.7-9.3 N EOSINOPHIL % (test code = EO%) 10.3 % 0.0-6.0 H BASOPHIL % (test code = BA%) 0.9 % 0.0-2.0 N NUCLEATED RBC % (test code = 0.0 /100WBC% 0.0-1.0 N NRBC%) NEUTROPHIL # (test code = NT#) 4.6 K/mm3 1.8-7.6 N IMMATURE GRANULOCYTE # (test 0.09 x10 3/uL 0.00-0.03 H code = IG#) LYMPHOCYTE # (test code = LY#) 2.1 K/mm3 0.6-3.2 N MONOCYTE # (test code = MO#) 0.3 K/mm3 0.3-1.1 N EOSINOPHIL # (test code = EO#) 0.8 K/mm3 0.0-0.4 H BASOPHIL # (test code = BA#) 0.1 K/mm3 0.0-0.1 N NUCLEATED RBC # (test code = 0.0 K/mm3 0.0-0.1 N NR#) MANUAL DIFF REQUIRED (test code NO DIFF/SCN CRITERIA = MDIFF) [id number] 20:13:00 Test Item Value Reference Range Interpretation Comments SURGICAL (test code = SR) RUN DATE: 05/20/22 [facility] - LAB PAGE 1 RUN TIME: 2012 Specimen Inquiry RUN USER: INTERFACE ALVERTO ENT: NGUYỄN RITTER LOC: [place] U #: [id number] AGE/SX: 76/F ROOM: [facility] RE05/14/22REG DR: Juan Luis Mendenhall MD : [birth year] BED: 1 DIS: STATUS: ADM IN TLOC: SPEC #: [id number] RECD: 05/14/22 STATUS: SOUT REQ #: [id number] SHARDA: 05/14/[address]: Juan Luis Mendenhall MD ENTERED: 05/14/22 SP TYPE: SURGICAL OTHR DR: ORDERED: [id number], [id number], ANATOMIC SPEC, SPECIMEN TRACK PROCEDURES: [id number] (05/14/22-1614) 13757 (05/20/22-1955) SPECIMEN TRACK (05/14/22-1614) TISSUES: A. AMPUTATED LARGE PART (EXTREMITY), NON-TRAUMATIC - RIGHT ABOVE THE KNEE AMPUTATION FINAL DIAGNOSIS Lower extremity, right, above the knee amputation:- Gangrene, coagulative and partially liquefactive, ulcerated, 2.3 cm at the heel,extending superficialy into periosteal calcaneous bone- All toes with necrotic aspect- Atherosclerosis, severe, partly calcified, posterior tibial artery; periarterial softtissue with mixed inflammation and ischemic changes- Knee protesis with skin cicatrix at anterior aspect- Skin and soft tissue margins, viable with mild ischemic changes in skeletal muscle- Viable femoral bone margin Comment: Suggest clinical and radiological correlation. GROSS DESCRIPTION Right leg amputation. Measures above knee margin of resection to knee 15.5 cm and fromknee to plantar heel 48 cm and foot 23 cm. The the plantar aspect of the heel has alesion measuring 2.3 x 1.8 cm. Sections through the lesion reveals minimal invasion of thecalcaneal bone. The medial and lateral malleolus vessels are grossly free of occlusions. Sectioning of the posterior tibial artery reveals occluded yellow-jean plaque with % blockage. The anterior aspect of the knee has a well-healed scar 17 cm in length. Additional sectioning reveals a previous knee prosthesis. Extending from the above theskin margin is a segment of firm femur bone measuring 4.5 cm in length. It has a smoothfirm margin. All of the toes are present with a black -brown grossly nonviable appearance. A 1 skin and muscle at marginA2 sections of plantar heel lesion with underlying calcaneal bone for decalcificationA3 posterior tibial arteryA4 lateral, medial malleolus vesselA5 section of femur bone at margin for decal Technical component performed at [id number], [place] [address] CONTINUED ON NEXT PAGE RUN DATE: 05/20/22 [facility] [place] - LAB PAGE 2 RUN TIME: 2012 Specimen Inquiry RUN USER: INTERFACE SPEC #: [id number] PATIENT: NGUYỄN RITTER #[id number] (Continued) ------- GROSS DESCRIPTION (Continued) Unless gross only, the diagnosis is based upon microscopic examination.Immunohistochemistry : This test was developed and its performancecharacteristics determined by this laboratory. It has not been approved nordoes it need approval by the [place] FDA. Appropriate positive and negative controlsare reviewed and judged to be acceptable. This laboratory is certified underthe Clinical Laboratory Improvement Amendments (CLIA-88) as qualified toperform high complexity clinical laboratory testing. MICROSCOPIC DESCRIPTION Findings are incorporated into the diagnosis/comment sections. Signed SIGNATURE ON FILE Trevor Lay 05/20/222012 END OF REPORT - XR CHEST 1 [id number] 12:55:00 [facility] : 1945 Sex: F Name: NGUYỄN RITTER [facility] : 1945 Age/S: 76 / F [address] [address] Unit #: [id number] Loc: [place] [address] Phys: Sagar Taveras MD Acct: [id number] Dis Date: Status: ADM IN PHONE#: [phone] Exam Date: 05/19/2022 1250 FAX #: Reason: SIRS EXAMS: CPT: [id number] XR CHEST 1 V 72180 Fluoro Time: DAP (Gy m2): Air Kerma (mGy): EXAMINATION: - XR CHEST 1 V HISTORY: Postop COMPARISON: Chest x-ray performed May 07, 2022 LOCATION CODE: C3 FINDINGS: Single frontal view of the chest is submitted for evaluation. Left-sided dual lumen catheter is unchanged. Lungs are clear. Cardiac silhouette and mediastinal contours are unremarkable. No acute bony abnormalities are seen. IMPRESSION:No acute radiographic abnormality at 1255 Reported and signed by: Tiffany Mahan M.D. CC: Sagar Taveras MD; Juan Luis Mendenhall MD PAGE 1 SignedReport Name: NGUYỄN RITTER : 1945 Age/S: 76 / F [address] [address] Unit #: [id number] Loc: [place] [address] Phys: Sagar Taveras MD Acct: [id number] Dis Date: Status: ADM IN PHONE #: [phone] Exam Date: 05/19/2022 1250 FAX #: Reason: SIRS EXAMS: CPT: [id number] XR CHEST 1 V 09652 Fluoro Time: DAP (Gy m2): Air Kerma (mGy): (Continued) Technologist: Trevor Barr,RT(R)(CT) Trnscb Date/Time: 05/19/2022 (9703) [email or web address] Orig Print D/T: S: 05/19/2022 (1999) PAGE 2Signed ReportBASIC METABOLIC [id number] 09:35:00 Test Item Value Reference Range Interpretation Comments SODIUM (test code = NA) 142 mmol/L 134-147 N POTASSIUM (test code = K) 4.0 mmol/L 3.4-5.0 N CHLORIDE (test code = CL) 111 mmol/L 100-108 H CARBON DIOXIDE (test code = 20 mmol/L 21-32 L CO2) ANION GAP (test code = GAP) 11.0 GAP calc 4.0-15.0 N GLUCOSE (test code = GLU) 150 MG/DL 70-110 H BLOOD UREA NITROGEN (test code 64 MG/DL 7-18 H = BUN) GLOMERULAR FILTRATION RATE 9 estGFR >60 L (test code = GFR) CREATININE (test code = CREAT) 6.1 MG/DL 0.6-1.0 H CALCIUM (test code = CA) 8.1 MG/DL 8.5-10.1 L CBC W/AUTO [id number] 09:09:00 Test Item Value Reference Range Interpretation Comments WHITE BLOOD CELL (test code = 13.1 K/mm3 3.5-11.0 H WBC) RED BLOOD CELL (test code = 3.19 M/mm3 4.70-6.10 L RBC) HEMOGLOBIN (test code = HGB) 8.9 G/DL 10.4-14.9 L HEMATOCRIT (test code = HCT) 29.7 % 31.5-44.1 L MEAN CELL VOLUME (test code = 93.1 Fl 84.5-98.6 N MCV) MEAN CELL HGB (test code = MCH) 27.9 pg 27.0-34.2 N MEAN CELL HGB CONCETRATION 30.0 G/DL 31.5-34.0 L (test code = MCHC) RED CELL DISTRIBUTION WIDTH 16.5 SD 11.5-14.5 H (test code = RDW) PLATELET COUNT (test code = 433 K/mm3 150-450 N PLT) MEAN PLATELET VOLUME (test code 9.20 fL 7.0-10.5 N = MPV) NEUTROPHIL % (test code = NT%) 72.8 % 40-76 N IMMATURE GRANULOCYTE % (test 0.8 % 0.0-5.0 N code = IG%) LYMPHOCYTE % (test code = LY%) 13.0 % 20.5-51.1 L MONOCYTE % (test code = MO%) 5.9 % 1.7-9.3 N EOSINOPHIL % (test code = EO%) 6.9 % 0.0-6.0 H BASOPHIL % (test code = BA%) 0.6 % 0.0-2.0 N NUCLEATED RBC % (test code = 0.0 /100WBC% 0.0-1.0 N NRBC%) NEUTROPHIL # (test code = NT#) 9.5 K/mm3 1.8-7.6 H IMMATURE GRANULOCYTE # (test 0.11 x10 3/uL 0.00-0.03 H code = IG#) LYMPHOCYTE # (test code = LY#) 1.7 K/mm3 0.6-3.2 N MONOCYTE # (test code = MO#) 0.8 K/mm3 0.3-1.1 N EOSINOPHIL # (test code = EO#) 0.9 K/mm3 0.0-0.4 H BASOPHIL # (test code = BA#) 0.1 K/mm3 0.0-0.1 N NUCLEATED RBC # (test code = 0.0 K/mm3 0.0-0.1 N NRBC#) MANUAL DIFF REQUIRED (test code NO DIFF/SCN CRITERIA = MDIFF) CBC W/AUTO [id number] 15:40:00 Test Item Value Reference Range Interpretation Comments WHITE BLOOD CELL (test code = 13.8 K/mm3 3.5-11.0 H WBC) RED BLOOD CELL (test code = 3.48 M/mm3 4.70-6.10 L RBC) HEMOGLOBIN (test code = HGB) 9.7 G/DL 10.4-14.9 L HEMATOCRIT (test code = HCT) 33.3 % 31.5-44.1 N MEAN CELL VOLUME (test code = 95.7 Fl 84.5-98.6 N MCV) MEAN CELL HGB (test code = MCH) 27.9 pg 27.0-34.2 N MEAN CELL HGB CONCETRATION 29.1 G/DL 31.5-34.0 L (test code = MCHC) RED CELL DISTRIBUTION WIDTH 16.6 SD 11.5-14.5 H (test code = RDW) PLATELET COUNT (test code = 420 K/mm3 150-450 N PLT) MEAN PLATELET VOLUME (test code 9.70 fL 7.0-10.5 N = MPV) NEUTROPHIL % (test code = NT%) 70.9 % 40-76 N IMMATURE GRANULOCYTE % (test 0.7 % 0.0-5.0 N code = IG%) LYMPHOCYTE % (test code = LY%) 13.5 % 20.5-51.1 L MONOCYTE % (test code = MO%) 9.2 % 1.7-9.3 N EOSINOPHIL % (test code = EO%) 5.2 % 0.0-6.0 N BASOPHIL % (test code = BA%) 0.5 % 0.0-2.0 N NUCLEATED RBC % (test code = 0.0 /100WBC% 0.0-1.0 N NRBC%) NEUTROPHIL # (test code = NT#) 9.7 K/mm3 1.8-7.6 H IMMATURE GRANULOCYTE # (test 0.10 x10 3/uL 0.00-0.03 H code = IG#) LYMPHOCYTE # (test code = LY#) 1.9 K/mm3 0.6-3.2 N MONOCYTE # (test code = MO#) 1.3 K/mm3 0.3-1.1 H EOSINOPHIL # (test code = EO#) 0.7 K/mm3 0.0-0.4 H BASOPHIL # (test code = BA#) 0.1 K/mm3 0.0-0.1 N NUCLEATED RBC # (test code = 0.0 K/mm3 0.0-0.1 N NRBC#) MANUAL DIFF REQUIRED (test code NO DIFF/SCN CRITERIA = MDIFF) COMPREHENSIVE METABOLIC [id number] 15:39:00 Test Item Value Reference Range Interpretation Comments SODIUM (test code = NA) 140 mmol/L 134-147 N POTASSIUM (test code = K) 3.9 mmol/L 3.4-5.0 N CHLORIDE (test code = CL) 106 mmol/L 100-108 N CARBON DIOXIDE (test code = 24 mmol/L 21-32 N CO2) ANION GAP (test code = GAP) 10.0 GAP calc 4.0-15.0 N GLUCOSE (test code = GLU) 128 MG/DL 70-110 H BLOOD UREA NITROGEN (test code 37 MG/DL 7-18 H = BUN) GLOMERULAR FILTRATION RATE 12 estGFR >60 L (test code = GFR) CREATININE (test code = CREAT) 4.6 MG/DL 0.6-1.0 H TOTAL PROTEIN (test code = 7.7 G/DL 6.4-8.2 N PROT) ALBUMIN (test code = ALB) 2.8 G/DL 3.4-5.0 L GLOBULIN (test code = GLOB) 4.9 GM/dL ALBUMIN/GLOBULIN RATIO (test 0.6 RATIO 1.2-2.2 L code = A/G) CALCIUM (test code = CA) 8.7 MG/DL 8.5-10.1 N BILIRUBIN TOTAL (test code = 0.50 MG/DL 0.2-1.2 N BILT) SGOT/AST (test code = AST) 35 Unit/L 15-37 N SGPT/ALT (test code = ALT) 12 Unit/L 12-78 N ALKALINE PHOSPHATASE TOTAL 104 Unit/L 45-117 N (test code = ALKP) BASIC METABOLIC [id number] 11:44:00 Test Item Value Reference Range Interpretation Comments SODIUM (test code = NA) 139 mmol/L 134-147 N POTASSIUM (test code = K) 3.2 mmol/L 3.4-5.0 L CHLORIDE (test code = CL) 103 mmol/L 100-108 N CARBON DIOXIDE (test code = CO2) 29 mmol/L 21-32 N ANION GAP (test code = GAP) 7.0 GAP calc 4.0-15.0 N GLUCOSE (test code = GLU) 153 MG/DL 70-110 H BLOOD UREA NITROGEN (test code = 18 MG/DL 7-18 N BUN) GLOMERULAR FILTRATION RATE (test 22 estGFR >60 L code = GFR) CREATININE (test code = CREAT) 2.7 MG/DL 0.6-1.0 H CALCIUM (test code = CA) 9.4 MG/DL 8.5-10.1 N COMPREHENSIVE METABOLIC [id number] 11:44:00 Test Item Value Reference Range Interpretation Comments TOTAL PROTEIN (test code = PROT) 8.7 G/DL 6.4-8.2 H ALBUMIN (test code = ALB) 3.0 G/DL 3.4-5.0 L GLOBULIN (test code = GLOB) 5.7 GM/dL ALBUMIN/GLOBULIN RATIO (test code 0.5 RATIO 1.2-2.2 L = A/G) BILIRUBIN TOTAL (test code = BILT) 0.40 MG/DL 0.2-1.2 N SGOT/AST (test code = AST) 16 Unit/L 15-37 N SGPT/ALT (test code = ALT) 9 Unit/L 12-78 L ALKALINE PHOSPHATASE TOTAL (test 105 Unit/L 45-117 N code = ALKP) [id number] 11:44:00 Test Item Value Reference Range Interpretation Comments MAGNESIUM (test code = MAG) 2.2 MG/DL 1.8-2.4 N AB HEPATITIS B [id number] 06:11:00 Test Item Value Reference Range Interpretation Comments AB HEPATITIS B <3.1 mIU/mL See_Comment A Status of Im munity SURFACE (test code = Anti-HB s Level HBSAB) --- I nconsi stent with Immu nity 0.0 - 9.9Consis tent with Immunity > 9.9 [Automated mess age] The system [employer] generated this result transmitted ref erence range: Immunity >9.9. The reference r bonny was not used to interpret this result as normal/abnor mal. AG HEPATITIS B [id number] 06:11:00 Test Item Value Reference Range Interpretation Comments AG HEPATITIS B SURFACE NON REACTIVE INDEX NonReactive (test code = HBSAG) AB HEPATITIS B [id number] 06:11:00 Test Item Value Reference Range Interpretation Comments AB HEPATITIS B CORE Negative Negative Performe d At: HD (test code = HBCAB) [facility] [id number] [facility] [place] [place], [place] [id number] amador Payne MD Ph:[phone] AG HEPATITIS B [id number] 03:02:00 Test Item Value Reference Range Interpretation Comments AG HEPATITIS B SURFACE NON REACTIVE INDEX NonReactive (test code = HBSAG) [id number] 23:45:00 Test Item Value Reference Range Interpretation Comments POTASSIUM (test code = K) 3.8 mmol/L 3.4-5.0 N CBC W/AUTO [id number] 12:53:00 Test Item Value Reference Range Interpretation Comments WHITE BLOOD CELL 13.4 K/mm3 3.5-11.0 H (test code = WBC) RED BLOOD CELL (test 4.24 M/mm3 4.70-6.10 L code = RBC) HEMOGLOBIN (test code 11.8 G/DL 10.4-14.9 N = HGB) HEMATOCRIT (test code 40.1 % 31.5-44.1 N = HCT) MEAN CELL VOLUME 94.6 Fl 84.5-98.6 N (test code = MCV) MEAN CELL HGB (test 27.8 pg 27.0-34.2 N code = MCH) MEAN CELL HGB 29.4 G/DL 31.5-34.0 L CONCETRATION (test code = MCHC) RED CELL DISTRIBUTION 16.7 SD 11.5-14.5 H WIDTH (test code = RDW) PLATELET COUNT (test 434 K/mm3 150-450 N code = PLT) MEAN PLATELET VOLUME 9.30 fL 7.0-10.5 N (test code = MPV) NEUTROPHIL % (test 64.7 % 40-76 N code = NT%) IMMATURE GRANULOCYTE 0.7 % 0.0-5.0 N % (test code = IG%) LYMPHOCYTE % (test 16.1 % 20.5-51.1 L code = LY%) MONOCYTE % (test code 13.7 % 1.7-9.3 H = MO%) EOSINOPHIL % (test 4.0 % 0.0-6.0 N code = EO%) BASOPHIL % (test code 0.8 % 0.0-2.0 N = BA%) NUCLEATED RBC % (test 0.0 /100WBC% 0.0-1.0 N code = NRBC%) NEUTROPHIL # (test 8.7 K/mm3 1.8-7.6 H code = NT#) IMMATURE GRANULOCYTE 0.09 x10 3/uL 0.00-0.03 H # (test code = IG#) LYMPHOCYTE # (test 2.2 K/mm3 0.6-3.2 N code = LY#) MONOCYTE # (test code 1.8 K/mm3 0.3-1.1 H = MO#) EOSINOPHIL # (test 0.5 K/mm3 0.0-0.4 H code = EO#) BASOPHIL # (test code 0.1 K/mm3 0.0-0.1 N = BA#) NUCLEATED RBC # (test 0.0 K/mm3 0.0-0.1 N code = NRBC#) MANUAL DIFF REQUIRED NO DIFF/SCN CRITERIA SLIDE R EVIEW (test code = MDIFF) CONSISTA NT WITH AUTO DIFFERENTI AL. PROTHROMBIN [id number] 12:38:00 Test Item Value Reference Range Interpretation Comments PT PATIENT (test 12.9 SECONDS 9.3-12.9 N code = PTP) INTERNATIONAL NORMAL 1.13 INR Unit 0.8-1.2 N TARGE T INR BY RATIO (test code = INDICATIO N Indication INR) INR1. Prophylax is of venous thrombos is 2.0 - 3.0 (orthoped ic surgery), Proph ylaxis of venous throm bosis (other than hig h-risk surgery), Treat ment of Deep Vein Thrombosis/Pulm onary Embolism, Preve ntion of systemic emb olism - Tissue heart va lves, Acute Myocardia l Infarction (to prevent systemic emboli sm), Valvular heart disease, Acute Myocardial Infa rction (to prevent sys temic embolism), Valv ular heart disease, Atrial Fibrillation, Bileaflet mecha nical valve in aortic position.2. Mec hanical prosthetic valv es (high risk), 2. 5 - 3.5 Presence of Lup us Anticoagulant o r Antiphospholipi d Antibodies, Pre vention of systemic emb olism - Acute Myocardia l Infarction (to prevent recurrent infar ct). THROMBOPLASTIN TIME [id number] 12:38:00 Test Item Value Reference Range Interpretation Comments THROMBOPLASTIN TIME PARTIAL 32.6 SECONDS 26-35 N (test code = PTT) BASIC METABOLIC [id number] 12:34:00 Test Item Value Reference Range Interpretation Comments SODIUM (test code = NA) 132 mmol/L 134-147 L POTASSIUM (test code = K) 6.5 mmol/L 3.4-5.0 HH CHLORIDE (test code = CL) 100 mmol/L 100-108 N CARBON DIOXIDE (test code = CO2) 27 mmol/L 21-32 N ANION GAP (test code = GAP) 5.0 GAP calc 4.0-15.0 N GLUCOSE (test code = GLU) 116 MG/DL 70-110 H BLOOD UREA NITROGEN (test code = 30 MG/DL 7-18 H BUN) GLOMERULAR FILTRATION RATE (test 13 estGFR >60 L code = GFR) CREATININE (test code = CREAT) 4.3 MG/DL 0.6-1.0 H CALCIUM (test code = CA) 9.6 MG/DL 8.5-10.1 N COVID 19 INHOUSE [id number] 12:27:00 Test Item Value Reference Range Interpretation Comments COVID 19 INHOUSE AG NEGATIVE Negative Per jason facturer, (test code = negative result s should [id number]) be treated aspr esumptive and, if inconsi stent with clinical signs andsymptoms or necessary for patient man agement, should betested with an alternative mol ecular assay. Negative resultsdo not preclude SA RS-CoV-2 infection and s hould not be usedas the s ole basis for patient man agement decisions. Nega tive results should be considered in t he context of apatient's r ecent exposures, hist ory, presence of cli nicalsigns and symptoms co nsistent with COVID-19. Lactic Acid Whole [id number] 20:17:51 Test Item Value Reference Range Interpretation Comments LACTIC ACID (test code = 2.25 mmol/L 0.5-2.2 H [id number]) Lab Interpretation (test code = Abnormal 28302-1) [facility] [id number] 06:01:00 Test Item Value Reference Range Interpretation Comments SODIUM (test code = NA) 135 mmol/L 134-147 N POTASSIUM (test code = K) 4.7 mmol/L 3.4-5.0 N CHLORIDE (test code = CL) 100 mmol/L 100-108 N CARBON DIOXIDE (test code = 22 mmol/L 21-32 N CO2) ANION GAP (test code = GAP) 13.0 GAP calc 4.0-15.0 N GLUCOSE (test code = GLU) 125 MG/DL 70-110 H BLOOD UREA NITROGEN (test code 29 MG/DL 7-18 H = BUN) GLOMERULAR FILTRATION RATE 13 estGFR >60 L (test code = GFR) CREATININE (test code = CREAT) 4.2 MG/DL 0.6-1.0 H CALCIUM (test code = CA) 8.5 MG/DL 8.5-10.1 N [id number] 06:01:00 Test Item Value Reference Range Interpretation Comments PHOSPHOROUS (test code = PHOS) 4.7 MG/DL 2.5-4.9 [id number] 06:01:00 Test Item Value Reference Range Interpretation Comments MAGNESIUM (test code = MAG) 2.2 MG/DL 1.8-2.4 N CBC W/AUTO [id number] 05:52:00 Test Item Value Reference Range Interpretation Comments WHITE BLOOD CELL (test code = 9.2 K/mm3 3.5-11.0 N WBC) RED BLOOD CELL (test code = 3.95 M/mm3 4.70-6.10 L RBC) HEMOGLOBIN (test code = HGB) 10.9 G/DL 10.4-14.9 N HEMATOCRIT (test code = HCT) 37.3 % 31.5-44.1 N MEAN CELL VOLUME (test code = 94.4 Fl 84.5-98.6 N MCV) MEAN CELL HGB (test code = MCH) 27.6 pg 27.0-34.2 N MEAN CELL HGB CONCETRATION 29.2 G/DL 31.5-34.0 L (test code = MCHC) RED CELL DISTRIBUTION WIDTH 17.0 SD 11.5-14.5 H (test code = RDW) PLATELET COUNT (test code = 220 K/mm3 150-450 N PLT) MEAN PLATELET VOLUME (test code 9.80 fL 7.0-10.5 N = MPV) NEUTROPHIL % (test code = NT%) 61.1 % 40-76 N IMMATURE GRANULOCYTE % (test 0.2 % 0.0-5.0 N code = IG%) LYMPHOCYTE % (test code = LY%) 18.5 % 20.5-51.1 L MONOCYTE % (test code = MO%) 14.1 % 1.7-9.3 H EOSINOPHIL % (test code = EO%) 5.4 % 0.0-6.0 N BASOPHIL % (test code = BA%) 0.7 % 0.0-2.0 N NUCLEATED RBC % (test code = 0.0 /100WBC% 0.0-1.0 N NRBC%) NEUTROPHIL # (test code = NT#) 5.6 K/mm3 1.8-7.6 N IMMATURE GRANULOCYTE # (test 0.02 x10 3/uL 0.00-0.03 N code = IG#) LYMPHOCYTE # (test code = LY#) 1.7 K/mm3 0.6-3.2 N MONOCYTE # (test code = MO#) 1.3 K/mm3 0.3-1.1 H EOSINOPHIL # (test code = EO#) 0.5 K/mm3 0.0-0.4 H BASOPHIL # (test code = BA#) 0.1 K/mm3 0.0-0.1 N NUCLEATED RBC # (test code = 0.0 K/mm3 0.0-0.1 N NRBC#) MANUAL DIFF REQUIRED (test code NO DIFF/SCN CRITERIA = MDIFF) CBC W/AUTO [id number] 06:19:00 Test Item Value Reference Range Interpretation Comments WHITE BLOOD CELL (test code = 10.7 K/mm3 3.5-11.0 N WBC) RED BLOOD CELL (test code = 3.91 M/mm3 4.70-6.10 L RBC) HEMOGLOBIN (test code = HGB) 10.8 G/DL 10.4-14.9 N HEMATOCRIT (test code = HCT) 36.3 % 31.5-44.1 N MEAN CELL VOLUME (test code = 92.8 Fl 84.5-98.6 N MCV) MEAN CELL HGB (test code = MCH) 27.6 pg 27.0-34.2 N MEAN CELL HGB CONCETRATION 29.8 G/DL 31.5-34.0 L (test code = MCHC) RED CELL DISTRIBUTION WIDTH 16.9 SD 11.5-14.5 H (test code = RDW) PLATELET COUNT (test code = 244 K/mm3 150-450 N PLT) MEAN PLATELET VOLUME (test code 9.40 fL 7.0-10.5 N = MPV) NEUTROPHIL % (test code = NT%) 58.8 % 40-76 N IMMATURE GRANULOCYTE % (test 0.2 % 0.0-5.0 N code = IG%) LYMPHOCYTE % (test code = LY%) 19.9 % 20.5-51.1 L MONOCYTE % (test code = MO%) 15.0 % 1.7-9.3 H EOSINOPHIL % (test code = EO%) 5.4 % 0.0-6.0 N BASOPHIL % (test code = BA%) 0.7 % 0.0-2.0 N NUCLEATED RBC % (test code = 0.0 /100WBC% 0.0-1.0 N NRBC%) NEUTROPHIL # (test code = NT#) 6.3 K/mm3 1.8-7.6 N IMMATURE GRANULOCYTE # (test 0.02 x10 3/uL 0.00-0.03 N code = IG#) LYMPHOCYTE # (test code = LY#) 2.1 K/mm3 0.6-3.2 N MONOCYTE # (test code = MO#) 1.6 K/mm3 0.3-1.1 H EOSINOPHIL # (test code = EO#) 0.6 K/mm3 0.0-0.4 H BASOPHIL # (test code = BA#) 0.1 K/mm3 0.0-0.1 N NUCLEATED RBC # (test code = 0.0 K/mm3 0.0-0.1 N NRBC#) MANUAL DIFF REQUIRED (test code NO DIFF/SCN CRITERIA = MDIFF) AB HEPATITIS B [id number] 06:13:00 Test Item Value Reference Range Interpretation Comments AB HEPATITIS B <3.1 mIU/mL See_Comment A Status of Im munity SURFACE (test code = Anti-HB s Level HBSAB) --- I nconsi stent with Immu nity 0.0 - 9.9Consis tent with Immunity > 9.9 [Automated mess age] The system [employer] generated this result transmitted ref erence range: Immunity >9.9. The reference r bonny was not used to interpret this result as normal/abnor mal. AG HEPATITIS B [id number] 06:13:00 Test Item Value Reference Range Interpretation Comments AG HEPATITIS B REACTIVE INDEX NonReactive A Critical re sult SURFACE (test code = called to STEVE HBSAG) TERESA Candelario G.LAB.WC1 at 06 05/08/22Nurse r ead back result and tech confirmed it's correct? YES AB HEPATITIS B [id number] 06:13:00 Test Item Value Reference Range Interpretation Comments AB HEPATITIS B CORE Negative Negative Performe d At: HD (test code = HBCAB) [facility] [id number] [place], [place] [id number] amador Payne MD Ph:[phone] BASIC METABOLIC [id number] 06:11:00 Test Item Value Reference Range Interpretation Comments SODIUM (test code = NA) 133 mmol/L 134-147 L POTASSIUM (test code = K) 5.6 mmol/L 3.4-5.0 H CHLORIDE (test code = CL) 101 mmol/L 100-108 N CARBON DIOXIDE (test code = CO2) 23 mmol/L 21-32 N ANION GAP (test code = GAP) 9.0 GAP calc 4.0-15.0 N GLUCOSE (test code = GLU) 99 MG/DL 70-110 N BLOOD UREA NITROGEN (test code = 47 MG/DL 7-18 H BUN) GLOMERULAR FILTRATION RATE (test 10 estGFR >60 L code = GFR) CREATININE (test code = CREAT) 5.6 MG/DL 0.6-1.0 H CALCIUM (test code = CA) 8.7 MG/DL 8.5-10.1 N [id number] 06:11:00 Test Item Value Reference Range Interpretation Comments PHOSPHOROUS (test code = PHOS) 6.8 MG/DL 2.5-4.9 H [id number] 06:11:00 Test Item Value Reference Range Interpretation Comments MAGNESIUM (test code = MAG) 2.3 MG/DL 1.8-2.4 N LACTIC [id number] 14:27:00 Test Item Value Reference Range Interpretation Comments LACTIC ACID (test code = LACT) 0.8 mmol/L 0.4-2.0 N - XR FOOT 2 VIEWS [id number] 13:31:00 [facility] 1945 Sex: F Name: NGUYỄN RITTER [facility] : 1945 Age/S: 76 / F [address] [address] Unit #: [id number] Loc: [place] [address] Phys: Sagar Taveras MD Acct: [id number] Dis Date: Status: ADM IN PHONE #: [phone] Exam Date: 05/09/2022 1327 FAX #: Reason: pain. sepsis EXAMS: CPT: [id number] [place] [id number] Fluoro Time: DAP (Gy m2): Air Kerma (mGy): EXAM: - XR FOOT 2 VIEWS RT CLINICAL HISTORY: pain. sepsis COMPARISON: None available. TECHNIQUE: AP and lateral views. LOCATION: H65 FINDINGS: Bones: There appears to be variant shortening of the 1st metatarsal with associated medial cuneiform hypertrophy. Severe diffuse osteopenia noted, limiting evaluation for fractures, however no acuteosseous findings are noted. Joint spaces: Moderate interphalangeal joint space narrowing and mild osteoarthritis of the 1st metatarsophalangeal joint. There is anterior gapping of the tibiotalar joint, which also demonstrates chronic degenerative changes. No periarticular erosions identified. Soft tissues: Unremarkable. IMPRESSION: No definite acute osseous findings noted, however evaluation is limited due to severe osteopenia. Moderate polyarticular osteoarthritis. Variant shortening of the 1st metatarsal noted. at 1331 Reported and signed by: Theo Hurd D.O. CC: Jayda Varghese MD; Sagar Taveras MD PAGE 1 Signed Report Name: NGUYỄN RITTER : 1945 Age/S: 76 / F [id number] [address] Unit #: [id number] Loc:[place] [address] Phys: Sagar Taveras MD Acct: [id number] Dis Date: Status: ADM IN PHONE #: Exam Date: 05/09/2022 1327 FAX #: Reason: pain. sepsis EXAMS: CPT: [id number] [place] FO[place] [address] [place] [id number] Fluoro Time: DAP (Gy m2): Air Kerma (mGy): (Continued) Technologist: Nella Wilcox RT(R) Trnscb Date/Time: 05/09/2022 (7341) [id number] Orig Print D/T: S: 05/09/2022 (5536) PAGE 2 Signed Report COVID 19 INHOUSE [id number] 10:45:00 Test Item Value Reference Range Interpretation Comments COVID 19 INHOUSE AG NEGATIVE Negative Per manu facturer, (test code = negative result s should [id number]) be treated aspr esumptive and, if inconsi stent with clinical signs andsymptoms or necessary for patient man agement, should betested with an alternative mol ecular assay. Negative resultsdo not preclude SA RS-CoV-2 infection and s hould not be usedas the s ole basis for patient man agement decisions. Nega tive results should be considered in t he context of apatient's r ecent exposures, hist ory, presence of cli nicalsigns and symptoms co nsistent with COVID-19. CBC W/AUTO [id number] 07:52:00 Test Item Value Reference Range Interpretation Comments WHITE BLOOD CELL 11.8 K/mm3 3.5-11.0 H (test code = WBC) RED BLOOD CELL (test 4.57 M/mm3 4.70-6.10 L code = RBC) HEMOGLOBIN (test code 12.7 G/DL 10.4-14.9 N = HGB) HEMATOCRIT (test code 43.7 % 31.5-44.1 N = HCT) MEAN CELL VOLUME 95.6 Fl 84.5-98.6 N (test code = MCV) MEAN CELL HGB (test 27.8 pg 27.0-34.2 N code = MCH) MEAN CELL HGB 29.1 G/DL 31.5-34.0 L CONCETRATION (test code = MCHC) RED CELL DISTRIBUTION 17.4 SD 11.5-14.5 H WIDTH (test code = RDW) PLATELET COUNT (test 230 K/mm3 150-450 N code = PLT) MEAN PLATELET VOLUME 9.20 fL 7.0-10.5 N (test code = MPV) NEUTROPHIL % (test 64.0 % 40-76 code = NT%) IMMATURE GRANULOCYTE 0.3 % 0.0-5.0 N % (test code = IG%) LYMPHOCYTE % (test 18.1 % 20.5-51.1 L code = LY%) MONOCYTE % (test code 14.7 % 1.7-9.3 H = MO%) EOSINOPHIL % (test 2.2 % 0.0-6.0 N code = EO%) BASOPHIL % (test code 0.7 % 0.0-2.0 N = BA%) NUCLEATED RBC % (test 0.0 /100WBC% 0.0-1.0 N code = NRBC%) NEUTROPHIL # (test 7.6 K/mm3 1.8-7.6 N code = NT#) IMMATURE GRANULOCYTE 0.04 x10 3/uL 0.00-0.03 H # (test code = IG#) LYMPHOCYTE # (test 2.1 K/mm3 0.6-3.2 N code = LY#) MONOCYTE # (test code 1.7 K/mm3 0.3-1.1 H = MO#) EOSINOPHIL # (test 0.3 K/mm3 0.0-0.4 N code = EO#) BASOPHIL # (test code 0.1 K/mm3 0.0-0.1 N = BA#) NUCLEATED RBC # (test 0.0 K/mm3 0.0-0.1 N code = NRBC#) MANUAL DIFF REQUIRED NO DIFF/SCN CRITERIA SLIDE Tiffanie BARRIOS (test code = MDIFF) CONSISTA NT WITH AUTO DIFFERENTI AL. BASIC METABOLIC [id number] 04:02:00 Test Item Value Reference Range Interpretation Comments SODIUM (test code = NA) 136 mmol/L 134-147 N POTASSIUM (test code = K) 4.2 mmol/L 3.4-5.0 N CHLORIDE (test code = CL) 103 mmol/L 100-108 N CARBON DIOXIDE (test code = 23 mmol/L 21-32 N CO2) ANION GAP (test code = GAP) 10.0 GAP calc 4.0-15.0 N GLUCOSE (test code = GLU) 120 MG/DL 70-110 H BLOOD UREA NITROGEN (test code 29 MG/DL 7-18 H = BUN) GLOMERULAR FILTRATION RATE 14 estGFR >60 L (test code = GFR) CREATININE (test code = CREAT) 4.0 MG/DL 0.6-1.0 H CALCIUM (test code = CA) 9.2 MG/DL 8.5-10.1 N [id number] 04:02:00 Test Item Value Reference Range Interpretation Comments PHOSPHOROUS (test code = PHOS) 3.6 MG/DL 2.5-4.9 N [id number] 04:02:00 Test Item Value Reference Range Interpretation Comments MAGNESIUM (test code = MAG) 2.3 MG/DL 1.8-2.4 N [id number] 04:02:00 Test Item Value Reference Range Interpretation Comments VANCOMYCIN (test code = VANCO) 17.1 mcG/ML 5-40 N - CT HEAD/BRAIN W/O [id number] 22:37:00 [facility] 1945 Sex: F Name: [facility] 1945 Age/S: 76 / F [id number] Unit #: [id number] Loc: [place] [address] Phys: Shaun Dolan MD Acct: [id number] Dis Date: Status: ADM IN PHONE#: [phone] Exam Date: 05/08/20222227 FAX #: Reason: CHANGE IN CONDITION EXAMS: CPT: [id number] HEAD/BRAIN W/O CONT 31644 CT head History: CHANGE IN CONDITION Comparison: None at this time Location: [facility] Technique: Noncontrast CT scan of the head was performed. One or more of the following radiation dose reduction techniques was used: automated exposure control, adjustment of mA and/or KV according to patient size, and/or utilization of iterative reconstruction technique. Quality of Exam: Acceptable. The ventricles, sulci and cisterns are prominent, consistent with diffuse cerebral atrophy. There are confluent periventricular white matter hypodensities, consistent with chronic small vessel ischemic white matter changes. There is no convincing evidence of intracranial hemorrhage or mass ef fect. There is no midline shift. The visualized paranasal sinuses are unremarkable. IMPRESSION: There is no imaging evidence of acute intracranial pathology. at 2237 Reported and signed by: Wang Wilcox M.D. PAGE 1 Signed Report (CONTINUED) Name: [facility] : 1945 Age/S: 76 / F [id number] [place] [address] Unit #: [id number] Loc: [place] [address] Phys: Shaun Dolan MD Acct: [id number] Dis Date: Status: ADM IN PHONE #: [phone] Exam Date: 05/08/20222227 FAX #: Reason: CHANGE IN CONDITION EXAMS: CPT: [id number] CT HEAD/BRAIN W/O CONT 31816 (Continued) CC: Shaun Dolan MD; Jayda Varghese MD; Sagar Taveras MD Technologist:Pacheco Flores, RT(R) CTDI: DLP: Trnscb Date/Time: 05/08/2022 (3790) AbiPMT Orig Print D/T: S: 05/08/2022 (9282) PAGE 2 Signed ReportPROTHROMBIN [id number] 13:04:00 Test Item Value Reference Range Interpretation Comments PT PATIENT (test 13.4 SECONDS 9.3-12.9 H code = PTP) INTERNATIONAL NORMAL 1.17 INR Unit 0.8-1.2 N TARGE T INR BY RATIO (test code = INDICATIO N Indication INR) INR1. Prophylax is of venous thrombos is 2.0 - 3.0 (orthoped ic surgery), Proph ylaxis of venous throm bosis (other than hig h-risk surgery), Treat ment of Deep Vein Thrombosis/Pulm onary Embolism, Preve ntion of systemic emb olism - Tissue heart va lves, Acute Myocardia l Infarction (to prevent systemic emboli sm), Valvular heart disease, Acute Myocardial Infa rction (to prevent sys temic embolism), Valv ular heart disease, Atrial Fibrillation, Bileaflet mecha nical valve in aortic position.2. Mec hanical prosthetic valv es (high risk), 2. 5 - 3.5 Presence of Lup us Anticoagulant o r Antiphospholipi d Antibodies, Pre vention of systemic emb olism - Acute Myocardia l Infarction (to prevent recurrent infar ct). THROMBOPLASTIN TIME [id number] 13:04:00 Test Item Value Reference Range Interpretation Comments THROMBOPLASTIN TIME PARTIAL 35.2 SECONDS 26-35 H (test code = PTT) [id number] 13:04:00 Test Item Value Reference Range Interpretation Comments FIBRINOGEN (test code = FIB) 677 mg/dL 185-453 H UA RFLX MICR CULT IF [id number] 12:59:00 Test Item Value Reference Range Interpretation Comments UA COLOR (test code = YELLOW discript YEL/STRAW COLU) UA APPEARANCE (test code CLEAR discript CLEAR = APPU) UA GLUCOSE DIPSTICK (test NEGATIVE mg/dL NEG code = DGLUU) UA BILIRUBIN DIPSTICK NEGATIVE mg/dL NEG (test code = BILU) UA KETONE DIPSTICK (test T mg/dL NEG code = KETU) UA SPECIFIC GRAVITY (test 1.015 SG 1.005-1.030 code = SGU) UA BLOOD DIPSTICK (test SMALL mg/DL NEG A code = KAT) UA PH DIPSTICK (test code 5.5 pH UNITS 5.0-7.0 = JENELLE) UA PROTEIN DIPSTICK (test 2+ mg/dL NEG A code = PROU) UA UROBILINIOGEN DIPSTICK 0.2 mg/dL <2.0 (test code = URO) UA NITRITE DIPSTICK (test NEGATIVE SCREEN NEG code = TRACIE) UA LEUKOCYTE ESTERASE TRACE Leuk/mcL NEGATIVE A DIPSTICK (test code = LEUU) UA CULTURE NEEDED? (test NO, WBC<10 Criteria Culture CHK code = UACULT) UA WBC (test code = WBCU) 0-1 #WBC/HPF 0-3 UA RBC (test code = RBCU) 3-5 #RBC/HPF 0-3 A UA BACTERIA (test code = TRACE /HPF NONE-TRACE BACU) Indication for culture: RiskForSepsis-no [facility] W/AUTO [id number] 10:17:00 Test Item Value Reference Range Interpretation Comments WHITE BLOOD CELL (test code = 14.6 K/mm3 3.5-11.0 H WBC) RED BLOOD CELL (test code = 4.40 M/mm3 4.70-6.10 L RBC) HEMOGLOBIN (test code = HGB) 12.3 G/DL 10.4-14.9 N HEMATOCRIT (test code = HCT) 41.3 % 31.5-44.1 N MEAN CELL VOLUME (test code = 93.9 Fl 84.5-98.6 N MCV) MEAN CELL HGB (test code = MCH) 28.0 pg 27.0-34.2 N MEAN CELL HGB CONCETRATION 29.8 G/DL 31.5-34.0 L (test code = MCHC) RED CELL DISTRIBUTION WIDTH 17.6 SD 11.5-14.5 H (test code = RDW) PLATELET COUNT (test code = 249 K/mm3 150-450 N PLT) MEAN PLATELET VOLUME (test code 9.30 fL 7.0-10.5 N = MPV) NEUTROPHIL % (test code = NT%) 78.6 % 40-76 H IMMATURE GRANULOCYTE % (test 0.5 % 0.0-5.0 N code = IG%) LYMPHOCYTE % (test code = LY%) 10.3 % 20.5-51.1 L MONOCYTE % (test code = MO%) 10.0 % 1.7-9.3 H EOSINOPHIL % (test code = EO%) 0.1 % 0.0-6.0 N BASOPHIL % (test code = BA%) 0.5 % 0.0-2.0 N NUCLEATED RBC % (test code = 0.0 /100WBC% 0.0-1.0 N NRBC%) NEUTROPHIL # (test code = NT#) 11.5 K/mm3 1.8-7.6 H IMMATURE GRANULOCYTE # (test 0.08 x10 3/uL 0.00-0.03 H code = IG#) LYMPHOCYTE # (test code = LY#) 1.5 K/mm3 0.6-3.2 N MONOCYTE # (test code = MO#) 1.5 K/mm3 0.3-1.1 H EOSINOPHIL # (test code = EO#) 0.0 K/mm3 0.0-0.4 N BASOPHIL # (test code = BA#) 0.1 K/mm3 0.0-0.1 N NUCLEATED RBC # (test code = 0.0 K/mm3 0.0-0.1 N NRBC#) MANUAL DIFF REQUIRED (test code NO DIFF/SCN CRITERIA = MDIFF) CALCIUM [id number] 07:39:00 Test Item Value Reference Range Interpretation Comments CALCIUM IONIZED (test code = NICOLÁS) 1.02 mmol/L 1.12-1.30 L HBSAG [id number] 06:08:00 Test Item Value Reference Range Interpretation Comments HBSAG CONFIRMATORY (test code = Confirmed A HBSAGC) AG HEPATITIS B [id number] 06:08:00 Test Item Value Reference Range Interpretation Comments AG HEPATITIS B REACTIVE INDEX NonReactive A Critical re sult SURFACE (test code = called to STEVE HBSAG) TERESA Mehta.LAB.WC1 at 04 0505/08/22Nurse r ead back result and tech confirmed it's correct? YES CBC W/AUTO [id number] 06:01:00 Test Item Value Reference Range Interpretation Comments WHITE BLOOD CELL 16.3 K/mm3 3.5-11.0 H (test code = WBC) RED BLOOD CELL (test 4.16 M/mm3 4.70-6.10 L code = RBC) HEMOGLOBIN (test code 11.7 G/DL 10.4-14.9 N = HGB) HEMATOCRIT (test code 40.0 % 31.5-44.1 N = HCT) MEAN CELL VOLUME 96.2 Fl 84.5-98.6 N (test code = MCV) MEAN CELL HGB (test 28.1 pg 27.0-34.2 N code = MCH) MEAN CELL HGB 29.3 G/DL 31.5-34.0 L CONCETRATION (test code = MCHC) RED CELL DISTRIBUTION 17.2 SD 11.5-14.5 H WIDTH (test code = RDW) PLATELET COUNT (test 261 K/mm3 150-450 N code = PLT) MEAN PLATELET VOLUME 8.80 fL 7.0-10.5 N (test code = MPV) NEUTROPHIL % (test 78.8 % 40-76 H code = NT%) IMMATURE GRANULOCYTE 0.6 % 0.0-5.0 N % (test code = IG%) LYMPHOCYTE % (test 10.6 % 20.5-51.1 L code = LY%) MONOCYTE % (test code 9.4 % 1.7-9.3 H = MO%) EOSINOPHIL % (test 0.2 % 0.0-6.0 N code = EO%) BASOPHIL % (test code 0.4 % 0.0-2.0 N = BA%) NUCLEATED RBC % (test 0.0 /100WBC% 0.0-1.0 N code = NRBC%) NEUTROPHIL # (test 12.9 K/mm3 1.8-7.6 H code = NT#) IMMATURE GRANULOCYTE 0.09 x10 3/uL 0.00-0.03 H # (test code = IG#) LYMPHOCYTE # (test 1.7 K/mm3 0.6-3.2 N code = LY#) MONOCYTE # (test code 1.5 K/mm3 0.3-1.1 H = MO#) EOSINOPHIL # (test 0.0 K/mm3 0.0-0.4 N code = EO#) BASOPHIL # (test code 0.1 K/mm3 0.0-0.1 N = BA#) NUCLEATED RBC # (test 0.0 K/mm3 0.0-0.1 N code = NRBC#) MANUAL DIFF REQUIRED NO DIFF/SCN CRITERIA SLIDE R SOPHIE (test code = MDIFF) CONSISTA NT WITH AUTO DIFFERENTI AL. PROTHROMBIN [id number] 06:00:00 Test Item Value Reference Range Interpretation Comments PT PATIENT (test 9.9 SECONDS 9.3-12.9 N code = PTP) INTERNATIONAL NORMAL 0.87 INR Unit 0.8-1.2 N TARGE T INR BY RATIO (test code = INDICATIO N Indication INR) INR1. Prophylax is of venous thrombos is 2.0 - 3.0 (orthoped ic surgery), Proph ylaxis of venous throm bosis (other than hig h-risk surgery), Treat ment of Deep Vein Thrombosis/Pulm onary Embolism, Preve ntion of systemic emb olism - Tissue heart va lves, Acute Myocardia l Infarction (to prevent systemic emboli sm), Valvular heart disease, Acute Myocardial Infa rction (to prevent sys temic embolism), Valv ular heart disease, Atrial Fibrillation, Bileaflet mecha nical valve in aortic position.2. Mec hanical prosthetic valv es (high risk), 2. 5 - 3.5 Presence of Lup us Anticoagulant o r Antiphospholipi d Antibodies, Pre vention of systemic emb olism - Acute Myocardia l Infarction (to prevent recurrent infar ct). THROMBOPLASTIN TIME [id number] 06:00:00 Test Item Value Reference Range Interpretation Comments THROMBOPLASTIN TIME PARTIAL 29.6 SECONDS 26-35 N (test code = PTT) [id number] 06:00:00 Test Item Value Reference Range Interpretation Comments FIBRINOGEN (test code = FIB) 704 mg/dL 185-453 H LACTIC [id number] 05:21:00 Test Item Value Reference Range Interpretation Comments LACTIC ACID (test code = LACT) 0.7 mmol/L 0.4-2.0 N BASIC METABOLIC [id number] 05:20:00 Test Item Value Reference Range Interpretation Comments SODIUM (test code = NA) 139 mmol/L 134-147 N POTASSIUM (test code = K) 5.0 mmol/L 3.4-5.0 N CHLORIDE (test code = CL) 105 mmol/L 100-108 N CARBON DIOXIDE (test code = 21 mmol/L 21-32 N CO2) ANION GAP (test code = GAP) 13.0 GAP calc 4.0-15.0 N GLUCOSE (test code = GLU) 104 MG/DL 70-110 N BLOOD UREA NITROGEN (test code 44 MG/DL 7-18 H = BUN) GLOMERULAR FILTRATION RATE 11 estGFR >60 L (test code = GFR) CREATININE (test code = CREAT) 4.8 MG/DL 0.6-1.0 H CALCIUM (test code = CA) 9.0 MG/DL 8.5-10.1 N [id number] 05:20:00 Test Item Value Reference Range Interpretation Comments PHOSPHOROUS (test code = PHOS) 4.2 MG/DL 2.5-4.9 N [id number] 05:20:00 Test Item Value Reference Range Interpretation Comments MAGNESIUM (test code = MAG) 2.4 MG/DL 1.8-2.4 N PROTHROMBIN [id number] 21:53:00 Test Item Value Reference Range Interpretation Comments PT PATIENT (test 12.2 SECONDS 9.3-12.9 N code = PTP) INTERNATIONAL NORMAL 1.07 INR Unit 0.8-1.2 N TARGE T INR BY RATIO (test code = INDICATIO N Indication INR) INR1. Prophylax is of venous thrombos is 2.0 - 3.0 (orthoped ic surgery), Proph ylaxis of venous throm bosis (other than hig h-risk surgery), Treat ment of Deep Vein Thrombosis/Pulm onary Embolism, Preve ntion of systemic emb olism - Tissue heart va lves, Acute Myocardia l Infarction (to prevent systemic emboli sm), Valvular heart disease, Acute Myocardial Infa rction (to prevent sys temic embolism), Valv ular heart disease, Atrial Fibrillation, Bileaflet mecha nical valve in aortic position.2. Mec hanical prosthetic valv es (high risk), 2. 5 - 3.5 Presence of Lup us Anticoagulant o r Antiphospholipi d Antibodies, Pre vention of systemic emb olism - Acute Myocardia l Infarction (to prevent recurrent infar ct). THROMBOPLASTIN TIME [id number] 21:53:00 Test Item Value Reference Range Interpretation Comments THROMBOPLASTIN TIME PARTIAL 38.2 SECONDS 26-35 H (test code = PTT) [id number] 21:53:00 Test Item Value Reference Range Interpretation Comments FIBRINOGEN (test code = FIB) 677 mg/dL 185-453 H PROTHROMBIN [id number] 21:42:00 Test Item Value Reference Range Interpretation Comments PT PATIENT (test 12.7 SECONDS 9.3-12.9 N code = PTP) INTERNATIONAL NORMAL 1.11 INR Unit 0.8-1.2 N TARGE T INR BY RATIO (test code = INDICATIO N Indication INR) INR1. Prophylax is of venous thrombos is 2.0 - 3.0 (orthoped ic surgery), Proph ylaxis of venous throm bosis (other than hig h-risk surgery), Treat ment of Deep Vein Thrombosis/Pulm onary Embolism, Preve ntion of systemic emb olism - Tissue heart va lves, Acute Myocardia l Infarction (to prevent systemic emboli sm), Valvular heart disease, Acute Myocardial Infa rction (to prevent sys temic embolism), Valv ular heart disease, Atrial Fibrillation, Bileaflet mecha nical valve in aortic position.2. Mec hanical prosthetic valv es (high risk), 2. 5 - 3.5 Presence of Lup us Anticoagulant o r Antiphospholipi d Antibodies, Pre vention of systemic emb olism - Acute Myocardia l Infarction (to prevent recurrent infar ct). CBC W/AUTO [id number] 21:07:00 Test Item Value Reference Range Interpretation Comments WHITE BLOOD CELL (test code = 15.9 K/mm3 3.5-11.0 H WBC) RED BLOOD CELL (test code = 4.35 M/mm3 4.70-6.10 L RBC) HEMOGLOBIN (test code = HGB) 12.2 G/DL 10.4-14.9 N HEMATOCRIT (test code = HCT) 41.8 % 31.5-44.1 N MEAN CELL VOLUME (test code = 96.1 Fl 84.5-98.6 N MCV) MEAN CELL HGB (test code = MCH) 28.0 pg 27.0-34.2 N MEAN CELL HGB CONCETRATION 29.2 G/DL 31.5-34.0 L (test code = MCHC) RED CELL DISTRIBUTION WIDTH 17.4 SD 11.5-14.5 H (test code = RDW) PLATELET COUNT (test code = 286 K/mm3 150-450 N PLT) MEAN PLATELET VOLUME (test code 8.70 fL 7.0-10.5 N = MPV) NEUTROPHIL % (test code = NT%) 77.7 % 40-76 H IMMATURE GRANULOCYTE % (test 0.3 % 0.0-5.0 N code = IG%) LYMPHOCYTE % (test code = LY%) 11.7 % 20.5-51.1 L MONOCYTE % (test code = MO%) 8.1 % 1.7-9.3 N EOSINOPHIL % (test code = EO%) 1.8 % 0.0-6.0 N BASOPHIL % (test code = BA%) 0.4 % 0.0-2.0 N NUCLEATED RBC % (test code = 0.0 /100WBC% 0.0-1.0 N NRBC%) NEUTROPHIL # (test code = NT#) 12.4 K/mm3 1.8-7.6 H IMMATURE GRANULOCYTE # (test 0.04 x10 3/uL 0.00-0.03 H code = IG#) LYMPHOCYTE # (test code = LY#) 1.9 K/mm3 0.6-3.2 N MONOCYTE # (test code = MO#) 1.3 K/mm3 0.3-1.1 H EOSINOPHIL # (test code = EO#) 0.3 K/mm3 0.0-0.4 N BASOPHIL # (test code = BA#) 0.1 K/mm3 0.0-0.1 N NUCLEATED RBC # (test code = 0.0 K/mm3 0.0-0.1 N NRBC#) MANUAL DIFF REQUIRED (test code NO DIFF/SCN CRITERIA = MDIFF) - XR CHEST 1 [id number] 20:48:00 [facility] 1945 Sex: F Name: NGUYỄN RITTER [place] : 1945 Age/S: 76 / F [id number] Unit #: [id number] Loc: [place] [address] Phys: Shaun Dolan MD Acct: [id number] Dis Date: Status: ADM IN PHONE #: [phone] Exam Date: 05/07/20222014 FAX #: Reason: Post Op EXAMS: CPT: [id number] XR CHEST 1 [id number] Fluoro Time: DAP (Gy m2): Air Kerma (mGy): EXAM: - XR CHEST 1 V CLINICAL HISTORY: Post Op TECHNIQUE: Single frontal view. COMPARISON: None available. LOCATION: H65 FINDINGS: Left chest wall tunneled dialysis catheter tip terminates near the cavoatrial junction. The trachea appears normal. The car diomediastinal silhouette is mildly enlarged. The lungs are clear. No pleural effusions. Limited evaluation of soft tissues and osseous structures is grossly unremarkable. IMPRESSION: Mild cardiomegaly. No confluent airspace opacities identified. at 2047 Reported and signed by: Theo Hurd D.O. CC: Shaun Dolan MD; Sagar Taveras MD PAGE 1 Signed Report Name: NGUYỄN RITTER [place] : 1945 Age/S: 76 / F [id number] [facility] Unit #: [id number] Loc: [place] [address] Phys: Shaun Dolan MD Acct: [id number] Dis Date: Status: ADM IN PHONE #: [phone] Exam Date: 05/07/20222014 FAX #: Reason: Post Op EXAMS: CPT: [id number] XR CHEST 1 V [id number] Fluoro Time: DAP (Gy m2): Air Kerma (mGy): (Continued) Technologist: Marlene Castellanos RT(R)(CT) Trnscb Date/Time: 05/07/2022 (2047) [id number] Orig Print D/T: S: 05/07/2022 (2050) PAGE 2 Signed Report CALCIUM [id number] 19:40:00 Test Item Value Reference Range Interpretation Comments CALCIUM IONIZED (test code = NICOLÁS) 1.02 mmol/L 1.12-1.30 L TROP-I HIGH [id number] 19:31:00 Test Item Value Reference Range Interpretation Comments TROP-I HIGH 28.6 ng/L 0-34 N CAUTION: Units of the SENSITIVITY (test current te st methodology code = TROPIHS) (ng/L) diffe rfrom the prior test meth odology (ng/mL) by a fa ctor of 1000. 99t h Percentile Uppe r Reference Limit (URL):Fem ales: 34 ng/LMales: 54 n g/L In order to distin guish acute elevations of h igh sensitivitytrop onin from other clinical conditions, the FourthUnive rsal Definition of M yocardial Infarction stressesclinica l assessment and the demonstration o f a rise and/orfall in s erial troponin result s above the URL. Results fr om different metho dologies should not be c omparedto one another as quantitative re sults and URLs may varyby method. Completed by Nursing: NOCOMPREHENSIVE METABOLIC [id number] 19:31:00 Test Item Value Reference Range Interpretation Comments SODIUM (test code = NA) 140 mmol/L 134-147 N POTASSIUM (test code = K) 5.6 mmol/L 3.4-5.0 H CHLORIDE (test code = CL) 109 mmol/L 100-108 H CARBON DIOXIDE (test code = CO2) 22 mmol/L 21-32 N ANION GAP (test code = GAP) 9.0 GAP calc 4.0-15.0 N GLUCOSE (test code = GLU) 112 MG/DL 70-110 H BLOOD UREA NITROGEN (test code = 75 MG/DL 7-18 H BUN) GLOMERULAR FILTRATION RATE (test 8 estGFR >60 L code = GFR) CREATININE (test code = CREAT) 6.9 MG/DL 0.6-1.0 H TOTAL PROTEIN (test code = PROT) 7.8 G/DL 6.4-8.2 N ALBUMIN (test code = ALB) 3.4 G/DL 3.4-5.0 N GLOBULIN (test code = GLOB) 4.4 GM/dL ALBUMIN/GLOBULIN RATIO (test 0.8 RATIO 1.2-2.2 L code = A/G) CALCIUM (test code = CA) 8.6 MG/DL 8.5-10.1 N BILIRUBIN TOTAL (test code = 0.50 MG/DL 0.2-1.2 N BILT) SGOT/AST (test code = AST) 13 Unit/L 15-37 L SGPT/ALT (test code = ALT) 12 Unit/L 12-78 N ALKALINE PHOSPHATASE TOTAL (test 152 Unit/L 45-117 H code = ALKP) Completed by Nursing: NOCANGEL W/AUTO [id number] 19:01:00 Test Item Value Reference Range Interpretation Comments WHITE BLOOD CELL (test code = 11.8 K/mm3 3.5-11.0 H WBC) RED BLOOD CELL (test code = 4.17 M/mm3 4.70-6.10 L RBC) HEMOGLOBIN (test code = HGB) 11.7 G/DL 10.4-14.9 N HEMATOCRIT (test code = HCT) 40.0 % 31.5-44.1 N MEAN CELL VOLUME (test code = 95.9 Fl 84.5-98.6 N MCV) MEAN CELL HGB (test code = MCH) 28.1 pg 27.0-34.2 N MEAN CELL HGB CONCETRATION 29.3 G/DL 31.5-34.0 L (test code = MCHC) RED CELL DISTRIBUTION WIDTH 17.5 SD 11.5-14.5 H (test code = RDW) PLATELET COUNT (test code = 293 K/mm3 150-450 N PLT) MEAN PLATELET VOLUME (test code 8.90 fL 7.0-10.5 N = MPV) NEUTROPHIL % (test code = NT%) 68.9 % 40-76 N IMMATURE GRANULOCYTE % (test 0.3 % 0.0-5.0 N code = IG%) LYMPHOCYTE % (test code = LY%) 16.3 % 20.5-51.1 L MONOCYTE % (test code = MO%) 10.7 % 1.7-9.3 H EOSINOPHIL % (test code = EO%) 3.2 % 0.0-6.0 N BASOPHIL % (test code = BA%) 0.6 % 0.0-2.0 N NUCLEATED RBC % (test code = 0.0 /100WBC% 0.0-1.0 N NRBC%) NEUTROPHIL # (test code = NT#) 8.1 K/mm3 1.8-7.6 H IMMATURE GRANULOCYTE # (test 0.03 x10 3/uL 0.00-0.03 N code = IG#) LYMPHOCYTE # (test code = LY#) 1.9 K/mm3 0.6-3.2 N MONOCYTE # (test code = MO#) 1.3 K/mm3 0.3-1.1 H EOSINOPHIL # (test code = EO#) 0.4 K/mm3 0.0-0.4 N BASOPHIL # (test code = BA#) 0.1 K/mm3 0.0-0.1 N NUCLEATED RBC # (test code = 0.0 K/mm3 0.0-0.1 N NRBC#) MANUAL DIFF REQUIRED (test code NO DIFF/SCN CRITERIA = MDIFF)
[2022-11-13] MEDS ORDERED: NA CHLORIDE 0.9% 500 ML ONE (08:28)
[2022-11-13] MEDS ORDERED: CEFTRIAXONE 1000 MG/VIAL ONE (08:28)
[2022-11-13 08:57] LABS: Absolute Lymphocytes (CBC) 2.1 K/uL (0.7-4.9); Hematocrit 40.4 % (36.0-45.0); Lymphocytes % 37.1 % (15.3-44.8); MPV 7.2 fL (7.6-11.3); RBC Red Blood Cell Count 4.29 M/uL (3.86-4.86)
[2022-11-13 08:58] LABS: Protime INR 1.01
--- NOTE | 2022-11-13 09:04 | RAD REPORT ---
EXAM DESCRIPTION: CT - Head Brain Wo Cont - 11/13/2022 8:54 am CLINICAL HISTORY: Alteration of awareness/confusion COMPARISON: 2013 and 2021 TECHNIQUE: Computed axial tomography of the head was obtained. IV contrast was not requested. All CT scans are performed using dose optimization technique as appropriate and may include automated exposure control or mA/KV adjustment according to patient size. FINDINGS: An intracranial bleed is not seen . The ventricles are normal in caliber. No extra-axial fluid collection is noted. Mildlow-density areas within periventricular, deep and subcortical white matter likely represent isch emic changes secondary to small vessel disease. Stable right parietal bone lesion probably benign Fluid within the sinuses/ mastoids is not seen. IMPRESSION: No acute intracranial abnormality is seen. If patient's symptoms persist MRI of the bra in would be recommended.
--- NOTE | 2022-11-13 09:06 | RAD REPORT ---
EXAM DESCRIPTION: [place] Single View11/13/2022 8:48 am CLINICAL HISTORY: cough COMPARISON: December 2021 FINDINGS: The lungs appear clear of acute infiltrate. The heart is normal size. Central venous cath eter in place IMPRESSION: No acute abnormalities displayed
[2022-11-13 10:08] LABS: Urine Blood 2+ (Negative); Urine Glucose Negative (Negative); Urine Protein 2+ (Negative); Urine Specific Gravity 1.025 (1.005-1.030)
[2022-11-13 10:08] LABS: SARS-CoV-2 Antigen Rapid Res Negative (Negative)
[2022-11-13 10:20] LABS: Urine Bacteria None Seen /HPF (<20); Urine Mucus Slight /HPF (None Seen); Urine RBC 21-50 /HPF (None Seen)
[2022-11-13 10:24] LABS: Bilirubin Direct 0.1 mg/dL (0-0.2); Bilirubin Total 0.4 mg/dL (0.2-1.0); Magnesium 3.7 mg/dL (1.6-2.4); Protein, Total 8.5 g/dL (6.4-8.2)
--- NOTE | 2022-11-13 10:29 | ER ---
Nurse's Notes [facility] Name: Wing Deng Age: 76 yrs Sex: Female : 1945 Arrival Date: 11/13/2022 Time: 07:59 Bed 8 Private MD: Devante Varghese V Diagnosis: UTI/ Urinary tract infection, site not specified;Altered mental status, unspecified;End stage renal disease-on HD;Hyperkalemia Presentation: 11/13 08:03 Chief complaint: EMS states: they were called to the patients home for the patient ap3 having altered mental status. it is reported patient is normally AO x's 3, but today she is AOx 1 sometimes 3. Family believes the patient may have a UTI. Patient is currently AO to self. Coronavirus screen: At this time, the client does not indicate any symptoms associated with coronavirus-19. Ebola Screen: No symptoms or risks identified at this time. Initial Sepsis Screen: Does the patient meet any 2 criteria? No. Patient's initial sepsis screen is negative. Does the patient have a suspected source of infection? Yes: Dysuria/Frequency/Urgency/UTI. Risk Assessment: Do you want to hurt yourself or someone else? Patient reports no desire to harm self or others. Onset of symptoms is unknown. 08:03 Method Of Arrival: EMS: [facility] ap3 08:03 Acuity: KRISTYN 3 ap3 Triage Assessment: 08:06 General: Appears in no apparent distress. Behavior is calm, cooperative. Pain: Unable ap3 to use pain scale. FLACC scale score is 0 out of 10. Neuro: Level of Consciousness is awake, alert, Oriented to person. Cardiovascular: Patient's skin is warm and dry. Respiratory: Airway is patent Respiratory effort is even, unlabored. : Parent/caregiver report the patient having they believe the patient to have a UTI. Historical: - Allergies: 08:06 No Known Allergies; ap3 - PMHx: 08:06 End stage renal disease; Hyperlipidemia; Hypertension; UTI; ap3 - Immunization history:: unknown, patient is unable to answer appropriately . - Social history:: Smoking status: unknown. - Family history:: not pertinent. Screenin:07 [facility] ED Fall Risk Assessment (Adult) History of falling in the last 3 months, ap3 including since admission Yes- single mechanical fall (1 pt) Confusion or Disorientation Yes (5 pts) Intoxicated or Sedated No (0 pts) Impaired Gait Yes (1 pt) Mobility Assist Device Used No (0 pt) Altered Elimination Yes (1 pt) Score/Fall Risk Level 3 or more points = High Risk. Abuse screen: Denies threats or abuse. Nutritional screening: No deficits noted. Tuberculosis screening: No symptoms or risk factors identified. Assessment: 09:50 Reassessment: No changes from previously documented assessment. Patient and/or family ap3 updated on plan of care and expected duration. Pain level reassessed. 13:10 Reassessment: report called to. ap3 Vital Signs: 08:03 BP 140 / 76; Pulse 100; Resp 18; Temp 98.8(O); Pulse Ox 96% ; ap3 09:50 BP 113 / 99; Pulse 83; Pulse Ox 98% on R/A; ap3 11:00 BP 138 / 110; Pulse 81; Pulse Ox 97% ; ap3 13:24 BP 138 / 72; Pulse 90; Pulse Ox 97% on R/A; ap3 ED Course: 07:59 Patient arrived in ED. as 07:59 Devante Varghese MD is Private Physician. as 08:02 Marco A Estrada MD is Attending Physician. fernandez 08:03 Danielle Haro, ANA LAURA is Primary Nurse. ap3 08:06 Triage completed. ap3 08:08 Arm band placed on right wrist. ap3 08:08 Patient has correct armband on for positive identification. Bed in low position. Call ap3 light in reach. Side rails up X2. Adult w/ patient. parts washer on. Pulse ox on. NIBP on. Door closed. Noise minimized. 08:44 Lactate w/ 2H reflex if indic. Sent. ap3 08:44 Blood Culture Adult (2) Sent. ap3 08:44 Lipase Sent. ap3 08:44 Basic Metabolic Panel Sent. ap3 08:44 CBC with Diff Sent. ap3 08:44 LFT's Sent. ap3 08:44 Magnesium Sent. ap3 08:44 NT PRO-BNP Sent. ap3 08:44 PT-INR Sent. ap3 08:44 Troponin HS Sent. ap3 08:50 XRAY Chest (1 view) In Process Unspecified. EDMS 08:56 CT Head Brain wo Cont In Process Unspecified. EDMS 09:47 Inserted saline lock: 24 gauge in right wrist, using aseptic technique. Blood collected.jl7 09:48 Lab(s) recollected, by me, sent to lab. Second set of blood cultures drawn by , SHASHA jl7 swab sent to lab. 10:27 Devante Varghese MD is Hospitalizing Provider. [facility] 13:25 No provider procedures requiring assistance completed. Patient admitted, IV remains in ap3 place. Administered Medications: 08:34 Not Given (Duplicate Order): NS 0.9% 500 ml IV at bolus once fernandez 09:49 Drug: Rocephin (cefTRIAXone) 1 grams Route: IV; Rate: per protocol; Site: right wrist; ap3 13:01 Follow up: Response: No adverse reaction; IV Status: Completed infusion ap3 11:17 Drug: Albuterol 5 mg Route: Inhalation; ap3 11:43 Drug: Kayexalate (polystyrene) 30 grams Route: PO; ap3 13:01 Follow up: Response: No adverse reaction ap3 Medication: 08:08 VIS not applicable for this client. ap3 Outcome: 10:28 Decision to Hospitalize by Provider. [facility] 13:25 Admitted to Med/surg ap3 13:25 Condition: good 13:25 Instructed on the need for admit. 13:35 Patient left the ED. ap3 Signatures: Dispatcher [employer] Marco A Myers MD MD cha Martinez, Amelia as Leal, Jahala, RN RN [id number] Danielle Haro RN RN ap3
--- NOTE | 2022-11-13 10:29 | EDPHYS ---
Physician Documentation [facility] Name: Wing Deng Age: 76 yrs Sex: Female : 1945 Arrival Date: 11/13/2022 Time: 07:59 Bed 8 Private MD: Devante López V ED Physician Marco A Estrada HPI: 11/13 08:39 This 76 yrs old Black Female presents to ER via EMS with complaints of ams, weakness, fernandez sp dialysis. 08:39 weak and altered. The patient presents with confusion. Onset: The symptoms/episode fernandez began/occurred 1 day(s) ago. Possible causes: CVA or TIA, low blood sugar, sepsis. Associated signs and symptoms: Pertinent positives: confusion, lightheadedness, weakness. Current symptoms: In the emergency department the patient's symptoms have improved, mildly. Patient's baseline: Neuro: alert and fully oriented. Severity of symptoms: At their worst the symptoms were mild. The patient has experienced similar episodes in the past, a few times. Historical: - Allergies: 08:06 No Known Allergies; ap3 - PMHx: 08:06 End stage renal disease; Hyperlipidemia; Hypertension; UTI; ap3 - Immunization history:: unknown, patient is unable to answer appropriately . - Social history:: Smoking status: unknown. - Family history:: not pertinent. ROS: 08:39 Constitutional: Negative for fever, chills, and weight loss, Eyes: Negative for injury, fernandez pain, redness, and discharge, ENT: Negative for injury, pain, and discharge, Neck: Negative for injury, pain, and swelling, Cardiovascular: Negative for chest pain, palpitations, and edema, Respiratory: Negative for shortness of breath, cough, wheezing, and pleuritic chest pain, Abdomen/GI: Negative for abdominal pain, nausea, vomiting, diarrhea, and constipation, Back: Negative for injury and pain, : Negative for injury, bleeding, discharge, and swelling, MS/Extremity: Negative for injury and deformity, Skin: Negative for injury, rash, and discoloration, Psych: Negative for depression, anxiety, suicide ideation, homicidal ideation, and hallucinations, Allergy/Immunology: Negative for hives, rash, and allergies, Endocrine: Negative for neck swelling, polydipsia, polyuria, polyphagia, and marked weight changes, Hematologic/Lymphatic: Negative for swollen nodes, abnormal bleeding, and unusual bruising. 08:39 Neuro: Positive for altered mental status, weakness. Exam: 08:39 Constitutional: This is a well developed, well nourished patient who is awake, alert, fernandez and in no acute distress. Head/Face: Normocephalic, atraumatic. Eyes: Pupils equal round and reactive to light, extra-ocular motions intact. Lids and lashes normal. Conjunctiva and sclera are non-icteric and not injected. Cornea within normal limits. Periorbital areas with no swelling, redness, or edema. ENT: Nares patent. No nasal discharge, no septal abnormalities noted. Tympanic membranes are normal and external auditory canals are clear. Oropharynx with no redness, swelling, or masses, exudates, or evidence of obstruction, uvula midline. Mucous membranes moist. Neck: Trachea midline, no thyromegaly or masses palpated, and no cervical lymphadenopathy. Supple, full range of motion without nuchal rigidity, or vertebral point tenderness. No Meningismus. Chest/axilla: Normal chest wall appearance and motion. Nontender with no deformity. No lesions are appreciated. Respiratory: Lungs have equal breath sounds bilaterally, clear to auscultation and percussion. No rales, rhonchi or wheezes noted. No increased work of breathing, no retractions or nasal flaring. Abdomen/GI: Soft, non-tender, with normal bowel sounds. No distension or tympany. No guarding or rebound. No evidence of tenderness throughout. Back: No spinal tenderness. No costovertebral tenderness. Full range of motion. Female : Normal external genitalia. Skin: Warm, dry with normal turgor. Normal color with no rashes, no lesions, and no evidence of cellulitis. MS/ Extremity: Pulses equal, no cyanosis. Neurovascular intact. Full, normal range of motion. Psych: Awake, alert, with orientation to person, place and time. Behavior, mood, and affect are within normal limits. 08:39 Cardiovascular: Rate: tachycardic, actual rate is 101 bpm, Rhythm: regular, Pulses: Pulses are 4+ in bilateral radial, brachial, femoral, popliteal, posterior tibial and and dorsalis pedis arteries.. Heart sounds: normal, Edema: is not appreciated, JVD: is not appreciated. 08:39 ECG was reviewed by the Attending Physician. Vital Signs: 08:03 BP 140 / 76; Pulse 100; Resp 18; Temp 98.8(O); Pulse Ox 96% ; ap3 09:50 BP 113 / 99; Pulse 83; Pulse Ox 98% on R/A; ap3 11:00 BP 138 / 110; Pulse 81; Pulse Ox 97% ; ap3 13:24 BP 138 / 72; Pulse 90; Pulse Ox 97% on R/A; ap3 MDM: 08:03 Patient medically screened. fernandez 08:42 Differential Diagnosis altered mental status, sepsis. Differential Diagnosis: CVA, fernandez electrolyte abnormality, hypoglycemia, TIA, UTI, volume depletion. Data reviewed: vital signs, nurses notes, EMS record, lab test result(s), EKG, radiologic studies, CT scan, plain films. Consideration of Admission/Observation Patient was admitted/placed on observation. Escalation of care including admission/observation considered. Management of patient was discussed with the following: Primary Care Provider: dr lópez, obs. I considered the following discharge prescriptions or medication management in the emergency department Medications were administered in the Emergency Department. See MAR. Independent interpretation of the following test(s) in the Emergency Department X-Ray: My interpretation is cxr. CT Scan: My interpretation is head. practice business asst: rate is 100 beats/min, Rhythm is regular, Rhythm Strip Interpretation Rate: 100BPM. Test considered but Not performed: Ultrasound renal, ro hydro. Historians other than the Patient: Family Member: daughter. Care significantly affected by the following chronic conditions: Diabetes, Hypertension, Congestive Heart Failure, Obesity, Chronic Kidney Disease. 11/13 08:09 Order name: Basic Metabolic Panel fernandez 11/13 08:09 Order name: CBC with Diff; Complete Time: 09:40 [facility] 11/13 08:09 Order name: LFT's 11/13 08:09 Order name: Magnesium 11/13 08:09 Order name: NT PRO-BNP 11/13 08:09 Order name: PT-INR; Complete Time: 09:40 11/13 08:09 Order name: Troponin HS 11/13 08:09 Order name: Lipase 11/13 08:09 Order name: Blood Culture Adult (2) 11/13 08:09 Order name: Lactate w/ 2H reflex if indic.; Complete Time: 09:40 [facility] 11/13 08:09 Order name: Urine Microscopic Only; Complete Time: 10:35 [facility] 11/13 08:09 Order name: SARS RAPID; Complete Time: 10:09 [facility] 11/13 10:08 Order name: Urine Dipstick-Ancillary; Complete Time: 10:09 [facility] 11/13 10:23 Order name: Urine Culture [facility] 11/13 08:09 Order name: XRAY Chest (1 view); Complete Time: 09:40 [facility] 11/13 08:09 Order name: EKG; Complete Time: 08:10 [facility] 11/13 08:09 Order name: Cardiac monitoring; Complete Time: 08:14 [facility] 11/13 08:09 Order name: EKG - Nurse/Tech; Complete Time: 08:14 [facility] 11/13 08:09 Order name: IV Saline Lock; Complete Time: 11:45 [facility] 11/13 08:09 Order name: Labs collected and sent; Complete Time: 08:44 [facility] 11/13 08:09 Order name: O2 Per Protocol; Complete Time: 08:14 [facility] 11/13 08:09 Order name: O2 Sat Monitoring; Complete Time: 08:14 [facility] 11/13 08:09 Order name: Urine Dipstick-Ancillary (obtain specimen); Complete Time: 10:09 [facility] 11/13 08:09 Order name: CT Head Brain wo Cont; Complete Time: 09:40 [facility] 11/13 09:11 Order name: Labs - recollect needed: recollect green top please hemolyzed; Complete em1 Time: 09:47 11/13 10:50 Order name: CONS Physician Consult EDDC EC:39 Rate is 52 beats/min. Rhythm is regular. QRS [place] is Normal. [place] interval is normal. QRS fernandez interval is normal. QT interval is normal. No Q waves. T waves are Normal. No ST changes noted. Clinical impression: NSR w/ Non-specific ST/T Changes and No evidence of ischemia. Interpreted by me. Reviewed by me. Administered Medications: 08:34 Not Given (Duplicate Order): NS 0.9% 500 ml IV at bolus once fernandez 09:49 Drug: Rocephin (cefTRIAXone) 1 grams Route: IV; Rate: per protocol; Site: right wrist; ap3 13:01 Follow up: Response: No adverse reaction; IV Status: Completed infusion ap3 11:17 Drug: Albuterol 5 mg Route: Inhalation; ap3 11:43 Drug: Kayexalate (polystyrene) 30 grams Route: PO; ap3 13:01 Follow up: Response: No adverse reaction ap3 Disposition Summary: 11/13/22 10:28 Hospitalization Ordered Hospitalization Status: Inpatient Admission fernandez Provider: Devante López cha Location: Telemetry/MedSurg (Inpatient) fernandez Condition: Fair fernandez Problem: new fernandez Symptoms: have improved fernandez Bed/Room Type: Standard [facility] Room Assignment: 216(11/13/22 12:55) dw Diagnosis - UTI/ Urinary tract infection, site not specified fernandez - Altered mental status, unspecified fernandez - End stage renal disease - on HD fernandez - Hyperkalemia fernandez Forms: - Medication Reconciliation Form fernandez - SBAR form fernandez Signatures: Dispatcher [employer] Xiomara Schulte RN RN dw Anderson, Corey, MD MD cha Martinez, Eric em1 Danielle Haro RN RN ap3 Corrections: (The following items were deleted from the chart) 12:55 10:28 fernandez dw
[2022-11-13 10:31] LABS: Potassium 5.7 mmol/L (3.5-5.1)
[2022-11-13] MEDS ORDERED: SOD POLYSTYREN SUL 15 GM/60 ML UCUP ONE (11:08)
[2022-11-13] MEDS ORDERED: ALBUTEROL 2.5 MG/3 ML NEB SOL ONE (11:08)
[2022-11-13 11:26] LABS: Troponin High Sensitivity 577.6 pg/mL (<58.9)
[2022-11-13] MEDS ORDERED: ACETAMINOPHEN 325 MG TABLET PO PRN (14:09)
[2022-11-13] MEDS ORDERED: ALBUTEROL 2.5 MG/3 ML NEB SOL NEB PRN (14:09)
[2022-11-13] MEDS ORDERED: ONDANSETRON 4 MG/2 ML VIAL IV PRN (14:09)
[2022-11-13] MEDS ORDERED: IPRATROPIUM BROM 0.5MG/2.5ML NEB PRN (14:09)
[2022-11-13] MEDS ORDERED: D50W 25 GM/50 ML SYRINGE IV ONE (15:01)
[2022-11-13] MEDS ORDERED: GLUCAGON 1 MG/VIAL IM PRN (15:02)
[2022-11-13] MEDS ORDERED: D50W 25 GM/50 ML SYRINGE IV PRN (15:02)
[2022-11-13] MEDS ORDERED: DEXTROSE 10%-WATER 125 ML IV PRN (15:19)
[2022-11-13] MEDS ORDERED: ALBUTEROL 2.5 MG/3 ML NEB SOL NEB ONE (15:30)
[2022-11-13] MEDS ORDERED: INSULIN -REGULAR HUMAN 50 UNIT/0.5 ML ML IV ONE (15:30)
[2022-11-13] MEDS ORDERED: DEXTROSE 10%-WATER 250 ML IV ONE (15:30)
--- NOTE | 2022-11-13 17:09 | CON ---
Date of Consultation: 11/13/2022 Reason For Consultation: Elevated BUN and creatinine, hyperkalemia. History Of Present Illness: This is a pleasant 76-year-old female, well known to me from dialysis with significant past medical history of end-stage renal disease, on hemodialysis, Thursday, Thursday, Thursday. Last dialysis was yesterday, hypertension, hyperlipidemia, PAD, status post right above-knee amputation, CAD status post PTCA, knee replacement. The patient had dialysis yesterday, went home. Daughter found her altered mental status, not speaking her self. For that reason, brought her to the hospital. Upon evaluation, found to have altered mental status with UTI and hyperkalemia. For that reason, the patient been admitted and we have been consulted. The patient back to her baseline, currently more awake. Oriented x3. Past Medical History: Includes; 1. Hypertension. 2. Hyperlipidemia. 3. CAD, status post PTCA. 4. Knee arthritis. 5. PAD, status post right above-knee amputation. Family History: Positive for CAD. Social History: Lives with daughter. Denied smoking. Denied drinking. Denied drugs abuse. Home Medications: For the patient include; 1. Mirtazapine. 2. Sevelamer. 3. Thiamin. 4. Carvedilol. 5. Atorvastatin. 6. Aspirin. Current medications in the hospital; 1. Breathing treatment. 2. Ceftriaxone. 3. Lasix 40 b.i.d. 4. Zofran. Review of Systems: Head and Neck: No red eye. No ear pain. GI: No nausea. No vomiting. : Has polyuria, has dysuria. 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 Respiratory: No shortness of breath. Cardiovascular: No chest pain. Endocrine: No polydipsia. Skin: No rash. Neuro: Has altered mental status. Musculoskeletal: Has low back pain. Physical Examination: Vital Signs: When I saw the patient; blood pressure 129/75, pulse of 88, afebrile. Chest: Clear to auscultation. Heart: S1, S2. Systolic murmur. Abdomen: Soft, nontender. Extremity: No edema. Right above-knee amputation. Neurological: Alert, oriented x3. No focal. No tremor. Laboratory Data: WBC 5.8, H and H 12.3. Sodium 135, potassium 5.7, bicarb 25, BUN 35, creatinine 5.3, calcium 9.3, magnesium 3.7. Current Medications: The patient on include; 1. Ceftriaxone. 2. Lasix 40 b.i.d. 3. Breathing treatment. Urine culture is still pending. Assessment And Plan: 1. End-stage renal disease with hyperkalemia. No over volume. No uremic symptoms. I am going to arrange for dialysis. The patient is going to be dialyzed on low potassium bath and we will follow up. 2. Hypertension, controlled, optimal. Continue current treatment. We will utilize blood pressure to establish better volume. 3. End-stage renal disease with hyperkalemia as above. 4. Hyperkalemia secondary to renal failure. I am going to treat it and the patient is going to receive dialysis with low potassium bath and we will follow up. 5. Urinary tract infection with altered mental status, urosepsis. Continue ceftriaxone. We will follow up culture. 6. Coronary artery disease with congestive heart failure, currently normal volume. We will continue dialysis Thursday, Thursday, Thursday to establish better volume control. Time spent examining the patient [id number] reviewing data lab and radiology discussing the case with the patient placing order discussing the case with the team lead including nursing discussing the case with the hospitalist more than 35-minute PATITO/TRACE Voice ID: [id number] Report ID: [id number] MTDD
[2022-11-13] MEDS: FUROSEMIDE 40 MG/4 ML VIAL IV SCH (17:37)
[2022-11-13 20:38] VITALS: O2SAT 95
--- NOTE | 2022-11-13 21:14 | P.HP ---
Certification for Inpatient Patient admitted to: Inpatient With expected LOS: >2 Midnights Practitioner: I am a practitioner with admitting privileges, knowledge of patient current condition, hospital course, and medical plan of care. Services: Services provided to patient in accordance with Admission requirements found in Title 42 Section 412.3 of the Code of Federal Regulations Patient History Date of Service: 11/13/22 Reason for admission: WEAK, CONFUSED History of Present Illness: MS RITTER IS ESRD PATIENT ON HD COMES WITH CONFUSION AND WEAKNESS. ER DOCTOR DID UA BUT SHE DOES NOT HAVE MUCH URINE OUTPUT. SHE HAS NO FEVER, OR UTI SYMPTOMS. I TALKED TO HER. SHE SHOWED MEMORY LOSS THAT IS ACUTE. SHE COULD NOT NAME HER DAUGHTER AND INSTEAD CALLED HER SISTER. SHE KNOWS ME FOR 15 YEARS BUT DID NOT KNOW MY NAME. Allergies No Known Drug Allergies Allergy (Verified 10/23/16 15:08) Unknown Home medications list reviewed: Yes Home Medications: Atorvastatin Calcium [Lipitor] 20 mg PO BEDTIME 11/18/21 Codeine/APAP [Tylenol W/Codeine #3 tab] 1 tab PO TIDP PRN 11/18/21 Duloxetine HCl [Cymbalta] 60 mg PO BID 11/18/21 Aspirin [Ecotrin 81 MG] 81 mg PO DAILY 02/13/22 Mirtazapine 7.5 mg PO BEDTIME 02/13/22 Sevelamer Carbonate 800 mg PO TID 02/13/22 Thiamine HCl [Vitamin B-1*] 100 mg PO DAILY 02/13/22 carvediloL [Carvedilol] 6.25 mg PO BID 02/13/22 - Past Medical/Surgical History Diabetic: No -: hypertension -: Hyperlipidemia -: CAD -: Heart stents -: right knee replaced 10 yrs ago -: lt lumpectomy many yrs ago -: left foot surg. 10 yrs ago -: tubal ligation 30 yrs ago - Family History Father -: Heart disease - Social History Alcohol use: No CD- Drugs: No Caffeine use: Yes Review of Systems 10-point ROS is otherwise unremarkable General: Weakness, Malaise Physical Examination - Vital Signs Temperature: 97.9 F Blood Pressure: 127/64 Pulse: 88 Respirations: 16 Pulse Ox (%): 93 - Physical Exam General: Oriented x1, Mild distress, Confused, Obese HEENT: Atraumatic, PERRLA, Mucous membr. moist/pink, EOMI, Sclerae nonicteric Neck: Supple, 2+ carotid pulse no bruit, No LAD, Without JVD or thyroid abnormality Respiratory: Clear to auscultation bilaterally, Normal air movement Cardiovascular: Regular rate/rhythm, Normal S1 S2 Gastrointestinal: Normal bowel sounds, No tenderness Musculoskeletal: No tenderness Integumentary: No rashes Neurological: Normal gait, Normal speech, Normal strength at 5/5 x4 extr, Normal tone, Normal affect Lymphatics: No axilla or inguinal lymphadenopathy - Studies Laboratory Data (last 24 hrs) 11/13/22 09:43: Sodium 135 L, Potassium 5.7 H*, BUN 35 H, Creatinine 5.36 H*, Glucose 90, Magnesium 3.7 H*, Total Bilirubin 0.4, AST 15, ALT 16, Alkaline Phosphatase 232 H, Lipase 79 11/13/22 08:37: PT 11.1, INR 1.01 11/13/22 08:37: WBC 5.80, Hgb 12.3, Hct 40.4, Plt Count 316 Assessment and Plan - Problems (Diagnosis) (1) Expressive aphasia Current Visit: Yes Status: Acute Plan: HER NAMES DID NOT MAKE SENSE. I ORDERED MRI BUT SOMEHOW IT FELL OFF THE ORDERS AT TIME OF TRANSFER. I WILL REORDER MRI OF BRAIN. CT BRAIN NEG. (2) Hyperkalemia Current Visit: Yes Status: Acute Plan: LOW K HD DONE. DAILY LAB (3) CKD stage 5 secondary to hypertension Current Visit: Yes Status: Chronic (4) UTI (urinary tract infection) Current Visit: No Status: Acute Plan: IT IS UNCLEAR ABOUT THIS DIAGNOSIS URINE THAT IS CONCENTRATED WITH LACK OF PRODUCTION CAN SHOW ASYMPTOMATIC BACTERIURIA. - Advance Directives Does patient have a Living Will: No Does patient have a Durable POA for Healthcare: Yes
[2022-11-14 05:31] VITALS: BMI 31.9
[2022-11-14 06:14] LABS: Absolute Lymphocytes (CBC) 2.2 K/uL (0.7-4.9); Hematocrit 36.5 % (36.0-45.0); MCV 93.3 fL (80-100); MPV 7.2 fL (7.6-11.3); RBC Red Blood Cell Count 3.92 M/uL (3.86-4.86)
[2022-11-14 06:55] LABS: Potassium 4.5 mmol/L (3.5-5.1)
[2022-11-14] MEDS: FUROSEMIDE 40 MG/4 ML VIAL IV SCH (08:35)
[2022-11-14] MEDS ORDERED: CEFTRIAXONE 1,000 MG in NA CHLORIDE 0.9% 50 ML IVPB SCH (09:00)
--- NOTE | 2022-11-14 09:00 | RAD REPORT ---
EXAM DESCRIPTION: RAD - Chest Single View - 11/14/2022 5:34 am CLINICAL HISTORY: Chest Pain Chest pain. COMPARISON: Chest Single View dated 11/13/2022; Chest Single View dated 01/18/2022; Chest Single View dated 12/11/2021; Chest Single View dated 12/09/2021 FINDINGS: Portable technique limits examination quality. Mild interstitial pulmonary edema. The heart is normal in size. No displaced fractures.Left venous ca theter stable in position. IMPRESSION: Mild volume overload.
--- NOTE | 2022-11-14 10:47 | RAD REPORT ---
EXAM DESCRIPTION: MRI - Brain Wo Cont - 11/14/2022 10:30 am CLINICAL HISTORY: altered ms Headache, drowsiness COMPARISON: Head Brain Wo Cont dated 11/13/2022; Head Brain Wo Cont dated 11/14/2021 TECHNIQUE: Multi-sequence, multiplanar MR imaging of the brain was performed without contrast. FINDINGS: No intracranial hemorrhage, hydrocephalus or extra-axial fluid collections.Mild periventri cular and deep white matter chronic microvascular ischemic changes. No edema or shift of midline stru ctures. No findings to suspect brain mass. There is subtle T2 FLAIR hyperintensity as well as elevate d DWI without matching EDC abnormality in the left thalamus. This likely indicates a subacute to clay processing labourer [place] timeframe infarct. Midline structures are normally formed. Mastoid air cells and paranasal sinuses are clear. IMPRESSION: There is no evidence of an acute infarct. A relatively remote, subacute to chronic timeframe infarct measuring 1 cm is likely present in the le ft thalamus.
--- NOTE | 2022-11-14 10:51 | EKG ---
Test Date: 2022-11-13 Test Time: 08:08:16 [place] Worker: FABY MEASUREMENT RESULTS: Intervals: Rate: 82 DE: 126 QRSD: 86 QT: 394 QTc: 460 [place]: P: 53 DE: 126 QRS: 19 T: 110 INTERPRETIVE STATEMENTS: Normal sinus rhythm T wave abnormality, consider lateral ischemia Abnormal ECG Compared to ECG 01/18/2022 05:46:39 Possible ischemia now present Left ventricular hypertrophy no longer present Prolonged QT interval no longer present T-wave abnormality still present Electronically Signed On 11-14-22 10:46:54 PROPERTY MANAGEMENT ASSISTANT by Wil Noonan
[2022-11-14] MEDS ORDERED: CLOPIDOGREL 75 MG TABLET PO STA (12:16)
[2022-11-14 12:21] VITALS: BP 152/72; TEMP 97.5
--- NOTE | 2022-11-14 12:35 | P.DS ---
Admission Date: 11/13/22 Discharge Date: 11/14/22 Disposition: DC HOME/HOME HEALTH CARE Discharge Condition: FAIR Reason for Admission: WEAK, CONFUSED - Problems (1) Expressive aphasia Current Visit: Yes Status: Acute (2) Hyperkalemia Current Visit: Yes Status: Acute (3) CKD stage 5 secondary to hypertension Current Visit: Yes Status: Chronic (4) UTI (urinary tract infection) Current Visit: No Status: Acute Brief History of Present Illness: MS RITTER IS ESRD PATIENT ON HD COMES WITH CONFUSION AND WEAKNESS. ER DOCTOR DID UA BUT SHE DOES NOT HAVE MUCH URINE OUTPUT. SHE HAS NO FEVER, OR UTI SYMPTOMS. I TALKED TO HER. SHE SHOWED MEMORY LOSS THAT IS ACUTE. SHE COULD NOT NAME HER DAUGHTER AND INSTEAD CALLED HER SISTER. SHE KNOWS ME FOR 15 YEARS BUT DID NOT KNOW MY NAME. Hospital Course: PATIENT IS 76 YEARS OLD WITH MANY MEDICAL ISSUES INCLUDING, PVD, HISTORY OF AKA R SIDE. 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 SHE IS STABLE. SHE WILL GO HOME ON PLAVIX. SHE CONTINUES HD AND SHE CARRIES POOR PROGNOSIS. I TALKED TO DAUGHTER DAILY. Vital Signs/Physical Exam: Temp Pulse Resp BP Pulse Ox 97.5 F 81 16 152/72 H 96 11/14/22 12:00 11/14/22 12:00 11/14/22 12:00 11/14/22 12:00 11/14/22 12:00 Laboratory Data at Discharge: WBC 7.80 K/uL (4.3-10.9) 11/14/22 05:26 Hgb 11.3 g/dL (12.0-15.0) L D 11/14/22 05:26 Hct 36.5 % (36.0-45.0) 11/14/22 05:26 Plt Count 315 K/uL (152-406) 11/14/22 05:26 PT 11.1 SECONDS (9.5-12.5) 11/13/22 08:37 INR 1.01 11/13/22 08:37 Sodium 137 mmol/L (136-145) 11/14/22 05:26 Potassium 4.5 mmol/L (3.5-5.1) D 11/14/22 05:26 BUN 58 mg/dL (7-18) H 11/14/22 05:26 Creatinine 6.60 mg/dL (0.55-1.02) H* 11/14/22 05:26 Glucose 92 mg/dL (74-106) 11/14/22 05:26 Magnesium 3.7 mg/dL (1.6-2.4) H* 11/13/22 09:43 Total Bilirubin 0.4 mg/dL (0.2-1.0) 11/13/22 09:43 AST 15 U/L (15-37) 11/13/22 09:43 ALT 16 U/L (13-56) 11/13/22 09:43 Alkaline Phosphatase 232 U/L (45-117) H 11/13/22 09:43 Lipase 79 U/L (73-393) 11/13/22 09:43 Home Medications: Atorvastatin Calcium [Lipitor*] 20 mg PO BEDTIME 11/18/21 Codeine/APAP [Tylenol #3*] 1 tab PO TIDP PRN 11/18/21 Duloxetine HCl [Cymbalta] 60 mg PO BID 11/18/21 Mirtazapine 7.5 mg PO BEDTIME 02/13/22 Sevelamer Carbonate 1,600 mg PO TIDWM 02/13/22 Thiamine HCl [Vitamin B-1*] 100 mg PO DAILY 02/13/22 carvediloL [Carvedilol] 6.25 mg PO BID 02/13/22 Clopidogrel Bisulfate [Plavix] 75 mg PO DAILY #90 11/14/22 New Medications: Clopidogrel Bisulfate [Plavix] 75 mg PO DAILY #90 Followup: Devante Varghese MD [Primary Care Provider] -
[2022-11-14] MEDS ORDERED: IPRATROPIUM BROM 0.5MG/2.5ML NEB PRN (14:00)
[2022-11-14] MEDS ORDERED: ALBUTEROL 2.5 MG/3 ML NEB SOL NEB PRN (14:00)
--- NOTE | 2022-11-14 14:53 | P.PN ---
Subjective Date of Service: 11/14/22 Chief Complaint: WEAK, CONFUSED Subjective: Other (Received HD today. Bed bound.) Physical Examination - Vital Signs Temperature: 97.5 F Blood Pressure: 152/72 Pulse: 81 Respirations: 16 Pulse Ox (%): 96 - Physical Exam General: Other (chronically ill appearing) HEENT: Atraumatic, Normocephalic Neck: Supple Respiratory: Other (symmetric chest expansion) Cardiovascular: No rubs, No murmurs Gastrointestinal: Soft and benign, No guarding Musculoskeletal: No clubbing Integumentary: No warmth Neurological: Normal tone Urinary: Other (no bladder distention) External genitalia: Deferred Rectal: Deferred Assessment And Plan - Plan 1. End-stage renal disease. HD received today, cont MWF sked. 2. Hypertension. Cont current med regimen. 3. Hyperkalemia. Correction via HD. 4. Urinary tract infection with altered mental status, urosepsis. On abx. 5. Anemia. FRANNY qMWF 6. CAD, CHF. Cont cardioprudent meds.
== END 2022-11-14 19:24 | disposition home health service (06) | DRG 689 ==
LOC: ER 07:57 → ERHOLD 10:56 → 2ND 13:12
PROVIDERS: ADMIT Internal Medicine; ATTEND Internal Medicine
PROC: 5A1D70Z Performance of Urinary Filtration, Intermittent, Less than 6 Hours Per Day (ICD-10-PCS; principal; 2022-11-14)
DX: N39.0 Urinary tract infection, site not specified (principal); N18.6 End stage renal disease; I13.2 Hypertensive heart and chronic kidney disease with heart failure and with stage 5 chronic kidney disease, or end stage renal disease; R47.01 Aphasia; I50.9 Heart failure, unspecified; D63.1 Anemia in chronic kidney disease; E78.5 Hyperlipidemia, unspecified; E87.5 Hyperkalemia; E66.9 Obesity, unspecified; I25.10 Atherosclerotic heart disease of native coronary artery without angina pectoris; Z99.2 Dependence on renal dialysis; Z95.5 Presence of coronary angioplasty implant and graft; Z98.51 Tubal ligation status; Z68.31 Body mass index [BMI] 31.0-31.9, adult; Z79.82 Long term (current) use of aspirin; Z86.73 Personal history of transient ischemic attack (TIA), and cerebral infarction without residual deficits; Z74.01 Bed confinement status; Z96.651 Presence of right artificial knee joint; Z79.899 Other long term (current) drug therapy; Z20.822 Contact with and (suspected) exposure to COVID-19
CPT/HCPCS: 36415; 70450; 70551; 71045; 80048; 80076; 81003; 81015; 83605; 83690; 83735; 83880; 84484; 85025; 85610; 87040; 87086; 87088; 87811; 90935; 93005; 94640; 96365; 96366; 99285; J1644; J1815; J1940; J7040; J7613

== ENCOUNTER 2022-12-15 12:06 | Inpatient (IN) | payer OTHER ==
--- OUTSIDE RECORDS SUMMARY | 2022-12-15 12:12 | XMS REPORT | Continuity of Care Document ---
:1945 Author Organization [facility] t Address [address] [place] [address] Care Team Providers Name Role Phone JAYDA VARGHESE Primary Care Physician Unavailable Juan Luis Mendenhall Attending Clinician Unavailable Gabe Durant Attending Clinician Unavailable Sagar Taveras Attending Clinician Unavailable LAVONNE EVANS Attending Clinician Unavailable Cynthia Buenrostro DO Attending Clinician CYNTHIA BUENROSTRO Attending Clinician Unavailable KNOW, DOES_NOT Admitting Clinician Unavailable Leni Kruegeranuel Yue Admitting Clinician Unavailable Physician, No Primary or Family Admitting Clinician Unavaila Sagar Abdi Admitting Clinician Unavailable Juan Luis Mendenhall Admitting [...] 00:00: g of this [place] and and 00 note Medical articular articular might be Br anch cartilage cartilage different from the original. ICD10 Diagnosis Term Director It Utility Benign Benign Disease Active 2005-11 Univers hypertensi hypertensi 2-29 it y of ve heart ve heart 00:00: [place] disease disease 00 Medical without without Branch heart heart failure failure Backache Backache Disease Active 2005-11 Overview: Un jordan 2-29 Formattin ity of 00:00: g of this 00 note Medical might be Branch different from the original. ICD10 Diagnosis Term Director It Utility HLD HLD Disease Active 2005-11 Overview: Univer s (hyperlipi (hyperlipi 2-29 Formattin ity of demia) demia) 00:00: g of this 00 note Medical might be Branch different from the original. ICD10 Diagnosis Term Director It Utility Epistaxis Epistaxis Disease Active 2005-11 Uni vers 2-29 ity of 00:00: [place] 00 Medical Branch Allergies, Adverse Reactions, Alerts Allergy Allergy Status Severity Reaction(s) Onset Inactive Treating Comm ents Source Name Type Date Date Clinician No Known DA Active U [facility]ie 2-09 [place] s 00:00: d 00 [facility] No Known DA Active U 2021-11 [facility] Allergie 0-17 Clear s 00:00: [place] 00 [facility] No Known DA Active U [facility] Allergie 7-06 Clear s 00:00: [place]oz[place] 00 [facility] No Known DA Active U 2000-11 [facility] Drug 0-01 [place] Allergie 00:00: d s 00 [facility] No Known DA Active U [facility] Drug 5-31 [place] Intolera 00:00: d nces 00 [facility] NO KNOWN Drug Active Univers ALLERGIE Class ity of S [facility] Social History Social Habit Start Date Stop Date Quantity Comments Source Exposure to 2022-05-01 2022-05-11 Not sure [facility]-CoV-2 00:00:00 11:08:00 [place] [facility] (event) [place] Alcohol intake 2022-05-11 2022-05-11 Current [facility] 00:00:00 00:00:00 non-drinker of [facility] alcohol (finding) [place] Tobacco use and 2016-07-22 2016-07-22 Smokeless tobacco Un iversity of exposure 00:00:00 00:00:00 non-user [facility] Sex Assigned At [birth year] Universit y of 00:00:00 00:00:00 [facility] Smoking Status Start Date Stop Date Source Never smoked tobacco [facility] Medications Ordered Filled Start Stop Current Ordering Indication Dosage Frequency Signature Comments Components Source Medication Medication Date Date Medication? Clinician (SIG) Name Name aspirin 325mg 325 mg, Unive rs tablet 325 05-11 Oral, ity of mg 17:00: 18:13 ONCE, 1 [place] 00 :00 dose, On Medical [place] [facility] 05/11/22 at 1200, STAT aspirin 81 2016- Yes 81mg Take 1 Unive rs mg chewable 5-11 tablet by ity of tablet 00:00: mouth [place] 00 daily. Medical Branch mirtazapine 2015-11 Yes Univer s (REMERON) 1-02 ity of 15 mg 00:00: [place] tablet 00 Medical Branch traMADOL Yes Univers (ULTRAM) 50 9-06 ity of mg tablet 00:00: [place] 00 Medical Branch gabapentin Yes Univers (NEURONTIN) 9-06 ity of 300 mg 00:00: [place] capsule 00 Medical Branch losartan Yes Univers (COZAAR) 9-06 ity of 100 mg 00:00: [place] tablet 00 Medical Branch tiZANidine Yes Univers (ZANAFLEX) 7-12 ity of 4 mg tablet 00:00: [place] 00 Medical Branch metoprolol Yes Univers succinate 6-30 ity of XL (TOPROL 00:00: [place] XL) 200 mg 00 Medical 24 hr Branch tablet atorvastati Yes Ember s n (LIPITOR) 6-30 ity of 10 mg 00:00: [place] tablet 00 Medical Branch spironolact Yes Univer s one 6-28 ity of (SPIRONOLAC 00:00: [place] TONE) 25 mg 00 Medical tablet Branch AMLODIPINE 2007-11 Yes one tab po U nivers 10 MG ORAL 0-29 once daily ity of TAB 00:00: [place] 00 Medical Branch HYDROCHLORO 2007-11 Yes [id number] 1 tablet Univers THIAZIDE 25 0-27 once a day it y of MG ORAL TAB 00:00: [place] [facility] PRAVASTATIN Yes [id number] 1 tablet Univers 80 MG ORAL 7-18 qhs ity of TAB 00:00: Medical Branch VICODIN ES Yes [id number] 1 tablet 3 Univers 7.5-750 MG 3-10 times a ity of ORAL TAB 00:00: day Medical Branch NITROGLYCER Yes [id number] one tab SL Univers IN 0.4 MG 3-10 q5min prn ity o f SL SUBL 00:00: chest pain [place] 00 x 3 Medical Branch PRAVACHOL Yes 1 tab po Univ ers 80 MG ORAL 7-09 daily ity of TAB 00:00: [place] 00 Medical Branch VICODIN ES Yes 1 by mouth U nivers 7.5-750 MG 5-18 three ity of ORAL TAB 00:00: times a [place] 00 day as Medical needed Branch VICODIN ES Yes [id number] 1 by mouth Univers 7.5-750 MG 2-26 three ity of ORAL TAB 00:00: times a [place] 00 day when Medical necessary Branch Vital Signs Vital Name Observation Time Observation Value Comments Source Systolic blood 2022-05-11 21:00:00 149 mm[Hg] Univer sity of pressure [facility] Diastolic blood 2022-05-11 21:00:00 90 mm[Hg] Unive rsity of [facility] Heart rate 2022-05-11 21:00:00 93 /min [facility] Respiratory rate 2022-05-11 21:00:00 21 /min [facility] Oxygen saturation in 2022-05-11 21:00:00 98 /min [facility] Arterial blood by [facility] Pulse oximetry [place] Body temperature 2022-05-11 16:12:00 36.61 Twyla [facility] Body weight 2022-05-11 16:12:00 75.751 kg [facility] BMI 2022-05-11 16:12:00 27.79 kg/m2 [facility] Procedures Procedure Date / Time Performed Performing Clinician Anne demarco [id number] 2022-08-22 00:00:00 KELSEY.05 [facility] [id number] 2022-08-20 00:00:00 AYADI [facility] [id number] 2022-08-20 00:00:00 AYADI [facility] [id number] 2022-08-20 00:00:00 KELSEY.05 [facility] [id number] 2022-08-20 00:00:00 AYADI [facility] [id number] 2022-08-19 00:00:00 AYADI [facility] [id number] 2022-08-19 00:00:00 AYADI [facility] [id number] 2022-08-19 00:00:00 AYADI [facility] [id number] 2022-08-19 00:00:00 AYADI [facility] [id number] 2022-08-19 00:00:00 AYADI [facility] [id number] 2022-08-18 00:00:00 AYADI [facility] [id number] 2022-05-21 00:00:00 KELSEY.05 [facility] [id number] 2022-05-19 00:00:00 KELSEY.05 [facility] [id number] 2022-05-16 00:00:00 KELSEY.05 [facility] [id number] 2022-05-15 00:00:00 KATIE.11 [facility] [id number] 2022-05-15 00:00:00 KELSEY.05 [facility] [id number] 2022-05-14 00:00:00 KATIE.11 [facility] [id number] 2022-05-14 00:00:00 KATIE.11 [facility] [id number] 2022-05-14 00:00:00 KELSEY.05 [facility] LACTIC ACID WHOLE 2022-05-11 20:01:00 Cynthia Buenrostro [facility] BLOOD [facility] Branch XR CHEST 1 VW 2022-05-11 18:40:[address] [facility] TROPONIN I 2022-05-11 18:14:00 Michelle Palencia [facility] COMP. METABOLIC PANEL 2022-05-11 18:14:00 Michelle Palencia Un [facility] ([id number]) [facility] CBC WITH DIFF 2022-05-11 18:14:00 Michelle Palencia [facility] N-TERMINAL PRO-BNP 2022-05-11 18:14:00 Michelle Palencia [facility] CONSENT/REFUSAL FOR 2022-05-11 16:12:54 Doctor Unassigned, No Un [facility] DIAGNOSIS AND Name Medical Branch TREATMENT [id number] 2022-05-10 00:00:00 KELSEY.05 [facility] [id number] 2022-05-08 00:00:00 AYADI [facility] [id number] 2022-05-08 00:00:00 AYADI [facility] [id number] 2022-05-08 00:00:00 KELSEY.05 [facility] [id number] 2022-05-08 00:00:00 AYADI [facility] [id number] 2022-05-08 00:00:00 AYADI [facility] [id number] 2022-05-08 00:00:00 AYADI [facility] [id number] 2022-05-07 00:00:00 KELSEY.05 [facility] [id number] 2022-05-07 00:00:00 ILONK [facility] Encounters Start End Encounter Admission Attending Care Care Encounter Source Date/Time Date/Time Type Type Clinicians Facility Department ID 2022-12-11 2022-12-11 Outpatient Juan Luis Jonas HCAPM CATH LA0 [id number] [facility] 06:18:00 06:18:00 59 [facility] 2022-10-30 2022-10-30 Outpatient Maricel Jonasnd HCAPM RASHID LA0 [id number] [facility] 06:20:00 06:20:00 47 [facility] 2022-09-10 2022-09-10 Outpatient Durant, HCACL LABO [id number] [facility] 00:41:00 00:41:00 Gabe 91 [facility] 2022-09-09 2022-09-09 Emergency EM Durant, HCAPM UDAY [id number] [facility] 13:03:00 18:00:00 Gabe 97 [facility] 2022-08-18 2022-08-23 Inpatient EL Nitin, HCAPM MAS [id number] [facility] 20:46:00 17:00:00 Jonoli 25 [facility] 2022-05-14 2022-05-22 Inpatient АННА Mendenhall Juan Luis HCAPM RASHID [id number] [facility] 10:35:00 16:56:00 [id number] [facility] 2022-05-14 2022-05-22 Inpatient EL bAdirashid Juan Luis HCAPM RASHID LA00 [id number] [facility] 10:35:00 16:56:00 70 [facility] 2022-05-22 2022-05-22 Outpatient Tiffanie EVANS NDJENN NDJENN 015 [id number] Univers 09:00:00 09:00:00 LAVONNE [id number] [facility] 2022-05-14 2022-05-14 Outpatient Maricel Mendenhallnd HCACL LABO [id number] [facility] 19:14:00 19:14:00 82 [facility] 2022-05-11 2022-05-11 Emergency Faulconer, TRAUMA [id number] Univers 11:13:00 17:08:00 [facility] [id number] it y [id number] Soni jimenez [id number] [address] 2022-05-11 2022-05-11 Emergency X FAULCONER, [facility] ERT [id number] Univers 11:13:00 17:08:00 CYNTHIA ity [facility] 2022-05-07 2022-05-11 Inpatient EM Nitin, HCAPM INTE [id number] [facility] 17:42:00 10:46:00 Nkoli 16 [facility] 2022-05-07 2022-05-11 Inpatient EM Nitin, HCAPM INTE [id number] [facility] 17:42:00 10:46:00 Nkoli [id number] [facility] 2022-05-08 2022-05-08 Outpatient MATI TaverasCL LABO [id number] [facility] 00:59:00 00:59:00 Nkoli 40 [facility] Results Test Description Test Time Test Comments Results Result Comments Source CBC W/AUTO DIFF 2022-12-11 08:49:00 Test Item Value Reference Range Interpretation Comme nts WHITE BLOOD CELL (test code = WBC) 6.1 K/mm3 3.5-11.0 N RED BLOOD CELL (test code = RBC) 5.53 M/mm3 4.70-6.10 N HEMOGLOBIN (test code = HGB) 15.4 G/DL 10.4-14.9 H HEMATOCRIT (test code = HCT) 53.4 % 31.5-44.1 H MEAN CELL VOLUME (test code = MCV) 96.6 Fl 84.5-98.6 N MEAN CELL HGB (test code = MCH) 27.8 pg 27.0-34.2 N MEAN CELL HGB CONCETRATION (test code = MCHC) 28.8 G/DL 31.5-34. 0 L RED CELL DISTRIBUTION WIDTH (test code = RDW) 15.7 SD 11.5-14. 5 H PLATELET COUNT (test code = PLT) 328 K/mm3 150-450 N MEAN PLATELET VOLUME (test code = MPV) 9.20 fL 7.0-10.5 N NEUTROPHIL % (test code = NT%) 52.5 % 40-76 N IMMATURE GRANULOCYTE % (test code = IG%) 0.2 % 0.0-5.0 N LYMPHOCYTE % (test code = LY%) 35.2 % 20.5-51.1 N MONOCYTE % (test code = MO%) 7.8 % 1.7-9.3 N EOSINOPHIL % (test code = EO%) 3.0 % 0.0-6.0 N BASOPHIL % (test code = BA%) 1.3 % 0.0-2.0 N NUCLEATED RBC % (test code = NRBC%) 0.0 /100WBC% 0.0-1.0 N NEUTROPHIL # (test code = NT#) 3.2 K/mm3 1.8-7.6 N IMMATURE GRANULOCYTE # (test code = IG#) 0.01 x10 3/uL 0.00-0.03 N LYMPHOCYTE # (test code = LY#) 2.1 K/mm3 0.6-3.2 N MONOCYTE # (test code = MO#) 0.5 K/mm3 0.3-1.1 N EOSINOPHIL # (test code = EO#) 0.2 K/mm3 0.0-0.4 N BASOPHIL # (test code = BA#) 0.1 K/mm3 0.0-0.1 N NUCLEATED RBC # (test code = NRBC#) 0.0 K/mm3 0.0-0.1 N MANUAL DIFF REQUIRED (test code = MDIFF) NO DIFF/SCN CRITERIA RBC [id number] 08:49:00 Test Item Value Reference Range Interpretation Comments HYPOCHROMIA (test code = 1+ ON SCAN NONE HYPO) PLATELET ESTIMATE (test ADEQUATE THOUSAND ADEQUATE code = PLTEST) PLATELET MORPHOLOGY (test NORMAL code = PLTMORPH) COVID 19 INHOUSE [id number] 07:38:00 Test Item Value Reference Range Interpretation Comments COVID 19 INHOUSE AG NEGATIVE Negative Per [facility] facturer, (test code = negative result s should [id number]) be treated aspr esumptive and, if inconsi [...] nicalsigns and symptoms co nsistent with COVID-19. GLUCOSE BEDSIDE [id number] 12:46:00 Test Item Value Reference Range Interpretation Comments GLUCOSE BEDSIDE TESTING (test code 101 mg/dL 70-110 N = GLUBED) BASIC METABOLIC [id number] 08:25:00 Test Item Value Reference Range Interpretation [...] the recommended for fouzia for GFRby the [facility] on for Adults.The GFR will not calculate i f the sex is unknown or if thepatient's ag e is <18 years. CREATININE (test 4.6 MG/DL 0.6-1.0 H code = CREAT) CALCIUM (test code 9.0 MG/DL 8.5-10.1 N = CA) COVID 19 INHOUSE [id number] 08:11:00 Test Item Value Reference Range Interpretation Comments COVID 19 INHOUSE AG NEGATIVE Negative Per manu facturer, (test code = negative result s should [id number]) be treated aspr esumptive and, if inconsi [...] symptoms co nsistent with COVID-19. CBC W/AUTO [id number] 07:58:00 Test Item Value Reference Range Interpretation [...] MDIFF) - CTA ABD AORTA IF LWEX [id number] 17:03:00 [facility] 1945 Sex: F Name: NGUYỄN RITTER [facility] : 1945 Age/S: 76 / F [id number] [address] [place] Unit #: [id number] Loc: [place] [address] Phys: Gabe Durant MD Acct: [id number] Dis Date: Status: REG ER PHONE #: [phone] Exam Date: 09/09/2022 4970 FAX #: Reason: evaluate hematoma EXAMS: CPT: [id number] [place] [address] Location Code: S17 EXAMINATION: - CTA ABD AORTA IF LWEX RO CLINICAL INDICATION: Female, 76 years old with hematoma in right leg. TECHNIQUE: Thin section, high-resolution postcontrast imaging through the aorta and the bilateral lower extremities performed. Multiplanar MIP reformations along with 3-D volume rendering reformations are submitted, processed on separate workstation. One or more of the following dose reduction techniques were used: Automated exposure control, adjustment of the mA and/or kV according to patient size, and/or iterative reconstruction. Unless otherwise specified, incidental findings do not require dedicated imaging follow-up. COMPARISON: CT abdominal runoff August 22, 2022. FINDINGS: Arterial: Abdominal aorta: is morphologically normal. There isno appreciable stenosis, aneurysm, or dissection. Minimal calcific plaque is present within the abdominal aorta. Renal arteries: Single renal arteries bilaterally without stenosis Mesenteric arteries: The celiac axis and superior mesenteric arteries are well opacified. Major branches are patent. Thereis no evidence of appreciable stenosis. Iliac arteries: The iliac arteries are patent without stenosis, aneurysmal degeneration, or dissection. Right lower extremity arteries: Right common femoral artery and profunda are widely patent. The proximal right SFA is patent. However there is a focal area of50% narrowing in the proximal SFA and then there is complete occlusion. There is an occluded remnant bypass graft. Anterior to the right superficial femoral artery there is a 3.0 x 10.0 x 10.0 cm AP/TR /CC higher than simple fluid attenuating collection within the proximal right anterior thigh subcutaneous tissues.. It appears relatively stable in size compared to previous. PAGE 1 Signed Report (CONTINUED) Name: NGUYỄN RITTER : 1945 Age/S: 76 / F [address] [facility] [place] Unit #: [id number] Loc: [place] [address] Phys: Gabe Durant MD Acct: [id number] Dis Date: Status: REG ER PHONE #: [phone] Exam Date: 09/09/2022 3220 FAX #: Reason: evaluate hematoma EXAMS: CPT: [id number] [place] [address] (Continued) There is stranding within the subcutaneous tissues of the right anterior groin adjacent to this collection. No pseudoaneurysm or active extravasation is noted. Redemonstration of right lower extremity above the amputation. Left lower extremity arteries: The left common femoral, profunda, superficial femoral artery are patent. Evaluation of the popliteal artery and tibioperoneal trunk is limited due to a significant artifact produced by the indwelling stent and the arthroplasty hardware. Below the left knee joint, there appears to be a single vesselrunoff divided by the peroneal artery that supplies the foot. Multiple calcifications are noted within the likely occluded AT. Redemonstration of postoperative changes of the left ankle with diffuse dis use osteopenia and degenerative changes. Non Vascular: Lower Chest: Probable bibasilar atelectasis or scarring. Liver: Normal in size and contour. No [...] or lymphadenopathy. Stable degenerative changes of the lumbarspine. PAGE 2 Signed Report (CONTINUED) Name: [place] : 1945 Age/S: 76 / F [id number] [address] [place] Unit #: [id number] Loc: [place] [address] Phys: Gabe Durant MD Acct: [id number] Dis Date: Status: REG ER PHONE #: [phone] Exam Date: 09/09/2022 1530 FAX #: Reason: evaluate hematoma EXAMS: CPT: [id number] [place] [address] (Continued) IMPRESSION: Anterior to the right superficial femoral artery within the proximal right anterior thigh subcutaneous tissues/anterior muscular compartment of the thigh is a 3 x 10 x 10 cm AP/TR/CC-simple fluid attenuatingcollection with some septations. No pseudoaneurysm or active extravasation is noted. It appears relatively stable in size compared to August 22, 2022 but is more organized. Given the clinical history,this most likely represents a hematoma with other etiologies including seroma, phlegmon, and developing abscess not excluded. at 1703 Reported and signed by: Roosevelt Mendenhall M.D. CC: Gabe Durant MD Technologist:Pacheco Flores, RT(R) CTDI: DLP: Trnscb Date/Time: 09/09/2022 (1703) [email or web address] Orig Print D/T: S: 09/09/2022 (9752) PAGE 3 Signed Report- XR CHEST 1 [id number] 17:02:00 [facility] : 1945 Sex: F Name: NGUYỄN RITTER [facility] : 1945 Age/S: 76 / F [id number] [address] [place] Unit #: [id number] Loc: [place] [address] Phys: Gabe Durant MD Acct: [id number] Dis Date: Status: REG ER PHONE#: [phone] Exam Date: 09/09/2022 1541 FAX #: Reason: Code Sepsis EXAMS: CPT: [id number] XR CHEST 1 V 32111 Fluoro Time: DAP (Gy m2): Air Kerma (mGy): EXAM: CHEST ONE VIEW INDICATION: Code Sepsis LOCATION: B2 COMPARISON: May 19, 2022 TECHNIQUE: AP view of the chest FINDINGS: The left central venous catheter is unchanged. The heart size is normal. There are mild congestive changes throughout bothlungs. No pneumothorax or pleural effusion is identified. The osseous structures are normal. IMPRESSION: Mild congestive changes throughout both lungs. at 1702 Reported and signed by: Gina Wilson M.D. CC: Gabe Durant MD PAGE 1 Signed Report Name: NGUYỄN RITTER : 1945 Age/S: 76 / F [address] [address] [place] Unit #: [id number] Loc: [place] [address] Phys: Gabe Durant MD Acct: [id number] Dis Date: Status: REG ER PHONE #: [phone] Exam Date: 09/09/2022 1541 FAX #: Reason: Code Sepsis EXAMS: CPT: [id number] XR CHEST 1 V 64251 Fluoro Time: DAP (Gy m2): Air Kerma (mGy): (Continued) Technologist: Rylie Flores, RT(R); HIPOLITO ROSEN Trnprb Date/Time: 09/09/2022 (1701) [email or web address] Orig Print D/T: S:09/09/2022 (1705) PAGE 2 Signed Report COMPREHENSIVE METABOLIC [id number] 15:44:00 Test Item Value Reference Range Interpretation [...] TOTAL (test code = ALKP) HEPATIC FUNCTION [id number] 15:44:00 Test Item Value Reference Range Interpretation Comments BILIRUBIN DIRECT (test code = < 0.10 MG/DL 0.00-0.30 N BILD) BILIRUBIN INDIRECT (test code = 0.40 MG/DL 0.2-1.2 N BILIND) PROTHROMBIN [id number] 15:31:00 Test Item Value Reference Range Interpretation Comments PT PATIENT (test 11.2 SECONDS 9.3-12.9 N code = PTP) INTERNATIONAL NORMAL 0.98 INR Unit 0.8-1.2 N TARGE T INR [...] prevent recurrent infar ct). NT PRO-BRAIN NATRIURETIC [id number] 15:29:00 Test Item Value Reference Range Interpretation Comments NT PRO-BRAIN NATRIURETIC PEPTI 1184 PG/ML 0-100 H (test code = PROBNP) Completed by Nursing: NOTROP-I HIGH [id number] 15:29:00 Test Item Value Reference Range Interpretation [...] Completed by Nursing: NOCOVID 19 Asymptomatic IH [id number] 15:24:00 Test Item Value Reference Range Interpretation [...] symptoms consis tent with COVID-19. CBC W/AUTO [id number] 15:08:00 Test Item Value Reference Range Interpretation [...] code NO DIFF/SCN CRITERIA = MDIFF) LACTIC [id number] 14:59:00 Test Item Value Reference Range Interpretation Comments LACTIC ACID (test code = LACT) 0.9 mmol/L 0.4-2.0 N CBC W/AUTO [id number] 06:31:00 Test Item Value Reference Range Interpretation [...] NT WITH AUTO DIFFERENTI AL. BASIC METABOLIC [id number] 05:55:00 Test Item Value Reference Range Interpretation [...] code = CA) 8.1 MG/DL 8.5-10.1 L [id number] 05:55:00 Test Item Value Reference Range Interpretation Comments PHOSPHOROUS (test code = PHOS) 6.5 MG/DL 2.5-4.9 H [id number] 05:55:00 Test Item Value Reference Range Interpretation Comments MAGNESIUM (test code = MAG) 2.7 MG/DL 1.8-2.4 H - CTA ABD AORTA IF LWEX [id number] 15:52:00 [facility] : 1945 Sex: F Name: NGUYỄN RITTER [facility] : 1945 Age/S: 76 / F [address] [address] [place] Unit #: [id number] Loc: [place] [address] Phys: Shaun Dolan MD Acct: [id number] Dis Date: Status: ADM IN PHONE#: [phone] Exam Date: 08/22/2022 1510 FAX #: Reason: evaluate for any source of bleeding. Hematoma. EXAMS: CPT: [id number] [place] [address] S 17 TIME OF STUDY: 08/22/2022 7:40 AM REASON FOR EXAM: evaluate for any source of bleeding. Hematoma. COMPARISON: CTA 08/18/2022. Ultrasound 08/20/2022 and 08/21/2022. TECHNIQUE: Contrast enhanced thin section helical images were obtained through the abdomen, pelvis and bilateral lower extremities with the bolus of contrast timed for the optimal opacification of the arterial structures per departmental CTA protocol; Post- processing, retro reconstruction, and interpretation of angiographic images [...] with calcifications stable and require CT urogram uvaldo nonemergent basis. There is cholelithiasis present. Dilated common [...] RITTER : 1945 Age/S: 76 / F [id number] [address] [place] Unit #: [id number] Loc: [place] [address] Phys: Shaun Dolan MD Acct: [id number] Dis Date: atus: ADM IN PHONE #: [phone] Exam Date: 08/22/2022 1510 FAX #: Reason: evaluate for any sourceof bleeding. Hematoma. EXAMS: CPT: [id number] [place] [address] (Continued) CTA bilateral lower extremities: Postoperative changes of right xfgow-amj-ygxd amputation and left knee arthroplasty are noted. [...] the indwelling stent as well as the kneearthroplasty hardware. Below the knee, single vessel peroneal artery runoff is seen to the level of the ankle. Postoperative changes of the left ankle with [...] Technologist:HIPOLITO ROSEN CTDI: DLP: Trnscb Date/Time: 08/22/2022 (9040) [email or web address] Orig Print D/T: S: 08/22/2022 (2129) PAGE 2 Signed ReportBASIC METABOLIC [id number] 04:59:00 Test Item Value Reference Range Interpretation [...] code = CA) 8.1 MG/DL 8.5-10.1 L [id number] 04:59:00 Test Item Value Reference Range Interpretation Comments PHOSPHOROUS (test code = PHOS) 6.7 MG/DL 2.5-4.9 H [id number] 04:59:00 Test Item Value Reference Range Interpretation Comments MAGNESIUM (test code = MAG) 2.5 MG/DL 1.8-2.4 H CBC W/AUTO [id number] 04:51:00 Test Item Value Reference Range Interpretation [...] code NO DIFF/SCN CRITERIA = MDIFF) - [id number] 12:25:00 [facility] 1945 Sex: F Name: NGUYỄN RITTER [facility] : 1945 Age/S: 76 / F [address] [address] [place] [address] Unit #: [id number] Loc: [place] [address] Phys: Sagar Taveras MD Acct: [id number] Dis Date: Status: ADM IN PHONE #: [phone] Exam Date: 08/20/2022 1413 FAX #: Reason: PSEUDOANEURYSM - THROMBIN INJECTION EXAMS:CPT: [id number] US INTRAOPERATIVE 98179 S 17 TIME OF STUDY: 08/21/2022 REASON FOR EXAM: PSEUDOANEURYSM - THROMBIN INJECTION COMPARISON: None. TECHNIQUE: High- resolution [...] CC: Sagar Taveras MD Technologist: Samira Oswald Trnprb Date/Time: 08/21/2022 (3428) [email or web address] PAGE 1 Signed Report Name: NGUYỄN RITTER [place] : 1945 Age/S: 76 /F [address] [address] [place] Unit #: [id number] Loc: [place] [address] Phys: Sagar Taveras MD Acct: [id number] Dis Date: Status: ADM IN PHONE #: [phone] Exam Date: 08/20/2022 1413 FAX #: Reason: PSEUDOANEURYSM - THROMBIN INJECTION EXAMS: CPT: [id number] US INTRAOPERATIVE 60553 (Continued) Orig PrintD/T: S: 08/21/2022 (1228) Probe: PAGE 2 Signed ReportAB HEPATITIS B [id number] 10:14:00 Test Item Value Reference Range Interpretation Comments AB HEPATITIS B <3.1 mIU/mL See_Comment A Status of Im munity SURFACE (test code = Anti-HB s Level HBSAB) --- I nconsi stent with Immu nity 0.0 - 9.9Consis tent with Immunity > 9.9 [Automated mess age] The system [employer] generated this result transmitted ref erence range: Immunity >9.9. The reference r bonny was not used to interpret this result as normal/abnor mal. AB HEPATITIS B [id number] 10:14:00 Test Item Value Reference Range Interpretation Comments AB HEPATITIS B CORE Negative Negative Performe d At: HD (test code = HBCAB) [facility] [address] [place], [place] [address] amador Payne MD Ph:[phone] - DUP [facility] [id number] 09:45:00 [facility] 1945 Sex: F Name: NGUYỄN RITTER [facility] : 1945 Age/S: 76 / F [address] [facility] Unit #: [id number] Loc: [place] [address] Phys: Shaun Dolan MD Acct: [id number] Dis Date: Status: ADM IN PHONE #: [phone] Exam Date: 08/21/2022 0854 FAX #: Reason: Right groin ultrasound for pseudoaneurysmEXAMS: CPT: [id number] [place] [address] LOCATION: B2 EXAM: Right lower extremity arterial Doppler HISTORY: Right groin ultrasound for pseudoaneurysm TECHNIQUE: Grayscale B-mode, color-flow, and spectral Doppler analysis of the right lower extremity arterial vasculature was performed. COMPARISON: 08/20/2022 FINDINGS: The right common femoral and superficial femoral arteries and veins are patent. There is no flow on color or spectral Doppler images within the previously defined pseudoaneurysms.No new pseudoaneurysm is identified. IMPRESSION: Previously described pseudoaneurysms appear occluded on the current exam. at 0945 Reported and signed by: Mark Emmanuel M.D. CC: Shaun Dolan MD; Sagar Taveras MD Technologist: Samira Oswald; Pauly Ocampo RDMS [facility] Trnscb Date/Time: 08/21/2022 (0945) [email or web address] PAGE 1 Signed Report Name: NGUYỄN RITTER : 1945 Age/S: 76 / F [address] [facility] Unit #: [id number] Loc: [place] [address] Phys: Shaun Dolan MD Acct: [id number] Dis Date: Status: ADM IN PHONE #: [phone] Exam Date: 08/21/2022 0854 FAX #: Reason: Right groin ultrasound for pseudoaneurysm EXAMS: CPT: [id number] [place] [address] (Continued) Orig Print D/T: S: 08/21/2022 (0948) Probe: PAGE 2 Signed Report BASIC METABOLIC [id number] 03:34:00 Test Item Value Reference Range Interpretation [...] code = CA) 8.5 MG/DL 8.5-10.1 N [id number] 03:34:00 Test Item Value Reference Range Interpretation Comments PHOSPHOROUS (test code = PHOS) 6.3 MG/DL 2.5-4.9 H [id number] 03:34:00 Test Item Value Reference Range Interpretation Comments MAGNESIUM (test code = MAG) 2.4 MG/DL 1.8-2.4 CBC W/AUTO [id number] 03:31:00 Test Item Value Reference Range Interpretation [...] DIFF/SCN CRITERIA = MDIFF) AG HEPATITIS B [id number] 10:46:00 Test Item Value Reference Range Interpretation Comments AG HEPATITIS B SURFACE NON REACTIVE INDEX NonReactive (test code = HBSAG) Comment: PriorityAG HEPATITIS B [id number] 10:46:00 Test Item Value Reference Range Interpretation Comments AG HEPATITIS B SURFACE NON REACTIVE INDEX NonReactive (test code = HBSAG) Comment: PriorityTHROMBOPLASTIN TIME [id number] 10:28:00 Test Item Value Reference Range Interpretation Comments THROMBOPLASTIN TIME PARTIAL 43.2 SECONDS 26-35 H (test code = PTT) - [place] [id number] 09:36:00 [facility] : 1945 Sex: F Name: NGU[facility]N [facility]ITTER [facility] [place] : 1945 Age/S: 76 / F [address] [address] Unit #: [id number] Loc: [place] [address] Phys: Shaun Dolan MD Acct: [id number] Dis Date: Status: ADM IN PHONE#: [phone] Exam Date: 08/20/2022918 FAX #: Reason: R/O right groin pseudoaneurysm post angiogram EXAMS: CPT: [id number] [place] [address] S 17 REASON FOR EXAM: Recent femoral artery catheterization, groin pain, evaluate for pseudoaneurysm COMPARISON: None FINDINGS: Doppler, cui-scale and color-flow imaging of the right groin in the area of catheterization was performed. Normal color-flowand Doppler signal is seen in the common [...] upper thigh. IMPRESSION: 1. Pseudoaneurysm anterior to theright common femoral artery. 2. Right thigh hematoma. Electronically Signed by Gabe Callejas on08/20/2022 at 0936 Reported and signed by: Rich Callejas M.D. CC: Shaun Dolan MD; Sagar Taveras MD Technologist: Samira Oswald Trnprb Date/Time: 08/20/2022 (0936) [email or web address] PAGE 1 Signed Report Name: [facility] 1945 Age/S: 76 / F [address] [address] [place] Unit #: [id number] Loc: [place] [address] Phys: Shaun Dolan MD Acct: [id number] Dis Date: Status: ADM IN PHONE #: [phone] Exam Date: 08/20/2022918 FAX #: Reason: R/O right groin pseudoaneurysm post angiogram EXAMS: CPT: [id number] [place] [address] (Continued) Orig Print D/T: S: 08/20/2022 (0939) Probe: PAGE 2 Signed ReportCBC W/AUTO [id number] 06:18:00 Test Item Value Reference Range Interpretation [...] code NO DIFF/SCN CRITERIA = MDIFF) RBC [id number] 06:18:00 Test Item Value Reference Range Interpretation Comments HYPOCHROMIA (test code = TRACE ON SCAN NONE HYPO) ANISOCYTOSIS (test code = TRACE NONE ANISO) MACROCYTOSIS (test code = TRACE ON SCAN NONE MACR) PLATELET ESTIMATE (test ADEQUATE THOUSAND ADEQUATE code = PLTEST) PLATELET MORPHOLOGY (test NORMAL code = PLTMORPH) BASIC METABOLIC [id number] 04:50:00 Test Item Value Reference Range Interpretation [...] code = CA) 7.9 MG/DL 8.5-10.1 L [id number] 04:50:00 Test Item Value Reference Range Interpretation Comments PHOSPHOROUS (test code = PHOS) 8.9 MG/DL 2.5-4.9 H [id number] 04:50:00 Test Item Value Reference Range Interpretation Comments MAGNESIUM (test code = MAG) 2.9 MG/DL 1.8-2.4 H THROMBOPLASTIN TIME [id number] 04:24:00 Test Item Value Reference Range Interpretation Comments THROMBOPLASTIN TIME PARTIAL 73.0 SECONDS 26-35 H (test code = PTT) THROMBOPLASTIN TIME [id number] 22:38:00 Test Item Value Reference Range Interpretation Comments THROMBOPLASTIN TIME PARTIAL 99.6 SECONDS 26-35 H (test code = PTT) COAGULATION TIME [id number] 13:25:00 Test Item Value Reference Range Interpretation Comments COAGULATION TIME ACTIVATED (test 161 SECistat 74-125 H code = ACT) GLUCOSE BEDSIDE [id number] 11:47:00 Test Item Value Reference Range Interpretation Comments GLUCOSE BEDSIDE TESTING (test code = 84 mg/dL 70-110 N GLUBED) CBC W/AUTO [id number] 11:29:00 Test Item Value Reference Range Interpretation [...] CONSISTA NT WITH AUTO DIFFERENTI AL. RBC [id number] 11:29:00 Test Item Value Reference Range Interpretation Comments HYPOCHROMIA (test code = 1+ ON SCAN NONE HYPO) ANISOCYTOSIS (test code = TRACE NONE ANISO) PLATELET ESTIMATE (test ADEQUATE THOUSAND ADEQUATE code = PLTEST) PLATELET MORPHOLOGY (test NORMAL code = PLTMORPH) URIC [id number] 08:58:00 Test Item Value Reference Range Interpretation Comments URIC ACID (test code = URIC) 4.0 MG/DL 2.6-6.0 N BASIC METABOLIC [id number] 07:09:00 Test Item Value Reference Range Interpretation [...] code = CA) 8.5 MG/DL 8.5-10.1 N [id number] 07:09:00 Test Item Value Reference Range Interpretation Comments PHOSPHOROUS (test code = PHOS) 6.4 MG/DL 2.5-4.9 H [id number] 07:09:00 Test Item Value Reference Range Interpretation Comments MAGNESIUM (test code = MAG) 2.9 MG/DL 1.8-2.4 H THROMBOPLASTIN TIME [id number] 06:24:00 Test Item Value Reference Range Interpretation Comments THROMBOPLASTIN TIME PARTIAL 196.8 SECONDS 26-35 HH (test code = PTT) - [place] [id number] 23:53:00 [facility] 1945 Sex: F Name: NGUYỄN RITTER [facility] : 1945 Age/S: 76 / F [address] [address] [place] Unit #: [id number] Loc: [place] [address] Phys: Sagar Taveras MD Acct: [id number] Dis Date: Status: ADM IN PHONE #: [phone] Exam Date: 08/18/20222314 FAX #: Reason: L foot cyanosis. EXAMS: CPT: [id number] [address] [address] EXAMINATION: - DUP [place] ART [place]LL[place] INDICATION: [...] in the common femoral, superficial femoral, and popliteal arteries. Occluded anterior tibial, posterior tibial, and dorsalis pedis arteries. Monophasic waveforms in the peroneal artery. IMPRESSION: As above. Electronically Signed by Gaeb Cook on 08/18/2022 at 2353 Reported and signed by: Wang Cook M.D. CC: Sagar Taveras MD Technologist: Rodrgíuez Johnson Trnprb Date/Time: 08/18/2022 (8183) Surjit1 PAGE 1 Signed Report Name: NGUYỄN CUELLO [place] : 1945 Age/S: 76 / F [address] [address] [place] Unit #: [id number] Loc: [place] [address] Phys: Sagar Taveras MD Acct: [id number] Dis Date: Status: ADM IN PHONE #: [phone] Exam Date: 08/18/20222314 FAX #: Reason: L foot cyanosis. EXAMS: CPT: [id number] [place] [address] (Continued) Orig Print D/T: S: 08/18/2022 (1010) Probe: PAGE 2 Signed Report- CTA ABD AORTA IF LWEX [id number] 22:57:00 [facility] : 1945 Sex: F Name: NGUYỄN RITTER [facility] : 1945 Age/S: 76 / F [address] [address] [place] Unit #: [id number] Loc: [place] [address] Phys: Lam Walton DO Acct: [id number] Dis Date: Status: ADM IN PHONE #: [phone] Exam Date: 08/18/20221933 FAX #: Reason: LLE arterial occlusion Report Has Been Amended EXAMS: CPT: [id number] [place] [address] Addendum - 08/18/2022 SIGNED 08/18/2022 ADDENDUM: [id number] CT/CTAAORNFWW Addendum: To correct voice activation error Posterior tibial artery:Occlusion from its origin. There is likely reconstitution of right posterior tibial artery at the ankle from branches of the peroneal artery. [id number] Reported and signed by: Steven Dotson M.D. Transcribed: 08/18/2022 (4860) [email or web address] Report EXAM: - CTA ABD AORTA IF LWEX RO Location: H24 INDICATION: LLE arterial occlusion COMPARISON: None Technique: Axial images of the abdomen, pelvis and lower extremities were obtained after the administration of 150 mL Isovue-370 intravenous contrast. Coronal and sagittal maximum intensity projections werecreated. One or more of the following dose reduction techniques were used: Automated exposure control, adjustment of the mA and/or kV according to patient size, and/or utilization of iterative reconstru ction technique. GFR: , Creatinine: mg/dL DLP: 1348 mGy-cm. FINDINGS: Vessels Aorta: Enlargement of the partly visualized ascending thoracic aorta measuring up [...] RITTER : 1945 Age/S: 76 / F [address] [address] [place] Unit #: [id number] Loc: [place] [address] Phys: Lam Walton DO Acct: [id number] Dis Date: Status: ADM IN PHONE #: [phone] Exam Date: 08/18/20221933 FAX #: Reason: LLE arterial occlusion Report Has Been Amended EXAMS: CPT: [id number] [place] [address] (Continued) Aortic branches: Origins of the celiac [...] limits. Note is made of a right yqufv-bxx-fdfu amputation. Left popliteal artery:There is extensive calcific plaque and irregularity and narrowing of approximately 30-40% in the proximal left popliteal artery. Streak artifact from left knee arthroplasty further limits characterization of the distal left popliteal artery. Left popliteal artery is followed to the bifurcation. Anterior tibial artery: There is absence of flow of the right anterior tibial artery from its origin. Thereis calcific plaque seen more distally. Absent flow within the dorsalis pedis artery Posterior tibialartery: Occlusion from its origin. There is likely, [...] RITTER : 1945 Age/S: 76 / F [address] [address] [place] Unit #: [id number] Loc: [place] [address] Phys: Lam Walton DO Acct: [id number] Dis Date: Status: ADM IN PHONE #: [phone] Exam Date: 08/18/20221933 FAX #: Reason: LLE arterial occlusion Report Has Been Amended EXAMS: CPT: [id number] [place] [address] (Continued) Gallbladder: Gallstones within gallbladder lumen. No gallbladder wall thi ckening. Spleen: No visualized abnormality. Pancreas: Dilation of the main pancreatic duct followed to the ampulla. No mass lesions or cysts. No surrounding inflammatory changes. Adrenals: No visualized abnormality. Kidneys: Diminutive bilaterally. Complex cyst in mid right kidney with thick wall of ca lcification and questionable enhancing septation measuring 1.5 cm.Follow-up imaging with CT renal mass protocol recommended. No hydronephrosis or hydroureter. Bowel: The small and large bowel loops arenormal in caliber. There is no abnormal mural thickening or obstruction. A normal caliber appendix is seen in the right lower quadrant. The stomach and gastroesophageal junction are within normal limits. Lymph nodes: No lymphadenopathy Peritoneum/retroperitoneum: There is periapical hernia containing loop of small bowel. No obstruction. No free intraperitoneal air or fluid. FINDINGS: Pelvis Pelvic organs/bladder: Surgical absence of the uterus. Urinary bladder mildly distended. No free pelvic fluid.Lymph nodes: No pelvic or inguinal adenopathy. Bones/soft tissues: Spondylosis and facet arthrosis in lower lumbar spine with grade 1 anterolisthesis from L3-L4 through L5-S1. FINDINGS: Lower extremities Right dvslg-cnu-fkdm amputation. Atrophy of supportive musculature of bilateral legs. Right total knee arthroplasty is present. Fusion PAGE 3 Signed Report (CONTINUED) Name: NGUYỄN RITTER : 1945 Age/S: 76 / F [address] [address] [place] [address] Unit #: [id number] Loc: [place] [address] Phys: ErwinLam chiang Acct: [id number] Dis Date: Status: ADM IN PHONE #: [phone] Exam Date: 08/18/2022 193 FAX #: Reason: LLE arterial occlusion Report Has Been Amended EXAMS: CPT: [id number] [address] (Continued) hardware in the hindfoot with questionable Charcot joint. IMPRESSION: 1. Occlusion at the origins of the left anterior and posterior tibial arteries. There is likely reconstitution of left posterior tibial artery at the ankle from branches of the peroneal artery. 2. Stenosis within the left popliteal artery. 3. There is a right milfs-wop-blmf amputation. There is occlusion of the right superficial femoral artery in the mid thigh just superior to the amputation and stent. 4. Mild aneurysmal dilatation of the partly visualized ascending thoracic aorta. Theabdominal aorta is normal in caliber without aneurysmal dilatation or dissection. 5. Aortic branchesare within normal limits. 6. Complex cyst in the mid right kidney which can be better characterized with dedicated CT renal mass protocol or MRI on nonemergent basis. 7. Cholelithiasis without further CT evidence for acute cholecystitis. 8. Dilation of the common bile duct and main pancreatic duct followed to the ampulla. Please correlate with hepatic profile. at 2034 Reported and signed by: Steven Dotson M.D. CC: Lam Walton DO Technologist:Pacheco Flores, RT(R); ROE CTDI: DLP: Trnscb Date/Time: 08/18/2022 (2034) AbiAL7 Orig Print D/T:S: 08/18/2022 (2037) PAGE 4 Signed ReportCOVID 19 [...] nd symptoms consis tent with COVID-19. PROTHROMBIN [id number] 19:41:00 Test Item Value Reference Range Interpretation [...] (to prevent recurrent infar ct). THROMBOPLASTIN TIME [id number] 19:41:00 Test Item Value Reference Range Interpretation Comments THROMBOPLASTIN TIME PARTIAL 35.9 SECONDS 26-35 H (test code = PTT) BASIC METABOLIC [id number] 19:36:00 Test Item Value Reference Range Interpretation [...] CA) 8.9 MG/DL 8.5-10.1 N CBC W/O [id number] 19:26:00 Test Item Value Reference Range Interpretation [...] fL 7.0-10.5 N MPV) COVID 19 INHOUSE [id number] 17:34:00 Test Item Value Reference Range Interpretation Comments COVID 19 INHOUSE AG NEGATIVE Negative Per manu facturer, (test code = negative result s should [id number]) be treated aspr esumptive and, if inconsi [...] symptoms co nsistent with COVID-19. COMPREHENSIVE METABOLIC [id number] 09:31:00 Test Item Value Reference Range Interpretation [...] H (test code = ALKP) CBC W/AUTO [id number] 09:11:00 Test Item Value Reference Range Interpretation [...] (test code NO DIFF/SCN CRITERIA = MDIFF) [id number] 20:13:00 Test Item Value Reference Range Interpretation Comments SURGICAL (test code = SR) RUN DATE: 05/20/22 [facility] - LAB PAGE 1 RUN TIME: 2012 Specimen Inquiry RUN USER: INTERFACE ALVERTO ENT: NGUYỄN RITTER [id number] AGE/SX: 76/F ROOM: [facility] RE05/14/22REG DR: Juan Luis Mendenhall MD : [birth year] BED: 1 DIS: STATUS: ADM IN TLOC: SPEC #: [id number] RECD: 05/14/22 STATUS: OLEKSANDR REQ #: [id number] SHARDA: 05/14/[address] [facility] DR: Juan Luis Mendenhall MD ENTERED: 05/14/22 SP TYPE: SURGICAL OTHR DR: ORDERED: 97008, 03316, ANATOMIC SPEC, SPECIMEN TRACK PROCEDURES: 37954 (05/14/22) 47721 (05/20/22-1955) SPECIMEN TRACK (05/14/22) TISSUES: A. AMPUTATED LARGE PART (EXTREMITY), NON-TRAUMATIC [...] tibial artery reveals occluded yellow-jean plaque with gmodyqv85% blockage. The anterior aspect of the knee [...] margin for decal Technical component performed at [facility],[address], [place] [address] CONTINUED ON NEXT PAGE RUN DATE: 05/20/22 [facility] - [facility] PAGE 2 RUN TIME: 2012 Specimen Inquiry RUN USER: INTERFACE SPEC #: [id number]:[id number] PATIENT: NGUYỄN RITTER #[id number] (Continued) ------- GROSS DESCRIPTION (Continued) Unless gross [...] the diagnosis/comment sections. Signed SIGNATURE ON FILE AlirezaTrevor 05/20/222012 END OF REPORT - XR CHEST 1 [id number] 12:55:00 [facility] 1945 Sex: F Name: NGUYỄN RITTER [place] : 1945 Age/S: 76 / F [address] [address] [place] Unit #: [id number] Loc: [place] [address] Phys: Sagar Taveras MD Acct: [id number] Dis Date: Status: ADM IN PHONE #: [phone] Exam Date: 05/19/2022 1250 FAX #: Reason: SIRS EXAMS: CPT: [id number] XR CHEST 1 V 98956 Fluoro Time: DAP (Gy m2): Air Kerma (mGy): EXAMINATION: - XR CHEST 1 V HISTORY: Postop COMPARISON:Chest x-ray performed May 07, 2022 LOCATION CODE: C3 FINDINGS: Single frontal view of the chest is submitted for evaluation. Left-sided dual lumen catheter is unchanged. Lungs are clear. Cardiac silhouette and mediastinal contours are unremarkable. No acute bony abnormalities are seen. IMPRESSION: No acute radiographic abnormality at 125 Reported and signed by: Tiffany Mahan M.D. CC: Sagar Taveras MD; Juan Luis Mendenhall MD PAGE 1 Signed Report Name: NGUYỄN RITTER [place] : 1945 Age/S: 76 / F [address] [address] [place] Unit #: [id number] Loc: [place] [address] Phys: Sagar Taveras MD Acct: [id number] Dis Date: Status: ADM IN PHONE #: [phone] Exam Date: 05/19/2022 1250 FAX #: Reason: SIRS EXAMS: CPT: [id number] XR CHEST 1V 50158 Fluoro Time: DAP (Gy m2): Air Kerma (mGy): (Continued) Technologist: Trevor Barr, RT(R)(CT) Trnscb Date/Time: 05/19/2022 (8806) [id number] Orig Print D/T: S: 05/19/2022 (0502) PAGE 2 Signed ReportBASIC METABOLIC [id number] 09:35:00 Test Item Value Reference Range Interpretation [...] CA) 8.1 MG/DL 8.5-10.1 L CBC W/AUTO [id number] 09:09:00 Test Item Value Reference Range Interpretation [...] NO DIFF/SCN CRITERIA = MDIFF) CBC W/AUTO [id number] 15:40:00 Test Item Value Reference Range Interpretation [...] NO DIFF/SCN CRITERIA = MDIFF) COMPREHENSIVE METABOLIC [id number] 15:39:00 Test Item Value Reference Range Interpretation [...] N (test code = ALKP) BASIC METABOLIC [id number] 11:44:00 Test Item Value Reference Range Interpretation [...] CA) 9.4 MG/DL 8.5-10.1 N COMPREHENSIVE METABOLIC [id number] 11:44:00 Test Item Value Reference Range Interpretation [...] 105 Unit/L 45-117 N code = ALKP) [id number] 11:44:00 Test Item Value Reference Range Interpretation Comments MAGNESIUM (test code = MAG) 2.2 MG/DL 1.8-2.4 N AB HEPATITIS B [id number] 06:11:00 Test Item Value Reference Range Interpretation Comments AB HEPATITIS B <3.1 mIU/mL See_Comment A Status of Im munity SURFACE (test code = Anti-HB s Level HBSAB) --- I nconsi stent with Immu nity 0.0 - 9.9Consis tent with Immunity > 9.9 [Automated mess age] The system [employer] generated this result transmitted ref erence range: Immunity >9.9. The reference r bonny was not used to interpret this result as normal/abnor mal. AG HEPATITIS B [id number] 06:11:00 Test Item Value Reference Range Interpretation Comments AG HEPATITIS B SURFACE NON REACTIVE INDEX NonReactive (test code = HBSAG) AB HEPATITIS B [id number] 06:11:00 Test Item Value Reference Range Interpretation Comments AB HEPATITIS B CORE Negative Negative Performe d At: HD (test code = HBCAB) [facility] [address] [place], [place] [address]DwaGato Payne MD Ph:[phone] AG HEPATITIS B [id number] 03:02:00 Test Item Value Reference Range Interpretation Comments AG HEPATITIS B SURFACE NON REACTIVE INDEX NonReactive (test code = HBSAG) [id number] 23:45:00 Test Item Value Reference Range Interpretation Comments POTASSIUM (test code = K) 3.8 mmol/L 3.4-5.0 N CBC W/AUTO [id number] 12:53:00 Test Item Value Reference Range Interpretation [...] CONSISTA NT WITH AUTO DIFFERENTI AL. PROTHROMBIN [id number] 12:38:00 Test Item Value Reference Range Interpretation [...] (to prevent recurrent infar ct). THROMBOPLASTIN TIME [id number] 12:38:00 Test Item Value Reference Range Interpretation Comments THROMBOPLASTIN TIME PARTIAL 32.6 SECONDS 26-35 N (test code = PTT) BASIC METABOLIC [id number] 12:34:00 Test Item Value Reference Range Interpretation [...] 9.6 MG/DL 8.5-10.1 N COVID 19 INHOUSE [id number] 12:27:00 Test Item Value Reference Range Interpretation Comments COVID 19 INHOUSE AG NEGATIVE Negative Per manu facturer, (test code = negative result s should [id number]) be treated aspr esumptive and, if inconsi [...] co nsistent with COVID-19. Lactic Acid Whole [id number] 20:17:51 Test Item Value Reference Range Interpretation Comments LACTIC ACID (test code = 2.25 mmol/L 0.5-2.2 H [id number]) Lab Interpretation (test code = Abnormal 67608-5) [facility] [id number] 06:01:00 Test Item Value Reference Range Interpretation [...] code = CA) 8.5 MG/DL 8.5-10.1 N [id number] 06:01:00 Test Item Value Reference Range Interpretation Comments PHOSPHOROUS (test code = PHOS) 4.7 MG/DL 2.5-4.9 [id number] 06:01:00 Test Item Value Reference Range Interpretation Comments MAGNESIUM (test code = MAG) 2.2 MG/DL 1.8-2.4 N CBC W/AUTO [id number] 05:52:00 Test Item Value Reference Range Interpretation [...] NO DIFF/SCN CRITERIA = MDIFF) CBC W/AUTO [id number] 06:19:00 Test Item Value Reference Range Interpretation [...] DIFF/SCN CRITERIA = MDIFF) AB HEPATITIS B [id number] 06:13:00 Test Item Value Reference Range Interpretation Comments AB HEPATITIS B <3.1 mIU/mL See_Comment A Status of Im munity SURFACE (test code = Anti-HB s Level HBSAB) --- I nconsi stent with Immu nity 0.0 - 9.9Consis tent with Immunity > 9.9 [Automated mess age] The system [employer] generated this result transmitted ref erence range: Immunity >9.9. The reference r bonny was not used to interpret this result as normal/abnor mal. AG HEPATITIS B [id number] 06:13:00 Test Item Value Reference Range Interpretation Comments AG HEPATITIS B REACTIVE INDEX NonReactive A Critical re sult SURFACE (test code = called to STEVE HBSAG) TERESA SmithLAB.WC1 at 06 05/08/22Nluis xie ead back result and tech confirmed it's correct? YES AB HEPATITIS B [id number] 06:13:00 Test Item Value Reference Range Interpretation Comments AB HEPATITIS B CORE Negative Negative Performe d At: HD (test code = HBCAB) [facility] [address] [place], [place] [id number] amador Payne MD Ph:[phone] BASIC METABOLIC [id number] 06:11:00 Test Item Value Reference Range Interpretation [...] code = CA) 8.7 MG/DL 8.5-10.1 N [id number] 06:11:00 Test Item Value Reference Range Interpretation Comments PHOSPHOROUS (test code = PHOS) 6.8 MG/DL 2.5-4.9 H [id number] 06:11:00 Test Item Value Reference Range Interpretation Comments MAGNESIUM (test code = MAG) 2.3 MG/DL 1.8-2.4 N LACTIC [id number] 14:27:00 Test Item Value Reference Range Interpretation Comments LACTIC ACID (test code = LACT) 0.8 mmol/L 0.4-2.0 N - XR FOOT 2 VIEWS [id number] 13:31:00 [facility] 1945 Sex: F Name: NGUYỄN RITTER [facility] : 1945 Age/S: 76 / F [id number] [address] [place] Unit #: [id number] Loc: [place] [address] Phys: Sagar Taveras MD Acct: [id number] Dis Date: Status: ADM IN PHONE #: [phone] Exam Date: 05/09/2022 1327 FAX #: Reason: pain. sepsis EXAMS: CPT: [id number] [place] FO[place] [address] Fluoro Time: DAP (Gy m2): Air Kerma (mGy): EXAM: - XR FOOT 2 VIEWS RT CLINICAL HISTORY: pain. sepsis COMPARISON: None available. TECHNIQUE: AP and lateral views. LOCATION: [facility] FINDINGS: Bones: There appears to be variant shortening of the 1st metatarsal with associated medial cuneiform hypertrophy. Severe diffuse osteopenia noted, limiting evaluation for fractures, however no acute osseous findings are noted. Joint spaces: Moderate interphalangeal joint space narrowing and mild osteoarthritis of the 1st metatarsophalangeal joint. There is anterior gapping of the tibiotalar joint, which also demonstrates chronic degenerative changes. No periarticular erosions identified. Soft tiss ues: Unremarkable. IMPRESSION: No definite acute osseous findings noted, however evaluation is limited due to severe osteopenia. Moderate polyarticular osteoarthritis. Variant shortening of the 1st metatarsal noted. at 1331 Reported and signed by: Theo Hurd D.O. CC: Jayda Varghese MD; Sagar Taveras MD PAGE 1 Signed Report Name: NGUYỄN RITTER [facility] : 1945 Age/S: 76 / F [id number] [place] Unit #: [id number] Loc: [place] [address] Phys: Sagar Taveras MD Acct: [id number] Dis Date: Status: ADM IN PHONE #: Exam Date: 05/09/2022 1327 FAX #: Reason: pain. sepsis EXAMS: CPT: [id number] XR [place] [address] [place] [address] Fluoro Time: DAP (Gy m2): Air Kerma (mGy): (Continued) Technologist: Nella Wilcox, RT(R) Trnscb Date/Time: 05/09/2022 (6750) [email or web address] Orig Print D/T: S: 05/09/2022 (2617) PAGE 2 Signed Report COVID 19 INHOUSE [id number] 10:45:00 Test Item Value Reference Range Interpretation Comments COVID 19 INHOUSE AG NEGATIVE Negative Per manu facturer, (test code = negative result s should [id number]) be treated aspr esumptive and, if inconsi [...] symptoms co nsistent with COVID-19. CBC W/AUTO [id number] 07:52:00 Test Item Value Reference Range Interpretation [...] NT WITH AUTO DIFFERENTI AL. BASIC METABOLIC [id number] 04:02:00 Test Item Value Reference Range Interpretation [...] code = CA) 9.2 MG/DL 8.5-10.1 N [id number] 04:02:00 Test Item Value Reference Range Interpretation Comments PHOSPHOROUS (test code = PHOS) 3.6 MG/DL 2.5-4.9 N [id number] 04:02:00 Test Item Value Reference Range Interpretation Comments MAGNESIUM (test code = MAG) 2.3 MG/DL 1.8-2.4 N [id number] 04:02:00 Test Item Value Reference Range Interpretation Comments VANCOMYCIN (test code = VANCO) 17.1 mcG/ML 5-40 N - CT HEAD/BRAIN W/O [id number] 22:37:00 [facility] : 1945 Sex: F Name: NGUYỄN RITTER [facility] : 1945 Age/S: 76 / F [address] [address] Unit #: [id number] Loc: [place] [address] Phys: Shaun Dolan MD Acct: [id number] Dis Date: Status: ADM IN PHONE #: [phone] Exam Date: 05/08/20222227 FAX #: Reason: CHANGE IN CONDITION EXAMS: CPT: [id number] CT HEAD/BRAIN W/O CONT 20220 CT head History: CHANGE IN CONDITION Comparison: None at this time Location: H45 Technique: Noncontrast CT scan of the head [...] convincing evidence of intracranial hemorrhage or mass effect. There is no midline shift. The visualized paranasal sinuses are unremarkable. IMPRESSION: Thereis no imaging evidence of acute intracranial pathology. at 2237 Reported and signed by: Wang Wilcox M.D. PAGE 1 Signed Report (CONTINUED) Name: NGUYỄN RITTER [place] : 1945 Age/S: 76 / F [id number] [address] Unit #: [id number] Loc: [place] [address] Phys: Shaun Dolan MD Acct: [id number] Dis Date: Status: ADM IN PHONE #: [phone] Exam Date: 05/08/20222227 FAX #: Reason: CHANGE IN CONDITION EXAM S: CPT: [id number] CT HEAD/BRAIN W/O CONT 07165 (Continued) CC: Shaun Dolan MD; Jayda Varghese MD; Sagar Taveras MD Technologist:Pacheco Flores, RT(R) CTDI: DLP: Trnscb Date/Time: 05/08/2022 (2236) t.SDR.PMT Orig Print D/T: S: 05/08/2022 (2239) PAGE 2 Signed ReportPROTHROMBIN [id number] 13:04:00 Test Item Value Reference Range Interpretation [...] (to prevent recurrent infar ct). THROMBOPLASTIN TIME [id number] 13:04:00 Test Item Value Reference Range Interpretation Comments THROMBOPLASTIN TIME PARTIAL 35.2 SECONDS 26-35 H (test code = PTT) [id number] 13:04:00 Test Item Value Reference Range Interpretation Comments FIBRINOGEN (test code = FIB) 677 mg/dL 185-453 H UA RFLX MICR CULT IF [id number] 12:59:00 Test Item Value Reference Range Interpretation [...] /HPF NONE-TRACE BACU) Indication for culture: RiskForSepsis-no [facility] W/AUTO [id number] 10:17:00 Test Item Value Reference Range Interpretation [...] code NO DIFF/SCN CRITERIA = MDIFF) CALCIUM [id number] 07:39:00 Test Item Value Reference Range Interpretation Comments CALCIUM IONIZED (test code = NICOLÁS) 1.02 mmol/L 1.12-1.30 L AG HEPATITIS B [id number] 06:08:00 Test Item Value Reference Range Interpretation Comments AG HEPATITIS B REACTIVE INDEX NonReactive A Critical re sult SURFACE (test code = called to STEVE HBSAG) TERESA SmithLAB.WC1 at 06 05/08/22Nluis r ead back result and tech confirmed it's correct? YES HBSAG [id number] 06:08:00 Test Item Value Reference Range Interpretation Comments HBSAG CONFIRMATORY (test code = Confirmed A HBSAGC) CBC W/AUTO [id number] 06:01:00 Test Item Value Reference Range Interpretation [...] CONSISTA NT WITH AUTO DIFFERENTI AL. PROTHROMBIN [id number] 06:00:00 Test Item Value Reference Range Interpretation [...] (to prevent recurrent infar ct). THROMBOPLASTIN TIME [id number] 06:00:00 Test Item Value Reference Range Interpretation Comments THROMBOPLASTIN TIME PARTIAL 29.6 SECONDS 26-35 N (test code = PTT) [id number] 06:00:00 Test Item Value Reference Range Interpretation Comments FIBRINOGEN (test code = FIB) 704 mg/dL 185-453 H LACTIC [id number] 05:21:00 Test Item Value Reference Range Interpretation Comments LACTIC ACID (test code = LACT) 0.7 mmol/L 0.4-2.0 N BASIC METABOLIC [id number] 05:20:00 Test Item Value Reference Range Interpretation [...] code = CA) 9.0 MG/DL 8.5-10.1 N [id number] 05:20:00 Test Item Value Reference Range Interpretation Comments PHOSPHOROUS (test code = PHOS) 4.2 MG/DL 2.5-4.9 N [id number] 05:20:00 Test Item Value Reference Range Interpretation Comments MAGNESIUM (test code = MAG) 2.4 MG/DL 1.8-2.4 N PROTHROMBIN [id number] 21:53:00 Test Item Value Reference Range Interpretation [...] Mec hanical prosthetic valv es (high risk), 2 .5 - 3.5 Presence of Lupus Anticoagulant o r Antiphospholipi d Antibodies, Pre vention of systemic emb olism - Acute Myocardia l Infarction (to prevent recurrent infar ct). THROMBOPLASTIN TIME [id number] 21:53:00 Test Item Value Reference Range Interpretation Comments THROMBOPLASTIN TIME PARTIAL 38.2 SECONDS 26-35 H (test code = PTT) [id number] 21:53:00 Test Item Value Reference Range Interpretation Comments FIBRINOGEN (test code = FIB) 677 mg/dL 185-453 H PROTHROMBIN [id number] 21:42:00 Test Item Value Reference Range Interpretation [...] (to prevent recurrent infar ct). CBC W/AUTO [id number] 21:07:00 Test Item Value Reference Range Interpretation [...] CRITERIA = MDIFF) - XR CHEST 1 [id number] 20:48:00 [facility] 1945 Sex: F Name: NGUYỄN RITTER [facility] : 1945 Age/S: 76 / F [address] [address] [place] [address] Unit #: [id number] Loc: [place] [address] Phys: Shaun Dolan MD Acct: [id number] Dis Date: Status: ADM IN PHONE #: [phone] Exam Date: 05/07/20222014 FAX #: Reason: Post Op EXAMS: CPT: [id number] XR CHEST 1 [id number] Fluoro Time: DAP (Gy m2): Air Kerma [...] PAGE 1 Signed Report Name: NGUYỄN RITTER [facility] : 1945 Age/S: 76 / F [address] [address] Unit #: [id number] Loc: [place] [address] Phys: Shaun Dolan MD Acct: [id number] Dis Date: Status: ADM IN PHONE #: [phone] Exam Date: 05/07/20222014 FAX #: Reason: Post Op EXAMS: CPT: 0 [id number] XR CHEST 1 V 54059 Fluoro Time: DAP (Gy m2): Air Kerma (mGy): (Continued) Technologist: Marlene Castellanos RT(R)(CT) Trnscb Date/Time: 05/07/2022 (2047) [id number] Orig Print D/T: S: 05/07/2022 (2050) PAGE 2 Signed ReportCALCIUM [id number] 19:40:00 Test Item Value Reference Range Interpretation Comments CALCIUM IONIZED (test code = NICOLÁS) 1.02 mmol/L 1.12-1.30 L TROP-I HIGH [id number] 19:31:00 Test Item Value Reference Range Interpretation [...] varyby method. Completed by Nursing: NOCOMPREHENSIVE METABOLIC [id number] 19:31:00 Test Item Value Reference Range Interpretation [...] H code = ALKP) Completed by Nursing: NOCBC W/AUTO [id number] 19:01:00 Test Item Value Reference Range Interpretation [...]
--- NOTE | 2022-12-15 13:18 | RAD REPORT ---
EXAM DESCRIPTION: CT - Head Brain Wo Cont - 12/15/2022 12:56 pm CLINICAL HISTORY: MENTAL STATUS CHANGE Headache, drowsiness COMPARISON: Head Brain Wo Cont dated 11/13/2022; Head Brain Wo Cont dated 11/14/2021 TECHNIQUE: All CT scans are performed using dose optimization technique as appropriate and may inclu de automated exposure control or mA/KV adjustment according to patient size. FINDINGS: No intracranial hemorrhage, hydrocephalus or extra-axial fluid collection.Moderate diffuse brain atrophy. Generalized brain atrophy is present with mild periventricular and deep white matter chronic microvascular ischemic changes.No areas of brain edema or evidence of midline shift. The paranasal sinuses and mastoids are clear. The calvarium is intact. IMPRESSION: No acute intracranial abnormality. Moderate global brain atrophy.
--- NOTE | 2022-12-15 13:26 | RAD REPORT ---
EXAM DESCRIPTION: [place] Single View12/15/2022 1:15 pm CLINICAL HISTORY: Shortness of breath COMPARISON: November 2022 FINDINGS: The lungs appear clear of acute infiltrate. The heart is normal size. Central venous catheter in place IMPRESSION: No acute abnormalities displayed
[2022-12-15 13:30] LABS: Absolute Lymphocytes (CBC) 1.8 K/uL (0.7-4.9); Lymphocytes % 21.1 % (15.3-44.8); MCV 92.6 fL (80-100); MPV 7.5 fL (7.6-11.3); RBC Red Blood Cell Count 4.65 M/uL (3.86-4.86)
[2022-12-15 13:40] LABS: SARS-COV-2 RT PCR NEGATIVE (NEGATIVE)
[2022-12-15 13:49] LABS: Potassium 5.8 mmol/L (3.5-5.1)
[2022-12-15 14:13] LABS: Urine Blood 1+ (Negative); Urine Glucose Trace (Negative); Urine Protein 3+ (Negative); Urine Specific Gravity 1.025 (1.005-1.030)
[2022-12-15 14:22] LABS: Urine Bacteria <20 /HPF (<20); Urine Crystals Unidentified Few /HPF (None Seen); Urine Mucus Slight /HPF (None Seen); Urine RBC 21-50 /HPF (None Seen)
--- NOTE | 2022-12-15 14:50 | ER ---
Nurse's Notes [facility] Name: Wing Deng Age: 76 yrs Sex: Female : 1945 Arrival Date: 12/15/2022 Time: 12:23 Bed 20 Private MD: Diagnosis: Altered mental status, unspecified;UTI/ Urinary tract infection, site not specified;End stage renal disease;Hyperkalemia Presentation: 12/15 12:23 Chief complaint: EMS states: they were called to the dialysis center for a patient who ap3 was more tired than normal. patient states that she is typically always sleepy, but today she is more sleepy. dialysis reported to EMS they did not dialyze the patient due to this. Patient typically gets dialysis MWF. Patient also reports she did not sleep well last night. Coronavirus screen: At this time, the client does not indicate any symptoms associated with coronavirus-19. Ebola Screen: No symptoms or risks identified at this time. Initial Sepsis Screen: Does the patient meet any 2 criteria? No. Patient's initial sepsis screen is negative. Does the patient have a suspected source of infection? No. Patient's initial sepsis screen is negative. Risk Assessment: Do you want to hurt yourself or someone else? Patient reports no desire to harm self or others. Onset of symptoms was December 15, 2022. 12:23 Method Of Arrival: EMS: [facility] ap3 12:23 Acuity: KRISTYN 3 ap3 Triage Assessment: 12:34 General: Appears in no apparent distress. Behavior is calm, cooperative, drowsy. ap3 General: patient reports being sleepy due to "being up all night watching TV". Pain: Denies pain. Neuro: Level of Consciousness is lethargic, Oriented to person, place, time, situation, Speech is normal, Facial symmetry appears normal. Cardiovascular: Patient's skin is warm and dry. Respiratory: Airway is patent Respiratory effort is even, unlabored, Respiratory pattern is regular, symmetrical. GI:. Historical: - Allergies: 12:27 No Known Allergies; ap3 - Home Meds: 12:31 mirtazapine 15 mg Oral tab [Active]; aspirin 81 mg Oral cap [Active]; Neurontin 100 mg ap3 Oral cap [Active]; atorvastatin 20 mg oral tab [Active]; Plavix 75 mg Oral tab [Active]; Coreg 6.25 mg Oral tab [Active]; sevelamer HCl 800 mg oral tab [Active]; donepezil 5 mg oral tab [Active]; Thiamine Oral [Active]; duloxetine 60 mg oral CDRS 1 cap once daily [Active]; Vitamin B-12 Oral [Active]; Flonase Allergy Relief nasal [Active]; - PMHx: 12:27 End stage renal disease; Hyperlipidemia; Hypertension; UTI; ap3 - PSHx: 12:27 knbee replacement; popliteal stent; ap3 - Immunization history:: Client reports receiving the 2nd dose of the Covid vaccine. - Social history:: Smoking status: Patient denies any tobacco usage or history of. - Family history:: not pertinent. - Hospitalizations: : No recent hospitalization is reported. Screenin:35 Abuse screen: Denies threats or abuse. Nutritional screening: No deficits noted. ap3 Tuberculosis screening: No symptoms or risk factors identified. 12:35 [facility] ED Fall Risk Assessment (Adult) History of falling in the last 3 months, ap3 including since admission No falls in past 3 months (0 pts). Assessment: 16:22 Reassessment: nurse attempted report to receiving nurse. was informed she would return ap3 my call. 16:51 Reassessment: report called to receiving nurseCarmelita. ap3 Vital Signs: 12:23 BP 109 / 64; Pulse 85; Resp 15; Temp 98.1; Pulse Ox 97% on 2 lpm NC; Weight 72.1 kg; ap3 ED Course: 12:23 Patient arrived in ED. ap3 12:24 Napoleon Trinidad MD is Attending Physician. rn 12:26 Triage completed. ap3 12:27 Danielle Haro, ANA LAURA is Primary Nurse. ap3 12:35 Arm band placed on right wrist. ap3 12:35 Patient has correct armband on for positive identification. Bed in low position. Call ap3 light in reach. Side rails up X2. monitor technician on. Pulse ox on. NIBP on. Door closed. Noise minimized. Warm blanket given. 12:50 COVID-19/FLU A+B Sent. ap3 13:21 CBC with Diff Sent. em1 13:21 Basic Metabolic Panel Sent. em1 13:21 Initial lab(s) drawn, by me, sent to lab. Inserted saline lock: 22 gauge in right em1 forearm, using aseptic technique. Blood collected. 14:49 Devante Varghese MD is Hospitalizing Provider. rn 16:51 No provider procedures requiring assistance completed. Patient admitted, IV remains in ap3 place. Administered Medications: 14:52 Drug: Rocephin (cefTRIAXone) 1 grams Route: IV; Rate: calculated rate; Site: right ap3 antecubital; 16:22 Follow up: IV Status: Completed infusion ap3 Medication: 12:35 VIS not applicable for this client. ap3 Outcome: 14:49 Decision to Hospitalize by Provider. rn 16:51 Admitted to Med/surg accompanied by tech, via stretcher, room 232, with chart, Report ap3 called to ANA LAURA Mae 16:51 Condition: good 16:51 Discharge instructions given to patient, family, Instructed on the need for admit, Demonstrated understanding of 17:05 Patient left the ED. ap3 Signatures: Napoleon Trinidad MD MD rn Martinez, Eric [facility] Danielle Haro RN RN ap3
--- NOTE | 2022-12-15 14:50 | EDPHYS ---
Physician Documentation [facility] Name: Wing Deng Age: 76 yrs Sex: Female : 1945 Arrival Date: 12/15/2022 Time: 12:23 Bed 20 Private MD: ED Physician Napoleon Trinidad HPI: 12/15 14:46 This 76 yrs old Black Female presents to ER via EMS with complaints of AMS, somnolent. rn 14:46 Sent from dialysis for AMS, did not perform dialysis because was "too sleepy". No rn fever. NO head injury. NO chest pain/abd pain/sob. No vomiting. No fever. . Onset: The symptoms/episode began/occurred at an unknown time. Severity of symptoms: At their worst the symptoms were moderate in the emergency department the symptoms are unchanged. The patient has experienced similar episodes in the past. The patient has not recently seen a physician. Historical: - Allergies: 12:27 No Known Allergies; ap3 - Home Meds: 12:31 mirtazapine 15 mg Oral tab [Active]; aspirin 81 mg Oral cap [Active]; Neurontin 100 mg ap3 Oral cap [Active]; atorvastatin 20 mg oral tab [Active]; Plavix 75 mg Oral tab [Active]; Coreg 6.25 mg Oral tab [Active]; sevelamer HCl 800 mg oral tab [Active]; donepezil 5 mg oral tab [Active]; Thiamine Oral [Active]; duloxetine 60 mg oral CDRS 1 cap once daily [Active]; Vitamin B-12 Oral [Active]; Flonase Allergy Relief nasal [Active]; - PMHx: 12:27 End stage renal disease; Hyperlipidemia; Hypertension; UTI; ap3 - PSHx: 12:27 knbee replacement; popliteal stent; ap3 - Immunization history:: Client reports receiving the 2nd dose of the Covid vaccine. - Social history:: Smoking status: Patient denies any tobacco usage or history of. - Family history:: not pertinent. - Hospitalizations: : No recent hospitalization is reported. ROS: 14:50 Constitutional: Negative for fever, chills, and weight loss, Eyes: Negative for injury, rn pain, redness, and discharge, Neck: Negative for injury, pain, and swelling, Cardiovascular: Negative for chest pain, palpitations, and edema, Respiratory: Negative for shortness of breath, cough, wheezing, and pleuritic chest pain, Abdomen/GI: Negative for abdominal pain, nausea, vomiting, diarrhea, and constipation, Back: Negative for injury and pain, MS/Extremity: Negative for injury and deformity, Skin: Negative for injury, rash, and discoloration, Neuro: Negative for headache, numbness, tingling, and seizure. Exam: 14:50 Constitutional: This is a well developed, well nourished patient who is awake, alert, rn and in no acute distress. Head/Face: Normocephalic, atraumatic. ENT: dry MM Cardiovascular: Regular rate and rhythm. No pulse deficits. Respiratory: No increased work of breathing, no retractions or nasal flaring. Abdomen/GI: soft, non-tender Skin: Warm, dry MS/ Extremity: Pulses equal, no cyanosis. Neuro: Somnolent but awakens to voice. Moves all 4 extremities with 4/5 strength. Vital Signs: 12:23 BP 109 / 64; Pulse 85; Resp 15; Temp 98.1; Pulse Ox 97% on 2 lpm NC; Weight 72.1 kg; ap3 MDM: 12:24 Patient medically screened. rn 14:50 Differential Diagnosis UTI, electrolyte abnormality, infectious etiology, hyperkalemia, rn acidosis. Data reviewed: vital signs, nurses notes, lab test result(s), EKG, radiologic studies, CT scan, plain films, and as a result, I will admit patient. Consideration of Admission/Observation Patient was admitted/placed on observation. Escalation of care including admission/observation considered. 14:53 Counseling: I had a detailed discussion with the patient and/or guardian regarding: the rn historical points, exam findings, and any diagnostic results supporting the discharge/admit diagnosis, lab results, radiology results, the need for further work-up and treatment in the hospital. Response to treatment: the patient's symptoms have mildly improved after treatment, and as a result, I will admit patient. ED course: Pt with UTI, that could explain AMS, as well as hyperkalemia likely 2/2 missing dialysis today. Will admit for abx and dialysis as missed session today. No ECG changes of hyperkalemia. . 12/15 12:31 Order name: CBC with Diff rn 12/15 12:31 Order name: Basic Metabolic Panel rn 12/15 12:31 Order name: COVID-19/FLU A+B rn 12/15 12:32 Order name: Urine Culture rn 12/15 12:32 Order name: Urine Microscopic Only rn 12/15 13:40 Order name: CBC with Automated Diff; Complete Time: 14:40 EDMS 12/15 12:31 Order name: XRAY Chest (1 view) rn 12/15 12:31 Order name: CT Head Brain wo Cont rn 12/15 13:19 Order name: CT; Complete Time: 14:40 EDMS 12/15 13:26 Order name: RAD; Complete Time: 14:40 EDMS 12/15 13:41 Order name: COVID-19/FLU A+B; Complete Time: 14:40 EDMS 12/15 13:49 Order name: Basic Metabolic Panel; Complete Time: 14:40 EDMS 12/15 14:13 Order name: Urine Dipstick-Ancillary; Complete Time: 14:40 EDMS 12/15 14:23 Order name: Urine Microscopic Only; Complete Time: 14:40 EDMS 12/15 12:31 Order name: IV Start; Complete Time: 13:21 rn 12/15 12:31 Order name: EKG; Complete Time: 12:33 rn 12/15 12:31 Order name: EKG - Nurse/Tech; Complete Time: 13:40 rn 12/15 12:32 Order name: Urine Dipstick-Ancillary (obtain specimen); Complete Time: 14:07 rn Administered Medications: 14:52 Drug: Rocephin (cefTRIAXone) 1 grams Route: IV; Rate: calculated rate; Site: right ap3 antecubital; 16:22 Follow up: IV Status: Completed infusion ap3 Disposition Summary: 12/15/22 14:49 Hospitalization Ordered Hospitalization Status: Inpatient Admission rn Provider: Devante Varghese rn Location: Telemetry/MedSurg (Inpatient) rn Condition: Stable rn Problem: new rn Symptoms: have improved rn Bed/Room Type: Standard rn Room Assignment: 232(12/15/22 15:59) dw Diagnosis - Altered mental status, unspecified rn - UTI/ Urinary tract infection, site not specified rn - End stage renal disease rn - Hyperkalemia rn Forms: - Medication Reconciliation Form rn - SBAR form rn Signatures: Dispatcher [employer] Xiomara Schulte RN RN dw Napoleon Trinidad MD MD rn Prokisch, Amanda, RN RN ap3 Corrections: (The following items were deleted from the chart) 15:59 14:49 katia baum
[2022-12-15] MEDS ORDERED: CEFTRIAXONE 1000 MG/VIAL ONE (14:51)
[2022-12-15] MEDS ORDERED: NA CHLORIDE 0.9% 50 ML ONE (14:52)
[2022-12-15] MEDS ORDERED: ONDANSETRON 4 MG/2 ML VIAL IV PRN (17:17)
[2022-12-15] MEDS ORDERED: ACETAMINOPHEN 500 MG TAB PO PRN (17:17)
[2022-12-15 17:28] VITALS: BMI 31.8
[2022-12-15 18:29] VITALS: O2SAT 98
--- NOTE | 2022-12-15 21:03 | P.HP ---
Certification for Inpatient Patient admitted to: Observation With expected LOS: <2 Midnights Practitioner: I am a practitioner with admitting privileges, knowledge of patient current condition, hospital course, and medical plan of care. Services: Services provided to patient in accordance with Admission requirements found in Title 42 Section 412.3 of the Code of Federal Regulations Patient History Date of Service: 12/15/22 Reason for admission: SLEEPY History of Present Illness: WAS SENT ER HD PEOPLE FOUND HER SLEEPY. ER DOCTOR SAYS SHE HAS UTI AND HIGH K AND ADMITTED HER. SHE HAS NO UTI SYMPTOMS. SHE HAS BASLEINE VASCUALR DEMENTIA AND IS GETTING WORSE. Allergies No Known Drug Allergies Allergy (Verified 10/23/16 15:08) Unknown Home Medications: Atorvastatin Calcium [Lipitor*] 20 mg PO BEDTIME 11/18/21 Codeine/APAP [Tylenol #3*] 1 tab PO TIDP PRN 11/18/21 Duloxetine HCl [Cymbalta] 60 mg PO BID 11/18/21 Mirtazapine 7.5 mg PO BEDTIME 02/13/22 Sevelamer Carbonate 1,600 mg PO TIDWM 02/13/22 Thiamine HCl [Vitamin B-1*] 100 mg PO DAILY 02/13/22 carvediloL [Carvedilol] 6.25 mg PO BID 02/13/22 Clopidogrel Bisulfate [Plavix] 75 mg PO DAILY #90 11/14/22 - Past Medical/Surgical History Has patient received pneumonia vaccine in the past: No Diabetic: No -: hypertension -: Hyperlipidemia -: CAD -: Heart stents -: right knee replaced 10 yrs ago -: lt lumpectomy many yrs ago -: left foot surg. 10 yrs ago -: tubal ligation 30 yrs ago - Family History Mother History Unknown: Yes -: Hypertension, Kidney disease - Social History Smoking Status: Never smoker Alcohol use: No CD- Drugs: No Caffeine use: No Place of Residence: Home Review of Systems 10-point ROS is otherwise unremarkable General: Weakness Physical Examination - Vital Signs Temperature: 97.8 F Blood Pressure: 111/68 Pulse: 83 Respirations: 18 Pulse Ox (%): 94 - Physical Exam General: In no apparent distress, Oriented x1 (AWAKE, NOT ORIENTED TO TIME, PLACE OR PERSON.) HEENT: Atraumatic, PERRLA, Mucous membr. moist/pink, EOMI, Sclerae nonicteric Neck: Supple, 2+ carotid pulse no bruit, No LAD, Without JVD or thyroid abnormality Respiratory: Clear to auscultation bilaterally, Normal air movement Cardiovascular: Regular rate/rhythm, Normal S1 S2 Gastrointestinal: Normal bowel sounds, No tenderness Musculoskeletal: No tenderness, Other (RIGHT AKA HISTORY. HEALED.) Integumentary: No rashes Neurological: Normal gait, Normal speech, Normal strength at 5/5 x4 extr, Normal tone, Normal affect Lymphatics: No axilla or inguinal lymphadenopathy - Studies Laboratory Data (last 24 hrs) 12/15/22 13:20: Sodium 135 L, Potassium 5.8 H*, BUN 55 H, Creatinine 10.40 H*, Glucose 107 H 12/15/22 13:20: WBC 8.40, Hgb 13.4, Hct 43.0, Plt Count 273 Assessment and Plan - Problems (Diagnosis) (1) Altered mental state Current Visit: Yes Status: Acute Plan: NOT UNUSUAL FOR HER. SHE HAS VASCULAR DEMENTIA. STAYS DISORIENTED. I SEE NO NEW CHANGES COMPARED TO BEFORE. SLEEPY IS NOT THE REASON TO BRING OR SEND HER TO ER. 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 (2) CKD stage 5 secondary to hypertension Current Visit: No Status: Chronic Plan: ON HD. STABLE. K WILL GO HIGH AND LOW BEFORE AND AFTER HD. - Advance Directives Does patient have a Living Will: No Does patient have a Durable POA for Healthcare: No
[2022-12-15 21:25] LABS: Potassium 3.6 mmol/L (3.5-5.1)
[2022-12-15 22:04] LABS: Hepatitis B surface AG Interp. Nonreactive (Nonreactive)
[2022-12-15 22:13] LABS: Hepatitis B Surface Ab - Quant < 3.10 mIU/mL (<8.0)
[2022-12-16] MEDS ORDERED: VANCOMYCIN 2 GM in NA CHLORIDE 0.9% 500 ML IVPB ONE ×2
[2022-12-16] MEDS ORDERED: VANCOMYCIN 1 GM/VIAL ONE (00:46)
[2022-12-16] MEDS ORDERED: NA CHLORIDE 0.9% 500 ML ONE (00:47)
[2022-12-16 04:32] LABS: Absolute Lymphocytes (CBC) 1.4 K/uL (0.7-4.9); Hematocrit 39.7 % (36.0-45.0); MCV 91.1 fL (80-100); MPV 7.6 fL (7.6-11.3); RBC Red Blood Cell Count 4.36 M/uL (3.86-4.86)
[2022-12-16 04:58] LABS: Potassium 4.6 mmol/L (3.5-5.1); Thyroid Stimulating Hormone 2.36 uIU/mL (0.358-3.740); Troponin High Sensitivity 29.8 pg/mL (<58.9)
--- NOTE | 2022-12-16 06:09 | CON ---
Date of Consultation: 12/15/2022 Chief Complaint: End-stage renal disease, hyperkalemia. History Of Present Illness: The patient was referred from the dialysis center to emergency room carissa use she was confused, lethargic, and had borderline hypotension. Systolic blood pressure was 105. T he patient has multiple medical problems including history of dementia, end-stage renal disease. She has been dialyzed 3 times per week on Thursday, Thursday, Thursday. Coronary artery disease, severe de conditioning, history of lumpectomy birthmark and breast cancer. The patient was found to have abnor mal urinalysis suggestive of urinary tract infection. Urine culture was obtained and blood culture i s pending to rule out bacteremia. The patient was found to have hyperkalemia and urgent dialysis was scheduled in the hospital to treat hyperkalemia. Review of Systems: The patient denies fever, chills, although review of systems is limited due to patient's mental statu s changes. She converses, although she is forgetful. Cardiovascular: She denies chest pain, palpitation. GI: Denies nausea, vomiting. : Denies dysuria, hematuria. Past Medical History: Hypertension; hyperlipidemia; coronary artery disease, had stents; right knee replaced 10 years ago; left lumpectomy many years ago; left foot surgery; tubal ligation; dementia. Family History: Mother had hypertension and kidney disease. Social History: Denies tobacco or illicit drugs. Denies alcohol. Physical Examination: General: The patient is oriented x1. Eyes: Anicteric sclerae. EOMI. Ears, Nose, Mouth, and Throat: Oral mucosa moist. No pallor. Neck: Supple. No bruits. Lungs: Clear to auscultation bilaterally. Heart: S1, S2. No pericardial friction rub. Abdomen: Soft, benign. Extremities: No edema. Neurologic: The patient follows commands. There is no tremor. Laboratory Data: Sodium 135, potassium 5.8, BUN 55, creatinine 10.4, glucose 107. Hemoglobin 13.4, WBC 8.4, platelet count 273,000. Impression And Plan: 1.Altered mental status. The patient had some disorientation. Mental status is fluctuating. This may be underlying dementia, although encephalopathy is possible in her case. 2.She has absent seizure and she has been on Keppra. Further recommendation from primary team. 3.End-stage renal disease secondary to hypertension and benign nephrosclerosis. Dialysis will be do ne for treatment of hyperkalemia to provide metabolic clearance and ultrafiltration to control volemi a. 4.Hypertension. Monitor blood pressure. Continue blood pressure medication. 5.Renal osteodystrophy. Monitor phosphorus level. Continue binders. 6.Anemia. Hemoglobin level is 13.4. FRANNY is on hold. 7.Possible urinary tract infection. Urine culture is pending. SHANTI/TRACE Voice ID: [id number] Report ID: [id number]
--- NOTE | 2022-12-16 07:48 | RAD REPORT ---
EXAM DESCRIPTION: CTStone Protocol - 12/16/2022 7:34 am CLINICAL HISTORY: uti COMPARISON: CT ABD PELVIS W CONTRAST dated 03/15/2015; Chest Single View dated 01/18/2022; Chest Singl e View dated 12/15/2022; Renal Ultrasound-Complete dated 12/16/2022; Thorax Wo Con dated 12/11/2021 TECHNIQUE: CT of the abdomen and pelvis was performed without contrast. All CT scans are performed using dose optimization technique as appropriate and may include automated exposure control or mA/KV adjustment according to patient size. FINDINGS: Lower chest: Ascending thoracic aortic aneurysm measuring weeks 4.4 cm. Multi-vessel coron harish artery disease. Catheter tip at the superior cavoatrial junction. Liver: No acute abnormality or suspicious lesions. Biliary: No biliary ductal dilatation. Stomach: No significant focal abnormality. Duodenum: No significant focal abnormality. Pancreas: No significant abnormality. Spleen: No significant abnormality. Adrenal: No suspicious lesions. Kidney/ureter: Increased renal atrophy compared with 03/15/2015. Complex interpolar lesion with calci fications measuring 14 millimeters. This is either new from prior or represents increased complexity of cysts that were present in 2013. Probable cyst in the right lower pole kidney. Retroperitoneum: No retroperitoneal adenopathy. Vascular: No aneurysm. Bowel: No significant focal abnormality. Peritoneum: Paraumbilical hernia containing small bowel similar to 03/15/2015. No complicating featur es. Bladder: Grossly unremarkable. Reproductive: Hysterectomy. Bones: Grade 1 anterolisthesis L4 on L5 with fusion across the disc space that is with associated deg enerative changes. Question renal osteodystrophy. Remote left obturator ring fracture. Other: n/a IMPRESSION: No renal or ureteral calculi identified. No hydronephrosis. Complex partially calcified right interpolar renal lesion is indeterminate. Comparison with outside imaging would be helpful. If no recent imaging, consider either noncontrast MRI or urologic referral.
--- NOTE | 2022-12-16 07:50 | RAD REPORT ---
EXAM DESCRIPTION: US - Renal Ultrasound-Complete - 12/16/2022 5:23 am CLINICAL HISTORY: esrd , uti COMPARISON: Abdomen Single View dated 11/18/2021 FINDINGS: Kidneys are small bilaterally. Increased echogenicity of the renal cortex is noted. The ri ght kidney measures 6.4 cm. Unable to position the patient to properly assess left kidney. No hydrone phrosis is seen, however. Decompressed bladder. IMPRESSION: Limited ultrasound as the patient was unable to be positioned properly. No hydronephrosi s is seen. Medical renal disease. Indeterminate lesion on the right kidney seen on the same-day CT wa s not visualized on ultrasound but still needs further evaluation.
--- NOTE | 2022-12-16 08:33 | RAD REPORT ---
EXAM DESCRIPTION: RAD - Chest Single View - 12/16/2022 8:27 am CLINICAL HISTORY: esrd, hypotension COMPARISON: Chest Single View dated 12/15/2022; Chest Single View dated 11/14/2022; Chest Single View dated 11/13/2022; Chest Single View dated 01/18/2022 FINDINGS: Lines: Left IJ approach dialysis catheter with tip overlying the superior cavoatrial junct ion. Lungs: No evidence of edema or pneumonia. Pleural: No significant pleural effusions or pneumothorax. Cardiac: Similar size and configuration. Mediastinum: Within normal limits. Bones: No acute fractures. Other: None IMPRESSION: No acute cardiopulmonary disease.
[2022-12-16 08:45] LABS: Urine Bacteria <20 /HPF (<20); Urine Bilirubin NEGATIVE (Negative); Urine Blood 2+ (Negative); Urine Clarity Extremely Turbid (Clear); Urine Color Dark-Orange (Yellow); Urine Glucose NEGATIVE (Negative); Urine Mucus 1+ /HPF (None Seen); Urine Protein 2+ (Negative); Urine RBC >50 /HPF (None Seen); Urine Urobilinogen Normal (Normal); Urine WBC Clump Many /HPF (None Seen); Urine pH 5.5 (5.0-7.0)
[2022-12-16] MEDS ORDERED: PNEUMOCOCCAL VACCINE 0.5 ML IMVAC ONE (09:00)
[2022-12-16] MEDS: CEFTRIAXONE 1,000 MG in NA CHLORIDE 0.9% 50 ML IVPB SCH (09:04)
[2022-12-16 12:00] LABS: Arterial Blood Carboxyhemoglob 1.1 % (0-1.5); Blood Gas Oxyhemoglobin 93.9 % (94-97); Blood O2 Saturation 96.1 % (92-98.5)
[2022-12-16] MEDS ORDERED: NA CHLORIDE 0.9% 1,000 ML ONE (12:28)
[2022-12-16] MEDS ORDERED: NA CHLORIDE 0.9% 1,000 ML IV ONE (12:43)
[2022-12-16] MEDS ORDERED: MIDODRINE HCL 5 MG TABLET PO STA (13:35)
[2022-12-16] MEDS ORDERED: CEFTRIAXONE 1,000 MG in NA CHLORIDE 0.9% 50 ML IVPB SCH (15:00)
--- NOTE | 2022-12-16 15:14 | PN ---
Date of Progress Note: 12/16/2022 Subjective: The patient was admitted with altered mental status. The patient today has been fatigued, weak, poorly responsive. The patient had dialysis yesterday, tolerated well. Physical Examination: Vital Signs: Blood pressure 100/70, pulse of 82, afebrile. Chest: Clear to auscultation. Heart: S1, S2. Regular. Abdomen: Soft, nontender. Extremity: Right above-knee amputation. Neuro: Alert. Responds to verbal. Moving 4 extremities without any weakness. Laboratory Data: Hemoglobin 12.3. Sodium 134, potassium 4.6, bicarb 25, BUN 27, creatinine 6.7, calcium 9.14. CK 29. Urinalysis positive for infection. Current Medications: The patient on include; 1. Ceftriaxone. 2. Vanco. 3. Zofran. Assessment And Plan: 1. End-stage renal disease. Normal volume. I am going to continue dialysis the patient Thursday, Thursday, Thursday. We will arrange for dialysis tomorrow. Given the marginal low blood pressure, I am going to dialyze the patient on sodium bath and we will follow up. 2. Hypertension, currently hypotension. We will resume midodrine for the patient. 3. Altered mental status, possible secondary to metabolic encephalopathy secondary to urinary tract infection. Continue antibiotic. We will follow up culture. We will send for ABG. 4. Coronary artery disease, stable. time spend exam the patient face to face , reviewing data lab and radiology placing order , discussing with ge member nursing and hospitalist >35 min ELISEO Voice ID: [id number] Report ID: [id number] LELE
[2022-12-16 15:38] LABS: Troponin High Sensitivity 28.5 pg/mL (<58.9)
--- NOTE | 2022-12-16 17:13 | EKG ---
Test Date: 2022-12-15 Test Time: 13:37:15 [employer]: SUSANNA MEASUREMENT RESULTS: Intervals: Rate: 83 NM: 146 QRSD: 96 QT: 390 QTc: 458 [place]: P: 40 NM: 146 QRS: -8 T: 98 INTERPRETIVE STATEMENTS: Normal sinus rhythm Possible Left atrial enlargement Left ventricular hypertrophy T wave abnormality, consider lateral ischemia Abnormal ECG Compared to ECG 11/13/2022 08:08:16 Left ventricular hypertrophy now present T-wave abnormality still present Possible ischemia still present Electronically Signed On 12-16-22 17:09:50 FASHION MARKETER by Fidencio Dacosta
--- NOTE | 2022-12-16 18:57 | PN ---
Subjective: Ms. Deng was doing good, this morning. Blood pressure was slightly low at 90 syst olic, but later on dropped down to 50 systolic. She has not been ambulating. She is basically an am putee, right AKA for PVD, and hypertension, and after dialysis, her blood pressure drops, but this ti me it dropped after about 12 hours of dialysis. Her p.o. intake is poor and she had a dialysis yeste rday by Dr. Layton. Currently, she is stable otherwise after bolus of 1 L. Her blood pressure is up t o [address] Strong has seen the patient and started her on ProAmatine, which she was on before on an outpatient basis, even though she does not ambulate, she needs ProAmatine to keep her bl ood pressure up. This is a patient who has extremely high blood pressure before getting on dialysis. Her mental condition remains poor. She is demented. She has no orientation to time, place or pers on. She is awake. She does not recognize me any longer. Assessment And Plan: 1.End-stage renal disease, hemodialysis every other day, blood pressure management and hemodialysis by the Fabric Worker. She may go home tomorrow if she is stable. 2.Urinary tract infection, it is questionable. I have asked them to do a UA study straight cath. S he has no symptoms of urinary tract infection, but everyone who comes to emergency room gets a diagno sis of urinary tract infection as they collect the sample of the urine from a bedpan. So I would ign ore the diagnosis unless if straight cath urine shows any positivity with any kind of symptoms. She has really no symptoms of urinary tract infection. RVD/MODL Voice ID: [id number] Report ID: [id number]
[2022-12-16] MEDS: MIDODRINE HCL 5 MG TABLET PO SCH (20:41)
[2022-12-16] MEDS ORDERED: CODEINE 30MG/APAP 300MG TAB PO PRN (21:45)
[2022-12-16] MEDS: ATORVASTATIN 20 MG TAB PO SCH (22:27)
[2022-12-16] MEDS: MIRTAZAPINE 15 MG TAB PO SCH (22:28)
[2022-12-16] MEDS ORDERED: VANCOMYCIN 1 GM in NA CHLORIDE 0.9% 250 ML IVPB ONE (23:38)
[2022-12-17] MEDS: MIDODRINE HCL 5 MG TABLET PO SCH ×3 (07:54→22:58)
[2022-12-17] MEDS: CEFTRIAXONE 1,000 MG in NA CHLORIDE 0.9% 50 ML IVPB SCH (09:52)
[2022-12-17] MEDS: THIAMINE HCL 100 MG TABLET PO SCH (10:36)
[2022-12-17] MEDS: SEVELAMER CARBONATE 800 MG TABLET PO SCH ×3 (10:36→16:14)
[2022-12-17] MEDS: VITAMIN B COMPLEX 1 CAP PO SCH (10:36)
[2022-12-17] MEDS: DULOXETINE 30 MG CAP PO SCH ×2 (10:36→22:58)
[2022-12-17] MEDS: CLOPIDOGREL 75 MG TABLET PO SCH (10:38)
--- NOTE | 2022-12-17 13:13 | PN ---
Date of Progress Note: 12/17/2022 Subjective: The patient was admitted with altered mental status. Yesterday had incident of low blood pressure, resumed her midodrine. Blood pressure stabilized. The patient more awake today. Physical Examination: Vital Signs: Blood pressure of 104/66, pulse of 74, afebrile. Chest: Clear to auscultation. Heart: S1, S2. Regular. Extremities: Right below-knee amputation. Laboratory Data: Hemoglobin 12.3. Sodium 134, potassium 4.6, bicarb 25, BUN 27, creatinine 6.7, calcium 9.1. CK 29. TSH 2.3. Current Medications: The patient on ceftriaxone, vancomycin, midodrine 5 t.i.d., Plavix, atorvastatin. Assessment And Plan: 1. End-stage renal disease with hypotension. I am going to do dialysis with the preparation with midodrine and sodium module and low temperature and we will follow up. 2. Hypertension, currently hypotension. Hold all blood pressure medications. Continue midodrine. 3. Hyperkalemia, status post dialysis, resolved. 4. Hypotension. Cardiac enzyme was negative. Plan for cortisol stimulation test. We will follow up with primary. time spend exam the patient face to face , reviewing data lab and radiology placing order , discussing with ge member nursing and hospitalist >35 min ELISEO Voice ID: [id number] Report ID: [id number] MTDD
--- NOTE | 2022-12-17 22:19 | PN ---
Subjective: The patient is lot better. Objective: Vital Signs: Still her blood pressure dropped down to 70 systolic this morning without d ialysis. Chest: Clear. Heart: Regular. Extremities: The patient has right AKA. Assessment And Plan: Patient has significant dementia at this point, and her blood pressure is now u p to 105/62. She is on a routine dose of ProAmatine, as after dialysis blood pressures seems to drop for her. Prognosis overall poor. Patient's family is not available at bedside. Every day, I see he r by 8 o'clock in the morning. CHRIS/MODL Voice ID: [id number] Report ID: [id number]
[2022-12-17] MEDS: ATORVASTATIN 20 MG TAB PO SCH (22:58)
[2022-12-17] MEDS: MIRTAZAPINE 15 MG TAB PO SCH (22:58)
[2022-12-18] MEDS ORDERED: SODIUM CHLORIDE 0.9% 10ML INJ IV ONE (08:00)
[2022-12-18] MEDS ORDERED: COSYNTROPIN 0.25 MG VIAL IV SCH (08:00)
[2022-12-18] MEDS: SEVELAMER CARBONATE 800 MG TABLET PO SCH (08:00)
[2022-12-18] MEDS: DULOXETINE 30 MG CAP PO SCH (08:08)
[2022-12-18] MEDS: VITAMIN B COMPLEX 1 CAP PO SCH (08:08)
[2022-12-18] MEDS: MIDODRINE HCL 5 MG TABLET PO SCH (08:09)
[2022-12-18] MEDS: CLOPIDOGREL 75 MG TABLET PO SCH (08:09)
[2022-12-18] MEDS: THIAMINE HCL 100 MG TABLET PO SCH (08:09)
[2022-12-18] MEDS: CEFTRIAXONE 1,000 MG in NA CHLORIDE 0.9% 50 ML IVPB SCH (08:29)
[2022-12-18 10:00] VITALS: BP 108/63; TEMP 98.3
--- NOTE | 2022-12-18 13:16 | PN ---
Date of Progress Note: 12/18/2022 Subjective: The patient was admitted with altered mental status. The patient yesterday had low blood pressure. We resumed midodrine. Blood pressure stabilized. The patient back to her baseline. Physical Examination: Vital Signs: Blood pressure 108/63, pulse of 85, afebrile. Chest: Clear to auscultation. Heart: S1, S2. Regular. Abdomen: Soft, nontender. Extremity: Right below-knee amputation. Neurologic: Alert. No focality. Laboratory Data: Hemoglobin 12.3. Sodium 134, potassium 4.6, bicarb 25, BUN 27, creatinine 6.7, calcium 9.1. Cortisol stimulation test is still pending. Current Medications: The patient on include midodrine 5 t.i.d., ceftriaxone, Plavix, atorvastatin, mirtazapine, Renvela. Assessment And Plan: 1. End-stage renal disease, normal volume. We will continue the dialysis Thursday, Thursday, Thursday. The patient cleared from the Renal standpoint for discharge planning. The patient is going to be dialyzed on sodium module and low temperature. 2. Hypotension. Continue midodrine. We will follow up with cortisol level. 3. Altered mental status secondary to metabolic, recovered. 4. Hyperkalemia, status post dialysis, resolved. The patient cleared from the Renal standpoint for discharge planning to follow up with dialysis. time spend exam the patient face to face , reviewing data lab and radiology placing order , discussing with ge member nursing and hospitalist >35 min ELISEO Voice ID: [id number] Report ID: [id number] LELE
--- NOTE | 2022-12-18 20:49 | P.DS ---
Admission Date: 12/15/22 Discharge Date: 12/18/22 Disposition: ROUTINE DISCHARGE Discharge Condition: SERIOUS Reason for Admission: SLEEPY - Problems (1) Altered mental state Status: Acute (2) CKD stage 5 secondary to hypertension Status: Chronic Brief History of Present Illness: WAS SENT ER HD PEOPLE FOUND HER SLEEPY. ER DOCTOR SAYS SHE HAS UTI AND HIGH K AND ADMITTED HER. SHE HAS NO UTI SYMPTOMS. SHE HAS BASLEINE VASCUALR DEMENTIA AND IS GETTING WORSE. Hospital Course: MS RITTER COMES WITH OBTUNDATION, SENT BY THE HD CLINIC. SHE DID NOT HAVE ANYTHING NEW ON FINDINGS. LATER IN [facility] SHE DEVELOPED HYPOTENSION LIKE SHE USED TO AFTER HD. FOR THIS WE PUT HER ON PROMATIN TID DAILY. SHE HAS NO SYMPTOMS OF UTI STILL SHE GOT A FEW DAYS OF IV ROCEPHIN, CULTURE IS NOT SHOWING ANY THING NEW. I ADVISED DAUGHTER ABOUT HOSPICE CARE PATIENT HAS NO QUALITY OF LIFE. SHE NOW HAS SEVERE DEMENTIA AND IS JUST EXISTING FROM HD TO HOME AND IS BEDBOUND FROM RIGHT [facility]. Vital Signs/Physical Exam: Temp Pulse Resp BP Pulse Ox 98.3 F 85 18 108/63 93 12/18/22 08:00 12/18/22 08:00 12/18/22 08:00 12/18/22 08:00 12/18/22 08:00 Laboratory Data at Discharge: WBC 7.40 K/uL (4.3-10.9) 12/16/22 04:18 Hgb 12.3 g/dL (12.0-15.0) D 12/16/22 04:18 Hct 39.7 % (36.0-45.0) 12/16/22 04:18 Plt Count 247 K/uL (152-406) 12/16/22 04:18 Sodium 134 mmol/L (136-145) L 12/16/22 04:18 Potassium 4.6 mmol/L (3.5-5.1) D 12/16/22 04:18 BUN 27 mg/dL (7-18) H 12/16/22 04:18 Creatinine 6.76 mg/dL (0.55-1.02) H* 12/16/22 04:18 Glucose 90 mg/dL (74-106) 12/16/22 04:18 Home Medications: Atorvastatin Calcium [Lipitor*] 20 mg PO BEDTIME 11/18/21 Codeine/APAP [Tylenol #3*] 1 tab PO TIDP PRN 11/18/21 Duloxetine HCl [Cymbalta] 60 mg PO BID 11/18/21 Mirtazapine 7.5 mg PO BEDTIME 02/13/22 Sevelamer Carbonate 1,600 mg PO TIDWM 02/13/22 Thiamine HCl [Vitamin B-1*] 100 mg PO DAILY 02/13/22 Clopidogrel Bisulfate [Plavix*] 75 mg PO DAILY #90 11/14/22 Vitamin B Complex [Balanced B-50] 1 each PO DAILY 12/16/22 Midodrine HCl [Proamatine*] 5 mg PO TID tab 12/18/22 Followup: Devante Varghese MD [Primary Care Provider] -
[2022-12-19 21:34] LABS: Alpha-1-Globulins 0.5 g/dL (0.2-0.3); Gamma Globulins 1.2 g/dL (0.8-1.7); INTERPRETATION REPORT
== END 2022-12-18 12:29 | disposition home or self-care (01) | DRG 640 ==
LOC: ER 12:06 → ERHOLD 14:56 → 2ND 16:51
PROVIDERS: ADMIT Internal Medicine; ATTEND Internal Medicine
PROC: 5A1D70Z Performance of Urinary Filtration, Intermittent, Less than 6 Hours Per Day (ICD-10-PCS; principal; 2022-12-15)
DX: E87.5 Hyperkalemia (principal); G93.41 Metabolic encephalopathy; N39.0 Urinary tract infection, site not specified; I12.0 Hypertensive chronic kidney disease with stage 5 chronic kidney disease or end stage renal disease; N18.5 Chronic kidney disease, stage 5; E11.22 Type 2 diabetes mellitus with diabetic chronic kidney disease; N25.0 Renal osteodystrophy; D64.9 Anemia, unspecified; E78.5 Hyperlipidemia, unspecified; I95.9 Hypotension, unspecified; F01.50 Vascular dementia, unspecified severity, without behavioral disturbance, psychotic disturbance, mood disturbance, and anxiety; I25.10 Atherosclerotic heart disease of native coronary artery without angina pectoris; Z99.2 Dependence on renal dialysis; Z85.3 Personal history of malignant neoplasm of breast; Z95.5 Presence of coronary angioplasty implant and graft; Z91.15 Patient's noncompliance with renal dialysis; Z79.82 Long term (current) use of aspirin; Z74.01 Bed confinement status; Z98.51 Tubal ligation status; Z79.02 Long term (current) use of antithrombotics/antiplatelets; Z96.651 Presence of right artificial knee joint; Z79.899 Other long term (current) drug therapy; Z20.822 Contact with and (suspected) exposure to COVID-19
CPT/HCPCS: 0240U; 36415; 70450; 71045; 74176; 76377; 76770; 80048; 81001; 81003; 81015; 82024; 82533; 82550; 82805; 84165; 84443; 84484; 85025; 86334; 86706; 87040; 87086; 87088; 87340; 90935; 93005; 96365; 99285; A4216; J0834; J1644; J2405; J3370; J7030; J7040